=== PATIENT | female | born 1970 | race Caucasian/White ===

== ENCOUNTER 2016-08-28 09:26 | Outpatient (CLI) | payer OTHER ==
[~2016-08-28] VITALS: Ht 154.9 cm; Wt 48.2 kg
[~2016-08-28 09:26] MED LIST: FER325 PO
[2016-08-28 09:40] VITALS: BP 126/55; PULSE 68; RESP 16; Ht 154.9 cm; Wt 48.2 kg
[2016-08-28] MEDS ORDERED: DIPH25CA6 PO (09:59)
--- NOTE | 2016-08-28 11:04 | PN ---
Date/Time of Note Date/Time of Note DATE: 08/28/16 TIME: 10:55 Assessment/Plan Assessment/Plan Assessment/Plan [facility] Progress Note Date of Service: 08/28/2015 Today's Assessment & Plan: Overall stable and improved. Abd remains benign with a productive ileostomy. Feels and looks well with weight gain. Skin around the ostomy appears healthy. Reported new pain near ostomy needs further evaluation with CT scan and lab ( ordered). Please note that her clinical picture is complex and she and the rest of her family require continued dedicated physician oversight in order to manage the familial cancer issues, and the complexity of life after the kind of operation she has had. Despite the excellent care that our physician assistants can render her, I recommend that she remains under close observance of a dedicated internal medicine/family practice physician who would be involved in her care care home. I also explained to the patient and family clearly that my office is not equipped to take care of her medical needs beyond what surgical care she has received. This includes ordering supplies for her ostomy (should be done through her primary care's office), as well as further disability forms (out enough from her operation that further disability from her clinical condition becomes responsibility of her primary care team). I believe that the patient and family appeared to understand and agreed with the plan. With above assessment, I've recommended the following for today: 1. CT abd/pelvis with IV and oral contrast with labs 2. F/u with us after above 3. F/u with PCP Thank you again for your great care of this very pleasant young lady and her wonderful family. If there are any questions, please feel free to call me at . TOTAL VISIT TIME: 20 minutes of which more than half was spent in [id number] discussion with the patient as well as coordination of care between multiple physicians and providers. Disclaimer: Inadvertent spelling and grammatical errors are likely due to EHR/ dictation software use and do not reflect on the quality of delivered patient care. Also, please note that the electronic time recorded on this node does not necessarily reflect the actual time of the visit. Updated Clinical Summary: A very-pleasant 45-year-old otherwise healthy young lady with strong family history of colon cancer in 2 brothers, 1 sister, and his father who from advanced colon cancer, who was admitted to [facility] through ED on 11/09/2015 with signs and symptoms consistent with colon malignancy, metachronous in 2 places, one as a polyp in the rectum and one as a large mass in the ascending colon. D/c home 11/17/2015. 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 Plan was for total proctocolectomy with ileoanal pull through and colostomy. Readmitted through [facility] ED on 01/24/[address] of the abdomen and pelvis showed no evidence of metastatic disease and perhaps slight growth in the RUQ mass without evidence of perforation or free air. S/p total proctocolectomy with ileoanal pouch and colostomy with Dr. Bruno Marx and myself 01/30/16 with finding of multifocal CR malignancy. Hemoglobin dropped and slight tachycardia with fever postop day 1 and [address] scan 02/02/2016 that showed expected postoperative changes without any obvious intra-abdominal hemorrhage. Final path: Adenocarcinoma, moderately well-differentiated, with focal mucinous differentiation, ascending colon, 14.0 cm in maximum diameter, penetrating deeply into muscularis propria. Adenocarcinoma, moderately differentiated, rectum, 1.6 cm in maximum diameter, penetrating into muscularis propria. Proximal ileal, distal colon and pericolic/mesenteric margins are clear of tumor. Thirty-one lymph nodes are negative for metastatic carcinoma (0/ 31). Stage T2,N0,M0. Drain DC'd at bedside 02/13/2016. DC home 02/15/2016 with one visit to the emergency room at [facility] for slight blood in the colostomy back to same day right after discharge. Readmitted to [facility] 02/17/2016 for nausea vomiting and abdominal pain. D/c home 02/20/16. Readmitted from [facility] on 02/29/2016 for concerns for dehydration. D/c home 03/03/16. S/p ileostomy takedown 05/14/16. 05/21/16 small bowel follow through showed passage of contrast to pouch. Patient did vomit right after taking in the contrast. CT with IV/oral contrast 05/21/16 showed surgical changes seen from an ileostomy takedown with ileoanal anastomosis and surgical changes in the presacral fat. Less fat stranding inflammation from prior exam. There was diffuse dilatation of the small bowel present and there was thickening and narrowing at the anastomosis suggestive for obstruction which may be complete or partial. Skin defects seen in the area of the prior ileostomy. Mild intraperitoneal free fluid was seen with mild fat stranding within the right hemiabdomen. There were areas of loculated fluid present within the right abdomen in the area of prior ostomy. Small abscesses could not be excluded. The largest measured 2.7 x 1.6 cm. Patient will need to have a study from below to see if there is an obstruction at the pouch level or at the point of recent anastomosis. CT with rectal contrast 05/25/16 showed obstruction to rectal contrast approximately 15 cm above the anus indicating a stricture at this site. S/p attempt at pouch revision with permanent ileostomy as the end result 06/04/16. Please see note on 06/06/16 for detailed description of the 90 min family meeting. Repeat CT scan 06/17/2016 with oral contrast showed no evidence of bowel obstruction or abscess or leak. Lipase was slightly elevated. Sig improvement on all fronts after broad spec antimicrobials and hydration. D/c delayed due to macerated skin around ostomy site. D/c home 06/29/16. Subjective: No major events or complaints other than relatively new discomfort that has returned around her ostomy site; - n; - v; + bowel activity; + physical activity. Gained weight. Appetite is improved. Objective: Vitals: See below Exam: GENERAL: On exam, the patient was sitting in a chair and appeared to be comfortable and in no acute distress, eyes open and interactive with the examiner; mood is good. Smiling. Looks much healthier than before; perhaps gaining weight too fast. BMI 20.1. ABDOMEN: Soft, non-tender to palpation and incision site c/d/i w/o obvious underlying e/e/d/h. Non-distended. There are no peritoneal signs or guarding. Ostomy with viable color. Bilious fluid in the bag. Skin excoriation and erythema around the ostomy at the site of the ostomy bag essentially all improved. SKIN: Skin appears to be pink and feels warm to touch. NEUROLOGIC: Patient is awake, alert, and follows commands appropriately Exam/Review of Systems Vital Signs Vitals Vital Signs Date Time Temp Pulse Resp B/P Pulse Ox O2 Delivery O2 Flow Rate FiO2 08/28/16 09:40 98.8 68 16 126/55 100 Room Air CHRISTI ANDERSON M.D. Aug 28, 2016 11:04
== END 2016-08-28 17:00 | disposition home or self-care (01) ==
LOC: HPC 09:26
PROVIDERS: ATTEND Transplant Surgery
DX: Z48.815 Encounter for surgical aftercare following surgery on the digestive system (principal); R10.9 Unspecified abdominal pain; Z85.038 Personal history of other malignant neoplasm of large intestine
CPT/HCPCS: G0463

== ENCOUNTER 2016-09-11 13:28 | Outpatient (CLI) | payer OTHER ==
[~2016-09-11] VITALS: Ht 154.9 cm; Wt 50.9 kg
[~2016-09-11 13:28] MED LIST changes: +DIPH25CA6 PO
[2016-09-11 13:35] VITALS: BP 123/56; PULSE 75; RESP 16; Ht 154.9 cm; Wt 50.9 kg
--- NOTE | 2016-09-11 15:02 | PN ---
Date/Time of Note Date/Time of Note DATE: 09/11/16 TIME: 14:24 Assessment/Plan Assessment/Plan Assessment/Plan [facility] Progress Note Date of Service: 09/11/2015 Today's Assessment & Plan: Overall stable and improved. Abd remains benign with a productive and viable ileostomy. Feels and looks well with weight gain. Skin around the ostomy appears healthy. New CT very encouraging: no evidence of malignancy; no parastomal hernia; no surgical issues. Cleared from my standpoint to continue with oncology and primary care. Left neck needs to be imaged and worked up since it is a new mass. May also benefit from Spinner Operator eval for sexual discomfort complaints. Finally, very important for the family to be in the radar of a team of MD's who can manage hereditary colon malignancies. I believe that the patient and family appeared to understand and agreed with the plan. With above assessment, I've recommended the following for today: 1. F/u with Dr. Bony Eddy (oncology) 2. L neck mass evaluation 3. Family connection to team of physicians with expertise and interest in hereditary colon malignancies 4. F/u with us prn 5. F/u with PCP Thank you again for your great care of this very pleasant young lady and her wonderful family. If there are any questions, please feel free to call me at . TOTAL VISIT TIME: 20 minutes of which more than half was spent in [id number] discussion with the patient as well as coordination of care between multiple physicians and providers. Disclaimer: Inadvertent spelling and grammatical errors are likely due to EHR/ dictation software use and do not reflect on the quality of delivered patient care. Also, please note that the electronic time recorded on this node does not necessarily reflect the actual time of the visit. Updated Clinical Summary: A very-pleasant 45-year-old otherwise healthy young lady with strong family history of colon cancer in 2 brothers, 1 sister, and his father who from advanced colon cancer, who was admitted to [facility] through ED on 11/09/2015 with signs and symptoms consistent with colon malignancy, metachronous in 2 places, one as a polyp in the rectum and one as a large mass in the ascending colon. D/c home 11/17/2015. 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 Plan was for total proctocolectomy with ileoanal pull through and colostomy. Readmitted through [facility] ED on 01/24/[address] of the abdomen and pelvis showed no evidence of metastatic disease and perhaps slight growth in the RUQ mass without evidence of perforation or free air. S/p total proctocolectomy with ileoanal pouch and colostomy with Dr. Bruno Marx and myself 01/30/16 with finding of multifocal CR malignancy. Hemoglobin dropped and slight tachycardia with fever postop day 1 and [address] scan 02/02/2016 that showed expected postoperative changes without any obvious intra-abdominal hemorrhage. Final path: Adenocarcinoma, moderately well-differentiated, with focal mucinous differentiation, ascending colon, 14.0 cm in maximum diameter, penetrating deeply into muscularis propria. Adenocarcinoma, moderately differentiated, rectum, 1.6 cm in maximum diameter, penetrating into muscularis propria. Proximal ileal, distal colon and pericolic/mesenteric margins are clear of tumor. Thirty-one lymph nodes are negative for metastatic carcinoma (0/ 31). Stage T2,N0,M0. Drain DC'd at bedside 02/13/2016. DC home 02/15/2016 with one visit to the emergency room at [facility] for slight blood in the colostomy back to same day right after discharge. Readmitted to [facility] 02/17/2016 for nausea vomiting and abdominal pain. D/c home 02/20/16. [facility]2016 for concerns for dehydration. D/c home 03/03/16. S/p ileostomy takedown 05/14/16. 05/21/16 small bowel follow through showed passage of contrast to pouch. Patient did vomit right after taking in the contrast. CT with IV/oral contrast 05/21/16 showed surgical changes seen from an ileostomy takedown with ileoanal anastomosis and surgical changes in the presacral fat. Less fat stranding inflammation from prior exam. There was diffuse dilatation of the small bowel present and there was thickening and narrowing at the anastomosis suggestive for obstruction which may be complete or partial. Skin defects seen in the area of the prior ileostomy. Mild intraperitoneal free fluid was seen with mild fat stranding within the right hemiabdomen. There were areas of loculated fluid present within the right abdomen in the area of prior ostomy. Small abscesses could not be excluded. The largest measured 2.7 x 1.6 cm. Patient will need to have a study from below to see if there is an obstruction at the pouch level or at the point of recent anastomosis. CT with rectal contrast 05/25/16 showed obstruction to rectal contrast approximately 15 cm above the anus indicating a stricture at this site. S/p attempt at pouch revision with permanent ileostomy as the end result 06/04/16. Please see note on 06/06/16 for detailed description of the 90 min family meeting. Repeat CT scan 06/17/2016 with oral contrast showed no evidence of bowel obstruction or abscess or leak. Lipase was slightly elevated. Sig improvement on all fronts after broad spec antimicrobials and hydration. D/c delayed due to macerated skin around ostomy site. D/c home 06/29/16. Repeat CT 09/04/16: no evidence of malignancy; no parastomal hernia; no surgical issues. Subjective: No major events or complaints other than relatively stable discomfort around her ostomy site; - n; - v; + bowel activity; + physical activity. Appetite is good. New Left neck mass. Some discomfort with sexual activity. Objective: Vitals: See below Exam: GENERAL: On exam, the patient was sitting in a chair and appeared to be comfortable and in no acute distress, eyes open and interactive with the examiner; mood is good. Smiling. Looks good. BMI 21.2 (previously 20.1). Left neck with a 1.5 cm mass in the submandibular space. Minimally tender to palpation. Skin around is not erythematous. ABDOMEN: Soft, non-tender to palpation and incision site c/d/i w/o obvious underlying e/e/d/h. Non-distended. There are no peritoneal signs or guarding. Ostomy with viable color. Bilious fluid in the bag. No skin excoriation and erythema around the ostomy at the site of the ostomy bag. SKIN: Skin appears to be pink and feels warm to touch. NEUROLOGIC: Patient is awake, alert, and follows commands appropriately Exam/Review of Systems Vital Signs Vitals Vital Signs Date Time Temp Pulse Resp B/P Pulse Ox O2 Delivery O2 Flow Rate FiO2 09/11/16 13:35 98.3 75 16 123/56 100 Room Air CHRISTI ANDERSON M.D. Sep 11, 2016 15:02
== END 2016-09-11 16:46 | disposition home or self-care (01) ==
LOC: HPC 13:28
PROVIDERS: ATTEND Transplant Surgery
DX: C18.9 Malignant neoplasm of colon, unspecified (principal); Z80.0 Family history of malignant neoplasm of digestive organs
CPT/HCPCS: G0463

== ENCOUNTER 2017-01-12 19:24 | Emergency (ER) | payer OTHER ==
[~2017-01-12] VITALS: Ht 152.4 cm; Wt 64.0 kg
[2017-01-12 19:33] VITALS: Ht 152.4 cm; Wt 64.0 kg
[2017-01-12] MEDS ORDERED: ONDANSETRON 4 MG INJ IV STA ×2 (21:20→23:26)
[2017-01-12] MEDS ORDERED: morphine 4 MG/ML VIAL IV STA ×2 (21:20→23:26)
[2017-01-12 22:03] LABS: ADD SCAN DIFF NO
[2017-01-12 22:06] LABS: BASOPHILS % 0.4 % (0.0-2.0); EOSINOPHILS # 0.2 10^3/ul (0.0-0.5); EOSINOPHILS % 2.3 % (0.0-7.0); HEMATOCRIT 36.4 % (37.0-47.0); HEMOGLOBIN 12.1 g/dl (12.0-16.0); LYMPHOCYTES # 3.1 10^3/ul (0.8-2.9); LYMPHOCYTES % 34.1 % (15.0-51.0); MEAN CORPUSCULAR HEMOGLOBIN 31.2 pg (29.0-33.0); MEAN CORPUSCULAR HGB CONC 33.2 g/dl (32.0-37.0); MEAN CORPUSCULAR VOLUME 93.8 fl (82.0-101.0); MEAN PLATELET VOLUME 9.9 fl (7.4-10.4); MONOCYTE # 0.5 10^3/ul (0.3-0.9); MONOCYTES % 5.2 % (0.0-11.0); NEUTROPHIL # 5.1 10^3/ul (1.6-7.5); NEUTROPHILS % 56.8 % (39.0-77.0); PLATELET COUNT 315 10^3/UL (140-415); RED BLOOD COUNT 3.88 10^6/ul (4.20-5.40); RED CELL DISTRIBUTION WIDTH 11.9 % (11.5-14.5)
[2017-01-12 22:08] LABS: ADD UMIC YES; URINE BILIRUBIN (Dip) 1+ (NEGATIVE); URINE BLOOD (Dip) 3+ (NEGATIVE); URINE COLOR BROWN (YELLOW); URINE GLUCOSE (Dip) NEGATIVE (NEGATIVE); URINE KETONES (Dip) NEGATIVE (NEGATIVE); URINE LEUKOCYTE ESTERASE (Dip) TRACE (NEGATIVE); URINE NITRITE (Dip) NEGATIVE (NEGATIVE); URINE TOTAL PROTEIN (Dip) 2+ (NEGATIVE); URINE UROBILINOGEN (Dip) 0.2 E.U./dL (0.1-1.0)
[2017-01-12 22:17] LABS: ICTOTEST NEGATIVE (NEGATIVE)
[2017-01-12 22:18] LABS: URINE RBCS >200 /HPF (0)
[2017-01-12 22:19] LABS: BACTERIA,URINE FEW
[2017-01-12 22:20] LABS: ALBUMIN 4.7 g/dl (3.3-4.9)
[2017-01-12 22:21] LABS: POTASSIUM 4.2 mmol/L (3.5-5.1)
[2017-01-12 22:23] LABS: ALBUMIN/GLOBULIN RATIO 1.14; BILIRUBIN,INDIRECT 0.2 mg/dl (0-1.1); BILIRUBIN,TOTAL 0.2 mg/dl (0.2-1.3); CREATININE 0.79 mg/dl (0.44-1.00); TOTAL PROTEIN 8.8 g/dl (6.1-8.1)
[2017-01-12 22:24] LABS: CALCIUM 9.7 mg/dl (8.4-10.2)
--- NOTE | 2017-01-13 00:14 | RADRPT ---
PROCEDURE: CT abdomen and pelvis without intravenous contrast. CLINICAL INDICATION: Pain. TECHNIQUE: CT of the abdomen/pelvis was performed utilizing axial images with reconstructions in s agittal and coronal planes. The administered radiation dose is CTDI 10.5 mGy, DLP 603 mGy-cm. COMPARISON: 06/17/2016 FINDINGS: Visualized Chest: The visualized lung bases are clear. Abdomen: The spleen, pancreas, gallbladder,and adrenal glands are unremarkable. The liver is markedly, dif fusely decreased in attenuation, compatible with hepatic steatosis. There is mild left hydronephrosis secondary to a 2-3 mm calculus in the proximal left ureter. The r ight kidney is without hydronephrosis. Multiple calculi are seen within the lower pole of the right kidney, including a larger staghorn calculus which measures up to 16 mm and a few small calculi. T hese are new compared to the prior exam. Prior partial resection of the colon is noted with right lower quadrant ileostomy formation. There is no evidence of bowel obstruction. There is no evidence of intra-abdominal adenopathy or free fluid. Pelvis: There is no evidence of pelvic adenopathy. The uterus and ovaries are without enlargement. The uri nary bladder is unremarkable. There is no pelvic free fluid. Osseous structures: Unremarkable. IMPRESSION: Mild left-sided obstructive uropathy secondary to a to a 3 mm calculus in the proximal left ureter. Right nephrolithiasis including a staghorn calculus at the lower pole. Marked hepatic steatosis. RPTAT: HIKT .Nadeem Tenorio MD, MD Date Time Electronically viewed and signed by .Nadeem Tenorio MD, on 01/13/2017 00:13 .T/
[2017-01-13] MEDS ORDERED: IBUP800T25 PO (00:31)
[2017-01-13] MEDS ORDERED: KETOROLAC 30 MG INJ IV STA (00:48)
[2017-01-13 01:00] VITALS: BP 162/88; PULSE 84; RESP 20; TEMP 99
--- NOTE | 2017-01-13 01:26 | ERD ---
ER Documentation Chief Complaint Date/Time DATE: 01/13/17 TIME: 01:09 Chief Complaint Right flank pain 1 month HPI 46-year-old female complaining of left flank pain 2 weeks. Patient stated that she had hematuria and slight dysuria for the last 2 weeks as well. The pain is sharp, comes and goes. Patient has history of colon cancer, had colon resection surgery and colostomy bag 1 year ago. In the last month, she has noticed blood in the colostomy bag daily. She does not have any blood currently. She is not under any cancer treatment at this time, her last oncology appointment was 3-4 months ago. She is in the process of changing her oncologist. Patient reports nausea but no vomiting. Denies fever or chills. Denies recent weight loss. ROS All systems reviewed and are negative except as per history of present illness. Medications Home Meds Active Scripts Ibuprofen* (Motrin*) 800 Mg Tab, 800 MG PO Q6H Y for PAIN AND OR ELEVATED TEMP, #30 TAB Prov:DOROTHY LOVE ARSON AND BOMB INVESTIGATOR 01/13/17 Ferrous Sulfate* (Ferrous Sulfate*) 325 Mg Tabec, 325 MG PO TID for 30 Days, TAB 3 Refills Prov:RONEL FRIAS S. 02/15/16 Reported Medications Diphenhydramine Hcl* (Diphenhydramine Hcl*) 25 Mg Capsule, 25 MG PO Q6 Y for ITCHING, CAP 08/28/16 Allergies Allergies: Coded Allergies: No Known Drug Allergies (Verified Allergy, Unknown, 05/14/16) PMhx/Soc History of Surgery: Yes (S/P REPEAT EXPLORATORY LAPAROTOMY) Anesthesia Reaction: No Hx Neurological Disorder: No Hx Respiratory Disorders: No Hx Cardiac Disorders: No Hx Psychiatric Problems: No Hx Miscellaneous Medical Probl: Yes (refer to note) Hx Alcohol Use: No Hx Substance Use: No Hx Tobacco Use: No Smoking Status: Never smoker Physical Exam Vitals Vital Signs Date Time Temp Pulse Resp B/P Pulse Ox O2 Delivery O2 Flow Rate FiO2 01/13/17 01:00 99.0 84 20 162/88 97 Room Air 01/12/17 19:33 99.4 82 20 136/86 97 Physical Exam General: Well-developed, well-nourished, conscious and coherent, in no distress Skin: Warm and dry without rash, good texture and turgor Head: Normocephalic without evidence of trauma Eyes: Sclera and conjunctivae normal; pupils equal, round, and reactive to light; extraocular movements are intact Neck: Supple without meningismus or adenopathy. Carotids are equal. Trachea midline. No bruits or JVD Chest: Normal AP diameter. Good expansion without retractions. Nontender. Lungs are clear to auscultate bilaterally with good tidal volume Heart: Regular rate and rhythm. No murmur, rub, or gallops heard Abdomen: Soft and nontender without masses, guarding, or rebound. Bowel sounds are active. No hepatosplenomegaly Back: Without spinal tenderness. Positive left CVA tenderness Pelvis: Nontender to palpation and stable to compression Extremities: Full range of motion. Good strength bilaterally. No clubbing, cyanosis, or edema. Peripheral pulses are intact. Sensation intact Neuro: Alert and oriented 4, GCS 15. Cranial nerves grossly intact. Motor and sensory exams nonfocal. Moves all extremities. Speech clear. Gait normal Result Diagram: 01/12/17214501/12/176 Results 24 hrs Laboratory Tests Test 01/12/17 21:46 White Blood Count 9.010^3/ul Red Blood Count 3.8810^6/ul Hemoglobin 12.1g/dl Hematocrit 36.4% Mean Corpuscular Volume 93.8fl Mean Corpuscular Hemoglobin 31.2pg Mean Corpuscular Hemoglobin Concent 33.2g/dl Red Cell Distribution Width 11.9% Platelet Count 37348^3/UL Mean Platelet Volume 9.9fl Neutrophils % 56.8% Lymphocytes % 34.1% Monocytes % 5.2% Eosinophils % 2.3% Basophils % 0.4% Nucleated Red Blood Cells % 0.0/100WBC Neutrophils # 5.110^3/ul Lymphocytes # 3.110^3/ul Monocytes # 0.510^3/ul Eosinophils # 0.210^3/ul Basophils # 0.010^3/ul Nucleated Red Blood Cells # 0.010^3/ul Urine Color BROWN Urine Clarity CLOUDY Urine pH 5.0 Urine Specific [place] >=1.030 Urine Ketones NEGATIVE Urine Nitrite NEGATIVE Urine Bilirubin 1+ Urine Ictotest NEGATIVE Urine Urobilinogen 0.2 E.U./dL Urine Leukocyte Esterase TRACE Urine Microscopic RBC >200/HPF Urine Microscopic WBC 5-10/HPF Urine Bacteria FEW Urine Hemoglobin 3+ Urine Glucose NEGATIVE% Urine Total Protein 2+ Urine Test NEGATIVE Sodium Level 139mmol/L Potassium Level 4.2mmol/L Chloride Level 100mmol/L Carbon Dioxide Level 24mmol/L Anion Gap 19 Blood Urea Nitrogen 19mg/dl Creatinine 0.79mg/dl Glucose Level 101mg/dl Calcium Level 9.7mg/dl Total Bilirubin 0.2mg/dl Direct Bilirubin 0.00mg/dl Indirect Bilirubin 0.2mg/dl Aspartate Amino Transf (AST/SGOT) 96IU/L Alanine Aminotransferase (ALT/SGPT) 179IU/L Alkaline Phosphatase 133IU/L Total Protein 8.8g/dl Albumin 4.7g/dl Globulin 4.10g/dl Albumin/Globulin Ratio 1.14 Lipase 109U/L Current Medications Medications (Trade) Dose Ordered Sig/Cony Route PRN Reason Start Time Stop Time Status Last Admin Dose Admin Morphine Sulfate (morphine) 4 mg ONCE STAT IV 01/12/17 21:20 01/12/17 21:22 DC 01/12/17 21:34 Ondansetron HCl (Zofran Inj) 4 mg ONCE STAT IV 01/12/17 21:20 01/12/17 21:22 DC 01/12/17 21:34 Morphine Sulfate (morphine) 4 mg ONCE STAT IV 01/12/17 23:26 01/12/17 23:28 DC 01/12/17 23:36 Ondansetron HCl (Zofran Inj) 4 mg ONCE STAT IV 01/12/17 23:26 01/12/17 23:28 DC 01/12/17 23:36 Ketorolac Tromethamine (Toradol) 30 mg ONCE STAT IV 01/13/17 00:48 01/13/17 00:49 DC 01/13/17 00:59 PROCEDURE: CT abdomen and pelvis without intravenous contrast. CLINICAL INDICATION: Pain. TECHNIQUE: CT of the abdomen/pelvis was performed utilizing axial images with reconstructions in sagittal and coronal planes. The administered radiation dose is CTDI 10.5 mGy, DLP 603 mGy-cm. COMPARISON: 06/17/2016 FINDINGS: Visualized Chest: The visualized lung bases are clear. Abdomen: The spleen, pancreas, gallbladder,and adrenal glands are unremarkable. The liver is markedly, diffusely decreased in attenuation, compatible with hepatic steatosis. There is mild left hydronephrosis secondary to a 2-3 mm calculus in the proximal left ureter. The right kidney is without hydronephrosis. Multiple calculi are seen within the lower pole of the right kidney, including a larger staghorn calculus which measures up to 16 mm and a few small calculi. These are new compared to the prior exam. Prior partial resection of the colon is noted with right lower quadrant ileostomy formation. There is no evidence of bowel obstruction. There is no evidence of intra-abdominal adenopathy or free fluid. Pelvis: There is no evidence of pelvic adenopathy. The uterus and ovaries are without enlargement. The urinary bladder is unremarkable. There is no pelvic free fluid. Osseous structures: Unremarkable. IMPRESSION: Mild left-sided obstructive uropathy secondary to a to a 3 mm calculus in the proximal left ureter. Right nephrolithiasis including a staghorn calculus at the lower pole. Marked hepatic steatosis. RPTAT: HIKT .Nadeem Tenorio MD, MD Date Time Electronically viewed and signed by .Nadeem Tenorio MD, MD on 01/13/2017 00:13 .T/ CC: DOROTHY LOVE. ARSON AND BOMB INVESTIGATOR Procedures/MDM 46-year-old female presented ED with left flank pain and hematuria 2 weeks. Patient was given morphine and Zofran in the ED for pain and nausea. CBC was unremarkable. CMP showed elevated LFT with normal bilirubin. Lipase is normal. UA has trace leukocyte, negative nitrite, few bacteria; 3+ hemoglobin. CT abdomen and pelvis without IV contrast was obtained. CT showed mild left-sided obstructive uropathy secondary to a 3 mm calculus in the proximal left ureter, right renal left renal lithiasis including a staghorn calculus at the lower pole, markedly hepatic steatosis. I think likely the urolithiasis is because of patient's flank pain. Patient does have trace leukocyte in the urine, however I do not feel that she has UTI, as she does not have any classic UTI symptoms. The trace leukocyte in urine is likely due to [id number]. I doubt pyelonephritis or renal abscess. I discussed patient with Dr. Salamanca. Patient is elevated liver function and blood in the stool is likely due to her colon cancer. I advised patient to follow-up with her oncologist. Patient also advised to increase fluid intake, and follow-up with a urologist for her urolithiasis. Patient appears well, stable for discharge and outpatient management. Medical decision making shared with patient and family. Education provided to patient and family. Patient and family expressed understanding of the plan. Medications on discharge: Ibuprofen. Follow-up: Primary care provider in 2-3 days or return to ED if worse. Departure Diagnosis: Primary Impression: Kidney stones Condition: Stable Patient Instructions: Kidney Stone W/ Colic Additional Instructions: Llame al doctor MAANA y gwendolyn divine ODALYS PARA DENTRO DE 2-3 ANN.Dgale a la secretaria que nosotros le instruimos hacer esta odalys.Avise o llame si lamas condicin se empeora antes de la odalys. Regresa aqui si peor o no mejor. Specialist:Usted tiene divine condicin mdica que requiere que mario a un especialista dentro de los prximos 1-2 romeo.POR FAVOR,CON LAMAS SEGUIMIENTO DE PRIMARIA PHSICIAN refferal. SI USTED NO TIENE UN MDICO GENERAL Y / O USTED NO PUEDE PAGAR celena a un mdico,los siguientes estrella RECURSOS sido suministrado a usted. ES LAMAS RESPONSABILIDAD PARA SER VISTOS POR EL ESPECIALISTA: DOROTHY LOVE NP January 13, 2017 01:26
== END 2017-01-13 01:06 | disposition home or self-care (01) ==
LOC: FTE 19:24
DX: N20.0 Calculus of kidney (principal); R11.0 Nausea; Z85.038 Personal history of other malignant neoplasm of large intestine
CPT/HCPCS: 74176; 80053; 81001; 81003; 83690; 84703; 85025; J1885; J2270; J2405; 36415; 96374; 96375; 96376

== ENCOUNTER 2017-03-17 18:56 | Emergency (ER) | payer OTHER ==
[~2017-03-17] VITALS: Ht 152.4 cm; Wt 64.0 kg
[~2017-03-17 18:56] MED LIST changes: +IBUP800T25 PO
[2017-03-17 19:02] VITALS: Ht 152.4 cm; Wt 64.0 kg
[2017-03-17] MEDS ORDERED: ONDANSETRON 4 MG INJ IV SCH (22:30)
[2017-03-17] MEDS ORDERED: SOD CHLORIDE 0.9% 500 ML IV SCH (22:30)
[2017-03-17] MEDS: morphine 4 MG/ML VIAL IV SCH (23:00)
[2017-03-18 01:26] LABS: BASOPHILS % 0.3 % (0.0-2.0); EOSINOPHILS % 0.3 % (0.0-7.0); HEMATOCRIT 32.5 % (37.0-47.0); HEMOGLOBIN 11.5 g/dl (12.0-16.0); LYMPHOCYTES # 1.4 10^3/ul (0.8-2.9); LYMPHOCYTES % 12.4 % (15.0-51.0); MEAN CORPUSCULAR HEMOGLOBIN 31.8 pg (29.0-33.0); MEAN CORPUSCULAR HGB CONC 35.4 g/dl (32.0-37.0); MEAN CORPUSCULAR VOLUME 89.8 fl (82.0-101.0); MEAN PLATELET VOLUME 10.7 fl (7.4-10.4); MONOCYTE # 0.5 10^3/ul (0.3-0.9); NEUTROPHIL # 9.4 10^3/ul (1.6-7.5); NEUTROPHILS % 82.5 % (39.0-77.0); PLATELET COUNT 284 10^3/UL (140-415); RED BLOOD COUNT 3.62 10^6/ul (4.20-5.40); RED CELL DISTRIBUTION WIDTH 11.9 % (11.5-14.5); WHITE BLOOD COUNT 11.4 10^3/ul (4.8-10.8)
[2017-03-18] MEDS ORDERED: KETOROLAC 30 MG INJ IV SCH (01:30)
[2017-03-18] MEDS ORDERED: ONDANSETRON 4 MG INJ IV SCH (01:30)
[2017-03-18] MEDS ORDERED: morphine 4 MG/ML VIAL IV SCH (01:30)
[2017-03-18] MEDS: morphine 4 MG/ML VIAL IV SCH (01:34)
[2017-03-18 02:10] LABS: UR CLARITY SLIGHTLY CLOUDY (CLEAR); UR COLOR YELLOW (YELLOW); UR GLUCOSE (Dip) NEGATIVE (NEGATIVE); UR SPECIFIC GRAVITY (Dip) 1.012 (1.003-1.030); UR TOTAL PROTEIN (Dip) NEGATIVE (NEGATIVE)
[2017-03-18 02:11] LABS: ADD UMIC YES; UR BILIRUBIN (Dip) NEGATIVE (NEGATIVE); UR BLOOD (Dip) 2+ mg/dL (NEGATIVE); UR KETONES (Dip) NEGATIVE (NEGATIVE); UR LEUKOCYTE ESTERASE (Dip) NEGATIVE Leu/ul (NEGATIVE); UR NITRITE (Dip) NEGATIVE (NEGATIVE); UR RBC 39 /HPF (0-5); UR UROBILINOGEN (Dip) NEGATIVE (NEGATIVE)
[2017-03-18 02:28] LABS: ALBUMIN/GLOBULIN RATIO 1.51; BILIRUBIN,INDIRECT 0.3 mg/dl (0-1.1); BILIRUBIN,TOTAL 0.3 mg/dl (0.2-1.3); CALCIUM 10.3 mg/dl (8.4-10.2); CREATININE 0.72 mg/dl (0.44-1.00); POTASSIUM 4.5 mmol/L (3.5-5.1); TOTAL PROTEIN 8.3 g/dl (6.1-8.1)
--- NOTE | 2017-03-18 02:34 | ERD ---
ER Documentation Chief Complaint Date/Time DATE: 03/18/17 TIME: 02:33 Chief Complaint right flank pain x 1 day HPI 46-year-old female presents with right-sided flank pain that goes to her right upper quadrant over the past 2 days. She describes as achy pain, sharp, with associated nausea. She has not had any fevers or chills. No vomiting or diarrhea. Denies hematuria. ROS All systems reviewed and are negative except as per history of present illness. Medications Home Meds Active Scripts Hydrocodone/Acetaminophen ([place] 5-325 Tablet) 1 Each Tablet, 1 TAB PO Q6H Y for PAIN, #15 TAB Prov:MARILU CASTRO PA-C 03/18/17 Ibuprofen* (Motrin*) 600 Mg Tab, 600 MG PO Q6, #30 TAB Prov:MARILU CASTRO PA-C 03/18/17 Tamsulosin Hcl* (Flomax*) 0.4 Mg Cap.er.24h, 0.4 MG PO BID, #30 CAP Prov:MARILU CASTRO PA-C 03/18/17 Ibuprofen* (Motrin*) 800 Mg Tab, 800 MG PO Q6H Y for PAIN AND OR ELEVATED TEMP, #30 TAB Prov:DOROTHY LOVE LEAD DATA ENTRY OPERATOR 01/13/17 Ferrous Sulfate* (Ferrous Sulfate*) 325 Mg Tabec, 325 MG PO TID for 30 Days, TAB 3 Refills Prov:RONEL FRIAS 02/15/16 Reported Medications Diphenhydramine Hcl* (Diphenhydramine Hcl*) 25 Mg Capsule, 25 MG PO Q6 Y for ITCHING, CAP 08/28/16 Allergies Allergies: Coded Allergies: No Known Drug Allergies (Verified Allergy, Unknown, 03/17/17) PMhx/Soc History of Surgery: Yes (S/P REPEAT EXPLORATORY LAPAROTOMY) Anesthesia Reaction: No Hx Neurological Disorder: No Hx Respiratory Disorders: No Hx Cardiac Disorders: No Hx Psychiatric Problems: No Hx Miscellaneous Medical Probl: Yes (refer to note) Hx Alcohol Use: No Hx Substance Use: No Hx Tobacco Use: No Smoking Status: Never smoker Physical Exam Vitals Vital Signs Date Time Temp Pulse Resp B/P Pulse Ox O2 Delivery O2 Flow Rate FiO2 03/17/17 19:02 98.2 66 20 163/83 100 Physical Exam General: Well-developed, well-nourished. The patient appears in no acute distress. HEENT: Head is normocephalic, atraumatic. No scleral icterus. Neck: Supple. Nontender. Lungs: Clear to auscultation. Normal air movement. Heart: Regular rate and rhythm. S1 and S2 are normal. No murmurs, gallops, or rubs. Abdomen: Soft, no CVA tenderness, nontender, no masses, no rebound pain. Bowel sounds are normoactive. Negative Wheeler sign, no McBurney's tenderness Extremities: No clubbing or cyanosis. Normal pulses. Moving extremities x 4. No weakness. Neurologic: Alert and oriented 3. No focal deficits. Skin: Normal turgor. No rash or lesions. Result Diagram: 03/17/17224703/17/172247 Results 24 hrs Laboratory Tests Test 03/17/17 22:48 White Blood Count 11.410^3/ul Red Blood Count 3.6210^6/ul Hemoglobin 11.5g/dl Hematocrit 32.5% Mean Corpuscular Volume 89.8fl Mean Corpuscular Hemoglobin 31.8pg Mean Corpuscular Hemoglobin Concent 35.4g/dl Red Cell Distribution Width 11.9% Platelet Count 81279^3/UL Mean Platelet Volume 10.7fl Neutrophils % 82.5% Lymphocytes % 12.4% Monocytes % 4.0% Eosinophils % 0.3% Basophils % 0.3% Nucleated Red Blood Cells % 0.0/100WBC Neutrophils # 9.410^3/ul Lymphocytes # 1.410^3/ul Monocytes # 0.510^3/ul Eosinophils # 0.010^3/ul Basophils # 0.010^3/ul Nucleated Red Blood Cells # 0.010^3/ul Urine Color YELLOW Urine Clarity SLIGHTLY CLOUDY Urine pH 5.0 Urine Specific [place] 1.012 Urine Ketones NEGATIVEmg/dL Urine Nitrite NEGATIVEmg/dL Urine Bilirubin NEGATIVEmg/dL Urine Urobilinogen NEGATIVEmg/dL Urine Leukocyte Esterase NEGATIVELeu/ul Urine Microscopic RBC 39/HPF Urine Microscopic WBC 3/HPF Urine Calcium Oxalate Crystals FEW/HPF Urine Hemoglobin 2+mg/dL Urine Glucose NEGATIVEmg/dL Urine Total Protein NEGATIVEmg/dl Urine Test NEGATIVE Sodium Level 144mmol/L Potassium Level 4.5mmol/L Chloride Level 103mmol/L Carbon Dioxide Level 22mmol/L Anion Gap 24 Blood Urea Nitrogen 16mg/dl Creatinine 0.72mg/dl Glucose Level 115mg/dl Calcium Level 10.3mg/dl Total Bilirubin 0.3mg/dl Direct Bilirubin 0.00mg/dl Indirect Bilirubin 0.3mg/dl Aspartate Amino Transf (AST/SGOT) 116IU/L Alanine Aminotransferase (ALT/SGPT) 180IU/L Alkaline Phosphatase 109IU/L Total Protein 8.3g/dl Albumin 5.0g/dl Globulin 3.30g/dl Albumin/Globulin Ratio 1.51 Lipase 111U/L Current Medications Medications (Trade) Dose Ordered Sig/Cony Route PRN Reason Start Time Stop Time Status Last Admin Dose Admin Ondansetron HCl (Zofran Inj) 4 mg ONCE IV 03/17/17 22:30 03/18/17 22:29 03/17/17 23:00 Morphine Sulfate 4 mg 4 mg ONCE IV 03/17/17 22:30 03/18/17 22:29 03/18/17 01:34 Sodium Chloride (NS) 500 ml @ 500 mls/hr Q1H IV 03/17/17 22:30 03/17/17 23:29 DC 03/17/17 23:00 Ketorolac Tromethamine (Toradol) 30 mg ONCE IV 03/18/17 01:30 03/18/17 01:31 DC 03/18/17 01:35 Morphine Sulfate (morphine) 4 mg ONCE IV 03/18/17 01:30 03/18/17 01:31 DC 03/18/17 01:34 Ondansetron HCl (Zofran Inj) 4 mg ONCE IV 03/18/17 01:30 03/18/17 01:31 DC 03/18/17 01:35 Procedures/MDM ED course: Patient had an IV placed, blood and urine were obtained. She was given morphine 4 mg and Zofran 4 mg IV. She states that she continues to have pain, then was given Toradol 30 mg IV, Zofran 4 mg IV, with morphine additional 4 mg were given with a fluid bolus of normal saline half liter. 46-year-old female comes in with, history of kidney stones, history of colon CA with colostomy coming in with right-sided flank pain. Differential diagnosis includes kidney stone, pancreatitis cholelithiasis, cholecystitis, labs are unremarkable, there is evidence a hemoglobin the urine, likely indicative of kidney stones based on her history. Patient states he had this time will be signed out to Krystyna Guy PA-C. Departure Diagnosis: Primary Impression: Abdominal pain Condition: Good MARILU CASTRO PA-C Mar 18, 2017 02:34
[2017-03-18] MEDS ORDERED: HYDR-906 PO (02:51)
[2017-03-18] MEDS ORDERED: TAMS-14 PO (02:51)
[2017-03-18] MEDS ORDERED: IBUP-1542 PO (02:51)
--- NOTE | 2017-03-18 03:31 | RADRPT ---
PROCEDURE: CT Abdomen and pelvis with contrast CLINICAL INDICATION: Flank pain. Prior history of urolithiasis. TECHNIQUE: Spiral CT images through the abdomen and pelvis without administration of oral and duri ng administration of 100 cc of Omnipaque-300 contrast material. Multiplanar reconstructions. The t otal exam CTDI equals 8.65 mGy and the total exam DLP equals 468.6 mGy-cm. One or more of the follow ing dose reduction techniques were used: automated exposure control, adjustment of the mA and/or kV according to patient size, or use of iterative reconstruction technique. COMPARISON: 01/13/2017 FINDINGS: Slight atelectasis of the lung bases is seen. No pleural effusion is seen. . The aorta is normal in caliber. Again seen is marked diffuse hepatic steatosis and hepatomegaly. Focal fatty sparing adjacent to th e gallbladder and at the periphery of the right lobe of the liver is again seen. There is 8 mm focus of enhancement or possibly focal fatty sparing in the posterior segment of the right lobe of the li celena on axial image 27. This was not seen on the most recent prior contrast enhanced CT of 6. No other potential liver lesions are identified. The gallbladder is enlarged, measuring 10.1 cm in length. No gross wall thickening is seen. No biliary or pancreatic ductal dilatation. The adr enals and pancreas are unremarkable in appearance. Staghorn calculus in the right kidney extending into the right renal pelvis is unchanged. There is mild urothelial enhancement of the right renal p fabián but no hydronephrosis is seen. The left hydronephrosis seen previously is no longer seen. Th e previously seen left ureter stone is no longer seen. No stones are seen in the right ureter but there are several small stones layering in the right aspect of the urinary bladder, new compared wit h prior. . The uterus and adnexa are grossly unremarkable. Right lower quadrant ileostomy is again seen. An anastomotic suture line of small bowel is again seen. Air is seen in what is presumed to be the vagina displaced into the presacral space. There appears to have been prior total colectomy. No adenopathy or ascites is seen. No bony lesions are seen. IMPRESSION: Prior colectomy for colon neoplasm. Diffuse hepatic steatosis with areas of probable focal fatty sp aring. 8 mm focus of enhancement or possible focal fatty sparing in the posterior segment of the ri ght lobe of the liver was not seen on the to most recent prior CT studies. MRI with Eovist contrast is suggested to exclude metastasis. Previously seen left ureter stone no longer seen. Right renal staghorn calculus again seen with mil d associated urothelial enhancement. Several new small layering stones in the urinary bladder. RPTAT: HLBE Barb Frank, Physician Date Time Electronically viewed and signed by Barb Frank, Physician on 03/18/2017 03:30 LE/
[2017-03-18 03:58] VITALS: BP 111/59; PULSE 69; RESP 16; TEMP 98.2
[2017-03-19] MEDS ORDERED: SOD CHLORIDE 0.9% 100 ML ONE (18:01)
[2017-03-19] MEDS ORDERED: KETOROLAC 30 MG INJ ONE (18:01)
[2017-03-19] MEDS ORDERED: IOHEXOL 300MG/ML 150 ML BTL ONE (18:01)
== END 2017-03-18 03:59 | disposition home or self-care (01) ==
LOC: FTE 18:56
DX: R10.9 Unspecified abdominal pain (principal)
CPT/HCPCS: 74177; 80053; 81001; 83690; 84703; 85025; 96374; 96375; 96376; J7040; Z7502; J1885; J2270; J2405; Q9967

== ENCOUNTER 2017-05-01 12:30 | Inpatient (IN) | payer OTHER ==
[2017-04-30 12:17] VITALS: BMI 28.3
[~2017-05-01] VITALS: Ht 154.9 cm; Wt 59.0 kg
[2017-05-01] VITALS (13 sets, daily range): BP systolic 94–124; BP diastolic 57–78; PULSE 70–108; RESP 10–20; Ht 154.9 cm; Wt 59.0 kg
[2017-05-01] MEDS: D5-NS + KCL 20 MEQ 1,000 ML IV SCH ×2 (06:00→16:00)
[~2017-05-01 12:30] MED LIST changes: +ACETAMINOPHEN 1000 MG/100 ML IVPB ONE; +CEFAZOLIN 2 GM/50 ML (PMX) 50 ML IVPB SCH; +HYDR-906 PO; +IBUP-1542 PO; +Metronidazole 500 MG in NS 100 ML IVPB SCH; +TAMS-14 PO
[2017-05-01] MEDS ORDERED: PROPOFOL 20 ML ONE (13:29)
[2017-05-01] MEDS ORDERED: CEFAZOLIN 1 GM INJ ONE ×2 (13:29→20:33)
[2017-05-01] MEDS ORDERED: SUCCINYLCHOLINE CHLORIDE 100 MG/5 ML SYG IV ONE (13:29)
[2017-05-01] MEDS ORDERED: FENTAnyl 50 MCG/ML VIAL ONE ×2 (13:29→18:01)
[2017-05-01] MEDS ORDERED: LIDOCAINE 2% (SDV) 5 ML INJ ONE (13:29)
[2017-05-01] MEDS ORDERED: MIDAZOLAM 1 MG/ML 2 ML INJ ONE (13:29)
[2017-05-01] MEDS ORDERED: metroNIDAZOLE 500 MG/NS (PMX) 100 ML IVPB ONE (13:30)
[2017-05-01] MEDS ORDERED: OMEG-135 PO (13:54)
[2017-05-01] MEDS ORDERED: FER325 PO (13:55)
[2017-05-01] MEDS ORDERED: ALLO100T PO (13:55)
[2017-05-01] MEDS ORDERED: SERT50TA6 PO (13:57)
[2017-05-01] MEDS ORDERED: GEMF600T60 PO (13:57)
[2017-05-01 15:12] LABS: ADD UMIC YES; UR ASCORBIC ACID NEGATIVE (NEGATIVE); UR BILIRUBIN (Dip) NEGATIVE (NEGATIVE); UR BLOOD (Dip) 2+ mg/dL (NEGATIVE); UR CLARITY SLIGHTLY CLOUDY (CLEAR); UR COLOR YELLOW (YELLOW); UR GLUCOSE (Dip) NEGATIVE (NEGATIVE); UR KETONES (Dip) TRACE mg/dL (NEGATIVE); UR LEUKOCYTE ESTERASE (Dip) 1+ Leu/ul (NEGATIVE); UR NITRITE (Dip) NEGATIVE (NEGATIVE); UR RBC 5 /HPF (0-5); UR SPECIFIC GRAVITY (Dip) 1.024 (1.003-1.030); UR SQUAMOUS EPITHELIAL CELL FEW /HPF (FEW); UR TOTAL PROTEIN (Dip) 1+ mg/dl (NEGATIVE); UR UROBILINOGEN (Dip) NEGATIVE (NEGATIVE)
[2017-05-01 15:13] LABS: UR BACTERIA FEW /HPF (NONE SEEN); UR MUCUS FEW /HPF (NONE SEEN)
[2017-05-01] MEDS ORDERED: METHYLENE BLUE 1% 10 ML INJ ONE (15:13)
[2017-05-01] MEDS ORDERED: VASOPRESSIN 20 UNITS INJ ONE (15:13)
[2017-05-01] MEDS ORDERED: THROMBIN 5000 UNIT VIAL ONE (15:13)
--- NOTE | 2017-05-01 15:47 | HPN ---
Date/Time of Note Date/Time of Note DATE: 05/01/17 TIME: 15:47 Interval H&P Admission Note Pt. seen H&P reviewed: No system changes HELEN FULTON MD May 01, 2017 15:47
[2017-05-01] MEDS ORDERED: morphine SULFATE/PF (10 MG/10 ML) INJ ONE (15:58)
[2017-05-01] MEDS ORDERED: ROCURONIUM 50 MG INJ ONE ×2 (16:31→19:07)
[2017-05-01] MEDS ORDERED: METOCLOPRAMIDE 10 MG INJ ONE (16:32)
[2017-05-01] MEDS ORDERED: ONDANSETRON 4 MG INJ ONE ×2 (16:32→22:34)
[2017-05-01] MEDS ORDERED: DEXAMETHASONE 4 MG/ML 1 ML INJ ONE (16:32)
[2017-05-01] MEDS ORDERED: FENTAnyl 50 MCG/ML VIAL IV PRN (19:30)
[2017-05-01] MEDS ORDERED: DIPHENHYDRAMINE 50 MG INJ IV PRN (19:30)
[2017-05-01] MEDS ORDERED: MEPERIDINE 25 MG INJ IV PRN (19:30)
[2017-05-01] MEDS ORDERED: HYDROmorphONE (0.2 MG/ML) 10ML SYG IV PRN ×2 (19:30)
[2017-05-01] MEDS ORDERED: PROCHLORPERAZINE 10 MG INJ IV PRN (19:30)
[2017-05-01] MEDS ORDERED: ONDANSETRON 4 MG INJ IV PRN (19:30)
[2017-05-01] MEDS ORDERED: SUGAMMADEX SODIUM 200 MG/2 ML VIAL IV ONE (22:34)
[2017-05-01] MEDS: POTASSIUM CHLORIDE 20 MEQ in LACTATED RINGER'S 1,000 ML IV SCH (22:52)
[2017-05-01] MEDS ORDERED: POTASSIUM CHLORIDE 20 MEQ in LACTATED RINGER'S 1,000 ML IV SCH (22:52)
[2017-05-01] MEDS ORDERED: CEFAZOLIN 1 GM in SOD CHLORIDE 0.9% 100 ML IVPB SCH ×4 (23:00)
[2017-05-01] MEDS ORDERED: metroNIDAZOLE 500 MG/NS (PMX) 100 ML IVPB SCH (23:00)
--- NOTE | 2017-05-01 23:15 | OPPN ---
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
[2017-05-01] MEDS ORDERED: CEFAZOLIN 1 GM/50 ML (PMX) 50 ML IVPB SCH (23:30)
[2017-05-02] VITALS (24 sets, daily range): BP systolic 84–117; BP diastolic 50–68; PULSE 88–110; RESP 9–25
[2017-05-02] MEDS ORDERED: NALOXONE (0.4 MG/ML) INJ IV PRN
--- NOTE | 2017-05-02 00:15 | RADRPT ---
PROCEDURE: Portable chest x-ray. CLINICAL INDICATION: 46 years of age, female. NG placement. TECHNIQUE: Portable AP view of the chest. COMPARISON: None available. FINDINGS: There is an enteric tube with the tip over the gastric body. Cardiomediastinal contours are normal. Decreased lung volumes with mild bibasilar atelectasis. Negative for pleural effusion or pneumothorax. No acute bony abnormality. There are surgical angeles in the left upper quadrant of the abdomen. IMPRESSION: Enteric tube in good position. Mild bilateral dependent atelectasis. RPTAT: HCTS Physician Zeke Date Time Electronically viewed and signed by Physician Zeke on 05/02/2017 00:15 CS/
[2017-05-02] MEDS: metroNIDAZOLE 500 MG/NS (PMX) 100 ML IVPB SCH ×3 (00:21→15:01)
[2017-05-02] MEDS: HYDROmorphONE 1 MG/ML SYG IV PRN ×5 (00:22→15:39)
[2017-05-02 00:31] LABS: BASOPHILS % 0.1 % (0.0-2.0); HEMATOCRIT 35.2 % (37.0-47.0); HEMOGLOBIN 11.7 g/dl (12.0-16.0); MEAN CORPUSCULAR HEMOGLOBIN 29.5 pg (29.0-33.0); MEAN CORPUSCULAR HGB CONC 33.2 g/dl (32.0-37.0); MEAN CORPUSCULAR VOLUME 88.7 fl (82.0-101.0); MEAN PLATELET VOLUME 10.7 fl (7.4-10.4); MONOCYTE # 1.2 10^3/ul (0.3-0.9); MONOCYTES % 7.4 % (0.0-11.0); NEUTROPHILS % 86.3 % (39.0-77.0); PLATELET COUNT 298 10^3/UL (140-415); RED BLOOD COUNT 3.97 10^6/ul (4.20-5.40); RED CELL DISTRIBUTION WIDTH 14.3 % (11.5-14.5); WHITE BLOOD COUNT 16.5 10^3/ul (4.8-10.8)
[2017-05-02] MEDS: ACETAMINOPHEN 1000MG/100ML IV 100 ML IVPB SCH ×4 (00:41→18:20)
[2017-05-02 00:49] LABS: INR 1.05; PROTIME 13.7 Sec (12.2-14.2); PT RATIO 1.1
[2017-05-02 00:51] LABS: ALBUMIN 3.3 g/dl (3.3-4.9); ALBUMIN/GLOBULIN RATIO 1.22; BILIRUBIN,INDIRECT 1.2 mg/dl (0-1.1); BILIRUBIN,TOTAL 2.2 mg/dl (0.2-1.3)
[2017-05-02 00:52] LABS: POTASSIUM 4.4 mmol/L (3.5-5.1)
[2017-05-02 00:55] LABS: CALCIUM 8.2 mg/dl (8.4-10.2); CREATININE 1.17 mg/dl (0.44-1.00)
[2017-05-02 01:09] LABS: ADD UMIC YES; UR ASCORBIC ACID NEGATIVE (NEGATIVE); UR BILIRUBIN (Dip) NEGATIVE (NEGATIVE); UR BLOOD (Dip) 2+ mg/dL (NEGATIVE); UR CLARITY SLIGHTLY CLOUDY (CLEAR); UR COLOR AMBER (YELLOW); UR GLUCOSE (Dip) NEGATIVE (NEGATIVE); UR KETONES (Dip) NEGATIVE (NEGATIVE); UR LEUKOCYTE ESTERASE (Dip) NEGATIVE Leu/ul (NEGATIVE); UR NITRITE (Dip) NEGATIVE (NEGATIVE); UR RBC 8 /HPF (0-5); UR SPECIFIC GRAVITY (Dip) 1.025 (1.003-1.030); UR TOTAL PROTEIN (Dip) 1+ mg/dl (NEGATIVE); UR UROBILINOGEN (Dip) NEGATIVE (NEGATIVE)
[2017-05-02 05:10] LABS: BASOPHILS % 0.1 % (0.0-2.0); HEMATOCRIT 31.2 % (37.0-47.0); HEMOGLOBIN 10.5 g/dl (12.0-16.0); LYMPHOCYTES # 0.8 10^3/ul (0.8-2.9); LYMPHOCYTES % 5.7 % (15.0-51.0); MEAN CORPUSCULAR HEMOGLOBIN 29.9 pg (29.0-33.0); MEAN CORPUSCULAR HGB CONC 33.7 g/dl (32.0-37.0); MEAN CORPUSCULAR VOLUME 88.9 fl (82.0-101.0); MEAN PLATELET VOLUME 10.5 fl (7.4-10.4); MONOCYTES % 7.1 % (0.0-11.0); NEUTROPHILS % 86.9 % (39.0-77.0); PLATELET COUNT 215 10^3/UL (140-415); RED BLOOD COUNT 3.51 10^6/ul (4.20-5.40); RED CELL DISTRIBUTION WIDTH 14.9 % (11.5-14.5); WHITE BLOOD COUNT 14.3 10^3/ul (4.8-10.8)
[2017-05-02] MEDS: CEFAZOLIN 1 GM/50 ML (PMX) 50 ML IVPB SCH ×3 (05:30→20:44)
[2017-05-02] MEDS: POTASSIUM CHLORIDE 20 MEQ in LACTATED RINGER'S 1,000 ML IV SCH ×4 (05:36→21:45)
[2017-05-02 08:26] LABS: CALCIUM 8.3 mg/dl (8.4-10.2); CREATININE 1.14 mg/dl (0.44-1.00); POTASSIUM 4.6 mmol/L (3.5-5.1)
[2017-05-02] MEDS: FAMOTIDINE 20 MG INJ IV SCH (08:28)
[2017-05-02] MEDS: morphine 10 MG INJ SC PRN ×2 (17:32→20:44)
[2017-05-02] MEDS: ALBUMIN HUMAN 5% 250 ML IV SCH ×2 (17:34→18:39)
[2017-05-02 17:35] LABS: HEMATOCRIT 27.1 % (37.0-47.0); HEMOGLOBIN 9.1 g/dl (12.0-16.0)
[2017-05-02 17:49] LABS: INR 1.16; PROTIME 14.8 Sec (12.2-14.2); PT RATIO 1.2
--- NOTE | 2017-05-02 20:49 | PN ---
Date/Time of Note Date/Time of Note DATE: 05/02/17 TIME: 20:44 Assessment/Plan VTE Prophylaxis VTE Prophylaxis Intervention: SCD's Lines/Catheters IV Catheter Type (from Nrs): Saline Lock Urinary Cath still in place: Yes Reason Cath still needed: urinary retention Assessment/Plan Chief Complaint/Hosp Course Quan syndrome and impending SBO Problems: Assessment/Plan A- stable doing well P- maintain bowel rest and chg pain meds Subjective 24 Hr Interval Summary Free Text/Dictation incisional pain but suggestion of ostomy fct and only sero-sanguinous fluid in drain Exam/Review of Systems Vital Signs Vitals Vital Signs Date Time Temp Pulse Resp B/P Pulse Ox O2 Delivery O2 Flow Rate FiO2 05/02/17 19:10 99.5 78 18 106/55 99 05/02/17 04:00 Nasal Cannula 2.0 Intake and Output 05/01/17 05/01/17 05/02/17 15:00 23:00 07:00 Intake Total 700 ml 3100 ml Output Total 1745 ml Balance 700 ml 1355 ml Exam Resp - clear CVS- NSR Abd- clean mildly tender Ext - NT Results Result Diagram: 05/02/17 1722 05/02/17 0449 Results 24 hrs Laboratory Tests Test 05/02/17 00:15 05/02/17 00:19 05/02/17 04:49 05/02/17 04:51 Urine Color TONY Urine Clarity SLIGHTLY CLOUDY A Urine pH 5.0 Urine Specific [place] 1.025 Urine Ketones NEGATIVE Urine Nitrite NEGATIVE Urine Bilirubin NEGATIVE Urine Urobilinogen NEGATIVE Urine Leukocyte Esterase NEGATIVE Urine Microscopic RBC 8 H Urine Microscopic WBC 2 Urine Hemoglobin 2+ H Urine Glucose NEGATIVE Urine Total Protein 1+ H White Blood Count 16.5 #H 14.3 H Red Blood Count 3.97 L 3.51 L Hemoglobin 11.7 L 10.5 L Hematocrit 35.2 L 31.2 L Mean Corpuscular Volume 88.7 88.9 Mean Corpuscular Hemoglobin 29.5 29.9 Mean Corpuscular Hemoglobin Concent 33.2 33.7 Red Cell Distribution Width 14.3 # 14.9 H Platelet Count 298 215 # Mean Platelet Volume 10.7 H 10.5 H Neutrophils % 86.3 H 86.9 H Lymphocytes % 6.0 L 5.7 L Monocytes % 7.4 7.1 Eosinophils % 0.0 0.0 Basophils % 0.1 0.1 Nucleated Red Blood Cells % 0.0 0.0 Neutrophils # (Manual) 14.2 H 12.4 H Lymphocytes # 1.0 0.8 Monocytes # 1.2 H 1.0 H Eosinophils # 0.0 0.0 Basophils # 0.0 0.0 Nucleated Red Blood Cells # 0.0 0.0 Prothrombin Time 13.7 Prothrombin Time Ratio 1.1 INR International Normalized Ratio 1.05 Sodium Level 138 139 Potassium Level 4.4 4.6 Chloride Level 108 110 Carbon Dioxide Level 19 L 21 Anion Gap 15 13 Blood Urea Nitrogen 23 H 24 H Creatinine 1.17 H 1.14 H Glucose Level 177 122 # Calcium Level 8.2 L 8.3 L Total Bilirubin 2.2 H Direct Bilirubin 1.00 H Indirect Bilirubin 1.2 H Aspartate Amino Transf (AST/SGOT) 75 H Alanine Aminotransferase (ALT/SGPT) 93 H Alkaline Phosphatase 93 Total Protein 6.0 L Albumin 3.3 Globulin 2.70 Albumin/Globulin Ratio 1.22 Test 05/02/17 06:51 05/02/17 17:22 Lab Scanned Report BLOOD TRANSFUSION Hemoglobin 9.1 L Hematocrit 27.1 L Prothrombin Time 14.8 H Prothrombin Time Ratio 1.2 INR International Normalized Ratio 1.16 Medications Medications Current Medications Metronidazole 100 ml @ 100 mls/hr Q8H IVPB Last administered on 05/02/17 15:01 ; Admin Dose 100 MLS/HR; Start 05/01/17 at 23:00; Stop 05/02/17 at 22:59 Potassium Chloride/Lactated Ringer's (KCl/Lr) 1,010 ml @ 150 mls/hr Q6H44M IV Last administered on 05/02/17 10:33; Admin Dose 150 MLS/HR; Start 05/01/17 at 22: 52 Famotidine (Pepcid Iv) 20 mg DAILY IV Last administered on 05/02/17 08:28; Admin Dose 20 MG; Start 05/02/17 at 09:00 Hydromorphone HCl (Dilaudid) 1 mg Q2 PRN IV PAIN Last administered on 05/02/17 15:39; Admin Dose 1 MG; Start 05/01/17 at 23:30 Ondansetron HCl 4 mg 4 mg Q6H PRN IV NAUSEA AND/OR VOMITING; Start 05/01/17 at 23:30 Acetaminophen 100 ml @ 400 mls/hr Q6H IVPB Last administered on 05/02/17 18:20 ; Admin Dose 400 MLS/HR; Start 05/02/17 at 00:30 Cefazolin Sodium (Ancef 1 Gm/50 ml (Pmx)) 50 ml @ 100 mls/hr Q8H IVPB Last administered on 05/02/17 11:44; Admin Dose 100 MLS/HR; Start 05/02/17 at 04:00; Stop 05/03/17 at 03:59 Morphine Sulfate (morphine) 8 mg Q3H PRN SC PAIN LEVEL 7-10 Last administered on 05/02/17 17:32; Admin Dose 8 MG; Start 05/02/17 at 17:00 HELEN FULTON MD May 02, 2017 20:49
--- NOTE | 2017-05-02 21:05 | HP ---
DATE OF ADMISSION: 05/01/2017 SOURCE OF INFORMATION: Information received from the patient's record, as well as from patient. 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 The patient subsequently underwent ileostomy takedown back in April 2016. The patient has been followed by from Oncology standpoint. The patient was seen by Dr. Perdomo as an outpatient and underwent laparoscopy with enterolysis, laparotomy with enterolysis, small- bowel resection and anastomosis. Supracervical hysterectomy with bilateral salpingo-oophorectomy and bilateral uterine dissection. NG tube has been placed in. The patient is being admitted for further evaluation and management. The patient is breathing comfortably. Denies any chest pain. The patient's postop pain seems controlled. No reported shortness of breath. No reported leg pain or any focal weakness. Other than postoperative pain. The rest of the review of systems were unremarkable. PAST MEDICAL HISTORY: As stated above. The patient was seen by Dr. Danny Mcclellan for her multifocal colorectal cancer and as mentioned above the patient is being seen by DrMadi from Oncology standpoint. ALLERGIES: NONE. SOCIAL HISTORY: No smoking. No alcohol. FAMILY HISTORY: The patient has extensive history of colon cancer in the family members with multiple siblings having colon cancer and her father who from advanced colon cancer. PHYSICAL EXAMINATION: GENERAL APPEARANCE: Patient to be conscious, awake, alert. VITAL SIGNS: Temperature 97.7, pulse 79, respirations 20, blood pressure 100/60, and O2 sat 100 percent on 2 L nasal cannula. HEENT: No eye discharge or redness. Oropharynx grossly negative. NECK: No masses and no thyromegaly. CHEST: Fairly clear. CV: S1, S2 normal. No murmur. ABDOMEN: Patient is status post surgery. EXTREMITIES: No leg edema. NEURO: The patient is awake, alert, with no gross focal deficit. LABS: WBC 14.3, hemoglobin 10.5, and platelets 215. Sodium 138, potassium 4.4, BUN 26, and creatinine 1.1. Glucose 177, bilirubin 2.2. AST 75 and ALT 93. IMPRESSION: 1. 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 Subsequently ostomy takedown. The patient yesterday underwent full laparotomy with enterolysis, small-bowel resection and anastomosis, supracervical hysterectomy, bilateral salpingectomy and ureteral dissection. PLAN: 1. Patient will be kept n.p.o. and will be given IV fluids. 2. We will continue monitor renal function closely. 3. The patient will receive IV cefazolin and metronidazole as per protocol. 4. We will give IV Pepcid for GI prophylaxis, and SCD for DVT prophylaxis. 5. We will continue symptomatic treatment. Further treatment depending on the patient's hospital course. Dictated By: Dennis Valle MD /jl/leatha /Document#: [id number] CC: Tushar Perdomo MD;*EndCC*
[2017-05-03] MEDS: ACETAMINOPHEN 1000MG/100ML IV 100 ML IVPB SCH ×4 (00:20→18:57)
[2017-05-03] MEDS: POTASSIUM CHLORIDE 20 MEQ in LACTATED RINGER'S 1,000 ML IV SCH ×6 (01:46→22:00)
[2017-05-03] MEDS: morphine 10 MG INJ SC PRN ×3 (01:51→10:12)
[2017-05-03 02:05] VITALS: BP 110/59; RESP 18
[2017-05-03 05:25] LABS: BASOPHILS % 0.4 % (0.0-2.0); EOSINOPHILS # 0.1 10^3/ul (0.0-0.5); EOSINOPHILS % 0.7 % (0.0-7.0); HEMATOCRIT 22.3 % (37.0-47.0); HEMOGLOBIN 7.4 g/dl (12.0-16.0); LYMPHOCYTES # 1.1 10^3/ul (0.8-2.9); MEAN CORPUSCULAR HEMOGLOBIN 29.7 pg (29.0-33.0); MEAN CORPUSCULAR HGB CONC 33.2 g/dl (32.0-37.0); MEAN CORPUSCULAR VOLUME 89.6 fl (82.0-101.0); MEAN PLATELET VOLUME 10.6 fl (7.4-10.4); MONOCYTE # 0.6 10^3/ul (0.3-0.9); MONOCYTES % 6.7 % (0.0-11.0); NEUTROPHILS % 78.8 % (39.0-77.0); PLATELET COUNT 140 10^3/UL (140-415); RED BLOOD COUNT 2.49 10^6/ul (4.20-5.40); RED CELL DISTRIBUTION WIDTH 14.8 % (11.5-14.5); WHITE BLOOD COUNT 8.2 10^3/ul (4.8-10.8)
[2017-05-03 05:50] LABS: ALBUMIN 2.6 g/dl (3.3-4.9); ALBUMIN/GLOBULIN RATIO 1.13; BILIRUBIN,INDIRECT 0.5 mg/dl (0-1.1); BILIRUBIN,TOTAL 0.5 mg/dl (0.2-1.3); CALCIUM 7.8 mg/dl (8.4-10.2); CREATININE 0.82 mg/dl (0.44-1.00); POTASSIUM 3.7 mmol/L (3.5-5.1); TOTAL PROTEIN 4.9 g/dl (6.1-8.1)
[2017-05-03] MEDS: HYDROmorphONE 1 MG/ML SYG IV PRN ×8 (07:30→23:03)
[2017-05-03 07:52] VITALS: BP 99/57; RESP 18
[2017-05-03 08:30] VITALS: BP 125/65; RESP 18
[2017-05-03] MEDS: FAMOTIDINE 20 MG INJ IV SCH (10:14)
[2017-05-03 13:33] VITALS: BP 102/57; RESP 17
--- NOTE | 2017-05-03 16:40 | PN ---
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 Exam/Review of Systems Vital Signs Vitals Vital Signs Date Time Temp Pulse Resp B/P Pulse Ox O2 Delivery O2 Flow Rate FiO2 05/03/17 13:33 97.5 87 17 102/57 98 05/02/17 04:00 Nasal Cannula 2.0 Intake and Output 05/02/17 05/02/17 05/03/17 15:00 23:00 07:00 Intake Total 250 ml 2200 ml 1210 ml Output Total 120 ml 110 ml 1360 ml Balance 130 ml 2090 ml -150 ml Exam Resp- clear CVS- NSR Abd- slight distension and minimal ostomy fct. Mod tender Ext- NT no edema Results Result Diagram: 05/03/17 0429 05/03/17 0444 Results 24 hrs Laboratory Tests Test 05/02/17 17:22 05/03/17 04:29 05/03/17 04:44 Hemoglobin 9.1 L 7.4 L Hematocrit 27.1 L 22.3 L Prothrombin Time 14.8 H Prothrombin Time Ratio 1.2 INR International Normalized Ratio 1.16 White Blood Count 8.2 # Red Blood Count 2.49 #L Mean Corpuscular Volume 89.6 Mean Corpuscular Hemoglobin 29.7 Mean Corpuscular Hemoglobin Concent 33.2 Red Cell Distribution Width 14.8 H Platelet Count 140 # Mean Platelet Volume 10.6 H Neutrophils % 78.8 H Lymphocytes % 13.0 L Monocytes % 6.7 Eosinophils % 0.7 Basophils % 0.4 Nucleated Red Blood Cells % 0.0 Neutrophils # (Manual) 6.5 Lymphocytes # 1.1 Monocytes # 0.6 Eosinophils # 0.1 Basophils # 0.0 Nucleated Red Blood Cells # 0.0 Sodium Level 138 Potassium Level 3.7 Chloride Level 108 Carbon Dioxide Level 26 Anion Gap 8 Blood Urea Nitrogen 15 # Creatinine 0.82 Glucose Level 71 # Calcium Level 7.8 L Total Bilirubin 0.5 Direct Bilirubin 0.00 # Indirect Bilirubin 0.5 Aspartate Amino Transf (AST/SGOT) 53 H Alanine Aminotransferase (ALT/SGPT) 47 Alkaline Phosphatase 57 Total Protein 4.9 #L Albumin 2.6 L Globulin 2.30 Albumin/Globulin Ratio 1.13 Medications Medications Current Medications Potassium Chloride/Lactated Ringer's (KCl/Lr) 1,010 ml @ 150 mls/hr Q6H44M IV Last administered on 05/03/17 12:47; Admin Dose 150 MLS/HR; Start 05/01/17 at 22: 52 Famotidine (Pepcid Iv) 20 mg DAILY IV Last administered on 05/03/17 10:14; Admin Dose 20 MG; Start 05/02/17 at 09:00 Hydromorphone HCl (Dilaudid) 1 mg Q2 PRN IV PAIN Last administered on 05/03/17 15:26; Admin Dose 1 MG; Start 05/01/17 at 23:30 Ondansetron HCl 4 mg 4 mg Q6H PRN IV NAUSEA AND/OR VOMITING; Start 05/01/17 at 23:30 Acetaminophen (Ofirmev 1000mg/ 100ml Iv) 100 ml @ 400 mls/hr Q6H IVPB Last administered on 05/03/17 11:48; Admin Dose 400 MLS/HR; Start 05/02/17 at 00:30 Morphine Sulfate (morphine) 8 mg Q3H PRN SC PAIN LEVEL 7-10 Last administered on 05/03/17 10:12; Admin Dose 8 MG; Start 05/02/17 at 17:00 HELEN FULTON MD May 03, 2017 16:40
--- NOTE | 2017-05-03 16:51 | PN ---
Date/Time of Note Date/Time of Note DATE: 05/03/17 TIME: 16:51 Assessment/Plan VTE Prophylaxis VTE Prophylaxis Intervention: other Lines/Catheters [facility] Saline Lock Urinary Cath still in place: Yes Assessment/Plan Assessment/Plan 1. 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 Subsequently ostomy takedown. The patient yesterday underwent full laparotomy with enterolysis, small-bowel resection and anastomosis, supracervical hysterectomy, bilateral salpingectomy and ureteral dissection. PLAN: 1. Patient will be kept n.p.o. and will be given IV fluids. 2. We will continue monitor renal function closely. 3. The patient will receive IV cefazolin and metronidazole as per protocol. 4. We will give IV Pepcid for GI prophylaxis, and SCD for DVT prophylaxis. 5. We will continue symptomatic treatment. Further treatment depending on the patient's hospital course. Exam/Review of Systems Vital Signs Vitals Vital Signs Date Time Temp Pulse Resp B/P Pulse Ox O2 Delivery O2 Flow Rate FiO2 05/03/17 13:33 97.5 87 17 102/57 98 05/02/17 04:00 Nasal Cannula 2.0 Intake and Output 05/02/17 05/02/17 05/03/17 14:59 22:59 06:59 Intake Total 250 ml 2200 ml 1210 ml Output Total 120 ml 110 ml 1360 ml Balance 130 ml 2090 ml -150 ml Results Result Diagram: 05/03/17 0429 05/03/17 0444 Results 24 hrs Laboratory Tests Test 05/02/17 17:22 05/03/17 04:29 05/03/17 04:44 Hemoglobin 9.1 L 7.4 L Hematocrit 27.1 L 22.3 L Prothrombin Time 14.8 H Prothrombin Time Ratio 1.2 INR International Normalized Ratio 1.16 White Blood Count 8.2 # Red Blood Count 2.49 #L Mean Corpuscular Volume 89.6 Mean Corpuscular Hemoglobin 29.7 Mean Corpuscular Hemoglobin Concent 33.2 Red Cell Distribution Width 14.8 H Platelet Count 140 # Mean Platelet Volume 10.6 H Neutrophils % 78.8 H Lymphocytes % 13.0 L Monocytes % 6.7 Eosinophils % 0.7 Basophils % 0.4 Nucleated Red Blood Cells % 0.0 Neutrophils # (Manual) 6.5 Lymphocytes # 1.1 Monocytes # 0.6 Eosinophils # 0.1 Basophils # 0.0 Nucleated Red Blood Cells # 0.0 Sodium Level 138 Potassium Level 3.7 Chloride Level 108 Carbon Dioxide Level 26 Anion Gap 8 Blood Urea Nitrogen 15 # Creatinine 0.82 Glucose Level 71 # Calcium Level 7.8 L Total Bilirubin 0.5 Direct Bilirubin 0.00 # Indirect Bilirubin 0.5 Aspartate Amino Transf (AST/SGOT) 53 H Alanine Aminotransferase (ALT/SGPT) 47 Alkaline Phosphatase 57 Total Protein 4.9 #L Albumin 2.6 L Globulin 2.30 Albumin/Globulin Ratio 1.13 Medications Medications Current Medications Potassium Chloride/Lactated Ringer's (KCl/Lr) 1,010 ml @ 150 mls/hr Q6H44M IV Last administered on 05/03/17 12:47; Admin Dose 150 MLS/HR; Start 05/01/17 at 22: 52 Famotidine (Pepcid Iv) 20 mg DAILY IV Last administered on 05/03/17 10:14; Admin Dose 20 MG; Start 05/02/17 at 09:00 Hydromorphone HCl (Dilaudid) 1 mg Q2 PRN IV PAIN Last administered on 05/03/17 15:26; Admin Dose 1 MG; Start 05/01/17 at 23:30 Ondansetron HCl 4 mg 4 mg Q6H PRN IV NAUSEA AND/OR VOMITING; Start 05/01/17 at 23:30 Acetaminophen (Ofirmev 1000mg/ 100ml Iv) 100 ml @ 400 mls/hr Q6H IVPB Last administered on 05/03/17 11:48; Admin Dose 400 MLS/HR; Start 05/02/17 at 00:30 Morphine Sulfate (morphine) 8 mg Q3H PRN SC PAIN LEVEL 7-10 Last administered on 05/03/17 10:12; Admin Dose 8 MG; Start 05/02/17 at 17:00 EMILI DUARTE May 03, 2017 16:51
[2017-05-03] MEDS ORDERED: SOD CHLORIDE 0.9% 250 ML IV* ONE (17:06)
--- NOTE | 2017-05-03 18:58 | OPR ---
Date/Time of Note Date/Time of Note DATE: 05/03/17 TIME: 18:57 Operative Report Free Text/Dictation 5 [facility] OPERATIVE REPORT Name: Tammie Lagos Medical Date: 05/01/17 Preoperative Diagnosis: 1- History of colon cancer and Quan syndrome positive 2- Pelvic pain Postoperative Diagnosis: 1- Same with pathology pending 2- Extensive adhesions 3- Retroperitoneal distortion Procedures: 1- Supracervical hysterectomy possible bilateral salpingoophorectomy 2- Ureteral dissection with repositioning 3- Enterolysis (extensive) 4- Small bowel resection and anastamosis Surgeon: Dr. Perdomo In File Operator: Dr. Jerome De Dios Anesthesia: General with regional Indication for Procedure The patient is a 46-year old female with a prior history of colon cancer for which she had a total colectomy due to multiple lesions and had other procedures. She also has Quan syndrome. After considering all options with risks and benefits it was decided to do a Laparoscopic hysterectomy or supracervical hysterectomy with BSO and laparotomy if needed. Findings and Summary Name: Tammie Lagos Medical After laparoscopic in the placement LUQ and LLQ extensive enterolysis was required and due to small bowel being densely adherent to the uterus without the uterus being entirely visible and the cul-de-sac without the possibly of being mobilized, a laparotomy was needed. During the laparotomy extensive additional enterolysis was needed and a segment of small bowel densely adherent to the sidewalls, cul-de-sac and uterus required a small bowel resection and anastamosis. Due to scar tissue ad possible adherence of possible adnexa to the sidewall a retroperitoneal exploration and ureteral dissection with repositioning was needed, after which supracervical hysterectomy and presumed BSO was completed. The small bowel anastamosis was then completed. Procedure: After being prepped and draped in the usual manner an EEA-sizer and pneumo- occluder were inserted vaginally to define anatomy and assure pneumoperitoneum. Subsequently, we placed a 5 mm trocar in the left upper quadrant without incident and then after being insufflated to 15 mm Hg, a lateral 5-millimeter trocar was placed. Subsequently very extensive enterolysis was completed with sharp dissection and the Omni or Thunderbeat if not near serosa as the use of each 5-millimeter trocar was alternated. Subsequently, due to the ileostomy and reduction in options, a somewhat midline 5-millimeter trocar was placed cephlad to where the umbilicus would be without incident and, after which we and another 5-millimeter trocars at the presumed umbilical level. At this time additional extensive pelvic adhesions were lysed with sharp dissection and the Omni was used for clear large adhesions and for thickened adhesions not adjacent to serosa. Additional enterolysis was completed without compromising the ostomy site and small bowel was noted to be densely adherent to the sidewalls bilaterally and even more densely adherent to the possible Name: Tammie Lagos Medical uterine fundus and cul-de-sac. The anterior cul-de-sac was cleared with additional enterolysis as the Vera balloon was observed thru the bladder. Subsequently the left retroperitoneum was opened and dissected with the Omni and Gyrus bipolar cutting forceps and the vasculature was identified after which the ureter was identified and noted to be densely adherent to the peritoneum and an extensive ureteral dissection with repositioning was accomplished with an Omni and endo-dissector, permitting the small bowel densely adherent to the sidewall to be mobilized with sharp dissection and some blunt dissection without incident. A significant vasculature consistent with the IP-ligament parallel to the ureter was isolated and coagulated, desiccated and transected with a Thunderbeat. A similar procedure was attempted contralateralally as well as enterolysis in the cul-de-sac but in the process the extent of solid scar tissue densely encasing small bowel and a small enterotomy midline was probably residual rectum but possibly small bowel. Hence the procedure was converted to a laparotomy. A lower abdominal midline skin incision was made of appropriate length parallel to the ostomy area. The electrocautery was then used to dissect thru the adipose tissue to the level of the fascia. The fascia was incised sharply with a scalpel through the length of the incision and the peritoneum identified. At this time the peritoneum was elevated and incised with a Metzenbaum scissors. At this time adhesions of intestine to the anterior abdominal wall were lysed with great care as the tissue was friable. In the process considerable efforts were needed to accomplish enterolysis for exposure and exploration. Multiple inevitable seromuscular defects were addressed with interrupted suture of 3-0 silk to approximate the defects, as the incision was near the ostomy. Upon entering the peritoneal cavity we inspected the abdominal and pelvic contents and found the aforementioned loops of small bowel densely adherent to the sidewall on the right and cul-de-sac and literally bound to the a mass in the pelvis. Efforts were made to complete the dissection and sero-muscular defects encountered were repaired with interrupted 3-0 silk suture, although Name: Tammie Lagos Medical enterotomies were inevitable due to the pathology and anatomy and the aforementioned small bowel was mobilized with additional sharp dissection and digitally and a small bowel resection and anastamosis was necessary. At this time, the segment of small intestine with adhesions and serosa defects as well as the enterotomy was addressed. Additionally, immediately adjacent a side to side anastamosis was noted that appeared to be twisted one-hundred 180 degrees when placed side to side, presumably due to compromised anatomy when done. Hence it was included in the resection and anastamosis as it was adjacent. The bowel was from the mesentery proximal and distal to the compromised area with a tonsil clamp used without incident. The bowel was transected both proximally and distally with a 75 mm JUDY stapler using regular angeles. The mesentery was divided using a Thunderbeat and Ligasure successively , cauterizing in duplicate. Thin and vascular areas of mesentery were also divided with the Thunderbeat. Any bleeding areas were addressed with 3-0 silk suture. The specimen was removed and anastomosis deferred until the remainder of the procedure competed to avoid manipulation. The uterus was barely appreciated as it was covered by scar tissue and the scar tissue densely adherent to the sidewall. The right retroperitoneum was opened with sharp dissection and extended without incident with a right-angle clamp and peanut as well as digitally and the vasculature as well as ureter visualized after which the ureter was dissected with a right-angle clamp and peanut as well as digitally as it was densely adherent to the possible broad ligament and peritoneum and hence the possible right IP-ligament was isolated and coagulated , desiccated and transected with Ligasure. Subsequently the ureter was further mobilized and the bladder flap developed with sharp dissection and digitally and Zeppelin clamps were placed on the uterine arteries bilaterally. Each was cut and tied with 0- Vicryl suture. The process was repeated without incident with cardinal ligaments. Subsequently the Thunderbeat was used to cut across the cervix and the cervix was ablated with the argon beam commercial collections driver at appropriate wattage. The Name: Tammie Lagos [facility] abdomen was irrigated, any possible small remnant of intestine removed from the pelvis and the aforementioned enterotomy confirmed to be rectal by EUA. The abdomen and pelvis was thoroughly irrigated again and bowel inspected, after which the anastamosis was completed. At this time previously resected small bowel segments were reanastamosed. Small enterotomies were created in both segments of bowel and the JUDY stapler inserted. The bowel was than partly joined with the new 75 mm JUDY stapler and the enterotomy closed with a 60 mm TA 60 stapler. The mesenteric defect was closed with multiple sutures of 3-0 silk. The anastamosis was reinforced with a suture if 3-0 silk as needed and appropriate. At this time, after all packing was removed, the abdomen thoroughly irrigated again, hemostasis confirmed. A figure of eight suture was placed at the caudal apex of the incision with 1- Prolene suture and used for exposure by elevating with a Pean clamp. Interrupted and continuous 1- Prolene suture was used from the rostral apex and run to the supra-pubic area. The final suture was tied appropriately, after which the figure of eight was tied. The subcutaneous tissue was irrigated and the skin was closed with 3-0 Vicryl suture and skin clips. The sponge, needle, and instrument were correct two times. The estimated blood loss was 400ml. The patient tolerated the procedure well and left the OR in good condition. Helen Perdomo M.D. Anesthesia Type: other Estimated Blood Loss: 250 - 300 ml's Transfusion Required: yes Complications: no HELEN PERDOMO MD May 03, 2017 18:58
[2017-05-03 19:43] VITALS: BP 112/61; RESP 18
[2017-05-03] MEDS ORDERED: DIPHENHYDRAMINE 50 MG INJ IV ONE (20:00)
[2017-05-03] MEDS ORDERED: ACETAMINOPHEN (10 MG/ML) IV SYG IV ONE (20:00)
[2017-05-03] MEDS ORDERED: KETOROLAC 30 MG INJ IV STA (21:01)
[2017-05-03] MEDS ORDERED: VANCOMYCIN IV PER PHARMACY XX SCH (21:30)
[2017-05-03] MEDS ORDERED: VANCOMYCIN 1.25 GM in SOD CHLORIDE 0.9% 250 ML IVPB ONE (22:00)
[2017-05-04] VITALS (7 sets, daily range): BP systolic 100–122; BP diastolic 58–69; PULSE 73–81; RESP 17–18
[2017-05-04] MEDS ORDERED: FUROSEMIDE 20 MG INJ IV ONE
[2017-05-04] MEDS: ACETAMINOPHEN 1000MG/100ML IV 100 ML IVPB SCH (00:35)
[2017-05-04] MEDS: PIPER-TAZO 3.375 GM IV (PMX) 100 ML IVPB SCH ×4 (02:13→22:05)
[2017-05-04] MEDS: POTASSIUM CHLORIDE 20 MEQ in LACTATED RINGER'S 1,000 ML IV SCH ×3 (04:44→16:38)
[2017-05-04] MEDS: HYDROmorphONE 1 MG/ML SYG IV PRN ×7 (04:50→21:59)
[2017-05-04] MEDS: FAMOTIDINE 20 MG INJ IV SCH (08:28)
[2017-05-04] MEDS: VANCOMYCIN 1 GM in NS 250 ML IVPB SCH ×2 (10:26→22:05)
[2017-05-04 10:44] LABS: BASOPHILS % 0.4 % (0.0-2.0); EOSINOPHILS # 0.2 10^3/ul (0.0-0.5); HEMATOCRIT 27.5 % (37.0-47.0); HEMOGLOBIN 9.4 g/dl (12.0-16.0); LYMPHOCYTES # 0.8 10^3/ul (0.8-2.9); MEAN CORPUSCULAR HEMOGLOBIN 30.6 pg (29.0-33.0); MEAN CORPUSCULAR HGB CONC 34.2 g/dl (32.0-37.0); MEAN CORPUSCULAR VOLUME 89.6 fl (82.0-101.0); MEAN PLATELET VOLUME 10.7 fl (7.4-10.4); MONOCYTE # 0.5 10^3/ul (0.3-0.9); MONOCYTES % 4.4 % (0.0-11.0); NEUTROPHILS % 85.5 % (39.0-77.0); PLATELET COUNT 182 10^3/UL (140-415); RED BLOOD COUNT 3.07 10^6/ul (4.20-5.40); WHITE BLOOD COUNT 11.3 10^3/ul (4.8-10.8)
[2017-05-04 11:00] LABS: CALCIUM 8.3 mg/dl (8.4-10.2); CREATININE 0.64 mg/dl (0.44-1.00); POTASSIUM 3.2 mmol/L (3.5-5.1)
--- NOTE | 2017-05-04 16:24 | PN ---
Date/Time of Note Date/Time of Note DATE: 05/04/17 TIME: 16:22 Assessment/Plan VTE Prophylaxis VTE Prophylaxis Intervention: SCD's Lines/Catheters IV [facility] Type [facility]from [facility] Peripheral IV Urinary Cath still in place: Yes Assessment/Plan Assessment/Plan 1. 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 2. SP laparotomy with enterolysis, small-bowel resection and anastomosis, supracervical hysterectomy, bilateral salpingectomy and ureteral dissection. 3. Anemia- SP 1 unit PRBC- h/h STABLE dW dR Tracey Subjective 24 Hr Interval Summary Respiratory: no complaints Cardiovascular: no complaints Gastrointestinal: pain Genitourinary: no complaints Musculoskeletal: no complaints Exam/Review of Systems Vital Signs Vitals Vital Signs Date Time Temp Pulse Resp B/P Pulse Ox O2 Delivery O2 Flow Rate FiO2 05/04/17 09:53 Nasal Cannula 2.0 05/04/17 08:16 98.1 81 18 118/66 05/04/17 06:09 100 Intake and Output 05/03/17 05/03/17 05/04/17 14:59 22:59 06:59 Intake Total 1110 ml 1110 ml 550 ml Output Total 1850 ml 1365 ml Balance 1110 ml -740 ml -815 ml Exam Constitutional: alert, well developed Respiratory: diminished breath sounds Cardiovascular: nl pulses, regular rate and rhythm Gastrointestinal: non-tender, soft Musculoskeletal: nl extremities to inspection Extremities: normal pulses Neurological: nl mental status, nl speech Results Result Diagram: 05/04/17 0950 05/04/17 0950 Results 24 hrs Laboratory Tests Test 05/04/17 09:50 White Blood Count 11.3 #H Red Blood Count 3.07 #L Hemoglobin 9.4 #L Hematocrit 27.5 #L Mean Corpuscular Volume 89.6 Mean Corpuscular Hemoglobin 30.6 Mean Corpuscular Hemoglobin Concent 34.2 Red Cell Distribution Width 15.0 H Platelet Count 182 # Mean Platelet Volume 10.7 H Neutrophils % 85.5 H Lymphocytes % 7.0 L Monocytes % 4.4 Eosinophils % 2.0 Basophils % 0.4 Nucleated Red Blood Cells % 0.0 Neutrophils # (Manual) 9.7 H Lymphocytes # 0.8 Monocytes # 0.5 Eosinophils # 0.2 Basophils # 0.0 Nucleated Red Blood Cells # 0.0 Sodium Level 139 Potassium Level 3.2 L Chloride Level 102 Carbon Dioxide Level 30 Anion Gap 10 Blood Urea Nitrogen 11 Creatinine 0.64 Glucose Level 69 L Calcium Level 8.3 L Medications Medications Current Medications Potassium Chloride/Lactated Ringer's (KCl/Lr) 1,010 ml @ 150 mls/hr Q6H44M IV Last administered on 05/04/17 07:04; Admin Dose 150 MLS/HR; Start 05/01/17 at 22 :52 Famotidine (Pepcid Iv) 20 mg DAILY IV Last administered on 05/04/17 08:28; Admin Dose 20 MG; Start 05/02/17 at 09:00 Hydromorphone HCl (Dilaudid) 1 mg Q2 PRN IV PAIN Last administered on 13:51; Admin Dose 1 MG; Start 05/01/17 at 23:30 Ondansetron HCl (Zofran Inj) 4 mg Q6H PRN IV NAUSEA AND/OR VOMITING; Start 05/01 at 23:30 Morphine Sulfate 8 mg 8 mg Q3H PRN SC PAIN LEVEL 7-10 Last administered on 10:12; Admin Dose 8 MG; Start 05/02/17 at 17:00 Vancomycin HCl 250 ml @ 125 mls/hr Q12H IVPB Last administered on 05/04/17 10 :26; Admin Dose 125 MLS/HR; Start 05/04/17 at 10:00 Piperacillin Sod/ Tazobactam Sod (Zosyn 3.375gm/ 100 ml (Pmx)) 100 ml @ 200 mls /hr Q8 IVPB Last administered on 05/04/17 15:32; Admin Dose 200 MLS/HR; Start 05/04/17 at 14:00 Miscellaneous Information (*Rx Drug Level Order Reminder*) VANCOMYCIN TROUGH AT 0900 ONCE ONCE XX ; Start 05/05/17 at 09:00; Stop 05/05/17 at 09:01 EMILI DUARTE May 04, 2017 16:24
--- NOTE | 2017-05-04 17:16 | PN ---
Date/Time of Note Date/Time of Note DATE: 05/04/17 TIME: 17:11 Assessment/Plan VTE Prophylaxis VTE Prophylaxis Intervention: SCD's Lines/Catheters IV Catheter Type (from Nrs): Peripheral IV Urinary Cath still in place: Yes Reason Cath still needed: urinary retention Assessment/Plan Chief Complaint/Hosp Course Quan syndrome and impending SBO Problems: Assessment/Plan A- doing well on Abx. Wound probed minimally with sterile q-tip and no GI contents or pus or serum; likely redundant skin due to repaired hernia or ongoing hernia. patient indicates angeles left in > 40d after last operation P- Keep at bowel rest adn abx; consider TPN in 1-2 d and possible abdominal MICHAEL or Ct Subjective 24 Hr Interval Summary Free Text/Dictation mild + ostomy fct and only serum in drain, notes LMQ swelling and discomfort. Exam/Review of Systems Vital Signs Vitals Vital Signs Date Time Temp Pulse Resp B/P Pulse Ox O2 Delivery O2 Flow Rate FiO2 05/04/17 14:06 97.8 86 18 121/66 100 05/04/17 09:53 Nasal Cannula 2.0 Intake and Output 05/03/17 05/03/17 05/04/17 15:00 23:00 07:00 Intake Total 1110 ml 1110 ml 550 ml Output Total 1850 ml 1365 ml Balance 1110 ml -740 ml -815 ml Exam Resp- clear CVS- NSR Abd- mildly tender and distended LMQ with clean wound, Ext - NT' no edema Results Result Diagram: 05/04/17 0950 05/04/17 0950 Results 24 hrs Laboratory Tests Test 05/04/17 09:50 White Blood Count 11.3 #H Red Blood Count 3.07 #L Hemoglobin 9.4 #L Hematocrit 27.5 #L Mean Corpuscular Volume 89.6 Mean Corpuscular Hemoglobin 30.6 Mean Corpuscular Hemoglobin Concent 34.2 Red Cell Distribution Width 15.0 H Platelet Count 182 # Mean Platelet Volume 10.7 H Neutrophils % 85.5 H Lymphocytes % 7.0 L Monocytes % 4.4 Eosinophils % 2.0 Basophils % 0.4 Nucleated Red Blood Cells % 0.0 Neutrophils # (Manual) 9.7 H Lymphocytes # 0.8 Monocytes # 0.5 Eosinophils # 0.2 Basophils # 0.0 Nucleated Red Blood Cells # 0.0 Sodium Level 139 Potassium Level 3.2 L Chloride Level 102 Carbon Dioxide Level 30 Anion Gap 10 Blood Urea Nitrogen 11 Creatinine 0.64 Glucose Level 69 L Calcium Level 8.3 L Medications Medications Current Medications Potassium Chloride/Lactated Ringer's (KCl/Lr) 1,010 ml @ 150 mls/hr Q6H44M IV Last administered on 05/04/17 16:38; Admin Dose 150 MLS/HR; Start 05/01/17 at 22 :52 Famotidine (Pepcid Iv) 20 mg DAILY IV Last administered on 05/04/17 08:28; Admin Dose 20 MG; Start 05/02/17 at 09:00 Hydromorphone HCl (Dilaudid) 1 mg Q2 PRN IV PAIN Last administered on 16:38; Admin Dose 1 MG; Start 05/01/17 at 23:30 Ondansetron HCl (Zofran Inj) 4 mg Q6H PRN IV NAUSEA AND/OR VOMITING; Start 05/01 at 23:30 Morphine Sulfate 8 mg 8 mg Q3H PRN SC PAIN LEVEL 7-10 Last administered on 10:12; Admin Dose 8 MG; Start 05/02/17 at 17:00 Vancomycin HCl 250 ml @ 125 mls/hr Q12H IVPB Last administered on 05/04/17 10 :26; Admin Dose 125 MLS/HR; Start 05/04/17 at 10:00 Piperacillin Sod/ Tazobactam Sod (Zosyn 3.375gm/ 100 ml (Pmx)) 100 ml @ 200 mls /hr Q8 IVPB Last administered on 05/04/17 15:32; Admin Dose 200 MLS/HR; Start 05/04/17 at 14:00 Miscellaneous Information VANCOMYCIN TROUGH AT 0900 ONCE ONCE XX ; Start 05/05/17 at 09:00; Stop 05/05/17 at 09:01 Potassium Chloride/Sodium Chloride (KCl/NS) 110 ml @ 55 mls/hr ONCE ONCE IVPB ; Start 05/04/17 at 17:30; Stop 05/04/17 at 19:29 HELEN FULTON MD May 04, 2017 17:16
[2017-05-04] MEDS ORDERED: POTASSIUM CHLORIDE 20 MEQ in SOD CHLORIDE 0.9% 100 ML IVPB ONE (17:30)
[2017-05-04] MEDS: ONDANSETRON 4 MG INJ IV PRN (19:41)
[2017-05-05] MEDS: POTASSIUM CHLORIDE 20 MEQ in LACTATED RINGER'S 1,000 ML IV SCH ×4 (00:27→21:08)
[2017-05-05] MEDS: HYDROmorphONE 1 MG/ML SYG IV PRN ×9 (00:28→21:48)
[2017-05-05 01:39] VITALS: BP_SYST 125; BP_SYST 134; BP_DIAS 67; BP_DIAS 71; RESP 18
[2017-05-05] MEDS: PIPER-TAZO 3.375 GM IV (PMX) 100 ML IVPB SCH ×3 (05:34→22:24)
[2017-05-05 07:32] VITALS: BP 139/72; RESP 19
[2017-05-05] MEDS: FAMOTIDINE 20 MG INJ IV SCH (10:07)
[2017-05-05] MEDS: VANCOMYCIN 1 GM in NS 250 ML IVPB SCH (10:57)
--- NOTE | 2017-05-05 13:33 | PN ---
Date/Time of Note Date/Time of Note DATE: 05/05/17 TIME: 13:31 Assessment/Plan VTE Prophylaxis VTE Prophylaxis Intervention: SCD's Lines/Catheters IV [facility]ter Type (from [facility]): Peripheral IV Urinary Cath still in place: Yes Assessment/Plan Assessment/Plan 1. 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 2. SP laparotomy with enterolysis, small-bowel resection and anastomosis, supracervical hysterectomy, bilateral salpingectomy and ureteral dissection. 3. Anemia- SP 1 unit PRBC- H/H stable 4. Hypokalemia- replace K, AM bmp Dw Dr Prieto Exam/Review of Systems Vital Signs Vitals Vital Signs Date Time Temp Pulse Resp B/P Pulse Ox O2 Delivery O2 Flow Rate FiO2 05/05/17 07:32 98.1 80 19 139/72 98 05/04/17 09:53 Nasal Cannula 2.0 Intake and Output 05/04/17 05/04/17 05/05/17 15:00 23:00 07:00 Intake Total 1360 ml 1100 ml 2280 ml Output Total 2215 ml 1420 ml Balance 1360 ml -1115 ml 860 ml Exam Constitutional: alert, oriented, well developed Respiratory: diminished breath sounds Cardiovascular: nl pulses, regular rate and rhythm Gastrointestinal: other (NGT ncoted, connected to suction, darinig Green output ), soft, tender Musculoskeletal: nl extremities to inspection Extremities: normal pulses Neurological: nl mental status, nl speech Skin: other Results Result Diagram: 05/04/17 0950 05/04/17 0950 Results 24 hrs Laboratory Tests Test 05/05/17 09:14 Vancomycin Level Trough 10.7 Medications Medications Current Medications Potassium Chloride/Lactated Ringer's (KCl/Lr) 1,010 ml @ 150 mls/hr Q6H44M IV Last administered on 05/05/17 10:56; Admin Dose 150 MLS/HR; Start 05/01/17 at 22 :52 Famotidine (Pepcid Iv) 20 mg DAILY IV Last administered on 05/05/17 10:07; Admin Dose 20 MG; Start 05/02/17 at 09:00 Hydromorphone HCl (Dilaudid) 1 mg Q2 PRN IV PAIN Last administered on 11:41; Admin Dose 1 MG; Start 05/01/17 at 23:30 Ondansetron HCl (Zofran Inj) 4 mg Q6H PRN IV NAUSEA AND/OR VOMITING Last administered on 05/04/17 19:41; Admin Dose 4 MG; Start 05/01/17 at 23:30 Morphine Sulfate 8 mg 8 mg Q3H PRN SC PAIN LEVEL 7-10 Last administered on 10:12; Admin Dose 8 MG; Start 05/02/17 at 17:00 Vancomycin HCl 250 ml @ 125 mls/hr Q12H IVPB Last administered on 05/05/17 10 :57; Admin Dose 125 MLS/HR; Start 05/04/17 at 10:00 Piperacillin Sod/ Tazobactam Sod 100 ml @ 200 mls/hr Q8 IVPB Last administered on 05/05/17 05:34; Admin Dose 200 MLS/HR; Start 05/04/17 at 14:00 Potassium Chloride/Sodium Chloride (KCl/NS) 165 ml @ 55 mls/hr ONCE ONCE IVPB ; Start 05/05/17 at 13:30; Stop 05/05/17 at 16:29; Status EMILI ZHAO May 05, 2017 13:33
[2017-05-05 14:00] VITALS: BP 131/61; RESP 18
[2017-05-05] MEDS ORDERED: POTASSIUM CHLORIDE 30 MEQ in SOD CHLORIDE 0.9% 150 ML IVPB ONE (14:30)
[2017-05-05 19:55] VITALS: BP 120/63; RESP 18
--- NOTE | 2017-05-05 21:57 | PN ---
Date/Time of Note Date/Time of Note DATE: 05/05/17 TIME: 21:55 Assessment/Plan VTE Prophylaxis VTE Prophylaxis Intervention: SCD's Lines/Catheters IV Catheter Type (from Nrs): Saline Lock Urinary Cath still in place: Yes Reason Cath still needed: urinary retention Assessment/Plan Chief Complaint/Hosp Course Quan syndrome and impending SBO Problems: Assessment/Plan A- bowel fct returning P- will d/c NGT 1-2 d Subjective 24 Hr Interval Summary Free Text/Dictation feels sl better and + ostomy fct. Less AIDEN drainage. Exam/Review of Systems Vital Signs Vitals Vital Signs Date Time Temp Pulse Resp B/P Pulse Ox O2 Delivery O2 Flow Rate FiO2 05/05/17 19:55 98.8 86 18 120/63 96 05/05/17 08:00 2.0 05/04/17 09:53 Nasal Cannula Intake and Output 05/04/17 05/04/17 05/05/17 14:59 22:59 06:59 Intake Total 1360 ml 1100 ml 2280 ml Output Total 2215 ml 1420 ml Balance 1360 ml -1115 ml 860 ml Exam Resp- clear CVS- NSR Abd- mildly tender and distended LMQ with clean wound, Ext - NT' no edema Results Result Diagram: 05/04/17 0950 05/04/17 0950 Results 24 hrs Laboratory Tests Test 05/05/17 09:14 Vancomycin Level Trough 10.7 Medications Medications Current Medications Potassium Chloride/Lactated Ringer's (KCl/Lr) 1,010 ml @ 150 mls/hr Q6H44M IV Last administered on 05/05/17 10:56; Admin Dose 150 MLS/HR; Start 05/01/17 at 22 :52 Famotidine (Pepcid Iv) 20 mg DAILY IV Last administered on 05/05/17 10:07; Admin Dose 20 MG; Start 05/02/17 at 09:00 Hydromorphone HCl (Dilaudid) 1 mg Q2 PRN IV PAIN Last administered on 21:48; Admin Dose 1 MG; Start 05/01/17 at 23:30 Ondansetron HCl (Zofran Inj) 4 mg Q6H PRN IV NAUSEA AND/OR VOMITING Last administered on 05/04/17 19:41; Admin Dose 4 MG; Start 05/01/17 at 23:30 Morphine Sulfate 8 mg 8 mg Q3H PRN SC PAIN LEVEL 7-10 Last administered on 10:12; Admin Dose 8 MG; Start 05/02/17 at 17:00 Vancomycin HCl 250 ml @ 125 mls/hr Q12H IVPB Last administered on 05/05/17 10 :57; Admin Dose 125 MLS/HR; Start 05/04/17 at 10:00 Piperacillin Sod/ Tazobactam Sod (Zosyn 3.375gm/ 100 ml (Pmx)) 100 ml @ 200 mls /hr Q8 IVPB Last administered on 05/05/17 14:00; Admin Dose 200 MLS/HR; Start 05/04/17 at 14:00 HELEN FULTON MD May 05, 2017 21:57
[2017-05-06] VITALS (21 sets, daily range): BP systolic 103–136; BP diastolic 57–95; PULSE 66–84; RESP 8–20
[2017-05-06] MEDS: VANCOMYCIN 1 GM in NS 250 ML IVPB SCH ×4 (00:43→21:53)
[2017-05-06] MEDS: PIPER-TAZO 3.375 GM IV (PMX) 100 ML IVPB SCH ×3 (05:09→21:52)
[2017-05-06 05:48] LABS: BASOPHILS % 0.3 % (0.0-2.0); EOSINOPHILS # 0.3 10^3/ul (0.0-0.5); EOSINOPHILS % 4.5 % (0.0-7.0); HEMATOCRIT 28.1 % (37.0-47.0); HEMOGLOBIN 9.1 g/dl (12.0-16.0); LYMPHOCYTES # 0.9 10^3/ul (0.8-2.9); LYMPHOCYTES % 12.3 % (15.0-51.0); MEAN CORPUSCULAR HGB CONC 32.4 g/dl (32.0-37.0); MEAN CORPUSCULAR VOLUME 89.5 fl (82.0-101.0); MEAN PLATELET VOLUME 10.7 fl (7.4-10.4); MONOCYTE # 0.5 10^3/ul (0.3-0.9); MONOCYTES % 6.9 % (0.0-11.0); NEUTROPHILS % 74.7 % (39.0-77.0); PLATELET COUNT 253 10^3/UL (140-415); RED BLOOD COUNT 3.14 10^6/ul (4.20-5.40); RED CELL DISTRIBUTION WIDTH 13.9 % (11.5-14.5); WHITE BLOOD COUNT 7.6 10^3/ul (4.8-10.8)
[2017-05-06 06:02] LABS: CALCIUM 8.4 mg/dl (8.4-10.2); CREATININE 0.67 mg/dl (0.44-1.00); POTASSIUM 3.3 mmol/L (3.5-5.1)
[2017-05-06] MEDS: POTASSIUM CHLORIDE 20 MEQ in LACTATED RINGER'S 1,000 ML IV SCH ×3 (07:00→19:16)
[2017-05-06] MEDS: HYDROmorphONE 1 MG/ML SYG IV PRN ×6 (07:06→21:53)
[2017-05-06] MEDS: FAMOTIDINE 20 MG INJ IV SCH (09:51)
[2017-05-06] MEDS ORDERED: POTASSIUM CHLORIDE 20 MEQ in SOD CHLORIDE 0.9% 100 ML IVPB ONE (13:30)
--- NOTE | 2017-05-06 16:58 | RADRPT ---
Echocardiogram Report Patient Name: LETA ROBERTS Gender: Female Date: 1970 Study Date: 06-May-2017 Chief Deputy: Torsten [facility] Location: 116 Ref. Physician: MICHELL HUERTA Quality: Adequate Procedures: Transthoracic echocardiogram with complete 2D, M-Mode, and doppler examination. Indications: Chest Pain. 2D/M Mode Doppler Measurement Value Normal Ranges Measurement Value Normal Ranges LVIDd 2D 4.4 3.5 - 5.6 cm AV Peak Donnie 1.8 m/sec LVIDs 2D 3.0 2.1 - 4.1 cm AV Peak PG 13.0 mmHg LVPWd 2D 0.8 0.6 - 1.1 cm LVOT Peak Donnie 1.3 m/sec IVSd 2D 0.8 0.6 - 1.1 cm LVOT Peak PG 7.1 mmHg AoR Diam 2D 2.5 2.0 - 3.7 cm MV E Peak Donnie 1.0 m/sec EDV 2D 88.2 cm3 MV A Peak Donnie 1.0 m/sec ESV 2D 26.1 cm3 MV E/A 1.0 LA Dimen 2D 3.5 2.3 - 4.0 cm MV Decel Time 187 msec MV Decel Kingfisher 5 MV E/A 1.0 TR Peak Donnie 3.6 m/sec TR Peak PG 51.1 mmHg RVSP 59.0 mmHg Findings Left Ventricle: Normal left ventricular systolic function. Normal left ventricular cavity size. Normal left ventricular wall thickness. Ejection fraction is visually estimated at 60 %. Tissue Doppler/Mitral Doppler indices are within normal limits. Right Ventricle: Normal right ventricular size. Normal right ventricular systolic function. Left Atrium: The left atrium is normal in size. Right Atrium: The right atrium is normal in size. Mitral Valve: Mild mitral leaflet calcification. Mild mitral annular calcification. Trace mitral regurgitation. Aortic Valve: Normal appearance of the aortic valve. No significant aortic stenosis or insufficiency. Tricuspid Valve: Normal appearance of the tricuspid valve. Estimated peak PA systolic pressure 59 mmHg. There is mild tricuspid regurgitation. Pulmonic Valve: Pulmonic valve not well visualized. There is trace pulmonic regurgitation. Pericardium: Normal pericardium with no significant pericardial effusion. Aorta: Normal aortic root. IVC: Dilated inferior vena cava with poor inspiratory collapse consistent with elevated right atrial pressures. Conclusions 1.Normal left ventricular systolic function. Normal left ventricular cavity size. Normal left ventricular wall thickness. Ejection fraction is visually estimated at 60 %. Tissue Doppler/Mitral Doppler indices are within normal limits. 2.Normal right ventricular size. Normal right ventricular systolic function. 3.The left atrium is normal in size. 4.The right atrium is normal in size. 5.Normal appearance of the tricuspid valve. Estimated peak PA systolic pressure 59 mmHg. There is mild tricuspid regurgitation. 6.No significant valvular stenosis or regurgitation seen of remaining visualized valves. 7.Normal pericardium with no significant pericardial effusion. Electronically Signed By: Tyson Moon 06-May-2017 16:56:52 -0700 Patient Name: LETA ROBERTS Study Date: 06-May-2017 [id number]
--- NOTE | 2017-05-06 17:06 | PN ---
Date/Time of Note Date/Time of Note DATE: 05/06/17 TIME: 17:04 Assessment/Plan VTE Prophylaxis VTE Prophylaxis Intervention: SCD's Lines/Catheters IV Catheter Type (from [facility]): Peripheral IV Urinary Cath still in place: Yes Reason Cath still needed: urinary retention Assessment/Plan Chief Complaint/Hosp Course Quan syndrome and impending SBO Problems: Assessment/Plan A- improved P- probably transfer from ICU in 1-2d and consider d/c NGT 1-2d Subjective 24 Hr Interval Summary Free Text/Dictation some confusion but doing better Exam/Review of Systems Vital Signs Vitals Vital Signs Date Time Temp Pulse Resp B/P Pulse Ox O2 Delivery O2 Flow Rate FiO2 05/06/17 16:00 81 05/06/17 15:00 9 118/71 97 Room Air 05/06/17 12:00 98.0 05/05/17 08:00 2.0 Intake and Output 05/05/17 05/05/17 05/06/17 15:00 23:00 07:00 Intake Total 350 ml 60 ml 1325 ml Output Total 2510 ml 1410 ml Balance 350 ml -2450 ml -85 ml Exam Resp- clear CVS- NSR Abd- mildly tender and distended LMQ with clean wound, Ext - NT' no edema Results Result Diagram: 05/06/175 05/06/17 042 Results 24 hrs Laboratory Tests Test 05/06/17 04:25 05/06/17 05:49 05/06/17 05:52 05/06/17 06:11 White Blood Count 7.6 # Red Blood Count 3.14 L Hemoglobin 9.1 L Hematocrit 28.1 L Mean Corpuscular Volume 89.5 Mean Corpuscular Hemoglobin 29.0 Mean Corpuscular Hemoglobin Concent 32.4 Red Cell Distribution Width 13.9 Platelet Count 253 # Mean Platelet Volume 10.7 H Neutrophils % 74.7 Lymphocytes % 12.3 L Monocytes % 6.9 Eosinophils % 4.5 Basophils % 0.3 Nucleated Red Blood Cells % 0.0 Neutrophils # (Manual) 5.7 Lymphocytes # 0.9 Monocytes # 0.5 Eosinophils # 0.3 Basophils # 0.0 Nucleated Red Blood Cells # 0.0 Sodium Level 139 Potassium Level 3.3 L Chloride Level 101 Carbon Dioxide Level 28 Anion Gap 13 Blood Urea Nitrogen 8 Creatinine 0.67 Glucose Level 74 Calcium Level 8.4 Lab Scanned Report LAB Bedside Glucose 85 Troponin I < 0.012 Test 05/06/17 11:41 Troponin I < 0.012 Medications Medications Current Medications Potassium Chloride/Lactated Ringer's (KCl/Lr) 1,010 ml @ 150 mls/hr Q6H44M IV Last administered on 05/06/17 11:48; Admin Dose 150 MLS/HR; Start 05/01/17 at 22 :52 Famotidine (Pepcid Iv) 20 mg DAILY IV Last administered on 05/06/17 09:51; Admin Dose 20 MG; Start 05/02/17 at 09:00 Hydromorphone HCl (Dilaudid) 1 mg Q2 PRN IV PAIN Last administered on 15:49; Admin Dose 1 MG; Start 05/01/17 at 23:30 Ondansetron HCl (Zofran Inj) 4 mg Q6H PRN IV NAUSEA AND/OR VOMITING Last administered on 05/04/17 19:41; Admin Dose 4 MG; Start 05/01/17 at 23:30 Morphine Sulfate 8 mg 8 mg Q3H PRN SC PAIN LEVEL 7-10 Last administered on 10:12; Admin Dose 8 MG; Start 05/02/17 at 17:00 Vancomycin HCl 250 ml @ 125 mls/hr Q12H IVPB Last administered on 05/06/17 09 :51; Admin Dose 125 MLS/HR; Start 05/04/17 at 10:00 Piperacillin Sod/ Tazobactam Sod (Zosyn 3.375gm/ 100 ml (Pmx)) 100 ml @ 200 mls /hr Q8 IVPB Last administered on 05/06/17 13:33; Admin Dose 200 MLS/HR; Start 05/04/17 at 14:00 HELEN FULTON MD May 06, 2017 17:06
--- NOTE | 2017-05-06 18:01 | RADRPT ---
PROCEDURE: Ultrasound of the bilateral lower extremity venous system. CLINICAL INDICATION: Bilateral leg pain and swelling, deep venous thrombosis TECHNIQUE: Lopez scale with and without compression, color doppler, spectral doppler of the venous system of the bilateral lower extremities was performed. Venous augmentation maneuvers were utilized . COMPARISON: 02/28/2016 FINDINGS: RIGHT: Common femoral vein: Patent. Femoral vein: Patent. Popliteal vein: Patent. Calf veins: Patent. No soft tissue abnormalities are identified. LEFT: Common femoral vein: Patent. Femoral vein: Patent. Popliteal vein: Patent. Calf veins: Patent. No soft tissue abnormalities are identified. IMPRESSION: No evidence of a deep vein thrombosis within the bilateral lower extremities. RPTAT: AADD .Rafiq Foy MD, MD Date Time Electronically viewed and signed by .Rafiq Foy MD, on 05/06/2017 18:01 .B/
--- NOTE | 2017-05-06 19:59 | RADRPT ---
PROCEDURE: XR Chest. CLINICAL INDICATION: Chest pain. TECHNIQUE: Single frontal chest x-ray. COMPARISON: Chest radiograph 05/02/2017. FINDINGS: An enteric tube is seen coursing below the left diaphragm but its tip is not imaged. The lungs volumes are diminished. There is elevated right hemidiaphragm. There are compressive lawson ges with vascular crowding and basilar atelectasis versus air space disease. No pneumothorax or ple ural effusion is noted. The cardiomediastinal silhouette is unremarkable. No acute osseous abnorm ality is noted. Surgical angeles are noted overlying left upper abdomen. IMPRESSION: 1. Low lung volumes with compressive changes and basilar atelectasis versus air space disease. 2. Elevated right hemidiaphragm. 3. An enteric tube is seen coursing below the left diaphragm but its tip is not imaged. RPTAT: HH .Sintia Wan MD, MD Date Time Electronically viewed and signed by .Sintia Wan MD, MD on 05/06/2017 19:59 .N/
--- NOTE | 2017-05-06 20:24 | PN ---
Date/Time of Note Date/Time of Note DATE: 05/06/17 TIME: 20:23 Assessment/Plan VTE Prophylaxis VTE Prophylaxis Intervention: SCD's Lines/Catheters IV Catheter Type (from Nrs): Peripheral IV Urinary Cath still in place: Yes Assessment/Plan Assessment/Plan 1. 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 2. SP laparotomy with enterolysis, small-bowel resection and anastomosis, supracervical hysterectomy, bilateral salpingectomy and ureteral dissection. 3. Anemia- SP 1 unit PRBC- H/H stable 4. Hypokalemia- replace K, AM bmp Dw Dr Prieto Subjective 24 Hr Interval Summary Constitutional: requiring IVF, requiring O2 Respiratory: no complaints Cardiovascular: no complaints Gastrointestinal: no complaints Genitourinary: no complaints Musculoskeletal: no complaints Skin: no complaints Exam/Review of Systems Vital Signs Vitals Vital Signs Date Time Temp Pulse Resp B/P Pulse Ox O2 Delivery O2 Flow Rate FiO2 05/06/17 18:00 81 15 109/60 100 Room Air 05/06/17 16:00 98.3 05/05/17 08:00 2.0 Intake and Output 05/05/17 05/05/17 05/06/17 15:00 23:00 07:00 Intake Total 350 ml 60 ml 1325 ml Output Total 2510 ml 1410 ml Balance 350 ml -2450 ml -85 ml Exam Constitutional: alert, oriented, well developed Respiratory: diminished breath sounds, normal air movement Cardiovascular: nl pulses, regular rate and rhythm Gastrointestinal: other (ngt noted), soft, tender Musculoskeletal: nl extremities to inspection Extremities: normal pulses Neurological: nl mental status, nl speech Results Result Diagram: 05/06/175 05/06/17 0425 Results 24 hrs Laboratory Tests Test 05/06/17 04:25 05/06/17 05:49 05/06/17 05:52 05/06/17 06:11 White Blood Count 7.6 # Red Blood Count 3.14 L Hemoglobin 9.1 L Hematocrit 28.1 L Mean Corpuscular Volume 89.5 Mean Corpuscular Hemoglobin 29.0 Mean Corpuscular Hemoglobin Concent 32.4 Red Cell Distribution Width 13.9 Platelet Count 253 # Mean Platelet Volume 10.7 H Neutrophils % 74.7 Lymphocytes % 12.3 L Monocytes % 6.9 Eosinophils % 4.5 Basophils % 0.3 Nucleated Red Blood Cells % 0.0 Neutrophils # (Manual) 5.7 Lymphocytes # 0.9 Monocytes # 0.5 Eosinophils # 0.3 Basophils # 0.0 Nucleated Red Blood Cells # 0.0 Sodium Level 139 Potassium Level 3.3 L Chloride Level 101 Carbon Dioxide Level 28 Anion Gap 13 Blood Urea Nitrogen 8 Creatinine 0.67 Glucose Level 74 Calcium Level 8.4 Lab Scanned Report LAB Bedside Glucose 85 Troponin I < 0.012 Test 05/06/17 11:41 05/06/17 18:40 Troponin I < 0.012 < 0.012 Medications Medications Current Medications Potassium Chloride/Lactated Ringer's (KCl/Lr) 1,010 ml @ 150 mls/hr Q6H44M IV Last administered on 05/06/17 19:16; Admin Dose 150 MLS/HR; Start 05/01/17 at 22 :52 Famotidine (Pepcid Iv) 20 mg DAILY IV Last administered on 05/06/17 09:51; Admin Dose 20 MG; Start 05/02/17 at 09:00 Hydromorphone HCl (Dilaudid) 1 mg Q2 PRN IV PAIN Last administered on 18:24; Admin Dose 1 MG; Start 05/01/17 at 23:30 Ondansetron HCl (Zofran Inj) 4 mg Q6H PRN IV NAUSEA AND/OR VOMITING Last administered on 05/04/17 19:41; Admin Dose 4 MG; Start 05/01/17 at 23:30 Morphine Sulfate 8 mg 8 mg Q3H PRN SC PAIN LEVEL 7-10 Last administered on 10:12; Admin Dose 8 MG; Start 05/02/17 at 17:00 Vancomycin HCl 250 ml @ 125 mls/hr Q12H IVPB Last administered on 05/06/17 09 :51; Admin Dose 125 MLS/HR; Start 05/04/17 at 10:00 Piperacillin Sod/ Tazobactam Sod (Zosyn 3.375gm/ 100 ml (Pmx)) 100 ml @ 200 mls /hr Q8 IVPB Last administered on 05/06/17 13:33; Admin Dose 200 MLS/HR; Start 05/04/17 at 14:00 EMILI DUARTE May 06, 2017 20:24
[2017-05-07] VITALS (24 sets, daily range): BP systolic 113–145; BP diastolic 62–119; PULSE 54–75; RESP 7–21
[2017-05-07] MEDS: POTASSIUM CHLORIDE 20 MEQ in LACTATED RINGER'S 1,000 ML IV SCH ×4 (00:04→20:17)
[2017-05-07] MEDS: HYDROmorphONE 1 MG/ML SYG IV PRN ×9 (00:57→23:27)
[2017-05-07 05:52] LABS: BASOPHILS % 0.6 % (0.0-2.0); EOSINOPHILS # 0.4 10^3/ul (0.0-0.5); EOSINOPHILS % 5.1 % (0.0-7.0); HEMATOCRIT 26.4 % (37.0-47.0); HEMOGLOBIN 8.8 g/dl (12.0-16.0); LYMPHOCYTES % 14.5 % (15.0-51.0); MEAN CORPUSCULAR HEMOGLOBIN 29.7 pg (29.0-33.0); MEAN CORPUSCULAR HGB CONC 33.3 g/dl (32.0-37.0); MEAN CORPUSCULAR VOLUME 89.2 fl (82.0-101.0); MEAN PLATELET VOLUME 10.3 fl (7.4-10.4); MONOCYTE # 0.5 10^3/ul (0.3-0.9); MONOCYTES % 7.5 % (0.0-11.0); NEUTROPHILS % 68.1 % (39.0-77.0); PLATELET COUNT 277 10^3/UL (140-415); RED BLOOD COUNT 2.96 10^6/ul (4.20-5.40); RED CELL DISTRIBUTION WIDTH 13.4 % (11.5-14.5); WHITE BLOOD COUNT 6.8 10^3/ul (4.8-10.8)
[2017-05-07] MEDS: PIPER-TAZO 3.375 GM IV (PMX) 100 ML IVPB SCH ×3 (06:09→21:42)
[2017-05-07 06:29] LABS: ALBUMIN 2.9 g/dl (3.3-4.9); BILIRUBIN,INDIRECT 0.3 mg/dl (0-1.1); BILIRUBIN,TOTAL 0.3 mg/dl (0.2-1.3); CALCIUM 8.6 mg/dl (8.4-10.2); CREATININE 0.65 mg/dl (0.44-1.00); POTASSIUM 3.6 mmol/L (3.5-5.1); TOTAL PROTEIN 5.8 g/dl (6.1-8.1)
--- NOTE | 2017-05-07 07:43 | PN ---
DATE: 05/06/2017 ADDENDUM: The patient was transferred to the ICU early this morning due to chest pain. The patient reported the pain was in the left upper chest and she explained the pain gets worse with deep breathing. No diaphoresis. The patient did not have any shortness of breath. Denies any leg pain or leg edema. The patient has been using SCDs since her recent surgery. EKG did not have any acute ST changes. Troponins have been negative. The patient does have local tenderness in left upper costochondral junctions. Echocardiogram is pending. We will obtain venous Doppler also and chest x-ray. Dictated By: Dennis Valle MD /jl/kellie /Document#: [id number]
[2017-05-07] MEDS: FAMOTIDINE 20 MG INJ IV SCH (08:19)
[2017-05-07] MEDS: VANCOMYCIN 1 GM in NS 250 ML IVPB SCH ×2 (10:22→22:51)
--- NOTE | 2017-05-07 13:13 | PN ---
Date/Time of Note Date/Time of Note DATE: 05/07/17 TIME: 13:10 Assessment/Plan VTE Prophylaxis VTE Prophylaxis Intervention: SCD's Lines/Catheters IV [facility] (from [facility] Saline Lock Urinary Cath still in place: Yes Reason Cath still needed: urinary retention Assessment/Plan Chief Complaint/Hosp Course Quan syndrome and impending SBO Problems: Assessment/Plan A- improving P- can transfer to 4w and due to increase in NGT will delay removal Subjective 24 Hr Interval Summary Free Text/Dictation + ostomy ct but increased NGT output. Exam/Review of Systems Vital Signs Vitals Vital Signs Date Time Temp Pulse Resp B/P Pulse Ox O2 Delivery O2 Flow Rate FiO2 05/07/17 13:00 56 14 131/70 100 Nasal Cannula 3.0 05/07/17 12:00 98.3 Intake and Output 05/06/17 05/06/17 05/07/17 15:00 23:00 07:00 Intake Total 1150 ml 910 ml 1325 ml Output Total 645 ml 1620 ml 1470 ml Balance 505 ml -710 ml -145 ml Exam Tushar Fulton M.D. [facility] History and Physical Examination [place] Crow Date:May 05, 2017 :06/29/1962 Resp- clear CVS- NSR Abd- softer and less tender with minimal AIDEN output. Ext- NT no edema Results Result Diagram: 05/07/17 0458 05/07/17 0458 Results 24 hrs Laboratory Tests Test 05/06/17 18:40 05/07/17 04:58 Troponin I < 0.012 White Blood Count 6.8 Red Blood Count 2.96 L Hemoglobin 8.8 L Hematocrit 26.4 L Mean Corpuscular Volume 89.2 Mean Corpuscular Hemoglobin 29.7 Mean Corpuscular Hemoglobin Concent 33.3 Red Cell Distribution Width 13.4 Platelet Count 277 Mean Platelet Volume 10.3 Neutrophils % 68.1 Lymphocytes % 14.5 L Monocytes % 7.5 Eosinophils % 5.1 Basophils % 0.6 Nucleated Red Blood Cells % 0.0 Neutrophils # (Manual) 4.7 Lymphocytes # 1.0 Monocytes # 0.5 Eosinophils # 0.4 Basophils # 0.0 Nucleated Red Blood Cells # 0.0 Sodium Level 139 Potassium Level 3.6 Chloride Level 100 Carbon Dioxide Level 31 Anion Gap 12 Blood Urea Nitrogen 6 L Creatinine 0.65 Glucose Level 75 Calcium Level 8.6 Total Bilirubin 0.3 Direct Bilirubin 0.00 Indirect Bilirubin 0.3 Aspartate Amino Transf (AST/SGOT) 29 Alanine Aminotransferase (ALT/SGPT) 43 Alkaline Phosphatase 105 Total Protein 5.8 L Albumin 2.9 L Globulin 2.90 Albumin/Globulin Ratio 1.00 Medications Medications Current Medications Potassium Chloride/Lactated Ringer's (KCl/Lr) 1,010 ml @ 150 mls/hr Q6H44M IV Last administered on 05/07/17 12:50; Admin Dose 150 MLS/HR; Start 05/01/17 at 22 :52 Famotidine (Pepcid Iv) 20 mg DAILY IV Last administered on 05/07/17 08:19; Admin Dose 20 MG; Start 05/02/17 at 09:00 Hydromorphone HCl (Dilaudid) 1 mg Q2 PRN IV PAIN Last administered on 10:36; Admin Dose 1 MG; Start 05/01/17 at 23:30 Ondansetron HCl (Zofran Inj) 4 mg Q6H PRN IV NAUSEA AND/OR VOMITING Last administered on 05/04/17 19:41; Admin Dose 4 MG; Start 05/01/17 at 23:30 Morphine Sulfate 8 mg 8 mg Q3H PRN SC PAIN LEVEL 7-10 Last administered on 10:12; Admin Dose 8 MG; Start 05/02/17 at 17:00 Vancomycin HCl 250 ml @ 125 mls/hr Q12H IVPB Last administered on 05/07/17 10 :22; Admin Dose 125 MLS/HR; Start 05/04/17 at 10:00 Piperacillin Sod/ Tazobactam Sod (Zosyn 3.375gm/ 100 ml (Pmx)) 100 ml @ 200 mls /hr Q8 IVPB Last administered on 05/07/17 06:09; Admin Dose 200 MLS/HR; Start 05/04/17 at 14:00 TUSHAR FULTON MD May 07, 2017 13:13
[2017-05-08] VITALS (10 sets, daily range): BP systolic 117–156; BP diastolic 51–80; PULSE 58–65; RESP 7–19
[2017-05-08] MEDS: HYDROmorphONE 1 MG/ML SYG IV PRN ×8 (02:26→22:13)
[2017-05-08] MEDS: POTASSIUM CHLORIDE 20 MEQ in LACTATED RINGER'S 1,000 ML IV SCH ×4 (02:27→21:50)
[2017-05-08] MEDS: PIPER-TAZO 3.375 GM IV (PMX) 100 ML IVPB SCH ×3 (05:56→21:50)
[2017-05-08] MEDS: FAMOTIDINE 20 MG INJ IV SCH (08:23)
--- NOTE | 2017-05-08 11:10 | RADRPT ---
Vent Rate: 64 bpm RR Interval: 0 msec MN Interval: 154 msec QRS Duration: 96 msec QT Interval: 424 msec QTC Interval: 437 msec P-R-T Post: 50 - 56 - 48 degrees Normal sinus rhythm Normal ECG Electronically Signed By: Good Justice [id number]
[2017-05-08] MEDS: ONDANSETRON 4 MG INJ IV PRN (11:54)
--- NOTE | 2017-05-08 16:51 | PN ---
Date/Time of Note Date/Time of Note DATE: 05/08/17 TIME: 16:47 Assessment/Plan Lines/Catheters IV Catheter Type (from [facility]): Saline Lock Urinary Cath still in place: Yes Assessment/Plan Assessment/Plan 1. 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 2. SP laparotomy with enterolysis, small-bowel resection and anastomosis, supracervical hysterectomy, bilateral salpingectomy and ureteral dissection. 3. Anemia- SP 1 unit PRBC- H/H stable 4. Hypokalemia- replace K, AM bmp Dw Dr Prieto Subjective 24 Hr Interval Summary Free Text/Dictation Late entry- 05/06/2017 Plan FOR POSTERIOR APPROACH- Laminectomy tomorrow. dw staff Respiratory: no complaints Gastrointestinal: no complaints Musculoskeletal: back pain Exam/Review of Systems Vital Signs Vitals Vital Signs Date Time Temp Pulse Resp B/P Pulse Ox O2 Delivery O2 Flow Rate FiO2 05/08/17 14:00 98.0 61 19 121/51 98 05/08/17 10:05 Nasal Cannula 3.0 Intake and Output 05/07/17 05/07/17 05/08/17 15:00 23:00 07:00 Intake Total 1100 ml 700 ml 1550 ml Output Total 675 ml 215 ml 1030 ml Balance 425 ml 485 ml 520 ml Exam Constitutional: alert, oriented, well developed Respiratory: clear to auscultation Cardiovascular: nl pulses, regular rate and rhythm Gastrointestinal: non-tender, soft Musculoskeletal: nl extremities to inspection Extremities: normal pulses Neurological: nl mental status, nl speech Results Result Diagram: 05/07/17 0458 05/07/17 0458 Medications Medications Current Medications Potassium Chloride/Lactated Ringer's (KCl/Lr) 1,010 ml @ 150 mls/hr Q6H44M IV Last administered on 05/08/17 15:13; Admin Dose 150 MLS/HR; Start 05/01/17 at 22 :52 Famotidine (Pepcid Iv) 20 mg DAILY IV Last administered on 05/08/17 08:23; Admin Dose 20 MG; Start 05/02/17 at 09:00 Hydromorphone HCl (Dilaudid) 1 mg Q2 PRN IV PAIN Last administered on 14:31; Admin Dose 1 MG; Start 05/01/17 at 23:30 Ondansetron HCl (Zofran Inj) 4 mg Q6H PRN IV NAUSEA AND/OR VOMITING Last administered on 05/08/17 11:54; Admin Dose 4 MG; Start 05/01/17 at 23:30 Morphine Sulfate 8 mg 8 mg Q3H PRN SC PAIN LEVEL 7-10 Last administered on 10:12; Admin Dose 8 MG; Start 05/02/17 at 17:00 Piperacillin Sod/ Tazobactam Sod (Zosyn 3.375gm/ 100 ml (Pmx)) 100 ml @ 200 mls /hr Q8 IVPB Last administered on 05/08/17 14:36; Admin Dose 200 MLS/HR; Start 05/04/17 at 14:00 EMILI DUARTE May 08, 2017 16:51
--- NOTE | 2017-05-08 16:53 | PN ---
Date/Time of Note Date/Time of Note DATE: 05/08/17 TIME: 16:51 Assessment/Plan VTE Prophylaxis VTE Prophylaxis Intervention: other Lines/Catheters [facility] Saline Lock Urinary Cath still in place: Yes Assessment/Plan Assessment/Plan 1. 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 2. SP laparotomy with enterolysis, small-bowel resection and anastomosis, supracervical hysterectomy, bilateral salpingectomy and ureteral dissection. 3. Anemia- SP 1 unit PRBC- H/H stable 4. Hypokalemia- replace K, AM bmp Dw Dr Prieto Subjective 24 Hr Interval Summary Free Text/Dictation Plan FOR POSTERIOR APPROACH- Laminectomy tomorrow. Dr Jarquin cancelled sx for today. dw staff ENT: bleeding Respiratory: no complaints Cardiovascular: no complaints Gastrointestinal: no complaints Genitourinary: no complaints Musculoskeletal: back pain Exam/Review of Systems Vital Signs Vitals Vital Signs Date Time Temp Pulse Resp B/P Pulse Ox O2 Delivery O2 Flow Rate FiO2 05/08/17 14:00 98.0 61 19 121/51 98 05/08/17 10:05 Nasal Cannula 3.0 Intake and Output 05/07/17 05/07/17 05/08/17 15:00 23:00 07:00 Intake Total 1100 ml 700 ml 1550 ml Output Total 675 ml 215 ml 1030 ml Balance 425 ml 485 ml 520 ml Results Result Diagram: 05/07/17 0458 05/07/17 0458 Medications Medications Current Medications Potassium Chloride/Lactated Ringer's (KCl/Lr) 1,010 ml @ 150 mls/hr Q6H44M IV Last administered on 05/08/17 15:13; Admin Dose 150 MLS/HR; Start 05/01/17 at 22 :52 Famotidine (Pepcid Iv) 20 mg DAILY IV Last administered on 05/08/17 08:23; Admin Dose 20 MG; Start 05/02/17 at 09:00 Hydromorphone HCl (Dilaudid) 1 mg Q2 PRN IV PAIN Last administered on 14:31; Admin Dose 1 MG; Start 05/01/17 at 23:30 Ondansetron HCl (Zofran Inj) 4 mg Q6H PRN IV NAUSEA AND/OR VOMITING Last administered on 05/08/17 11:54; Admin Dose 4 MG; Start 05/01/17 at 23:30 Morphine Sulfate 8 mg 8 mg Q3H PRN SC PAIN LEVEL 7-10 Last administered on 10:12; Admin Dose 8 MG; Start 05/02/17 at 17:00 Piperacillin Sod/ Tazobactam Sod (Zosyn 3.375gm/ 100 ml (Pmx)) 100 ml @ 200 mls /hr Q8 IVPB Last administered on 05/08/17 14:36; Admin Dose 200 MLS/HR; Start 05/04/17 at 14:00 EMILI DUARTE May 08, 2017 16:53
[2017-05-09] MEDS: HYDROmorphONE 1 MG/ML SYG IV PRN ×9 (00:06→22:41)
[2017-05-09 02:00] VITALS: BP 116/72; RESP 18
[2017-05-09] MEDS: POTASSIUM CHLORIDE 20 MEQ in LACTATED RINGER'S 1,000 ML IV SCH ×3 (04:18→19:14)
[2017-05-09] MEDS: PIPER-TAZO 3.375 GM IV (PMX) 100 ML IVPB SCH ×3 (05:34→22:09)
[2017-05-09 06:03] LABS: BASOPHIL # 0.1 10^3/ul (0.0-0.1); BASOPHILS % 0.6 % (0.0-2.0); EOSINOPHILS # 0.5 10^3/ul (0.0-0.5); EOSINOPHILS % 5.3 % (0.0-7.0); HEMATOCRIT 26.6 % (37.0-47.0); HEMOGLOBIN 9.1 g/dl (12.0-16.0); LYMPHOCYTES # 1.1 10^3/ul (0.8-2.9); LYMPHOCYTES % 12.9 % (15.0-51.0); MEAN CORPUSCULAR HEMOGLOBIN 31.3 pg (29.0-33.0); MEAN CORPUSCULAR HGB CONC 34.2 g/dl (32.0-37.0); MEAN CORPUSCULAR VOLUME 91.4 fl (82.0-101.0); MEAN PLATELET VOLUME 10.1 fl (7.4-10.4); MONOCYTE # 0.5 10^3/ul (0.3-0.9); MONOCYTES % 5.7 % (0.0-11.0); NEUTROPHIL # 6.2 10^3/ul (1.6-7.5); NEUTROPHILS % 72.3 % (39.0-77.0); PLATELET COUNT 363 10^3/UL (140-415); RED BLOOD COUNT 2.91 10^6/ul (4.20-5.40); RED CELL DISTRIBUTION WIDTH 12.8 % (11.5-14.5); WHITE BLOOD COUNT 8.6 10^3/ul (4.8-10.8)
[2017-05-09 06:21] LABS: CALCIUM 9.2 mg/dl (8.4-10.2); CREATININE 0.72 mg/dl (0.44-1.00); POTASSIUM 3.8 mmol/L (3.5-5.1)
[2017-05-09 07:54] VITALS: BP 133/59; RESP 19
[2017-05-09] MEDS: FAMOTIDINE 20 MG INJ IV SCH (08:28)
[2017-05-09 14:00] VITALS: BP 123/64; RESP 19
--- NOTE | 2017-05-09 14:58 | PN ---
Date/Time of Note Date/Time of Note DATE: 05/09/17 TIME: 14:53 Assessment/Plan VTE Prophylaxis VTE Prophylaxis Intervention: SCD's Lines/Catheters IV Catheter Type (from Nrs): Saline Lock Urinary Cath still in place: Yes Assessment/Plan Assessment/Plan 1. 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 2. SP laparotomy with enterolysis, small-bowel resection and anastomosis, supracervical hysterectomy, bilateral salpingectomy and ureteral dissection. 3. Anemia- H/H stable. cont t o monitor 4. Hypokalemia- resolved Dw Dr Prieto Subjective 24 Hr Interval Summary Free Text/Dictation patient c/o abdominal - gas pain- pain medication is effective, dw staff Respiratory: no complaints Cardiovascular: no complaints Gastrointestinal: pain (surgical abdomen) Genitourinary: no complaints Musculoskeletal: no complaints Exam/Review of Systems Vital Signs Vitals Vital Signs Date Time Temp Pulse Resp B/P Pulse Ox O2 Delivery O2 Flow Rate FiO2 05/09/17 08:35 3.0 05/09/17 07:54 98.0 64 19 133/59 98 05/08/17 20:45 Nasal Cannula Intake and Output 05/08/17 05/08/17 05/09/17 15:00 23:00 07:00 Intake Total 1470 ml 1150 ml Output Total 270 ml 650 ml 1020 ml Balance -270 ml 820 ml 130 ml Exam Constitutional: alert, oriented, well developed Psych: nl mood/affect Respiratory: diminished breath sounds Cardiovascular: regular rate and rhythm Gastrointestinal: non-tender, soft Musculoskeletal: nl extremities to inspection Extremities: normal pulses Neurological: nl mental status, nl speech Results Result Diagram: 05/09/17 0431 05/09/17 0431 Results 24 hrs Laboratory Tests Test 05/09/17 04:31 White Blood Count 8.6 # Red Blood Count 2.91 L Hemoglobin 9.1 L Hematocrit 26.6 L Mean Corpuscular Volume 91.4 Mean Corpuscular Hemoglobin 31.3 Mean Corpuscular Hemoglobin Concent 34.2 Red Cell Distribution Width 12.8 Platelet Count 363 # Mean Platelet Volume 10.1 Neutrophils % 72.3 Lymphocytes % 12.9 L Monocytes % 5.7 Eosinophils % 5.3 Basophils % 0.6 Nucleated Red Blood Cells % 0.0 Neutrophils # 6.2 Lymphocytes # 1.1 Monocytes # 0.5 Eosinophils # 0.5 Basophils # 0.1 Nucleated Red Blood Cells # 0.0 Sodium Level 139 Potassium Level 3.8 Chloride Level 95 L Carbon Dioxide Level 34 H Anion Gap 14 Blood Urea Nitrogen 9 Creatinine 0.72 Glucose Level 74 Calcium Level 9.2 Medications Medications Current Medications Potassium Chloride/Lactated Ringer's (KCl/Lr) 1,010 ml @ 150 mls/hr Q6H44M IV Last administered on 05/09/17 11:51; Admin Dose 150 MLS/HR; Start 05/01/17 at 22 :52 Famotidine (Pepcid Iv) 20 mg DAILY IV Last administered on 05/09/17 08:28; Admin Dose 20 MG; Start 05/02/17 at 09:00 Hydromorphone HCl (Dilaudid) 1 mg Q2 PRN IV PAIN Last administered on 11:52; Admin Dose 1 MG; Start 05/01/17 at 23:30 Ondansetron HCl (Zofran Inj) 4 mg Q6H PRN IV NAUSEA AND/OR VOMITING Last administered on 05/08/17 11:54; Admin Dose 4 MG; Start 05/01/17 at 23:30 Morphine Sulfate 8 mg 8 mg Q3H PRN SC PAIN LEVEL 7-10 Last administered on 10:12; Admin Dose 8 MG; Start 05/02/17 at 17:00 Piperacillin Sod/ Tazobactam Sod (Zosyn 3.375gm/ 100 ml (Pmx)) 100 ml @ 200 mls /hr Q8 IVPB Last administered on 05/09/17 13:22; Admin Dose 200 MLS/HR; Start 05/04/17 at 14:00 EMILI DUARTE May 09, 2017 14:58
[2017-05-09 20:19] VITALS: BP 142/80; RESP 20
[2017-05-10] MEDS: HYDROmorphONE 1 MG/ML SYG IV PRN ×9 (00:27→23:21)
[2017-05-10] MEDS: POTASSIUM CHLORIDE 20 MEQ in LACTATED RINGER'S 1,000 ML IV SCH ×5 (01:46→18:20)
[2017-05-10 02:54] VITALS: BP 138/79; RESP 18
[2017-05-10 05:26] LABS: BASOPHILS % 0.5 % (0.0-2.0); EOSINOPHILS # 0.5 10^3/ul (0.0-0.5); EOSINOPHILS % 5.5 % (0.0-7.0); HEMATOCRIT 27.2 % (37.0-47.0); LYMPHOCYTES # 1.2 10^3/ul (0.8-2.9); LYMPHOCYTES % 14.8 % (15.0-51.0); MEAN CORPUSCULAR HEMOGLOBIN 30.5 pg (29.0-33.0); MEAN CORPUSCULAR HGB CONC 33.1 g/dl (32.0-37.0); MEAN CORPUSCULAR VOLUME 92.2 fl (82.0-101.0); MEAN PLATELET VOLUME 10.2 fl (7.4-10.4); MONOCYTE # 0.4 10^3/ul (0.3-0.9); MONOCYTES % 5.4 % (0.0-11.0); NEUTROPHIL # 5.9 10^3/ul (1.6-7.5); NEUTROPHILS % 71.4 % (39.0-77.0); PLATELET COUNT 358 10^3/UL (140-415); RED BLOOD COUNT 2.95 10^6/ul (4.20-5.40); RED CELL DISTRIBUTION WIDTH 13.1 % (11.5-14.5); WHITE BLOOD COUNT 8.2 10^3/ul (4.8-10.8)
[2017-05-10] MEDS: PIPER-TAZO 3.375 GM IV (PMX) 100 ML IVPB SCH ×3 (05:37→23:21)
[2017-05-10 06:11] LABS: CALCIUM 9.2 mg/dl (8.4-10.2); CREATININE 0.83 mg/dl (0.44-1.00); POTASSIUM 3.9 mmol/L (3.5-5.1)
[2017-05-10 07:00] VITALS: BP 132/80; RESP 20
[2017-05-10] MEDS: FAMOTIDINE 20 MG INJ IV SCH (09:17)
[2017-05-10] MEDS: ONDANSETRON 4 MG INJ IV PRN ×2 (09:17→23:28)
--- NOTE | 2017-05-10 12:30 | PN ---
Date/Time of Note Date/Time of Note DATE: 05/10/17 TIME: 12:30 Assessment/Plan VTE Prophylaxis VTE Prophylaxis Intervention: other Lines/Catheters IV Catheter Type (from Nrs): Saline Lock Urinary Cath still in place: Yes Reason Cath still needed: skin wounds contaminated by urine Assessment/Plan Chief Complaint/Hosp Course 1. 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 2. SP laparotomy with enterolysis, small-bowel resection and anastomosis, supracervical hysterectomy, bilateral salpingectomy and ureteral dissection. 3. Anemia- SP 1 unit PRBC- H/H stable 4. Hypokalemia- replace K, AM bmp Problems: Subjective 24 Hr Interval Summary Free Text/Dictation Patient denies any complaints Exam/Review of Systems Vital Signs Vitals Vital Signs Date Time Temp Pulse Resp B/P Pulse Ox O2 Delivery O2 Flow Rate FiO2 05/10/17 07:00 98.7 72 20 132/80 97 05/09/17 20:30 Nasal Cannula 3.0 Intake and Output 05/09/17 05/09/17 05/10/17 15:00 23:00 07:00 Intake Total 100 ml 1825 ml 1100 ml Output Total 5 ml 2600 ml Balance 100 ml 1820 ml -1500 ml Exam Constitutional: well developed Head: atraumatic, normocephalic Neck: supple Respiratory: clear to auscultation Cardiovascular: regular rate and rhythm Gastrointestinal: non-tender, soft Extremities: normal pulses Results Result Diagram: 05/10/17 0425 05/10/17 0425 Results 24 hrs Laboratory Tests Test 05/10/17 04:25 White Blood Count 8.2 Red Blood Count 2.95 L Hemoglobin 9.0 L Hematocrit 27.2 L Mean Corpuscular Volume 92.2 Mean Corpuscular Hemoglobin 30.5 Mean Corpuscular Hemoglobin Concent 33.1 Red Cell Distribution Width 13.1 Platelet Count 358 Mean Platelet Volume 10.2 Neutrophils % 71.4 Lymphocytes % 14.8 L Monocytes % 5.4 Eosinophils % 5.5 Basophils % 0.5 Nucleated Red Blood Cells % 0.0 Neutrophils # 5.9 Lymphocytes # 1.2 Monocytes # 0.4 Eosinophils # 0.5 Basophils # 0.0 Nucleated Red Blood Cells # 0.0 Sodium Level 138 Potassium Level 3.9 Chloride Level 96 L Carbon Dioxide Level 31 Anion Gap 15 Blood Urea Nitrogen 7 Creatinine 0.83 Glucose Level 73 Calcium Level 9.2 Medications Medications Current Medications Potassium Chloride/Lactated Ringer's (KCl/Lr) 1,010 ml @ 150 mls/hr Q6H44M IV Last administered on 05/10/17 09:18; Admin Dose 150 MLS/HR; Start 05/01/17 at 22 :52 Famotidine (Pepcid Iv) 20 mg DAILY IV Last administered on 05/10/17 09:17; Admin Dose 20 MG; Start 05/02/17 at 09:00 Hydromorphone HCl (Dilaudid) 1 mg Q2 PRN IV PAIN Last administered on 12:11; Admin Dose 1 MG; Start 05/01/17 at 23:30 Ondansetron HCl (Zofran Inj) 4 mg Q6H PRN IV NAUSEA AND/OR VOMITING Last administered on 05/10/17 09:17; Admin Dose 4 MG; Start 05/01/17 at 23:30 Morphine Sulfate 8 mg 8 mg Q3H PRN SC PAIN LEVEL 7-10 Last administered on 10:12; Admin Dose 8 MG; Start 05/02/17 at 17:00 Piperacillin Sod/ Tazobactam Sod (Zosyn 3.375gm/ 100 ml (Pmx)) 100 ml @ 200 mls /hr Q8 IVPB Last administered on 05/10/17 05:37; Admin Dose 200 MLS/HR; Start 05/04/17 at 14:00 MARLO PATRICK May 10, 2017 12:30
[2017-05-10 14:00] VITALS: BP 134/76; RESP 18
[2017-05-10] MEDS ORDERED: LIDOCAINE 1% (MPF) 5 ML VIAL SC ONE (16:00)
--- NOTE | 2017-05-10 20:07 | PN ---
Date/Time of Note Date/Time of Note DATE: 05/10/17 TIME: 19:58 Assessment/Plan VTE Prophylaxis VTE Prophylaxis Intervention: SCD's Lines/Catheters IV Catheter Type (from Nrsg): Saline Lock Urinary Cath still in place: Yes Reason Cath still needed: urinary retention Assessment/Plan Chief Complaint/Hosp Course Quan syndrome and impending SBO Problems: Assessment/Plan A- improved P- clear liq and OOB Subjective 24 Hr Interval Summary Free Text/Dictation some impvt in pain control. + ostomy fct. Minimal AIDEN output clear fluid.. Not OOB. Exam/Review of Systems Vital Signs Vitals Vital Signs Date Time Temp Pulse Resp B/P Pulse Ox O2 Delivery O2 Flow Rate FiO2 05/10/17 16:27 3.0 05/10/17 14:00 97.8 76 18 134/76 96 05/09/17 20:30 Nasal Cannula Intake and Output 05/09/17 05/09/17 05/10/17 14:59 22:59 06:59 Intake Total 100 ml 1825 ml 1100 ml Output Total 5 ml 2600 ml Balance 100 ml 1820 ml -1500 ml Exam Resp- clear CVS- NSR Abd- mildly tender and distended LMQ with clean wound, less tender, Ext - NT' no edema Results Result Diagram: 05/10/1742405/10/17 042 Results 24 hrs Laboratory Tests Test 05/10/17 04:25 White Blood Count 8.2 Red Blood Count 2.95 L Hemoglobin 9.0 L Hematocrit 27.2 L Mean Corpuscular Volume 92.2 Mean Corpuscular Hemoglobin 30.5 Mean Corpuscular Hemoglobin Concent 33.1 Red Cell Distribution Width 13.1 Platelet Count 358 Mean Platelet Volume 10.2 Neutrophils % 71.4 Lymphocytes % 14.8 L Monocytes % 5.4 Eosinophils % 5.5 Basophils % 0.5 Nucleated Red Blood Cells % 0.0 Neutrophils # 5.9 Lymphocytes # 1.2 Monocytes # 0.4 Eosinophils # 0.5 Basophils # 0.0 Nucleated Red Blood Cells # 0.0 Sodium Level 138 Potassium Level 3.9 Chloride Level 96 L Carbon Dioxide Level 31 Anion Gap 15 Blood Urea Nitrogen 7 Creatinine 0.83 Glucose Level 73 Calcium Level 9.2 Medications Medications Current Medications Potassium Chloride/Lactated Ringer's (KCl/Lr) 1,010 ml @ 70 mls/hr [id number] IV Last administered on 05/10/17 18:20; Admin Dose 70 MLS/HR; Start 05/01/17 at 22: 52; Stop 05/11/17 at 09:59 Famotidine (Pepcid Iv) 20 mg DAILY IV Last administered on 05/10/17 09:17; Admin Dose 20 MG; Start 05/02/17 at 09:00 Hydromorphone HCl (Dilaudid) 1 mg Q2 PRN IV PAIN Last administered on 18:22; Admin Dose 1 MG; Start 05/01/17 at 23:30 Ondansetron HCl (Zofran Inj) 4 mg Q6H PRN IV NAUSEA AND/OR VOMITING Last administered on 05/10/17 09:17; Admin Dose 4 MG; Start 05/01/17 at 23:30 Morphine Sulfate 8 mg 8 mg Q3H PRN SC PAIN LEVEL 7-10 Last administered on 10:12; Admin Dose 8 MG; Start 05/02/17 at 17:00 Piperacillin Sod/ Tazobactam Sod 100 ml @ 200 mls/hr Q8 IVPB Last administered on 05/10/17 13:06; Admin Dose 200 MLS/HR; Start 05/04/17 at 14:00 Total Parenteral Nutrition (Tpn) 1,000 ml @ 80 mls/hr [id number] IV ; Start at 10:00 HELEN FULTON MD May 10, 2017 20:07
[2017-05-10 22:07] VITALS: BP 137/72; RESP 16
[2017-05-11] MEDS: HYDROmorphONE 1 MG/ML SYG IV PRN ×7 (01:52→21:50)
[2017-05-11 03:03] VITALS: BP 132/74; RESP 16
[2017-05-11] MEDS: PIPER-TAZO 3.375 GM IV (PMX) 100 ML IVPB SCH ×3 (05:09→21:50)
[2017-05-11 05:36] LABS: BASOPHIL # 0.1 10^3/ul (0.0-0.1); BASOPHILS % 0.7 % (0.0-2.0); EOSINOPHILS # 0.3 10^3/ul (0.0-0.5); HEMATOCRIT 28.1 % (37.0-47.0); HEMOGLOBIN 9.4 g/dl (12.0-16.0); LYMPHOCYTES # 1.4 10^3/ul (0.8-2.9); LYMPHOCYTES % 17.1 % (15.0-51.0); MEAN CORPUSCULAR HEMOGLOBIN 30.6 pg (29.0-33.0); MEAN CORPUSCULAR HGB CONC 33.5 g/dl (32.0-37.0); MEAN CORPUSCULAR VOLUME 91.5 fl (82.0-101.0); MEAN PLATELET VOLUME 10.1 fl (7.4-10.4); MONOCYTE # 0.4 10^3/ul (0.3-0.9); MONOCYTES % 5.1 % (0.0-11.0); NEUTROPHIL # 5.7 10^3/ul (1.6-7.5); NEUTROPHILS % 70.9 % (39.0-77.0); PLATELET COUNT 382 10^3/UL (140-415); RED BLOOD COUNT 3.07 10^6/ul (4.20-5.40); RED CELL DISTRIBUTION WIDTH 12.9 % (11.5-14.5); WHITE BLOOD COUNT 8.1 10^3/ul (4.8-10.8)
[2017-05-11 06:01] LABS: MAGNESIUM 1.9 mg/dl (1.7-2.5)
[2017-05-11 06:18] LABS: ALBUMIN 3.7 g/dl (3.3-4.9); ALBUMIN/GLOBULIN RATIO 1.02; BILIRUBIN,INDIRECT 0.5 mg/dl (0-1.1); BILIRUBIN,TOTAL 0.5 mg/dl (0.2-1.3); CALCIUM 9.7 mg/dl (8.4-10.2); CREATININE 0.86 mg/dl (0.44-1.00); TOTAL PROTEIN 7.3 g/dl (6.1-8.1)
[2017-05-11] MEDS: ONDANSETRON 4 MG INJ IV PRN (06:44)
[2017-05-11 08:30] VITALS: BP 125/71; RESP 18
[2017-05-11] MEDS: FAMOTIDINE 20 MG INJ IV SCH (08:56)
[2017-05-11] MEDS ORDERED: TPN 1,000 ML IV SCH (10:00)
--- NOTE | 2017-05-11 12:35 | PN ---
Date/Time of Note Date/Time of Note DATE: 05/11/17 TIME: 12:35 Assessment/Plan VTE Prophylaxis VTE Prophylaxis Intervention: other Lines/Catheters IV Catheter Type (from Nrsg): Peripheral IV Urinary Cath still in place: Yes Reason Cath still needed: skin wounds contaminated by urine Assessment/Plan Chief Complaint/Hosp Course 1. 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 2. SP laparotomy with enterolysis, small-bowel resection and anastomosis, supracervical hysterectomy, bilateral salpingectomy and ureteral dissection. 3. Anemia- SP 1 unit PRBC- H/H stable 4. Hypokalemia- replace K, AM bmp Problems: Subjective 24 Hr Interval Summary Free Text/Dictation Patient still has abdominal pain Exam/Review of Systems Vital Signs Vitals Vital Signs Date Time Temp Pulse Resp B/P Pulse Ox O2 Delivery O2 Flow Rate FiO2 05/11/17 09:15 2.0 05/11/17 08:30 98.4 57 18 125/71 100 05/10/17 21:00 Nasal Cannula Intake and Output 05/10/17 05/10/17 05/11/17 15:00 23:00 07:00 Intake Total 100 ml 1895 ml 1800 ml Output Total 1160 ml 1200 ml Balance 100 ml 735 ml 600 ml Exam Constitutional: well developed Head: atraumatic, normocephalic Neck: supple Respiratory: clear to auscultation Cardiovascular: regular rate and rhythm Gastrointestinal: non-tender, soft Extremities: normal pulses Results Result Diagram: 05/11/17 0448 05/11/17 0448 Results 24 hrs Laboratory Tests Test 05/11/17 04:38 05/11/17 04:48 Phosphorus Level 4.0 Magnesium Level 1.9 White Blood Count 8.1 Red Blood Count 3.07 L Hemoglobin 9.4 L Hematocrit 28.1 L Mean Corpuscular Volume 91.5 Mean Corpuscular Hemoglobin 30.6 Mean Corpuscular Hemoglobin Concent 33.5 Red Cell Distribution Width 12.9 Platelet Count 382 Mean Platelet Volume 10.1 Neutrophils % 70.9 Lymphocytes % 17.1 Monocytes % 5.1 Eosinophils % 4.0 Basophils % 0.7 Nucleated Red Blood Cells % 0.0 Neutrophils # 5.7 Lymphocytes # 1.4 Monocytes # 0.4 Eosinophils # 0.3 Basophils # 0.1 Nucleated Red Blood Cells # 0.0 Sodium Level 135 Potassium Level 4.0 Chloride Level 95 L Carbon Dioxide Level 27 Anion Gap 17 H Blood Urea Nitrogen 8 Creatinine 0.86 Glucose Level 69 L Calcium Level 9.7 Total Bilirubin 0.5 Direct Bilirubin 0.00 Indirect Bilirubin 0.5 Aspartate Amino Transf (AST/SGOT) 49 H Alanine Aminotransferase (ALT/SGPT) 37 Alkaline Phosphatase 121 Total Protein 7.3 Albumin 3.7 Globulin 3.60 H Albumin/Globulin Ratio 1.02 Medications Medications Current Medications Famotidine (Pepcid Iv) 20 mg DAILY IV Last administered on 05/11/17 08:56; Admin Dose 20 MG; Start 05/02/17 at 09:00 Hydromorphone HCl (Dilaudid) 1 mg Q2 PRN IV PAIN Last administered on 12:28; Admin Dose 1 MG; Start 05/01/17 at 23:30 Ondansetron HCl (Zofran Inj) 4 mg Q6H PRN IV NAUSEA AND/OR VOMITING Last administered on 05/11/17 06:44; Admin Dose 4 MG; Start 05/01/17 at 23:30 Morphine Sulfate 8 mg 8 mg Q3H PRN SC PAIN LEVEL 7-10 Last administered on 10:12; Admin Dose 8 MG; Start 05/02/17 at 17:00 Piperacillin Sod/ Tazobactam Sod 100 ml @ 200 mls/hr Q8 IVPB Last administered on 05/11/17 05:09; Admin Dose 200 MLS/HR; Start 05/04/17 at 14:00 Total Parenteral Nutrition (Tpn) 1,000 ml @ 80 mls/hr [id number] IV ; Start at 10:00; Status Future Hold MARLO PATRICK May 11, 2017 12:35
[2017-05-11] MEDS: morphine 10 MG INJ SC PRN (16:41)
[2017-05-11 20:54] VITALS: BP 128/65; RESP 19
[2017-05-12] MEDS: HYDROmorphONE 1 MG/ML SYG IV PRN ×7 (00:54→23:07)
[2017-05-12 02:00] VITALS: BP 118/59; RESP 18
[2017-05-12 05:12] LABS: BASOPHILS % 0.6 % (0.0-2.0); EOSINOPHILS # 0.3 10^3/ul (0.0-0.5); HEMATOCRIT 27.8 % (37.0-47.0); HEMOGLOBIN 9.7 g/dl (12.0-16.0); LYMPHOCYTES # 1.1 10^3/ul (0.8-2.9); LYMPHOCYTES % 16.5 % (15.0-51.0); MEAN CORPUSCULAR HEMOGLOBIN 31.3 pg (29.0-33.0); MEAN CORPUSCULAR HGB CONC 34.9 g/dl (32.0-37.0); MEAN CORPUSCULAR VOLUME 89.7 fl (82.0-101.0); MEAN PLATELET VOLUME 9.8 fl (7.4-10.4); MONOCYTE # 0.4 10^3/ul (0.3-0.9); MONOCYTES % 6.4 % (0.0-11.0); NEUTROPHIL # 4.7 10^3/ul (1.6-7.5); NEUTROPHILS % 70.9 % (39.0-77.0); PLATELET COUNT 397 10^3/UL (140-415); RED CELL DISTRIBUTION WIDTH 12.7 % (11.5-14.5); WHITE BLOOD COUNT 6.7 10^3/ul (4.8-10.8)
[2017-05-12 05:33] LABS: ALBUMIN 3.6 g/dl (3.3-4.9); BILIRUBIN,INDIRECT 0.5 mg/dl (0-1.1); BILIRUBIN,TOTAL 0.5 mg/dl (0.2-1.3); CALCIUM 9.3 mg/dl (8.4-10.2); CREATININE 0.91 mg/dl (0.44-1.00); POTASSIUM 3.6 mmol/L (3.5-5.1); TOTAL PROTEIN 7.2 g/dl (6.1-8.1)
[2017-05-12] MEDS: PIPER-TAZO 3.375 GM IV (PMX) 100 ML IVPB SCH ×3 (05:49→21:48)
[2017-05-12 08:03] VITALS: BP 109/68; RESP 16
[2017-05-12] MEDS: FAMOTIDINE 20 MG INJ IV SCH (08:35)
--- NOTE | 2017-05-12 11:10 | RADRPT ---
PROCEDURE: XR Chest. CLINICAL INDICATION: Check PICC line position. TECHNIQUE: Single frontal view. COMPARISON: 05/06/2017. FINDINGS: There is a right arm PICC line with the tip in the lower superior vena cava. There is mild atelecta sis at the lung bases, improved. The lungs are otherwise clear. The heart size is normal. There is no pleural effusion. There is no pneumothorax. IMPRESSION: 1. Right arm PICC line tip in satisfactory position. 2. Mild atelectasis at the lung bases. RPTAT: QQ .Ron Bautista MD, Date Time Electronically viewed and signed by .Ron Bautista MD, on 05/12/2017 11:10 .R/
[2017-05-12] MEDS ORDERED: SOD CHLORIDE 0.9% 100 ML ONE (11:34)
[2017-05-12] MEDS: TPN 1,000 ML IV SCH (11:36)
[2017-05-12] MEDS: ONDANSETRON 4 MG INJ IV PRN (15:12)
[2017-05-12 16:41] VITALS: BP 167/81; RESP 16
--- NOTE | 2017-05-12 16:41 | RADRPT ---
PROCEDURE: Ultrasound proximal right upper extremity for PICC placement CLINICAL INDICATION: PICC placement TECHNIQUE: Sonographic evaluation of the proximal right upper extremity vessels was performed util izing a high-frequency linear transducer. COMPARISON: None available FINDINGS: Limited evaluation of the proximal right upper extremity for vascular access for PICC placement. Gr ossly, no abnormality is seen. IMPRESSION: Unremarkable limited proximal right upper extremity ultrasound for PICC placement. RPTAT: JJ .Jayden Perla MD, MD Date Time Electronically viewed and signed by .Jayden Perla MD, MD on 05/12/2017 16:40 .A/
[2017-05-12 19:59] VITALS: BP 133/67; RESP 16
--- NOTE | 2017-05-12 20:04 | PN ---
Date/Time of Note Date/Time of Note DATE: 05/12/17 TIME: 19:57 Assessment/Plan VTE Prophylaxis VTE Prophylaxis Intervention: SCD's Lines/Catheters IV Catheter Type (from Nrs): PICC Line Central line still needed: Yes Urinary Cath still in place: Yes Reason Cath still needed: urinary retention Assessment/Plan Chief Complaint/Hosp Course Patient tolerates clear liquid complains of mild nausea well controlled with current medication denies any emesis, pain is well controlled. 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 -S/p laparotomy with enterolysis, small-bowel resection and anastomosis, supracervical hysterectomy, bilateral salpingectomy and ureteral dissection by Dr. Perdomo on 05/01/17. Continue TPN. -Anemia,s/p blood transfusion, continue to monitor hemoglobin and hematocrit Recommendations based on clinical course. Plan of care discussed with Dr. Valle Exam/Review of Systems Vital Signs Vitals Vital Signs Date Time Temp Pulse Resp B/P Pulse Ox O2 Delivery O2 Flow Rate FiO2 05/12/17 18:24 2.0 05/12/17 16:41 98.5 61 16 167/81 100 05/11/17 20:00 Nasal Cannula Intake and Output 05/11/17 05/11/17 05/12/17 15:00 23:00 07:00 Intake Total 100 ml 600 ml 700 ml Output Total 660 ml 1110 ml Balance 100 ml -60 ml -410 ml Exam Constitutional: alert, oriented Neck: supple Respiratory: normal air movement Cardiovascular: nl pulses Gastrointestinal: other (Surgical incision, right lower quadrant ileostomy, left lower quadrant AIDEN), soft Extremities: normal pulses Neurological: nl mental status Results Result Diagram: 05/12/17 0449 05/12/17 0448 Results 24 hrs Laboratory Tests Test 05/12/17 04:48 05/12/17 04:49 Sodium Level 133 L Potassium Level 3.6 Chloride Level 92 L Carbon Dioxide Level 30 Anion Gap 15 Blood Urea Nitrogen 11 Creatinine 0.91 Glucose Level 73 Calcium Level 9.3 Total Bilirubin 0.5 Direct Bilirubin 0.00 Indirect Bilirubin 0.5 Aspartate Amino Transf (AST/SGOT) 47 H Alanine Aminotransferase (ALT/SGPT) 48 Alkaline Phosphatase 115 Total Protein 7.2 Albumin 3.6 Globulin 3.60 H Albumin/Globulin Ratio 1.00 White Blood Count 6.7 Red Blood Count 3.10 L Hemoglobin 9.7 L Hematocrit 27.8 L Mean Corpuscular Volume 89.7 Mean Corpuscular Hemoglobin 31.3 Mean Corpuscular Hemoglobin Concent 34.9 Red Cell Distribution Width 12.7 Platelet Count 397 Mean Platelet Volume 9.8 Neutrophils % 70.9 Lymphocytes % 16.5 Monocytes % 6.4 Eosinophils % 4.0 Basophils % 0.6 Nucleated Red Blood Cells % 0.0 Neutrophils # 4.7 Lymphocytes # 1.1 Monocytes # 0.4 Eosinophils # 0.3 Basophils # 0.0 Nucleated Red Blood Cells # 0.0 Medications Medications Current Medications Famotidine (Pepcid Iv) 20 mg DAILY IV Last administered on 05/12/17 08:35; Admin Dose 20 MG; Start 05/02/17 at 09:00 Hydromorphone HCl (Dilaudid) 1 mg Q2 PRN IV PAIN Last administered on 19:26; Admin Dose 1 MG; Start 05/01/17 at 23:30 Ondansetron HCl (Zofran Inj) 4 mg Q6H PRN IV NAUSEA AND/OR VOMITING Last administered on 05/12/17 15:12; Admin Dose 4 MG; Start 05/01/17 at 23:30 Morphine Sulfate 8 mg 8 mg Q3H PRN SC PAIN LEVEL 7-10 Last administered on 05/11 16:41; Admin Dose 8 MG; Start 05/02/17 at 17:00 Piperacillin Sod/ Tazobactam Sod 100 ml @ 200 mls/hr Q8 IVPB Last administered on 05/12/17 13:41; Admin Dose 200 MLS/HR; Start 05/04/17 at 14:00 Total Parenteral Nutrition (Tpn) 1,000 ml @ 80 mls/hr [id number] IV Last administered on 05/12/17 11:36; Admin Dose 80 MLS/HR; Start 05/11/17 at 22:00; Status Future hold IV Flush (NS 10 ml) 10 ml PRN PRN IV IV PROTOCOL; Start 05/12/17 at 12:00 KERI DE LA GARZA May 12, 2017 20:04
--- NOTE | 2017-05-12 21:07 | PN ---
Date/Time of Note Date/Time of Note DATE: 05/12/17 TIME: 21:05 Assessment/Plan VTE Prophylaxis VTE Prophylaxis Intervention: SCD's Lines/Catheters IV Catheter Type (from Nrs): PICC Line Central line still needed: Yes Urinary Cath still in place: Yes Reason Cath still needed: urinary retention Assessment/Plan Chief Complaint/Hosp Course Quan syndrome and impending SBO Problems: Assessment/Plan A- gradual impvt P- gradually adv diet Subjective 24 Hr Interval Summary Free Text/Dictation feels about the same with sl increase in ostomy but poor diet Exam/Review of Systems Vital Signs Vitals Vital Signs Date Time Temp Pulse Resp B/P Pulse Ox O2 Delivery O2 Flow Rate FiO2 05/12/17 19:59 99.7 63 16 133/67 100 05/12/17 18:24 2.0 05/11/17 20:00 Nasal Cannula Intake and Output 05/11/17 05/11/17 05/12/17 15:00 23:00 07:00 Intake Total 100 ml 600 ml 700 ml Output Total 660 ml 1110 ml Balance 100 ml -60 ml -410 ml Exam Resp- better and clear CVS- NSR Abd Clean, irregular but + ostomy Ext: NT no edema Results Result Diagram: 05/12/17 0449 05/12/17 0448 Results 24 hrs Laboratory Tests Test 05/12/17 04:48 05/12/17 04:49 Sodium Level 133 L Potassium Level 3.6 Chloride Level 92 L Carbon Dioxide Level 30 Anion Gap 15 Blood Urea Nitrogen 11 Creatinine 0.91 Glucose Level 73 Calcium Level 9.3 Total Bilirubin 0.5 Direct Bilirubin 0.00 Indirect Bilirubin 0.5 Aspartate Amino Transf (AST/SGOT) 47 H Alanine Aminotransferase (ALT/SGPT) 48 Alkaline Phosphatase 115 Total Protein 7.2 Albumin 3.6 Globulin 3.60 H Albumin/Globulin Ratio 1.00 White Blood Count 6.7 Red Blood Count 3.10 L Hemoglobin 9.7 L Hematocrit 27.8 L Mean Corpuscular Volume 89.7 Mean Corpuscular Hemoglobin 31.3 Mean Corpuscular Hemoglobin Concent 34.9 Red Cell Distribution Width 12.7 Platelet Count 397 Mean Platelet Volume 9.8 Neutrophils % 70.9 Lymphocytes % 16.5 Monocytes % 6.4 Eosinophils % 4.0 Basophils % 0.6 Nucleated Red Blood Cells % 0.0 Neutrophils # 4.7 Lymphocytes # 1.1 Monocytes # 0.4 Eosinophils # 0.3 Basophils # 0.0 Nucleated Red Blood Cells # 0.0 Medications Medications Current Medications Famotidine (Pepcid Iv) 20 mg DAILY IV Last administered on 05/12/17 08:35; Admin Dose 20 MG; Start 05/02/17 at 09:00 Hydromorphone HCl (Dilaudid) 1 mg Q2 PRN IV PAIN Last administered on 19:26; Admin Dose 1 MG; Start 05/01/17 at 23:30 Ondansetron HCl (Zofran Inj) 4 mg Q6H PRN IV NAUSEA AND/OR VOMITING Last administered on 05/12/17 15:12; Admin Dose 4 MG; Start 05/01/17 at 23:30 Morphine Sulfate 8 mg 8 mg Q3H PRN SC PAIN LEVEL 7-10 Last administered on 05/11 16:41; Admin Dose 8 MG; Start 05/02/17 at 17:00 Piperacillin Sod/ Tazobactam Sod 100 ml @ 200 mls/hr Q8 IVPB Last administered on 05/12/17 13:41; Admin Dose 200 MLS/HR; Start 05/04/17 at 14:00 Total Parenteral Nutrition (Tpn) 1,000 ml @ 80 mls/hr [id number] IV Last administered on 05/12/17 11:36; Admin Dose 80 MLS/HR; Start 05/11/17 at 22:00; Status Future hold IV Flush (NS 10 ml) 10 ml PRN PRN IV IV PROTOCOL; Start 05/12/17 at 12:00 HELEN FULTON MD May 12, 2017 21:07
[2017-05-13] MEDS: HYDROmorphONE 1 MG/ML SYG IV PRN ×5 (01:08→21:43)
[2017-05-13 02:05] VITALS: BP 110/59; RESP 16
[2017-05-13 05:51] LABS: BASOPHILS % 0.5 % (0.0-2.0); EOSINOPHILS # 0.2 10^3/ul (0.0-0.5); EOSINOPHILS % 3.9 % (0.0-7.0); HEMATOCRIT 28.2 % (37.0-47.0); HEMOGLOBIN 9.7 g/dl (12.0-16.0); LYMPHOCYTES # 1.1 10^3/ul (0.8-2.9); LYMPHOCYTES % 17.8 % (15.0-51.0); MEAN CORPUSCULAR HEMOGLOBIN 30.8 pg (29.0-33.0); MEAN CORPUSCULAR HGB CONC 34.4 g/dl (32.0-37.0); MEAN CORPUSCULAR VOLUME 89.5 fl (82.0-101.0); MONOCYTE # 0.4 10^3/ul (0.3-0.9); MONOCYTES % 5.9 % (0.0-11.0); NEUTROPHIL # 4.4 10^3/ul (1.6-7.5); NEUTROPHILS % 70.3 % (39.0-77.0); PLATELET COUNT 424 10^3/UL (140-415); RED BLOOD COUNT 3.15 10^6/ul (4.20-5.40); RED CELL DISTRIBUTION WIDTH 12.8 % (11.5-14.5); WHITE BLOOD COUNT 6.2 10^3/ul (4.8-10.8)
[2017-05-13] MEDS: PIPER-TAZO 3.375 GM IV (PMX) 100 ML IVPB SCH ×3 (06:14→21:38)
[2017-05-13 06:30] LABS: CALCIUM 9.5 mg/dl (8.4-10.2); CREATININE 0.89 mg/dl (0.44-1.00); POTASSIUM 3.1 mmol/L (3.5-5.1)
[2017-05-13 07:40] VITALS: BP 101/62; RESP 19
[2017-05-13] MEDS: FAMOTIDINE 20 MG INJ IV SCH (08:50)
[2017-05-13] MEDS: ACCU-CHEK XX SCH ×4 (08:51→21:37)
[2017-05-13 10:17] LABS: BILIRUBIN,INDIRECT 0.4 mg/dl (0-1.1); BILIRUBIN,TOTAL 0.4 mg/dl (0.2-1.3); MAGNESIUM 2.1 mg/dl (1.7-2.5); PHOSPHORUS 3.4 mg/dl (2.5-4.9); TOTAL PROTEIN 8.2 g/dl (6.1-8.1)
[2017-05-13 10:24] LABS: PREALBUMIN 15.8 mg/dl (17.6-36.0)
[2017-05-13] MEDS ORDERED: POTASSIUM CHLORIDE 20 MEQ in SOD CHLORIDE 0.9% 100 ML IVPB ONE (11:30)
--- NOTE | 2017-05-13 12:12 | PN ---
Date/Time of Note Date/Time of Note DATE: 05/13/17 TIME: 12:08 Assessment/Plan VTE Prophylaxis VTE Prophylaxis Intervention: SCD's Lines/Catheters IV Catheter Type (from Nrs): PICC Line Central line still needed: Yes Urinary Cath still in place: Yes Reason Cath still needed: other (indicate) Assessment/Plan Chief Complaint/Hosp Course Quan syndrome and impending SBO Problems: Assessment/Plan A- improving but anxious and upset that PICC was difficult and not OOB much P- d/c Vera and adv diet Subjective 24 Hr Interval Summary Free Text/Dictation Increased ostomy fct with no N/V but eats poorly. Exam/Review of Systems Vital Signs Vitals Vital Signs Date Time Temp Pulse Resp B/P Pulse Ox O2 Delivery O2 Flow Rate FiO2 05/13/17 07:40 98.1 59 19 101/62 98 05/13/17 01:00 2.0 05/11/17 20:00 Nasal Cannula Intake and Output 05/12/17 05/12/17 05/13/17 15:00 23:00 07:00 Intake Total 100 ml 1030 ml 1100 ml Output Total 545 ml 805 ml Balance 100 ml 485 ml 295 ml Exam Resp- clear CVS- NSR Abd - soft less tender Ext- NT no edema Results Result Diagram: 05/13/17 0511 05/13/17 0510 Results 24 hrs Laboratory Tests Test 05/13/17 05:10 05/13/17 05:11 05/13/17 08:37 Sodium Level 135 Potassium Level 3.1 L Chloride Level 95 L Carbon Dioxide Level 31 Anion Gap 12 Blood Urea Nitrogen 12 Creatinine 0.89 Glucose Level 109 Calcium Level 9.5 Phosphorus Level 3.4 Magnesium Level 2.1 Total Bilirubin 0.4 Direct Bilirubin 0.00 Indirect Bilirubin 0.4 Aspartate Amino Transf (AST/SGOT) 53 H Alanine Aminotransferase (ALT/SGPT) 50 Alkaline Phosphatase 134 H Total Protein 8.2 H Albumin 4.0 Prealbumin 15.8 L Triglycerides Level 355 H White Blood Count 6.2 Red Blood Count 3.15 L Hemoglobin 9.7 L Hematocrit 28.2 L Mean Corpuscular Volume 89.5 Mean Corpuscular Hemoglobin 30.8 Mean Corpuscular Hemoglobin Concent 34.4 Red Cell Distribution Width 12.8 Platelet Count 424 H Mean Platelet Volume 10.0 Neutrophils % 70.3 Lymphocytes % 17.8 Monocytes % 5.9 Eosinophils % 3.9 Basophils % 0.5 Nucleated Red Blood Cells % 0.0 Neutrophils # 4.4 Lymphocytes # 1.1 Monocytes # 0.4 Eosinophils # 0.2 Basophils # 0.0 Nucleated Red Blood Cells # 0.0 Bedside Glucose 111 Medications Medications Current Medications Famotidine (Pepcid Iv) 20 mg DAILY IV Last administered on 05/13/17 08:50; Admin Dose 20 MG; Start 05/02/17 at 09:00 Hydromorphone HCl (Dilaudid) 1 mg Q2 PRN IV PAIN Last administered on 08:50; Admin Dose 1 MG; Start 05/01/17 at 23:30 Ondansetron HCl (Zofran Inj) 4 mg Q6H PRN IV NAUSEA AND/OR VOMITING Last administered on 05/12/17 15:12; Admin Dose 4 MG; Start 05/01/17 at 23:30 Morphine Sulfate 8 mg 8 mg Q3H PRN SC PAIN LEVEL 7-10 Last administered on 05/11 16:41; Admin Dose 8 MG; Start 05/02/17 at 17:00 Piperacillin Sod/ Tazobactam Sod 100 ml @ 200 mls/hr Q8 IVPB Last administered on 05/13/17 06:14; Admin Dose 200 MLS/HR; Start 05/04/17 at 14:00 Total Parenteral Nutrition (Tpn) 1,000 ml @ 40 mls/hr Q24H IV Last administered on 05/12/17 11:36; Admin Dose 80 MLS/HR; Start 05/11/17 at 22:00; Status Future hold IV Flush (NS 10 ml) 10 ml PRN PRN IV IV PROTOCOL; Start 05/12/17 at 12:00 Diagnostic Test (Pha) 1 ea 1 ea Q4 XX Last administered on 05/13/17 08:51; Admin Dose 1 EA; Start 05/13/17 at 09:00 Potassium Chloride/Sodium Chloride (KCl/NS) 110 ml @ 55 mls/hr ONCE ONCE IVPB Last administered on 05/13/17 11:48; Admin Dose 55 MLS/HR; Start 05/13/17 at 11:30; Stop 05/13/17 at 13:29 HELEN FULTON MD May 13, 2017 12:12
[2017-05-13] MEDS: TPN 1,000 ML IV SCH ×2 (13:46→22:42)
--- NOTE | 2017-05-13 17:15 | PN ---
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 -S/p laparotomy with enterolysis, small-bowel resection and anastomosis, supracervical hysterectomy, bilateral salpingectomy and ureteral dissection by Dr. Perdomo on 05/01/17. Continue TPN. -Anemia,s/p blood transfusion, continue to monitor hemoglobin and hematocrit Recommendations based on clinical course. Plan of care discussed with Dr. Valle Problems: Exam/Review of Systems Vital Signs Vitals Vital Signs Date Time Temp Pulse Resp B/P Pulse Ox O2 Delivery O2 Flow Rate FiO2 05/13/17 07:40 98.1 59 19 101/62 98 05/13/17 01:00 2.0 05/11/17 20:00 Nasal Cannula Intake and Output 05/12/17 05/12/17 05/13/17 15:00 23:00 07:00 Intake Total 100 ml 1030 ml 1100 ml Output Total 545 ml 805 ml Balance 100 ml 485 ml 295 ml Exam Constitutional: alert, oriented Neck: supple Respiratory: normal air movement Cardiovascular: nl pulses Gastrointestinal: other (Surgical incision, right lower quadrant ileostomy, left lower quadrant AIDEN), soft Extremities: normal pulses Neurological: nl mental status Results Result Diagram: 05/13/17 0511 05/13/17 0510 Results 24 hrs Laboratory Tests Test 05/13/17 05:10 05/13/17 05:11 05/13/17 08:37 05/13/17 12:42 Sodium Level 135 Potassium Level 3.1 L Chloride Level 95 L Carbon Dioxide Level 31 Anion Gap 12 Blood Urea Nitrogen 12 Creatinine 0.89 Glucose Level 109 Calcium Level 9.5 Phosphorus Level 3.4 Magnesium Level 2.1 Total Bilirubin 0.4 Direct Bilirubin 0.00 Indirect Bilirubin 0.4 Aspartate Amino Transf (AST/SGOT) 53 H Alanine Aminotransferase (ALT/SGPT) 50 Alkaline Phosphatase 134 H Total Protein 8.2 H Albumin 4.0 Prealbumin 15.8 L Triglycerides Level 355 H White Blood Count 6.2 Red Blood Count 3.15 L Hemoglobin 9.7 L Hematocrit 28.2 L Mean Corpuscular Volume 89.5 Mean Corpuscular Hemoglobin 30.8 Mean Corpuscular Hemoglobin Concent 34.4 Red Cell Distribution Width 12.8 Platelet Count 424 H Mean Platelet Volume 10.0 Neutrophils % 70.3 Lymphocytes % 17.8 Monocytes % 5.9 Eosinophils % 3.9 Basophils % 0.5 Nucleated Red Blood Cells % 0.0 Neutrophils # 4.4 Lymphocytes # 1.1 Monocytes # 0.4 Eosinophils # 0.2 Basophils # 0.0 Nucleated Red Blood Cells # 0.0 Bedside Glucose 111 101 Medications Medications Current Medications Famotidine (Pepcid Iv) 20 mg DAILY IV Last administered on 05/13/17 08:50; Admin Dose 20 MG; Start 05/02/17 at 09:00 Hydromorphone HCl (Dilaudid) 1 mg Q2 PRN IV PAIN Last administered on 17:11; Admin Dose 1 MG; Start 05/01/17 at 23:30 Ondansetron HCl (Zofran Inj) 4 mg Q6H PRN IV NAUSEA AND/OR VOMITING Last administered on 05/12/17 15:12; Admin Dose 4 MG; Start 05/01/17 at 23:30 Morphine Sulfate 8 mg 8 mg Q3H PRN SC PAIN LEVEL 7-10 Last administered on 05/11 16:41; Admin Dose 8 MG; Start 05/02/17 at 17:00 Piperacillin Sod/ Tazobactam Sod 100 ml @ 200 mls/hr Q8 IVPB Last administered on 05/13/17 13:46; Admin Dose 200 MLS/HR; Start 05/04/17 at 14:00 Total Parenteral Nutrition (Tpn) 1,000 ml @ 40 mls/hr Q24H IV Last administered on 05/13/17 13:46; Admin Dose 40 MLS/HR; Start 05/11/17 at 22:00; Status Future hold IV Flush (NS 10 ml) 10 ml PRN PRN IV IV PROTOCOL; Start 05/12/17 at 12:00 Diagnostic Test (Pha) (Accu-Chek) 1 ea Q4 XX Last administered on 05/13/17t 17: 09; Admin Dose 1 EA; Start 05/13/17 at 09:00 KERI DE LA GARZA May 13, 2017 17:15
[2017-05-13 19:40] VITALS: BP 144/67; RESP 18
[2017-05-14] MEDS: ACCU-CHEK XX SCH ×5 (01:15→18:08)
[2017-05-14] MEDS: HYDROmorphONE 1 MG/ML SYG IV PRN ×7 (01:15→23:03)
[2017-05-14 05:21] LABS: BASOPHILS % 0.6 % (0.0-2.0); EOSINOPHILS # 0.3 10^3/ul (0.0-0.5); EOSINOPHILS % 4.7 % (0.0-7.0); HEMATOCRIT 28.4 % (37.0-47.0); HEMOGLOBIN 9.5 g/dl (12.0-16.0); LYMPHOCYTES # 1.2 10^3/ul (0.8-2.9); LYMPHOCYTES % 19.4 % (15.0-51.0); MEAN CORPUSCULAR HEMOGLOBIN 30.3 pg (29.0-33.0); MEAN CORPUSCULAR HGB CONC 33.5 g/dl (32.0-37.0); MEAN CORPUSCULAR VOLUME 90.4 fl (82.0-101.0); MEAN PLATELET VOLUME 10.3 fl (7.4-10.4); MONOCYTE # 0.4 10^3/ul (0.3-0.9); MONOCYTES % 6.3 % (0.0-11.0); NEUTROPHIL # 4.3 10^3/ul (1.6-7.5); NEUTROPHILS % 67.7 % (39.0-77.0); PLATELET COUNT 440 10^3/UL (140-415); RED BLOOD COUNT 3.14 10^6/ul (4.20-5.40); WHITE BLOOD COUNT 6.3 10^3/ul (4.8-10.8)
[2017-05-14] MEDS: PIPER-TAZO 3.375 GM IV (PMX) 100 ML IVPB SCH ×3 (05:28→22:19)
[2017-05-14 05:35] LABS: CALCIUM 9.3 mg/dl (8.4-10.2); CREATININE 0.84 mg/dl (0.44-1.00); MAGNESIUM 2.1 mg/dl (1.7-2.5); PHOSPHORUS 2.8 mg/dl (2.5-4.9)
[2017-05-14 07:26] VITALS: BP 107/64; RESP 18
[2017-05-14] MEDS: FAMOTIDINE 20 MG INJ IV SCH (09:25)
[2017-05-14] MEDS: ONDANSETRON 4 MG INJ IV PRN ×2 (09:25→16:32)
[2017-05-14] MEDS: TPN 1,000 ML IV SCH (11:28)
[2017-05-14 14:11] VITALS: BP 116/67; RESP 18
[2017-05-14] MEDS ORDERED: POTASSIUM CHLORIDE 30 MEQ in SOD CHLORIDE 0.9% 150 ML IVPB ONE (17:00)
--- NOTE | 2017-05-14 17:05 | PN ---
Date/Time of Note Date/Time of Note DATE: 05/14/17 TIME: 17:03 Assessment/Plan VTE Prophylaxis VTE Prophylaxis Intervention: LMWH Lines/Catheters IV Catheter Type (from Nrs): PICC Line Central line still needed: Yes Urinary Cath still in place: No Assessment/Plan Chief Complaint/Hosp Course Quan syndrome and impending SBO Problems: Assessment/Plan A- improved P- adv diet tomorrow Subjective 24 Hr Interval Summary Free Text/Dictation Sleepy but no N/V and oob more. Anna liq. Exam/Review of Systems Vital Signs Vitals Vital Signs Date Time Temp Pulse Resp B/P Pulse Ox O2 Delivery O2 Flow Rate FiO2 05/14/17 14:11 97.6 63 18 116/67 98 05/14/17 02:56 2.0 05/11/17 20:00 Nasal Cannula Intake and Output 05/13/17 05/13/17 05/14/17 15:00 23:00 07:00 Intake Total 550 ml 790 ml 900 ml Output Total 1255 ml 815 ml Balance 550 ml -465 ml 85 ml Exam Resp- clear CVS- NSR Abd- softer, NT, ostomy fct better Ext- NT no edema Results Result Diagram: 05/14/17 0445 05/14/17 0445 Results 24 hrs Laboratory Tests Test 05/13/17 17:14 05/13/17 21:36 05/14/17 01:12 05/14/17 04:45 Bedside Glucose 106 106 107 White Blood Count 6.3 Red Blood Count 3.14 L Hemoglobin 9.5 L Hematocrit 28.4 L Mean Corpuscular Volume 90.4 Mean Corpuscular Hemoglobin 30.3 Mean Corpuscular Hemoglobin Concent 33.5 Red Cell Distribution Width 13.0 Platelet Count 440 H Mean Platelet Volume 10.3 Neutrophils % 67.7 Lymphocytes % 19.4 Monocytes % 6.3 Eosinophils % 4.7 Basophils % 0.6 Nucleated Red Blood Cells % 0.0 Neutrophils # 4.3 Lymphocytes # 1.2 Monocytes # 0.4 Eosinophils # 0.3 Basophils # 0.0 Nucleated Red Blood Cells # 0.0 Sodium Level 138 Potassium Level 3.0 L Chloride Level 102 Carbon Dioxide Level 29 Anion Gap 10 Blood Urea Nitrogen 12 Creatinine 0.84 Glucose Level 108 Calcium Level 9.3 Phosphorus Level 2.8 Magnesium Level 2.1 Test 05/14/17 05:11 05/14/17 09:29 05/14/17 12:40 Bedside Glucose 102 98 106 Medications Medications Current Medications Famotidine (Pepcid Iv) 20 mg DAILY IV Last administered on 05/14/17 09:25; Admin Dose 20 MG; Start 05/02/17 at 09:00 Hydromorphone HCl (Dilaudid) 1 mg Q2 PRN IV PAIN Last administered on 16:32; Admin Dose 1 MG; Start 05/01/17 at 23:30 Ondansetron HCl (Zofran Inj) 4 mg Q6H PRN IV NAUSEA AND/OR VOMITING Last administered on 05/14/17 16:32; Admin Dose 4 MG; Start 05/01/17 at 23:30 Morphine Sulfate 8 mg 8 mg Q3H PRN SC PAIN LEVEL 7-10 Last administered on 05/11 16:41; Admin Dose 8 MG; Start 05/02/17 at 17:00 Piperacillin Sod/ Tazobactam Sod 100 ml @ 200 mls/hr Q8 IVPB Last administered on 05/14/17 14:10; Admin Dose 200 MLS/HR; Start 05/04/17 at 14:00 Total Parenteral Nutrition (Tpn) 1,000 ml @ 40 mls/hr Q24H IV Last administered on 05/14/17 11:28; Admin Dose 40 MLS/HR; Start 05/11/17 at 22:00; Status Future hold IV Flush (NS 10 ml) 10 ml PRN PRN IV IV PROTOCOL; Start 05/12/17 at 12:00 Diagnostic Test (Pha) 1 ea 1 ea Q6 XX Last administered on 05/14/17 12:44; Admin Dose 1 EA; Start 05/14/17 at 12:00 Potassium Chloride/Sodium Chloride (KCl/NS) 165 ml @ 55 mls/hr ONCE ONCE IVPB ; Start 05/14/17 at 17:00; Stop 05/14/17 at 19:59 HELEN FULTON MD May 14, 2017 17:05
--- NOTE | 2017-05-14 17:44 | PN ---
Date/Time of Note Date/Time of Note DATE: 05/14/17 TIME: 17:43 Assessment/Plan VTE Prophylaxis VTE Prophylaxis Intervention: SCD's Lines/Catheters IV [facility] Type (from [facility]): PICC Line Central line still needed: Yes Urinary Cath still in place: No Assessment/Plan Chief Complaint/Hosp Course Patient tolerates a clear liquid well, ambulates in the hallway, abdominal pain is well controlled. Hypokalemia, potassium replaced. 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 -S/p laparotomy with enterolysis, small-bowel resection and anastomosis, supracervical hysterectomy, bilateral salpingectomy and ureteral dissection by Dr. Perdomo on 05/01/17. Continue TPN. -Anemia,s/p blood transfusion, continue to monitor hemoglobin and hematocrit Recommendations based on clinical course. Plan of care discussed with Dr. Valle Problems: Exam/Review of Systems Vital Signs Vitals Vital Signs Date Time Temp Pulse Resp B/P Pulse Ox O2 Delivery O2 Flow Rate FiO2 05/14/17 14:11 97.6 63 18 116/67 98 05/14/17 02:56 2.0 05/11/17 20:00 Nasal Cannula Intake and Output 05/13/17 05/13/17 05/14/17 15:00 23:00 07:00 Intake Total 550 ml 790 ml 900 ml Output Total 1255 ml 815 ml Balance 550 ml -465 ml 85 ml Exam Constitutional: alert, oriented Neck: supple Respiratory: normal air movement Cardiovascular: nl pulses Gastrointestinal: other (Surgical incision, right lower quadrant ileostomy, left lower quadrant AIDEN), soft Extremities: normal pulses Neurological: nl mental status Results Result Diagram: 05/14/17 0445 05/14/17 0445 Results 24 hrs Laboratory Tests Test 05/13/17 21:36 05/14/17 01:12 05/14/17 04:45 05/14/17 05:11 Bedside Glucose 106 107 102 White Blood Count 6.3 Red Blood Count 3.14 L Hemoglobin 9.5 L Hematocrit 28.4 L Mean Corpuscular Volume 90.4 Mean Corpuscular Hemoglobin 30.3 Mean Corpuscular Hemoglobin Concent 33.5 Red Cell Distribution Width 13.0 Platelet Count 440 H Mean Platelet Volume 10.3 Neutrophils % 67.7 Lymphocytes % 19.4 Monocytes % 6.3 Eosinophils % 4.7 Basophils % 0.6 Nucleated Red Blood Cells % 0.0 Neutrophils # 4.3 Lymphocytes # 1.2 Monocytes # 0.4 Eosinophils # 0.3 Basophils # 0.0 Nucleated Red Blood Cells # 0.0 Sodium Level 138 Potassium Level 3.0 L Chloride Level 102 Carbon Dioxide Level 29 Anion Gap 10 Blood Urea Nitrogen 12 Creatinine 0.84 Glucose Level 108 Calcium Level 9.3 Phosphorus Level 2.8 Magnesium Level 2.1 Test 05/14/17 09:29 05/14/17 12:40 Bedside Glucose 98 106 Medications Medications Current Medications Famotidine (Pepcid Iv) 20 mg DAILY IV Last administered on 05/14/17 09:25; Admin Dose 20 MG; Start 05/02/17 at 09:00 Hydromorphone HCl (Dilaudid) 1 mg Q2 PRN IV PAIN Last administered on 16:32; Admin Dose 1 MG; Start 05/01/17 at 23:30 Ondansetron HCl (Zofran Inj) 4 mg Q6H PRN IV NAUSEA AND/OR VOMITING Last administered on 05/14/17 16:32; Admin Dose 4 MG; Start 05/01/17 at 23:30 Morphine Sulfate 8 mg 8 mg Q3H PRN SC PAIN LEVEL 7-10 Last administered on 05/11 16:41; Admin Dose 8 MG; Start 05/02/17 at 17:00 Piperacillin Sod/ Tazobactam Sod 100 ml @ 200 mls/hr Q8 IVPB Last administered on 05/14/17 14:10; Admin Dose 200 MLS/HR; Start 05/04/17 at 14:00 Total Parenteral Nutrition (Tpn) 1,000 ml @ 40 mls/hr Q24H IV Last administered on 05/14/17 11:28; Admin Dose 40 MLS/HR; Start 05/11/17 at 22:00; Status Future hold IV Flush (NS 10 ml) 10 ml PRN PRN IV IV PROTOCOL; Start 05/12/17 at 12:00 Diagnostic Test (Pha) 1 ea 1 ea Q6 XX Last administered on 05/14/17 12:44; Admin Dose 1 EA; Start 05/14/17 at 12:00 Potassium Chloride/Sodium Chloride (KCl/NS) 165 ml @ 55 mls/hr ONCE ONCE IVPB ; Start 05/14/17 at 17:00; Stop 05/14/17 at 19:59 KERI DE LA GARZA May 14, 2017 17:44
[2017-05-14 21:04] VITALS: BP 112/58; RESP 20
[2017-05-15] MEDS: HYDROmorphONE 1 MG/ML SYG IV PRN ×6 (05:25→22:45)
[2017-05-15] MEDS: PIPER-TAZO 3.375 GM IV (PMX) 100 ML IVPB SCH ×3 (05:25→21:50)
[2017-05-15] MEDS: ACCU-CHEK XX SCH ×4 (05:29→18:36)
[2017-05-15 07:07] LABS: CALCIUM 9.2 mg/dl (8.4-10.2); CREATININE 0.92 mg/dl (0.44-1.00); POTASSIUM 3.2 mmol/L (3.5-5.1)
[2017-05-15] MEDS ORDERED: POTASSIUM CHLORIDE (SR) 20 MEQ TAB PO STA (08:05)
[2017-05-15 08:06] VITALS: BP 111/64; RESP 16
[2017-05-15] MEDS: FAMOTIDINE 20 MG INJ IV SCH (09:34)
[2017-05-15] MEDS: TPN 1,000 ML IV SCH (11:30)
[2017-05-15 15:09] VITALS: BP 114/66; RESP 16
--- NOTE | 2017-05-15 18:50 | PN ---
Date/Time of Note Date/Time of Note DATE: 05/15/17 TIME: 18:47 Assessment/Plan VTE Prophylaxis VTE Prophylaxis Intervention: other Lines/Catheters IV [facility]atheter Type (from [facility]): PICC Line Central line still needed: Yes Urinary Cath still in place: No Assessment/Plan Assessment/Plan - Hypokalemia- replace k, AM amp. 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 -S/p laparotomy with enterolysis, small-bowel resection and anastomosis, supracervical hysterectomy, bilateral salpingectomy and ureteral dissection by Dr. Perdomo on 05/01/17. Continue TPN. -Anemia,s/p blood transfusion, continue to monitor hemoglobin and hematocrit - Thrombocytosis- monitor labs Recommendations based on clinical course. Plan of care discussed with Dr. Valle Subjective 24 Hr Interval Summary Free Text/Dictation having some ice chips, daughter at bed side, tolerates full liq diet. afebrile, dw staff Constitutional: improved Respiratory: no complaints Cardiovascular: no complaints Gastrointestinal: no complaints Genitourinary: bleeding Exam/Review of Systems Vital Signs Vitals Vital Signs Date Time Temp Pulse Resp B/P Pulse Ox O2 Delivery O2 Flow Rate FiO2 05/15/17 15:09 98.0 70 16 114/66 100 05/14/17 02:56 2.0 05/11/17 20:00 Nasal Cannula Intake and Output 05/14/17 05/14/17 05/15/17 15:00 23:00 07:00 Intake Total 460 ml 1345 ml 960 ml Output Total 400 ml 620 ml Balance 460 ml 945 ml 340 ml Exam Constitutional: alert, oriented, well developed Respiratory: clear to auscultation, diminished breath sounds Cardiovascular: regular rate and rhythm Gastrointestinal: soft, tender (surgical abdomen) Musculoskeletal: nl extremities to inspection Neurological: nl mental status, nl speech Results Result Diagram: 05/14/17 0445 05/15/17 0624 Results 24 hrs Laboratory Tests Test 05/15/17 01:26 05/15/17 05:29 05/15/17 06:24 05/15/17 12:14 Bedside Glucose 100 100 91 Sodium Level 138 Potassium Level 3.2 L Chloride Level 104 Carbon Dioxide Level 27 Anion Gap 10 Blood Urea Nitrogen 11 Creatinine 0.92 Glucose Level 119 Calcium Level 9.2 Phosphorus Level 3.0 Magnesium Level 2.0 Test 05/15/17 17:59 Bedside Glucose 80 Medications Medications Current Medications Famotidine (Pepcid Iv) 20 mg DAILY IV Last administered on 05/15/17 09:34; Admin Dose 20 MG; Start 05/02/17 at 09:00 Hydromorphone HCl (Dilaudid) 1 mg Q2 PRN IV PAIN Last administered on 16:38; Admin Dose 1 MG; Start 05/01/17 at 23:30 Ondansetron HCl (Zofran Inj) 4 mg Q6H PRN IV NAUSEA AND/OR VOMITING Last administered on 05/14/17 16:32; Admin Dose 4 MG; Start 05/01/17 at 23:30 Morphine Sulfate 8 mg 8 mg Q3H PRN SC PAIN LEVEL 7-10 Last administered on 05/11 16:41; Admin Dose 8 MG; Start 05/02/17 at 17:00 Piperacillin Sod/ Tazobactam Sod 100 ml @ 200 mls/hr Q8 IVPB Last administered on 05/15/17 14:06; Admin Dose 200 MLS/HR; Start 05/04/17 at 14:00 Total Parenteral Nutrition (Tpn) 1,000 ml @ 40 mls/hr Q24H IV Last administered on 05/15/17 11:30; Admin Dose 40 MLS/HR; Start 05/11/17 at 22:00; Status Future hold IV Flush (NS 10 ml) 10 ml PRN PRN IV IV PROTOCOL; Start 05/12/17 at 12:00 Diagnostic Test (Pha) (Accu-Chek) 1 ea Q6 XX Last administered on 05/15/17 18: 36; Admin Dose 1 EA; Start 05/14/17 at 12:00 EMILI DUARTE May 15, 2017 18:50
[2017-05-15 20:34] VITALS: BP 117/69; RESP 20
--- NOTE | 2017-05-15 21:28 | PN ---
Date/Time of Note Date/Time of Note DATE: 05/15/17 TIME: 21:25 Assessment/Plan VTE Prophylaxis VTE Prophylaxis Intervention: LMWH Lines/Catheters IV Catheter Type (from Nrsg): PICC Line Central line still needed: Yes Urinary Cath still in place: No Assessment/Plan Chief Complaint/Hosp Course Quan syndrome and impending SBO Problems: Assessment/Plan A- doing better P- will adv diet a.m. and taper pain med Subjective 24 Hr Interval Summary Free Text/Dictation Feels better and more ostomy ct. Exam/Review of Systems Vital Signs Vitals Vital Signs Date Time Temp Pulse Resp B/P Pulse Ox O2 Delivery O2 Flow Rate FiO2 05/15/17 20:34 98.5 79 20 117/69 100 05/14/17 02:56 2.0 05/11/17 20:00 Nasal Cannula Intake and Output 05/14/17 05/14/17 05/15/17 15:00 23:00 07:00 Intake Total 460 ml 1345 ml 960 ml Output Total 400 ml 620 ml Balance 460 ml 945 ml 340 ml Exam Resp- clear CVS- NSR Abd- softer, NT, ostomy fct better Ext- NT no edema Results Result Diagram: 05/14/17 0445 05/15/17 0624 Results 24 hrs Laboratory Tests Test 05/15/17 01:26 05/15/17 05:29 05/15/17 06:24 05/15/17 12:14 Bedside Glucose 100 100 91 Sodium Level 138 Potassium Level 3.2 L Chloride Level 104 Carbon Dioxide Level 27 Anion Gap 10 Blood Urea Nitrogen 11 Creatinine 0.92 Glucose Level 119 Calcium Level 9.2 Phosphorus Level 3.0 Magnesium Level 2.0 Test 05/15/17 17:59 Bedside Glucose 80 Medications Medications Current Medications Famotidine (Pepcid Iv) 20 mg DAILY IV Last administered on 05/15/17 09:34; Admin Dose 20 MG; Start 05/02/17 at 09:00 Hydromorphone HCl (Dilaudid) 1 mg Q2 PRN IV PAIN Last administered on 19:56; Admin Dose 1 MG; Start 05/01/17 at 23:30 Ondansetron HCl (Zofran Inj) 4 mg Q6H PRN IV NAUSEA AND/OR VOMITING Last administered on 9/20/17at 16:32; Admin Dose 4 MG; Start 05/01/17 at 23:30 Morphine Sulfate 8 mg 8 mg Q3H PRN SC PAIN LEVEL 7-10 Last administered on 05/11 16:41; Admin Dose 8 MG; Start 05/02/17 at 17:00 Piperacillin Sod/ Tazobactam Sod 100 ml @ 200 mls/hr Q8 IVPB Last administered on 05/15/17 14:06; Admin Dose 200 MLS/HR; Start 05/04/17 at 14:00 Total Parenteral Nutrition (Tpn) 1,000 ml @ 40 mls/hr Q24H IV Last administered on 05/15/17 11:30; Admin Dose 40 MLS/HR; Start 05/11/17 at 22:00; Status Future hold IV Flush (NS 10 ml) 10 ml PRN PRN IV IV PROTOCOL; Start 05/12/17 at 12:00 Diagnostic Test (Pha) (Accu-Chek) 1 ea Q6 XX Last administered on 05/15/17 18: 36; Admin Dose 1 EA; Start 05/14/17 at 12:00 HELEN FULTON MD May 15, 2017 21:28
[2017-05-16] MEDS: ACCU-CHEK XX SCH ×4 (00:17→18:35)
[2017-05-16] MEDS: HYDROmorphONE 1 MG/ML SYG IV PRN ×8 (00:42→21:55)
[2017-05-16 02:15] VITALS: BP 96/56; RESP 18
[2017-05-16] MEDS: PIPER-TAZO 3.375 GM IV (PMX) 100 ML IVPB SCH ×3 (05:44→21:56)
[2017-05-16 06:05] LABS: BASOPHILS % 0.5 % (0.0-2.0); EOSINOPHILS # 0.3 10^3/ul (0.0-0.5); EOSINOPHILS % 3.8 % (0.0-7.0); HEMATOCRIT 25.8 % (37.0-47.0); HEMOGLOBIN 8.5 g/dl (12.0-16.0); LYMPHOCYTES # 1.3 10^3/ul (0.8-2.9); LYMPHOCYTES % 14.8 % (15.0-51.0); MEAN CORPUSCULAR HEMOGLOBIN 30.4 pg (29.0-33.0); MEAN CORPUSCULAR HGB CONC 32.9 g/dl (32.0-37.0); MEAN CORPUSCULAR VOLUME 92.1 fl (82.0-101.0); MEAN PLATELET VOLUME 10.3 fl (7.4-10.4); MONOCYTE # 0.6 10^3/ul (0.3-0.9); MONOCYTES % 6.9 % (0.0-11.0); NEUTROPHIL # 6.2 10^3/ul (1.6-7.5); NEUTROPHILS % 73.2 % (39.0-77.0); PLATELET COUNT 368 10^3/UL (140-415); RED CELL DISTRIBUTION WIDTH 13.2 % (11.5-14.5); WHITE BLOOD COUNT 8.5 10^3/ul (4.8-10.8)
[2017-05-16 07:00] VITALS: BP 105/58; RESP 20
[2017-05-16 07:04] LABS: CALCIUM 9.4 mg/dl (8.4-10.2); CREATININE 0.9 mg/dl (0.44-1.00)
[2017-05-16] MEDS: FAMOTIDINE 20 MG INJ IV SCH (09:40)
[2017-05-16] MEDS: ONDANSETRON 4 MG INJ IV PRN (11:57)
[2017-05-16] MEDS: TPN 1,000 ML IV SCH (11:58)
[2017-05-16 14:00] VITALS: BP 112/59; RESP 18
--- NOTE | 2017-05-16 16:05 | PN ---
Date/Time of Note Date/Time of Note DATE: 05/16/17 TIME: 16:03 Assessment/Plan VTE Prophylaxis VTE Prophylaxis Intervention: SCD's Lines/Catheters IV Catheter Type (from Nrs): PICC Line Central line still needed: Yes Urinary Cath still in place: No Assessment/Plan Chief Complaint/Hosp Course Patient appears depressed. 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 -S/p laparotomy with enterolysis, small-bowel resection and anastomosis, supracervical hysterectomy, bilateral salpingectomy and ureteral dissection by Dr. Perdomo on 05/01/17. Continue TPN. -Anemia,s/p blood transfusion, continue to monitor hemoglobin and hematocrit Recommendations based on clinical course. Plan of care discussed with Dr. Valle Problems: Exam/Review of Systems Vital Signs Vitals Vital Signs Date Time Temp Pulse Resp B/P Pulse Ox O2 Delivery O2 Flow Rate FiO2 05/16/17 14:00 98.7 82 18 112/59 99 05/16/17 08:00 Nasal Cannula 2.0 Intake and Output 05/15/17 05/15/17 05/16/17 15:00 23:00 07:00 Intake Total 280 ml 820 ml 550 ml Output Total 110 ml 10 ml Balance 280 ml 710 ml 540 ml Exam Constitutional: alert, oriented Neck: supple Respiratory: normal air movement Cardiovascular: nl pulses Gastrointestinal: other (Surgical incision, right lower quadrant ileostomy, left lower quadrant AIDEN), soft Extremities: normal pulses Neurological: nl mental status Results Result Diagram: 05/16/17 0440 05/16/17 0440 Results 24 hrs Laboratory Tests Test 05/15/17 17:59 05/16/17 00:16 05/16/17 04:40 05/16/17 05:43 Bedside Glucose 80 97 99 White Blood Count 8.5 # Red Blood Count 2.80 L Hemoglobin 8.5 L Hematocrit 25.8 L Mean Corpuscular Volume 92.1 Mean Corpuscular Hemoglobin 30.4 Mean Corpuscular Hemoglobin Concent 32.9 Red Cell Distribution Width 13.2 Platelet Count 368 Mean Platelet Volume 10.3 Neutrophils % 73.2 Lymphocytes % 14.8 L Monocytes % 6.9 Eosinophils % 3.8 Basophils % 0.5 Nucleated Red Blood Cells % 0.0 Neutrophils # 6.2 Lymphocytes # 1.3 Monocytes # 0.6 Eosinophils # 0.3 Basophils # 0.0 Nucleated Red Blood Cells # 0.0 Sodium Level 135 Potassium Level 4.0 Chloride Level 102 Carbon Dioxide Level 27 Anion Gap 10 Blood Urea Nitrogen 13 Creatinine 0.90 Glucose Level 95 Calcium Level 9.4 Test 05/16/17 12:12 Bedside Glucose 103 Medications Medications Current Medications Famotidine (Pepcid Iv) 20 mg DAILY IV Last administered on 05/16/17 09:40; Admin Dose 20 MG; Start 05/02/17 at 09:00 Hydromorphone HCl (Dilaudid) 1 mg Q2 PRN IV PAIN Last administered on 14:46; Admin Dose 1 MG; Start 05/01/17 at 23:30 Ondansetron HCl (Zofran Inj) 4 mg Q6H PRN IV NAUSEA AND/OR VOMITING Last administered on 05/16/17 11:57; Admin Dose 4 MG; Start 05/01/17 at 23:30 Morphine Sulfate 8 mg 8 mg Q3H PRN SC PAIN LEVEL 7-10 Last administered on 05/11 16:41; Admin Dose 8 MG; Start 05/02/17 at 17:00 Piperacillin Sod/ Tazobactam Sod 100 ml @ 200 mls/hr Q8 IVPB Last administered on 05/16/17 14:46; Admin Dose 200 MLS/HR; Start 05/04/17 at 14:00 Total Parenteral Nutrition (Tpn) 1,000 ml @ 40 mls/hr Q24H IV Last administered on 05/16/17 11:58; Admin Dose 40 MLS/HR; Start 05/11/17 at 22:00; Status Future hold IV Flush (NS 10 ml) 10 ml PRN PRN IV IV PROTOCOL; Start 05/12/17 at 12:00 Diagnostic Test (Pha) (Accu-Chek) 1 ea Q6 XX Last administered on 05/16/17 12: 08; Admin Dose 1 EA; Start 05/14/17 at 12:00 KERI DE LA GARZA May 16, 2017 16:05
[2017-05-16 19:25] VITALS: BP 107/59; RESP 18
--- NOTE | 2017-05-16 23:50 | PN ---
Date/Time of Note Date/Time of Note DATE: 05/16/17 TIME: 23:48 Assessment/Plan VTE Prophylaxis VTE Prophylaxis Intervention: LMWH Lines/Catheters IV Catheter Type (from Nrsg): PICC Line Central line still needed: Yes Urinary Cath still in place: No Assessment/Plan Chief Complaint/Hosp Course Quan syndrome and impending SBO Problems: Assessment/Plan A- improved P- possibly adv diet a.m. and taper narcotics Subjective 24 Hr Interval Summary Free Text/Dictation Less pain and + ostomy fct. Exam/Review of Systems Vital Signs Vitals Vital Signs Date Time Temp Pulse Resp B/P Pulse Ox O2 Delivery O2 Flow Rate FiO2 05/16/17 20:00 Nasal Cannula 2.0 05/16/17 19:25 99.7 79 18 107/59 100 Intake and Output 05/15/17 05/15/17 05/16/17 15:00 23:00 07:00 Intake Total 280 ml 820 ml 550 ml Output Total 110 ml 10 ml Balance 280 ml 710 ml 540 ml Exam Resp- clear CVS- NSR Abd- softer, NT, ostomy fct better Ext- NT no edema Results Result Diagram: 05/16/17 0440 05/16/17 0440 Results 24 hrs Laboratory Tests Test 05/16/17 00:16 05/16/17 04:40 05/16/17 05:43 05/16/17 12:12 Bedside Glucose 97 99 103 White Blood Count 8.5 # Red Blood Count 2.80 L Hemoglobin 8.5 L Hematocrit 25.8 L Mean Corpuscular Volume 92.1 Mean Corpuscular Hemoglobin 30.4 Mean Corpuscular Hemoglobin Concent 32.9 Red Cell Distribution Width 13.2 Platelet Count 368 Mean Platelet Volume 10.3 Neutrophils % 73.2 Lymphocytes % 14.8 L Monocytes % 6.9 Eosinophils % 3.8 Basophils % 0.5 Nucleated Red Blood Cells % 0.0 Neutrophils # 6.2 Lymphocytes # 1.3 Monocytes # 0.6 Eosinophils # 0.3 Basophils # 0.0 Nucleated Red Blood Cells # 0.0 Sodium Level 135 Potassium Level 4.0 Chloride Level 102 Carbon Dioxide Level 27 Anion Gap 10 Blood Urea Nitrogen 13 Creatinine 0.90 Glucose Level 95 Calcium Level 9.4 Test 05/16/17 17:57 Bedside Glucose 95 Medications Medications Current Medications Famotidine (Pepcid Iv) 20 mg DAILY IV Last administered on 05/16/17 09:40; Admin Dose 20 MG; Start 05/02/17 at 09:00 Hydromorphone HCl (Dilaudid) 1 mg Q2 PRN IV PAIN Last administered on 21:55; Admin Dose 1 MG; Start 05/01/17 at 23:30 Ondansetron HCl (Zofran Inj) 4 mg Q6H PRN IV NAUSEA AND/OR VOMITING Last administered on 05/16/17 11:57; Admin Dose 4 MG; Start 05/01/17 at 23:30 Morphine Sulfate 8 mg 8 mg Q3H PRN SC PAIN LEVEL 7-10 Last administered on 05/11 16:41; Admin Dose 8 MG; Start 05/02/17 at 17:00 Piperacillin Sod/ Tazobactam Sod 100 ml @ 200 mls/hr Q8 IVPB Last administered on 05/16/17 21:56; Admin Dose 200 MLS/HR; Start 05/04/17 at 14:00 Total Parenteral Nutrition (Tpn) 1,000 ml @ 40 mls/hr Q24H IV Last administered on 05/16/17 11:58; Admin Dose 40 MLS/HR; Start 05/11/17 at 22:00; Status Future hold IV Flush (NS 10 ml) 10 ml PRN PRN IV IV PROTOCOL; Start 05/12/17 at 12:00 Diagnostic Test (Pha) (Accu-Chek) 1 ea Q6 XX Last administered on 05/16/17 18: 35; Admin Dose 1 EA; Start 05/14/17 at 12:00 HELEN FULTON MD May 16, 2017 23:50
[2017-05-17] MEDS: HYDROmorphONE 1 MG/ML SYG IV PRN ×5 (00:39→20:33)
[2017-05-17 02:25] VITALS: BP 103/61; RESP 18
[2017-05-17 05:39] LABS: BASOPHILS % 0.4 % (0.0-2.0); EOSINOPHILS # 0.3 10^3/ul (0.0-0.5); EOSINOPHILS % 2.8 % (0.0-7.0); HEMATOCRIT 26.7 % (37.0-47.0); HEMOGLOBIN 8.8 g/dl (12.0-16.0); LYMPHOCYTES # 1.2 10^3/ul (0.8-2.9); LYMPHOCYTES % 12.5 % (15.0-51.0); MEAN CORPUSCULAR HEMOGLOBIN 30.1 pg (29.0-33.0); MEAN CORPUSCULAR VOLUME 91.4 fl (82.0-101.0); MEAN PLATELET VOLUME 10.7 fl (7.4-10.4); MONOCYTE # 0.8 10^3/ul (0.3-0.9); MONOCYTES % 8.2 % (0.0-11.0); NEUTROPHILS % 75.6 % (39.0-77.0); PLATELET COUNT 356 10^3/UL (140-415); RED BLOOD COUNT 2.92 10^6/ul (4.20-5.40); RED CELL DISTRIBUTION WIDTH 13.2 % (11.5-14.5); WHITE BLOOD COUNT 9.3 10^3/ul (4.8-10.8)
[2017-05-17] MEDS: PIPER-TAZO 3.375 GM IV (PMX) 100 ML IVPB SCH ×3 (05:54→21:43)
[2017-05-17] MEDS: ACCU-CHEK XX SCH ×4 (06:00→21:00)
[2017-05-17 06:23] LABS: CALCIUM 9.4 mg/dl (8.4-10.2); CREATININE 0.96 mg/dl (0.44-1.00); PHOSPHORUS 3.4 mg/dl (2.5-4.9)
[2017-05-17 07:53] VITALS: BP 116/61; RESP 14
[2017-05-17] MEDS: FAMOTIDINE 20 MG INJ IV SCH (08:30)
[2017-05-17] MEDS: TPN 1,000 ML IV SCH (12:04)
[2017-05-17 14:08] VITALS: BP 106/62; RESP 15
--- NOTE | 2017-05-17 15:58 | PN ---
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 -S/p laparotomy with enterolysis, small-bowel resection and anastomosis, supracervical hysterectomy, bilateral salpingectomy and ureteral dissection by Dr. Perdomo on 05/01/17. Continue TPN. -Anemia,s/p blood transfusion, continue to monitor hemoglobin and hematocrit - Recommendations based on clinical course. Plan of care discussed with Dr. Valle Subjective 24 Hr Interval Summary Free Text/Dictation afebrile, feels better,remains on TPN, surgery follows, pain is controlled, dw staff- no new events reported overnight. Constitutional: requiring IVF, requiring O2 Respiratory: no complaints Cardiovascular: no complaints Gastrointestinal: pain Genitourinary: no complaints Musculoskeletal: no complaints Skin: no complaints Exam/Review of Systems Vital Signs Vitals Vital Signs Date Time Temp Pulse Resp B/P Pulse Ox O2 Delivery O2 Flow Rate FiO2 05/17/17 14:08 98.6 79 15 106/62 100 05/16/17 20:00 Nasal Cannula 2.0 Intake and Output 05/16/17 05/16/17 05/17/17 15:00 23:00 07:00 Intake Total 330 ml 1340 ml 580 ml Output Total 210 ml 110 ml Balance 330 ml 1130 ml 470 ml Exam Constitutional: alert, oriented, well developed Respiratory: diminished breath sounds, normal air movement Cardiovascular: nl pulses, regular rate and rhythm Gastrointestinal: other (colostomy intact), soft Musculoskeletal: nl extremities to inspection Extremities: normal pulses Neurological: nl mental status, nl speech Results Result Diagram: 05/17/17 0430 05/17/17 0430 Results 24 hrs Laboratory Tests Test 05/16/17 17:57 05/17/17 00:29 05/17/17 04:30 05/17/17 06:01 Bedside Glucose 95 91 97 White Blood Count 9.3 Red Blood Count 2.92 L Hemoglobin 8.8 L Hematocrit 26.7 L Mean Corpuscular Volume 91.4 Mean Corpuscular Hemoglobin 30.1 Mean Corpuscular Hemoglobin Concent 33.0 Red Cell Distribution Width 13.2 Platelet Count 356 Mean Platelet Volume 10.7 H Neutrophils % 75.6 Lymphocytes % 12.5 L Monocytes % 8.2 Eosinophils % 2.8 Basophils % 0.4 Nucleated Red Blood Cells % 0.0 Neutrophils # 7.0 Lymphocytes # 1.2 Monocytes # 0.8 Eosinophils # 0.3 Basophils # 0.0 Nucleated Red Blood Cells # 0.0 Sodium Level 136 Potassium Level 4.0 Chloride Level 102 Carbon Dioxide Level 24 Anion Gap 14 Blood Urea Nitrogen 15 Creatinine 0.96 Glucose Level 98 Calcium Level 9.4 Phosphorus Level 3.4 Magnesium Level 2.0 Test 05/17/17 12:24 Bedside Glucose 127 Medications Medications Current Medications Famotidine (Pepcid Iv) 20 mg DAILY IV Last administered on 05/17/17 08:30; Admin Dose 20 MG; Start 05/02/17 at 09:00 Hydromorphone HCl (Dilaudid) 1 mg Q2 PRN IV PAIN Last administered on 15:42; Admin Dose 1 MG; Start 05/01/17 at 23:30 Ondansetron HCl (Zofran Inj) 4 mg Q6H PRN IV NAUSEA AND/OR VOMITING Last administered on 05/16/17 11:57; Admin Dose 4 MG; Start 05/01/17 at 23:30 Morphine Sulfate 8 mg 8 mg Q3H PRN SC PAIN LEVEL 7-10 Last administered on 05/11 16:41; Admin Dose 8 MG; Start 05/02/17 at 17:00 Piperacillin Sod/ Tazobactam Sod 100 ml @ 200 mls/hr Q8 IVPB Last administered on 05/17/17 14:34; Admin Dose 200 MLS/HR; Start 05/04/17 at 14:00 Total Parenteral Nutrition (Tpn) 1,000 ml @ 40 mls/hr Q24H IV Last administered on 05/17/17 12:04; Admin Dose 40 MLS/HR; Start 05/11/17 at 22:00; Status Future hold IV Flush (NS 10 ml) 10 ml PRN PRN IV IV PROTOCOL; Start 05/12/17 at 12:00 Diagnostic Test (Pha) (Accu-Chek) 1 ea Q12 XX ; Start 05/17/17 at 21:00 EMILI DUARTE May 17, 2017 15:58
--- NOTE | 2017-05-17 18:37 | PN ---
Date/Time of Note Date/Time of Note DATE: 05/17/17 TIME: 18:32 Assessment/Plan VTE Prophylaxis VTE Prophylaxis Intervention: LMWH Lines/Catheters IV Catheter Type (from Nrs): PICC Line Central line still needed: Yes Urinary Cath still in place: No Assessment/Plan Chief Complaint/Hosp Course Quan syndrome and impending SBO Problems: Assessment/Plan A- improving P- adv diet and possibly home 2-3 days Subjective 24 Hr Interval Summary Free Text/Dictation eats sl better and ostomy functions. Essentially no drain output. OOB more Exam/Review of Systems Vital Signs Vitals Vital Signs Date Time Temp Pulse Resp B/P Pulse Ox O2 Delivery O2 Flow Rate FiO2 05/17/17 14:08 98.6 79 15 106/62 100 05/16/17 20:00 Nasal Cannula 2.0 Intake and Output 05/16/17 05/16/17 05/17/17 15:00 23:00 07:00 Intake Total 330 ml 1340 ml 580 ml Output Total 210 ml 110 ml Balance 330 ml 1130 ml 470 ml Exam Resp- clear CVS- NSR Abd- soft, NT, clean, less distortion. Ostomy fct.. Ext- NT no edema Results Result Diagram: 05/17/17 0430 05/17/17 0430 Results 24 hrs Laboratory Tests Test 05/17/17 00:29 05/17/17 04:30 05/17/17 06:01 05/17/17 12:24 Bedside Glucose 91 97 127 White Blood Count 9.3 Red Blood Count 2.92 L Hemoglobin 8.8 L Hematocrit 26.7 L Mean Corpuscular Volume 91.4 Mean Corpuscular Hemoglobin 30.1 Mean Corpuscular Hemoglobin Concent 33.0 Red Cell Distribution Width 13.2 Platelet Count 356 Mean Platelet Volume 10.7 H Neutrophils % 75.6 Lymphocytes % 12.5 L Monocytes % 8.2 Eosinophils % 2.8 Basophils % 0.4 Nucleated Red Blood Cells % 0.0 Neutrophils # 7.0 Lymphocytes # 1.2 Monocytes # 0.8 Eosinophils # 0.3 Basophils # 0.0 Nucleated Red Blood Cells # 0.0 Sodium Level 136 Potassium Level 4.0 Chloride Level 102 Carbon Dioxide Level 24 Anion Gap 14 Blood Urea Nitrogen 15 Creatinine 0.96 Glucose Level 98 Calcium Level 9.4 Phosphorus Level 3.4 Magnesium Level 2.0 Medications Medications Current Medications Famotidine (Pepcid Iv) 20 mg DAILY IV Last administered on 05/17/17 08:30; Admin Dose 20 MG; Start 05/02/17 at 09:00 Hydromorphone HCl (Dilaudid) 1 mg Q2 PRN IV PAIN Last administered on 15:42; Admin Dose 1 MG; Start 05/01/17 at 23:30 Ondansetron HCl (Zofran Inj) 4 mg Q6H PRN IV NAUSEA AND/OR VOMITING Last administered on 05/16/17 11:57; Admin Dose 4 MG; Start 05/01/17 at 23:30 Morphine Sulfate 8 mg 8 mg Q3H PRN SC PAIN LEVEL 7-10 Last administered on 05/11 16:41; Admin Dose 8 MG; Start 05/02/17 at 17:00 Piperacillin Sod/ Tazobactam Sod 100 ml @ 200 mls/hr Q8 IVPB Last administered on 05/17/17 14:34; Admin Dose 200 MLS/HR; Start 05/04/17 at 14:00 Total Parenteral Nutrition (Tpn) 1,000 ml @ 40 mls/hr Q24H IV Last administered on 05/17/17 12:04; Admin Dose 40 MLS/HR; Start 05/11/17 at 22:00; Status Future hold IV Flush (NS 10 ml) 10 ml PRN PRN IV IV PROTOCOL; Start 05/12/17 at 12:00 Diagnostic Test (Pha) (Accu-Chek) 1 ea Q12 XX ; Start 05/17/17 at 21:00 HELEN FULTON MD May 17, 2017 18:37
[2017-05-17 19:40] VITALS: BP 116/65; RESP 18
[2017-05-17] MEDS ORDERED: MEROPENEM 1 GM in SOD CHLORIDE 0.9% 100 ML IVPB SCH (21:00)
[2017-05-17] MEDS ORDERED: VANCOMYCIN IV PER PHARMACY XX SCH (21:00)
[2017-05-17] MEDS: ACETAMINOPHEN 325 MG TAB PO PRN (21:43)
--- NOTE | 2017-05-17 22:34 | RADRPT ---
PROCEDURE: Portable chest x-ray. CLINICAL INDICATION: 46 years of age, female. Fever. TECHNIQUE: Portable AP view of the chest. COMPARISON: None available. FINDINGS: There is a right arm PICC line with the tip in the mid SVC. Cardiomediastinal contours are normal. Lungs are clear. Negative for pleural effusion or pneumothorax. No acute bony abnormality. IMPRESSION: Negative for evidence of an acute chest process. Negative for focal lung consolidation. RPTAT: HCTS Physician Zeke Date Time Electronically viewed and signed by Lacy Pineda Physician on 05/17/2017 22:34 CS/
[2017-05-17] MEDS: MEROPENEM 1 GM/50ML(PMX) 50 ML IVPB SCH (22:51)
[2017-05-17] MEDS: VANCOMYCIN 1 GM in NS 250 ML IVPB SCH (23:39)
[2017-05-18] MEDS: HYDROmorphONE 1 MG/ML SYG IV PRN ×6 (00:43→23:59)
[2017-05-18] MEDS: ONDANSETRON 4 MG INJ IV PRN (00:48)
[2017-05-18 05:31] LABS: WHITE BLOOD COUNT 9.2 10^3/ul (4.8-10.8)
[2017-05-18 05:32] LABS: BASOPHILS % 0.4 % (0.0-2.0); EOSINOPHILS # 0.2 10^3/ul (0.0-0.5); EOSINOPHILS % 1.8 % (0.0-7.0); HEMATOCRIT 26.2 % (37.0-47.0); HEMOGLOBIN 8.5 g/dl (12.0-16.0); LYMPHOCYTES # 1.1 10^3/ul (0.8-2.9); LYMPHOCYTES % 11.5 % (15.0-51.0); MEAN CORPUSCULAR HEMOGLOBIN 29.8 pg (29.0-33.0); MEAN CORPUSCULAR HGB CONC 32.4 g/dl (32.0-37.0); MEAN CORPUSCULAR VOLUME 91.9 fl (82.0-101.0); MEAN PLATELET VOLUME 10.7 fl (7.4-10.4); MONOCYTE # 0.9 10^3/ul (0.3-0.9); MONOCYTES % 9.7 % (0.0-11.0); NEUTROPHILS % 75.9 % (39.0-77.0); PLATELET COUNT 331 10^3/UL (140-415); RED BLOOD COUNT 2.85 10^6/ul (4.20-5.40); RED CELL DISTRIBUTION WIDTH 13.2 % (11.5-14.5)
[2017-05-18 05:38] LABS: ALBUMIN 3.8 g/dl (3.3-4.9); ALBUMIN/GLOBULIN RATIO 0.86; BILIRUBIN,INDIRECT 0.6 mg/dl (0-1.1); BILIRUBIN,TOTAL 0.6 mg/dl (0.2-1.3); CALCIUM 8.9 mg/dl (8.4-10.2); CREATININE 1.01 mg/dl (0.44-1.00); POTASSIUM 5.6 mmol/L (3.5-5.1); TOTAL PROTEIN 8.2 g/dl (6.1-8.1)
[2017-05-18 05:56] LABS: MAGNESIUM 1.9 mg/dl (1.7-2.5); PHOSPHORUS 3.5 mg/dl (2.5-4.9)
[2017-05-18] MEDS: PIPER-TAZO 3.375 GM IV (PMX) 100 ML IVPB SCH (06:02)
[2017-05-18 08:21] VITALS: BP 108/66; RESP 15
[2017-05-18] MEDS: ACCU-CHEK XX SCH ×2 (09:15→21:29)
[2017-05-18] MEDS: FAMOTIDINE 20 MG INJ IV SCH (09:15)
[2017-05-18] MEDS: MEROPENEM 1 GM/50ML(PMX) 50 ML IVPB SCH ×2 (09:15→20:51)
[2017-05-18] MEDS: ACETAMINOPHEN 325 MG TAB PO PRN ×4 (09:21→23:43)
[2017-05-18 11:00] VITALS: PULSE 86
[2017-05-18] MEDS: TPN 1,000 ML IV SCH (11:17)
[2017-05-18] MEDS: VANCOMYCIN 1 GM in NS 250 ML IVPB SCH (11:17)
[2017-05-18 14:00] VITALS: BP 152/66; RESP 20
--- NOTE | 2017-05-18 14:45 | PN ---
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 -S/p laparotomy with enterolysis, small-bowel resection and anastomosis, supracervical hysterectomy, bilateral salpingectomy and ureteral dissection by Dr. Perdomo on 05/01/17. Continue TPN. -Anemia,s/p blood transfusion, continue to monitor hemoglobin and hematocrit Recommendations based on clinical course. Plan of care discussed with Dr. Valle Subjective 24 Hr Interval Summary Free Text/Dictation Febrile today, little better after Tylenol, remains on TPN, surgery follows. dw staff Respiratory: no complaints Cardiovascular: no complaints Gastrointestinal: no complaints Musculoskeletal: no complaints Skin: other (inscional pain) Exam/Review of Systems Vital Signs Vitals Vital Signs Date Time Temp Pulse Resp B/P Pulse Ox O2 Delivery O2 Flow Rate FiO2 05/18/17 08:21 99.4 86 15 108/66 98 05/16/17 20:00 Nasal Cannula 2.0 Intake and Output 05/17/17 05/17/17 05/18/17 15:00 23:00 07:00 Intake Total 320 ml 960 ml 880 ml Output Total 260 ml Balance 320 ml 700 ml 880 ml Exam Constitutional: alert, oriented, well developed Respiratory: diminished breath sounds, normal air movement Cardiovascular: nl pulses, regular rate and rhythm Gastrointestinal: other (SURGICAL ABDOMEN, ileostomy intact), soft Musculoskeletal: nl extremities to inspection Extremities: normal pulses Neurological: nl mental status, nl speech Results Result Diagram: 05/18/17 0451 05/18/17 0451 Results 24 hrs Laboratory Tests Test 05/17/17 21:47 05/18/17 04:51 05/18/17 09:08 Bedside Glucose 110 113 White Blood Count 9.2 Red Blood Count 2.85 L Hemoglobin 8.5 L Hematocrit 26.2 L Mean Corpuscular Volume 91.9 Mean Corpuscular Hemoglobin 29.8 Mean Corpuscular Hemoglobin Concent 32.4 Red Cell Distribution Width 13.2 Platelet Count 331 Mean Platelet Volume 10.7 H Neutrophils % 75.9 Lymphocytes % 11.5 L Monocytes % 9.7 Eosinophils % 1.8 Basophils % 0.4 Nucleated Red Blood Cells % 0.0 Neutrophils # 7.0 Lymphocytes # 1.1 Monocytes # 0.9 Eosinophils # 0.2 Basophils # 0.0 Nucleated Red Blood Cells # 0.0 Sodium Level 135 Potassium Level 5.6 H Chloride Level 104 Carbon Dioxide Level 23 Anion Gap 14 Blood Urea Nitrogen 14 Creatinine 1.01 H Glucose Level 362 #H Calcium Level 8.9 Phosphorus Level 3.5 Magnesium Level 1.9 Total Bilirubin 0.6 Direct Bilirubin 0.00 Indirect Bilirubin 0.6 Aspartate Amino Transf (AST/SGOT) 38 Alanine Aminotransferase (ALT/SGPT) 50 Alkaline Phosphatase 125 H Total Protein 8.2 H Albumin 3.8 Globulin 4.40 H Albumin/Globulin Ratio 0.86 Medications Medications Current Medications Famotidine (Pepcid Iv) 20 mg DAILY IV Last administered on 05/18/17 09:15; Admin Dose 20 MG; Start 05/02/17 at 09:00 Ondansetron HCl 4 mg 4 mg Q6H PRN IV NAUSEA AND/OR VOMITING Last administered on 05/18/17 00:48; Admin Dose 4 MG; Start 05/01/17 at 23:30 Total Parenteral Nutrition (Tpn) 1,000 ml @ 40 mls/hr Q24H IV Last administered on 05/18/17 11:17; Admin Dose 40 MLS/HR; Start 05/11/17 at 22:00; Status Future hold IV Flush (NS 10 ml) 10 ml PRN PRN IV IV PROTOCOL; Start 05/12/17 at 12:00 Diagnostic Test (Pha) (Accu-Chek) 1 ea Q12 XX Last administered on 05/18/17 09 :15; Admin Dose 1 EA; Start 05/17/17 at 21:00 Hydromorphone HCl (Dilaudid) 0.5 mg Q4HWA PRN IV PAIN Last administered on 05/18 09:15; Admin Dose 0.5 MG; Start 05/17/17 at 21:00 Acetaminophen 650 mg 650 mg Q4H PRN PO PAIN AND OR ELEVATED TEMP Last administered on 05/18/17 09:21; Admin Dose 650 MG; Start 05/17/17 at 21:00 Meropenem/Sodium Chloride 50 ml @ 100 mls/hr Q12 IVPB Last administered on 09:15; Admin Dose 100 MLS/HR; Start 05/17/17 at 21:00 Vancomycin HCl (Vancocin) 250 ml @ 125 mls/hr Q12H IVPB Last administered on 11:17; Admin Dose 125 MLS/HR; Start 05/17/17 at 23:00 Miscellaneous Information (*Rx Drug Level Order Reminder*) VANCOMYCIN TROUGH AT 1000 ONCE ONCE XX ; Start 05/19/17 at 10:00; Stop 05/19/17 at 10:01 EMILI DUARTE May 18, 2017 14:44
--- NOTE | 2017-05-18 16:43 | CONS ---
DATE OF ADMISSION: 05/01/2017 DATE OF CONSULTATION: 05/18/2017 REASON FOR CONSULTATION: Antibiotic management. HISTORY OF PRESENT ILLNESS: Tammei Lagos is a 46-year-old, female with Quan syndrome, and history of multifocal colorectal carcinoma status post total proctocolectomy and loop diverting ileostomy. She also has a history of dyslipidemia. She underwent an ileostomy takedown in April 2016. Patient was seen by Dr. Perdomo as an outpatient, underwent laparoscopy with enterolysis, laparotomy with enterolysis, small-bowel resection and anastomosis. Supracervical hysterectomy was also done with bilateral salpingo oophorectomy and bilateral uterine dissection. An NG tube was placed. Patient was admitted for further evaluation and management. She is breathing comfortably. The patient was seen by Dr. Danny Mcclellan also for multifocal colorectal cancer. So, on admission Dr. Perdomo did the laparoscopy with enterolysis. HOSPITAL COURSE: The patient has been in the hospital for a significant amount of time. A PICC line was placed. He noted Quan syndrome and impending small bowel obstruction. Currently, white count 9.3, H and H of 8.8, 26.7, platelet count 356,000. BUN and creatinine 15/0.96. The patient became febrile. Blood, urine was ordered. Microbiology, there was only coagulase- negative staph from the blood culture from the and nothing since then. A chest x-ray on the showed right arm PICC line. Negative for evidence of any acute chest process. Patient is on vancomycin and meropenem was added to the regimen. The patient had been on Zosyn. Blood cultures were ordered on the and urine cultures were ordered as well. PAST MEDICAL HISTORY: Operations as outlined. FAMILY HISTORY: Noncontributory. SOCIAL HISTORY: She does not smoke, drink, or abuse drugs. ALLERGIES: NONE TO PENICILLIN, SULFA, OR FOODS. MEDICATION: Per chart. REVIEW OF SYSTEMS: As per HPI. PHYSICAL EXAMINATION: The patient is a chronically ill-appearing female who is alert, responsive, in no acute distress. VITAL SIGNS: Stable. Her T-max is 101.5 as of the . SKIN: Without generalized rash. HEENT: Within normal limits. NECK: Supple. Lymph nodes nonpalpable. CHEST: Decreased breath sounds at the bases. HEART: Without murmur or gallop. ABDOMEN: Soft. She has a surgical incision, right lower quadrant ileostomy, left lower quadrant AIDEN drain. Abdomen otherwise is soft. Nontender. EXTREMITIES: Without cyanosis, clubbing, or edema. RECTAL: Deferred. NEUROLOGICAL: No focal neurological abnormalities. IMPRESSION AND PLAN: As noted, her white count today is 9.2. BUN creatinine 14/1.01. We will continue her on vancomycin and meropenem and await the results of her cultures. I will dictate my findings to Dr. Valle and to Dr. Perdomo. Dictated By: Sanju Montejo MD JD/jl/evens /Document#: [id number]
--- NOTE | 2017-05-18 16:44 | PN ---
Date/Time of Note Date/Time of Note DATE: 05/18/17 TIME: 16:40 Assessment/Plan VTE Prophylaxis VTE Prophylaxis Intervention: LMWH Lines/Catheters IV Catheter Type (from Nrs): PICC Line Central line still needed: Yes Urinary Cath still in place: No Assessment/Plan Chief Complaint/Hosp Course Quan syndrome and impending SBO Problems: Assessment/Plan A- doing well other than fever P- cultures pending and concur with Leonard Subjective 24 Hr Interval Summary Free Text/Dictation minimal suprapubic discomfort and no N/V Exam/Review of Systems Vital Signs Vitals Vital Signs Date Time Temp Pulse Resp B/P Pulse Ox O2 Delivery O2 Flow Rate FiO2 05/18/17 14:00 100.2 118 20 152/66 95 05/16/17 20:00 Nasal Cannula 2.0 Intake and Output 05/17/17 05/17/17 05/18/17 15:00 23:00 07:00 Intake Total 320 ml 960 ml 880 ml Output Total 260 ml Balance 320 ml 700 ml 880 ml Exam Resp- clear CVS- NSR Abd- soft, minimally tender s/p, clean, less distortion. Ostomy fct.. Ext- NT no edema Results Result Diagram: 05/18/17 0451 05/18/17 0451 Results 24 hrs Laboratory Tests Test 05/17/17 21:47 05/18/17 04:51 05/18/17 09:08 Bedside Glucose 110 113 White Blood Count 9.2 Red Blood Count 2.85 L Hemoglobin 8.5 L Hematocrit 26.2 L Mean Corpuscular Volume 91.9 Mean Corpuscular Hemoglobin 29.8 Mean Corpuscular Hemoglobin Concent 32.4 Red Cell Distribution Width 13.2 Platelet Count 331 Mean Platelet Volume 10.7 H Neutrophils % 75.9 Lymphocytes % 11.5 L Monocytes % 9.7 Eosinophils % 1.8 Basophils % 0.4 Nucleated Red Blood Cells % 0.0 Neutrophils # 7.0 Lymphocytes # 1.1 Monocytes # 0.9 Eosinophils # 0.2 Basophils # 0.0 Nucleated Red Blood Cells # 0.0 Sodium Level 135 Potassium Level 5.6 H Chloride Level 104 Carbon Dioxide Level 23 Anion Gap 14 Blood Urea Nitrogen 14 Creatinine 1.01 H Glucose Level 362 #H Calcium Level 8.9 Phosphorus Level 3.5 Magnesium Level 1.9 Total Bilirubin 0.6 Direct Bilirubin 0.00 Indirect Bilirubin 0.6 Aspartate Amino Transf (AST/SGOT) 38 Alanine Aminotransferase (ALT/SGPT) 50 Alkaline Phosphatase 125 H Total Protein 8.2 H Albumin 3.8 Globulin 4.40 H Albumin/Globulin Ratio 0.86 Medications Medications Current Medications Famotidine (Pepcid Iv) 20 mg DAILY IV Last administered on 05/18/17 09:15; Admin Dose 20 MG; Start 05/02/17 at 09:00 Ondansetron HCl 4 mg 4 mg Q6H PRN IV NAUSEA AND/OR VOMITING Last administered on 05/18/17 00:48; Admin Dose 4 MG; Start 05/01/17 at 23:30 Total Parenteral Nutrition (Tpn) 1,000 ml @ 40 mls/hr Q24H IV Last administered on 05/18/17 11:17; Admin Dose 40 MLS/HR; Start 05/11/17 at 22:00; Status Future hold IV Flush (NS 10 ml) 10 ml PRN PRN IV IV PROTOCOL; Start 05/12/17 at 12:00 Diagnostic Test (Pha) (Accu-Chek) 1 ea Q12 XX Last administered on 05/18/17 09 :15; Admin Dose 1 EA; Start 05/17/17 at 21:00 Hydromorphone HCl (Dilaudid) 0.5 mg Q4HWA PRN IV PAIN Last administered on 05/18 15:54; Admin Dose 0.5 MG; Start 05/17/17 at 21:00 Acetaminophen 650 mg 650 mg Q4H PRN PO PAIN AND OR ELEVATED TEMP Last administered on 05/18/17 15:53; Admin Dose 650 MG; Start 05/17/17 at 21:00 Meropenem/Sodium Chloride 50 ml @ 100 mls/hr Q12 IVPB Last administered on 09:15; Admin Dose 100 MLS/HR; Start 05/17/17 at 21:00 Vancomycin HCl (Vancocin) 250 ml @ 125 mls/hr Q12H IVPB Last administered on 11:17; Admin Dose 125 MLS/HR; Start 05/17/17 at 23:00 Miscellaneous Information (*Rx Drug Level Order Reminder*) VANCOMYCIN TROUGH AT 1000 ONCE ONCE XX ; Start 05/19/17 at 10:00; Stop 05/19/17 at 10:01 HELEN FULTON MD May 18, 2017 16:44
[2017-05-18] MEDS ORDERED: IOHEXOL 14.3 MG(I)/ML (ADULT) BTL PO SCH (17:00)
[2017-05-18] MEDS: POTASSIUM CHLORIDE 20 MEQ in LACTATED RINGER'S 1,000 ML IV SCH (18:56)
[2017-05-18 19:40] VITALS: BP 126/70; RESP 20
[2017-05-18 22:45] VITALS: BP 117/72; PULSE 77; RESP 18
[2017-05-18] MEDS ORDERED: IODIXANOL LOCM 100 ML BTL ONE (23:14)
[2017-05-18] MEDS ORDERED: SOD CHLORIDE 0.9% 100 ML ONE (23:14)
[2017-05-19] MEDS: VANCOMYCIN 1 GM in NS 250 ML IVPB SCH
[2017-05-19 02:35] VITALS: BP 110/65; RESP 19
--- NOTE | 2017-05-19 02:56 | RADRPT ---
PROCEDURE: CT Abdomen and pelvis with contrast CLINICAL INDICATION: Abdominal pain, evaluate for abscess TECHNIQUE: Spiral CT images through the abdomen and pelvis following the administration of oral co ntrast and during intravenous administration of 100 cc of Visipaque 320 contrast material. Multipla ron reconstructions. The total exam CTDI equals 14.16 mGy and the total exam DLP equals 720.87 mGy- cm. One or more of the following dose reduction techniques were used: automated exposure control, ad justment of the mA and/or kV according to patient size, or use of iterative reconstruction technique . COMPARISON: 03/18/2017 FINDINGS: There is bibasilar atelectasis. No pleural or pericardial effusion is seen. Enlarged, fatty liver is again noted. No abnormally enhancing lesion is identified. Trace perihepati c free fluid is seen. There is no evidence of cholelithiasis. No biliary or pancreatic ductal dilat ation. The spleen, adrenals and pancreas are unremarkable in appearance. The right kidney is enlarge d. Interval fragmentation of the right renal staghorn calculus with calculi seen in the collecting s ystem in the interpolar region and lower pole. A 7 x 9 mm calculus is present in the proximal ureter . There is mild right hydronephrosis and decreased enhancement. The left kidney is normal. The aor ta is normal in caliber. There is no evidence for bowel obstruction, free air, or abscess. Postsur gical changes are seen in the pelvis from prior colectomy. Anastomotic suture line of small bowel is again seen. There is contrast in the right lower quadrant ileostomy. Increased Air is seen in wha t is presumed to be the vagina displaced into the presacral space. There a There is contrast in the right lower quadrant ileostomy. An anastomotic suture line of small bowel is again seen. Interval de velopment of inflammatory changes in the pelvis and rim-enhancing presacral fluid collection measuri ng 5.7 x 5 cm x 4.4 cm. Mild presacral fluid and stranding. No abnormally enlarged lymph nodes are identified. The bladder is distended. The uterus is absent. Anterior lower left lower abdominal wall retains edema and skin thickening. L5-S1 spondylolysis, anterolisthesis and severe bilateral neural foraminal narrowing. IMPRESSION: Postoperative changes from prior colectomy and right lower quadrant ileostomy. Probable recent hyste rectomy. Presacral fluid collection or abscess and inflammatory changes described above. Enlarged fatty liver. Interval fragmentation of the right staghorn calculus. 7 x 9 mm stone in the proximal right ureter, mild moderate hydronephrosis and decreased enhancement. RPTAT: HCNS Physician Giovani Date Time Electronically viewed and signed by Claire Nicolas Physician on 05/19/2017 02:56 JAIME/
[2017-05-19] MEDS: HYDROmorphONE 1 MG/ML SYG IV PRN ×6 (04:34→21:36)
[2017-05-19] MEDS: ONDANSETRON 4 MG INJ IV PRN ×2 (04:35→16:59)
[2017-05-19 05:57] LABS: BASOPHIL # 0.1 10^3/ul (0.0-0.1); BASOPHILS % 0.7 % (0.0-2.0); EOSINOPHILS # 0.2 10^3/ul (0.0-0.5); EOSINOPHILS % 2.5 % (0.0-7.0); HEMATOCRIT 26.9 % (37.0-47.0); HEMOGLOBIN 8.6 g/dl (12.0-16.0); LYMPHOCYTES # 1.4 10^3/ul (0.8-2.9); LYMPHOCYTES % 15.6 % (15.0-51.0); MEAN CORPUSCULAR HEMOGLOBIN 29.4 pg (29.0-33.0); MEAN CORPUSCULAR VOLUME 91.8 fl (82.0-101.0); MEAN PLATELET VOLUME 11.2 fl (7.4-10.4); MONOCYTES % 11.4 % (0.0-11.0); NEUTROPHIL # 6.3 10^3/ul (1.6-7.5); NEUTROPHILS % 69.4 % (39.0-77.0); PLATELET COUNT 341 10^3/UL (140-415); RED BLOOD COUNT 2.93 10^6/ul (4.20-5.40); RED CELL DISTRIBUTION WIDTH 13.1 % (11.5-14.5); WHITE BLOOD COUNT 9.1 10^3/ul (4.8-10.8)
[2017-05-19 06:20] LABS: CALCIUM 9.9 mg/dl (8.4-10.2); CREATININE 0.95 mg/dl (0.44-1.00); PHOSPHORUS 3.8 mg/dl (2.5-4.9); POTASSIUM 4.5 mmol/L (3.5-5.1)
[2017-05-19] MEDS: POTASSIUM CHLORIDE 20 MEQ in LACTATED RINGER'S 1,000 ML IV SCH (07:02)
[2017-05-19 07:51] VITALS: BP 113/69; RESP 18
[2017-05-19] MEDS: ACETAMINOPHEN 325 MG TAB PO PRN ×2 (08:35→16:57)
[2017-05-19] MEDS: FAMOTIDINE 20 MG INJ IV SCH (08:36)
[2017-05-19] MEDS: MEROPENEM 1 GM/50ML(PMX) 50 ML IVPB SCH ×2 (08:36→21:36)
[2017-05-19] MEDS: ACCU-CHEK XX SCH ×2 (09:00→21:00)
[2017-05-19 12:09] VITALS: BP 117/61; PULSE 72; RESP 16
[2017-05-19] MEDS: metroNIDAZOLE 500 MG/NS (PMX) 100 ML IVPB SCH ×2 (13:41→18:54)
[2017-05-19] MEDS ORDERED: FLUCONAZOLE 200 MG/NS (PMX) 100 ML IVPB ONE (17:00)
--- NOTE | 2017-05-19 18:32 | PN ---
Date/Time of Note Date/Time of Note DATE: 05/19/17 TIME: 18:27 Assessment/Plan VTE Prophylaxis VTE Prophylaxis Intervention: SCD's Lines/Catheters [facility] PICC Line Central line still needed: Yes Urinary Cath still in place: No Assessment/Plan Chief Complaint/Hosp Course Patient spiked fever, complains of chills. 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 -S/p laparotomy with enterolysis, small-bowel resection and anastomosis, supracervical hysterectomy, bilateral salpingectomy and ureteral dissection by Dr. Perdomo on 05/01/17. Continue TPN. -Abdominal fluid collection versus abscess, continue antibiotics. Patient is currently on meropenem, vancomycin, Flagyl, and Diflucan - Yeast UTI, continue Diflucan - Right staghorn calculus in the proximal right ureter, mild moderate hydronephrosis. Dr. Bolton is asked to see patient in neurology consultation -Anemia,s/p blood transfusion, continue to monitor hemoglobin and hematocrit Recommendations based on clinical course. Plan of care discussed with Dr. Valle Problems: Exam/Review of Systems Vital Signs Vitals Vital Signs Date Time Temp Pulse Resp B/P Pulse Ox O2 Delivery O2 Flow Rate FiO2 05/19/17 18:07 100.3 05/19/17 12:09 72 16 117/61 98 Room Air 05/16/17 20:00 2.0 Intake and Output 05/18/17 05/18/17 05/19/17 15:00 23:00 07:00 Intake Total 350 ml 440 ml 1350 ml Output Total 400 ml 1450 ml Balance -50 ml 440 ml -100 ml Exam Constitutional: alert, oriented Neck: supple Respiratory: normal air movement Cardiovascular: nl pulses Gastrointestinal: other (Surgical incision, right lower quadrant ileostomy, left lower quadrant AIDEN), soft Extremities: normal pulses Neurological: nl mental status Results Result Diagram: 05/19/17 04205/19/17 0420 Results 24 hrs Laboratory Tests Test 05/18/17 21:27 05/19/17 04:20 05/19/17 10:09 05/19/17 12:55 Bedside Glucose 100 White Blood Count 9.1 Red Blood Count 2.93 L Hemoglobin 8.6 L Hematocrit 26.9 L Mean Corpuscular Volume 91.8 Mean Corpuscular Hemoglobin 29.4 Mean Corpuscular Hemoglobin Concent 32.0 Red Cell Distribution Width 13.1 Platelet Count 341 Mean Platelet Volume 11.2 H Neutrophils % 69.4 Lymphocytes % 15.6 Monocytes % 11.4 H Eosinophils % 2.5 Basophils % 0.7 Nucleated Red Blood Cells % 0.0 Neutrophils # 6.3 Lymphocytes # 1.4 Monocytes # 1.0 H Eosinophils # 0.2 Basophils # 0.1 Nucleated Red Blood Cells # 0.0 Sodium Level 136 Potassium Level 4.5 Chloride Level 102 Carbon Dioxide Level 28 Anion Gap 11 Blood Urea Nitrogen 13 Creatinine 0.95 Glucose Level 86 # Calcium Level 9.9 Phosphorus Level 3.8 Magnesium Level 2.0 Vancomycin Level Trough 22.4 *H Troponin I < 0.012 Medications Medications Current Medications Famotidine (Pepcid Iv) 20 mg DAILY IV Last administered on 05/19/17 08:36; Admin Dose 20 MG; Start 05/02/17 at 09:00 Ondansetron HCl (Zofran Inj) 4 mg Q6H PRN IV NAUSEA AND/OR VOMITING Last administered on 05/19/17 16:59; Admin Dose 4 MG; Start 05/01/17 at 23:30 IV Flush (NS 10 ml) 10 ml PRN PRN IV IV PROTOCOL; Start 05/12/17 at 12:00 Diagnostic Test (Pha) (Accu-Chek) 1 ea Q12 XX Last administered on 05/18/17 21 :29; Admin Dose 1 EA; Start 05/17/17 at 21:00 Hydromorphone HCl (Dilaudid) 0.5 mg Q4HWA PRN IV PAIN Last administered on 05/19 16:53; Admin Dose 0.5 MG; Start 05/17/17 at 21:00 Acetaminophen 650 mg 650 mg Q4H PRN PO PAIN AND OR ELEVATED TEMP Last administered on 05/19/17 16:57; Admin Dose 650 MG; Start 05/17/17 at 21:00 Meropenem/Sodium Chloride 50 ml @ 100 mls/hr Q12 IVPB Last administered on 08:36; Admin Dose 100 MLS/HR; Start 05/17/17 at 21:00 Vancomycin HCl 250 ml @ 125 mls/hr Q12H IVPB Last administered on 05/19/17 00 :00; Admin Dose 125 MLS/HR; Start 05/17/17 at 23:00; Status Future Hold Potassium Chloride 20 meq/ Lactated Ringer's 1,010 ml @ 70 mls/hr [id number] IV Last administered on 05/19/17 07:02; Admin Dose 70 MLS/HR; Start 05/18/17 at 18 :30 Metronidazole 100 ml @ 100 mls/hr Q6 IVPB Last administered on 05/19/17 13:41 ; Admin Dose 100 MLS/HR; Start 05/19/17 at 13:00 Fluconazole/ Sodium Chloride (Diflucan 100 Mg/ NS (Pmx)) 50 ml @ 50 mls/hr Q24H IVPB ; Start 05/20/17 at 16:00 KERI DE LA GARZA May 19, 2017 18:31
[2017-05-19] MEDS ORDERED: HYDROmorphONE 1 MG/ML SYG IV STA (18:42)
--- NOTE | 2017-05-19 18:48 | CONS ---
Date/Time of Note Date/Time of Note DATE: 05/19/17 TIME: 18:37 Assessment/Plan Assessment/Plan Chief Complaint/Hosp Course 46-year-old female who initially underwent a total colon resection because of cancer. 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 Patient has been febrile and on the CT scan it showed pelvic collection. Also it showed right renal staghorn calculus mostly in the lower pole and a stone in the upper right ureter causing mild hydronephrosis. The question is what may be the reason for her fever could be the collection of fluid in the pelvis or the obstruction of her right upper ureter at the right kidney. I was told by Dr. Meyers was at the radiologist did not want to do the drainage of the pelvic fluid collection because of its proximity to the pelvic vessels. The patient has a right upper ureteral stone that could be causing her fever and leukocytosis and if one was to do anything about that she will need to undergo a cystoscopy and insertion of right ureteral JJ stent and also aspirate urine from the right kidney and send it for culture. Once she is stable then one could go back and do ureteroscopy and remove the stone from the right ureter and inserted another JJ stent temporarily. I did explain all of that to the patient and to her son who is 18 years old and he was at bedside. The nurse who was taking care of her is very fluent in [place] and also was kind to translate to her and explained to her what we plan on doing and the patient appeared to be a little hesitant and concerned therefore I would wait talk to her again tomorrow and if she is agreeable with could try to do it Problems: Consultation Date/Type/Reason Admit Date/Time May 01, 2017 at 13:23 Constitutional: febrile, other (Temperature 102.5 earlier today), requiring IVF , requiring O2 Eyes: no complaints ENT: bleeding, no complaints Respiratory: no complaints Cardiovascular: no complaints Gastrointestinal: other ( ileostomy), pain Genitourinary: no complaints Musculoskeletal: no complaints Skin: no complaints Neurologic: no complaints Endocrine: no complaints Lymphatic: no complaints Psychological: anxiety, nl mood/affect Past Medical History Medical History: cancer (Colon cancer) Past Surgical History Past Surgical Hx: bowel resection, other (Hysterectomy) Social History Alcohol Use: none Smoking Status: Never smoker Exam/Review of Systems Vital Signs Vitals Vital Signs Date Time Temp Pulse Resp B/P Pulse Ox O2 Delivery O2 Flow Rate FiO2 05/19/17 18:07 100.3 05/19/17 12:09 72 16 117/61 98 Room Air 05/16/17 20:00 2.0 Intake and Output 05/18/17 05/18/17 05/19/17 15:00 23:00 07:00 Intake Total 350 ml 440 ml 1350 ml Output Total 400 ml 1450 ml Balance -50 ml 440 ml -100 ml Exam Constitutional: alert, oriented, other (Febrile) Psych: no complaints Head: normocephalic Eyes: nl conjunctiva ENMT: nl external ears & nose Neck: supple Respiratory: normal air movement Gastrointestinal: other (Ileostomy), surgical scars Extremities: No calf tenderness Results Result Diagram: 05/19/17 0420 05/19/17 0420 Results 24 hrs Laboratory Tests Test 05/18/17 21:27 05/19/17 04:20 05/19/17 10:09 05/19/17 12:55 Bedside Glucose 100 White Blood Count 9.1 Red Blood Count 2.93 L Hemoglobin 8.6 L Hematocrit 26.9 L Mean Corpuscular Volume 91.8 Mean Corpuscular Hemoglobin 29.4 Mean Corpuscular Hemoglobin Concent 32.0 Red Cell Distribution Width 13.1 Platelet Count 341 Mean Platelet Volume 11.2 H Neutrophils % 69.4 Lymphocytes % 15.6 Monocytes % 11.4 H Eosinophils % 2.5 Basophils % 0.7 Nucleated Red Blood Cells % 0.0 Neutrophils # 6.3 Lymphocytes # 1.4 Monocytes # 1.0 H Eosinophils # 0.2 Basophils # 0.1 Nucleated Red Blood Cells # 0.0 Sodium Level 136 Potassium Level 4.5 Chloride Level 102 Carbon Dioxide Level 28 Anion Gap 11 Blood Urea Nitrogen 13 Creatinine 0.95 Glucose Level 86 # Calcium Level 9.9 Phosphorus Level 3.8 Magnesium Level 2.0 Vancomycin Level Trough 22.4 *H Troponin I < 0.012 Imaging Free Text/Dictation CT scan of abdomen and pelvis: Postoperative changes from prior colectomy and right lower quadrant ileostomy. Probable recent hysterectomy. Presacral fluid collection or abscess and inflammatory changes described above. Enlarged fatty liver. Interval fragmentation of the right staghorn calculus. 7 x 9 mm stone in the proximal right ureter, mild moderate hydronephrosis and decreased enhancement. Medications Medications Current Medications Famotidine (Pepcid Iv) 20 mg DAILY IV Last administered on 05/19/17 08:36; Admin Dose 20 MG; Start 05/02/17 at 09:00 Ondansetron HCl (Zofran Inj) 4 mg Q6H PRN IV NAUSEA AND/OR VOMITING Last administered on 05/19/17 16:59; Admin Dose 4 MG; Start 05/01/17 at 23:30 IV Flush (NS 10 ml) 10 ml PRN PRN IV IV PROTOCOL; Start 05/12/17 at 12:00 Diagnostic Test (Pha) (Accu-Chek) 1 ea Q12 XX Last administered on 05/18/17 21 :29; Admin Dose 1 EA; Start 05/17/17 at 21:00 Hydromorphone HCl (Dilaudid) 0.5 mg Q4HWA PRN IV PAIN Last administered on 05/19 16:53; Admin Dose 0.5 MG; Start 05/17/17 at 21:00 Acetaminophen 650 mg 650 mg Q4H PRN PO PAIN AND OR ELEVATED TEMP Last administered on 05/19/17 16:57; Admin Dose 650 MG; Start 05/17/17 at 21:00 Meropenem/Sodium Chloride 50 ml @ 100 mls/hr Q12 IVPB Last administered on 08:36; Admin Dose 100 MLS/HR; Start 05/17/17 at 21:00 Vancomycin HCl 250 ml @ 125 mls/hr Q12H IVPB Last administered on 05/19/17 00 :00; Admin Dose 125 MLS/HR; Start 05/17/17 at 23:00; Status Future Hold Potassium Chloride 20 meq/ Lactated Ringer's 1,010 ml @ 70 mls/hr [id number] IV Last administered on 05/19/17 07:02; Admin Dose 70 MLS/HR; Start 05/18/17 at 18 :30 Metronidazole 100 ml @ 100 mls/hr Q6 IVPB Last administered on 05/19/17 13:41 ; Admin Dose 100 MLS/HR; Start 05/19/17 at 13:00 Fluconazole/ Sodium Chloride (Diflucan 100 Mg/ NS (Pmx)) 50 ml @ 50 mls/hr Q24H IVPB ; Start 05/20/17 at 16:00 ADDY WALKER MD May 19, 2017 18:48
[2017-05-20] MEDS: metroNIDAZOLE 500 MG/NS (PMX) 100 ML IVPB SCH ×4 (00:23→18:34)
[2017-05-20] MEDS: VANCOMYCIN 1 GM in NS 250 ML IVPB SCH (00:23)
[2017-05-20] MEDS: HYDROmorphONE 1 MG/ML SYG IV PRN ×5 (01:17→20:06)
[2017-05-20 01:32] VITALS: BP 106/58; RESP 18
[2017-05-20] MEDS: POTASSIUM CHLORIDE 20 MEQ in LACTATED RINGER'S 1,000 ML IV SCH ×2 (05:13→13:48)
[2017-05-20 05:26] LABS: BASOPHIL # 0.1 10^3/ul (0.0-0.1); BASOPHILS % 0.6 % (0.0-2.0); EOSINOPHILS # 0.1 10^3/ul (0.0-0.5); EOSINOPHILS % 1.3 % (0.0-7.0); HEMOGLOBIN 7.4 g/dl (12.0-16.0); LYMPHOCYTES # 1.2 10^3/ul (0.8-2.9); LYMPHOCYTES % 14.1 % (15.0-51.0); MEAN CORPUSCULAR HEMOGLOBIN 29.2 pg (29.0-33.0); MEAN CORPUSCULAR HGB CONC 32.2 g/dl (32.0-37.0); MEAN CORPUSCULAR VOLUME 90.9 fl (82.0-101.0); MEAN PLATELET VOLUME 10.9 fl (7.4-10.4); MONOCYTE # 0.8 10^3/ul (0.3-0.9); MONOCYTES % 9.1 % (0.0-11.0); NEUTROPHIL # 6.1 10^3/ul (1.6-7.5); NEUTROPHILS % 74.3 % (39.0-77.0); PLATELET COUNT 306 10^3/UL (140-415); RED BLOOD COUNT 2.53 10^6/ul (4.20-5.40); RED CELL DISTRIBUTION WIDTH 13.2 % (11.5-14.5); WHITE BLOOD COUNT 8.3 10^3/ul (4.8-10.8)
[2017-05-20 05:52] LABS: CREATININE 0.98 mg/dl (0.44-1.00); POTASSIUM 4.3 mmol/L (3.5-5.1)
[2017-05-20 08:00] VITALS: BP 106/70; RESP 19
[2017-05-20] MEDS: ACCU-CHEK XX SCH ×2 (09:00→20:13)
[2017-05-20] MEDS: MEROPENEM 1 GM/50ML(PMX) 50 ML IVPB SCH ×2 (09:04→20:06)
[2017-05-20] MEDS: FAMOTIDINE 20 MG INJ IV SCH (09:04)
[2017-05-20] MEDS: ACETAMINOPHEN 325 MG TAB PO PRN (12:40)
--- NOTE | 2017-05-20 13:35 | PN ---
Date/Time of Note Date/Time of Note DATE: 05/20/17 TIME: 13:22 Assessment/Plan VTE Prophylaxis VTE Prophylaxis Intervention: SCD's Lines/Catheters IV Catheter Type (from [facility]): PICC Line Central line still needed: Yes Urinary Cath still in place: No Assessment/Plan Chief Complaint/Hosp Course No fever today, Hemoglobin is 7.4, will transfuse 2 units of PRBC. Possible cystoscopy and JJ placement if pt agrees. 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 - S/p laparotomy with enterolysis, small-bowel resection and anastomosis, supracervical hysterectomy, bilateral salpingectomy and ureteral dissection by Dr. Perdomo on 05/01/17. - Abdominal fluid collection versus abscess, continue antibiotics. Patient is currently on meropenem, vancomycin, Flagyl, and Diflucan - Yeast UTI, continue Diflucan - Right staghorn calculus in the proximal right ureter, mild moderate hydronephrosis. Dr. Bolton is following patient in urology consultation. - Anemia, transfuse PRN. Further recommendations based on clinical course. Plan of care discussed with Dr. Valle Problems: Exam/Review of Systems Vital Signs Vitals Vital Signs Date Time Temp Pulse Resp B/P Pulse Ox O2 Delivery O2 Flow Rate FiO2 05/20/17 12:39 98.9 05/20/17 08:00 73 19 106/70 99 05/19/17 12:09 Room Air 05/16/17 20:00 2.0 Intake and Output 05/19/17 05/19/17 05/20/17 15:00 23:00 07:00 Intake Total 150 ml 1450 ml 1975 ml Output Total 1300 ml Balance 150 ml 1450 ml 675 ml Exam Constitutional: alert, oriented Neck: supple Respiratory: normal air movement Cardiovascular: nl pulses Gastrointestinal: other (Surgical incision, right lower quadrant ileostomy, left lower quadrant AIDEN), soft Extremities: normal pulses Neurological: nl mental status Results Result Diagram: 05/20/17 0431 05/20/17 0431 Results 24 hrs Laboratory Tests Test 05/20/17 04:31 White Blood Count 8.3 Red Blood Count 2.53 L Hemoglobin 7.4 L Hematocrit 23.0 L Mean Corpuscular Volume 90.9 Mean Corpuscular Hemoglobin 29.2 Mean Corpuscular Hemoglobin Concent 32.2 Red Cell Distribution Width 13.2 Platelet Count 306 Mean Platelet Volume 10.9 H Neutrophils % 74.3 Lymphocytes % 14.1 L Monocytes % 9.1 Eosinophils % 1.3 Basophils % 0.6 Nucleated Red Blood Cells % 0.0 Neutrophils # 6.1 Lymphocytes # 1.2 Monocytes # 0.8 Eosinophils # 0.1 Basophils # 0.1 Nucleated Red Blood Cells # 0.0 Sodium Level 135 Potassium Level 4.3 Chloride Level 100 Carbon Dioxide Level 25 Anion Gap 14 Blood Urea Nitrogen 13 Creatinine 0.98 Glucose Level 79 Calcium Level 9.0 Medications Medications Current Medications Famotidine (Pepcid Iv) 20 mg DAILY IV Last administered on 05/20/17 09:04; Admin Dose 20 MG; Start 05/02/17 at 09:00 Ondansetron HCl (Zofran Inj) 4 mg Q6H PRN IV NAUSEA AND/OR VOMITING Last administered on 05/19/17 16:59; Admin Dose 4 MG; Start 05/01/17 at 23:30 IV Flush (NS 10 ml) 10 ml PRN PRN IV IV PROTOCOL; Start 05/12/17 at 12:00 Diagnostic Test (Pha) (Accu-Chek) 1 ea Q12 XX Last administered on 05/18/17 21 :29; Admin Dose 1 EA; Start 05/17/17 at 21:00 Hydromorphone HCl (Dilaudid) 0.5 mg Q4HWA PRN IV PAIN Last administered on 05/20 09:27; Admin Dose 0.5 MG; Start 05/17/17 at 21:00 Acetaminophen 650 mg 650 mg Q4H PRN PO PAIN AND OR ELEVATED TEMP Last administered on 05/20/17 12:40; Admin Dose 650 MG; Start 05/17/17 at 21:00 Meropenem/Sodium Chloride 50 ml @ 100 mls/hr Q12 IVPB Last administered on 09:04; Admin Dose 100 MLS/HR; Start 05/17/17 at 21:00 Potassium Chloride 20 meq/ Lactated Ringer's 1,010 ml @ 70 mls/hr [id number] IV Last administered on 05/20/17 05:13; Admin Dose 70 MLS/HR; Start 05/18/17 at 18 :30 Metronidazole 100 ml @ 100 mls/hr Q6 IVPB Last administered on 05/20/17 12:40 ; Admin Dose 100 MLS/HR; Start 05/19/17 at 13:00 Fluconazole/ Sodium Chloride 50 ml @ 50 mls/hr Q24H IVPB ; Start 05/20/17 at 16: 00 Vancomycin HCl (Vancocin) 250 ml @ 125 mls/hr Q24H IVPB Last administered on 00:23; Admin Dose 125 MLS/HR; Start 05/20/17 at 00:00 KERI DE LA GARZA May 20, 2017 13:35
[2017-05-20 13:59] VITALS: BP 131/77; RESP 18
[2017-05-20 15:53] VITALS: BP 121/71; PULSE 69; RESP 16
[2017-05-20] MEDS: FLUCONAZOLE 100 MG/NS (PMX) 50 ML IVPB SCH (16:35)
--- NOTE | 2017-05-20 19:30 | PN ---
Date/Time of Note Date/Time of Note DATE: 05/20/17 TIME: 19:21 Assessment/Plan VTE Prophylaxis VTE Prophylaxis Intervention: other Lines/Catheters IV C[facility]ter Type [facility]from [facility] PICC Line Central line still needed: Yes Assessment/Plan Chief Complaint/Hosp Course 46-year-old female who initially underwent a total colon resection because of cancer. 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 Patient had fever yesterday and on the CT scan it showed pelvic collection and right renal staghorn calculus mostly in the lower pole and a stone in the upper right ureter causing mild hydronephrosis. The question is what may be the reason for her fever could be the collection of fluid in the pelvis or the obstruction of her right upper ureter and the right kidney. I was told by Dr. Valle that the radiologist did not want to do the drainage of the pelvic fluid collection because of its proximity to the pelvic vessels. The patient has a right upper ureteral stone that could be causing her fever and leukocytosis and if one was to do anything about that she will need to undergo a cystoscopy and insertion of right ureteral JJ stent and also aspirate urine from the right kidney and send it for culture. Once she is stable then one could go back and do ureteroscopy and remove the stone from the right ureter and insert another JJ stent temporarily. I did explain all of that to the patient and her family who were at her bedside. The nurse Florence Red who was taking care of her is very fluent in [place]ian and also was kind to translate to her and explained to her what we plan on doing and the patient did understand the plan and did agree for it. She knows that she may need multiple procedures and that the JJ stent cannot be left in too long because of the risk of encrustation on it I will try to do the procedure tomorrow either at noon or at 5:30 PM Problems: Subjective 24 Hr Interval Summary Subjective hx not possible: other Constitutional: other (Patient looks and feels better today) Eyes: no complaints ENT: no complaints Respiratory: no complaints Cardiovascular: no complaints Gastrointestinal: other (Ileostomy) Genitourinary: No bleeding, No hematuria Exam/Review of Systems Vital Signs Vitals Vital Signs Date Time Temp Pulse Resp B/P Pulse Ox O2 Delivery O2 Flow Rate FiO2 05/20/17 15:53 98.6 69 16 121/71 05/20/17 13:59 100 05/19/17 12:09 Room Air 05/16/17 20:00 2.0 Intake and Output 05/19/17 05/19/17 05/20/17 15:00 23:00 07:00 Intake Total 150 ml 1450 ml 1975 ml Output Total 1300 ml Balance 150 ml 1450 ml 675 ml Exam Constitutional: alert, oriented Psych: no complaints Head: normocephalic Neck: non-tender Respiratory: normal air movement Cardiovascular: No edema Gastrointestinal: other (Ileostomy), surgical scars Results Result Diagram: 05/20/17 0431 05/20/17 0431 Results 24 hrs Laboratory Tests Test 05/20/17 04:31 White Blood Count 8.3 Red Blood Count 2.53 L Hemoglobin 7.4 L Hematocrit 23.0 L Mean Corpuscular Volume 90.9 Mean Corpuscular Hemoglobin 29.2 Mean Corpuscular Hemoglobin Concent 32.2 Red Cell Distribution Width 13.2 Platelet Count 306 Mean Platelet Volume 10.9 H Neutrophils % 74.3 Lymphocytes % 14.1 L Monocytes % 9.1 Eosinophils % 1.3 Basophils % 0.6 Nucleated Red Blood Cells % 0.0 Neutrophils # 6.1 Lymphocytes # 1.2 Monocytes # 0.8 Eosinophils # 0.1 Basophils # 0.1 Nucleated Red Blood Cells # 0.0 Sodium Level 135 Potassium Level 4.3 Chloride Level 100 Carbon Dioxide Level 25 Anion Gap 14 Blood Urea Nitrogen 13 Creatinine 0.98 Glucose Level 79 Calcium Level 9.0 Medications Medications Current Medications Famotidine (Pepcid Iv) 20 mg DAILY IV Last administered on 05/20/17 09:04; Admin Dose 20 MG; Start 05/02/17 at 09:00 Ondansetron HCl (Zofran Inj) 4 mg Q6H PRN IV NAUSEA AND/OR VOMITING Last administered on 05/19/17 16:59; Admin Dose 4 MG; Start 05/01/17 at 23:30 IV Flush (NS 10 ml) 10 ml PRN PRN IV IV PROTOCOL; Start 05/12/17 at 12:00 Diagnostic Test (Pha) (Accu-Chek) 1 ea Q12 XX Last administered on 05/18/17 21 :29; Admin Dose 1 EA; Start 05/17/17 at 21:00 Hydromorphone HCl (Dilaudid) 0.5 mg Q4HWA PRN IV PAIN Last administered on 05/20 14:11; Admin Dose 0.5 MG; Start 05/17/17 at 21:00 Acetaminophen 650 mg 650 mg Q4H PRN PO PAIN AND OR ELEVATED TEMP Last administered on 05/20/17 12:40; Admin Dose 650 MG; Start 05/17/17 at 21:00 Meropenem/Sodium Chloride 50 ml @ 100 mls/hr Q12 IVPB Last administered on 09:04; Admin Dose 100 MLS/HR; Start 05/17/17 at 21:00 Potassium Chloride 20 meq/ Lactated Ringer's 1,010 ml @ 70 mls/hr [id number] IV Last administered on 05/20/17 05:13; Admin Dose 70 MLS/HR; Start 05/18/17 at 18 :30 Metronidazole 100 ml @ 100 mls/hr Q6 IVPB Last administered on 05/20/17 18:34 ; Admin Dose 100 MLS/HR; Start 05/19/17 at 13:00 Fluconazole/ Sodium Chloride 50 ml @ 50 mls/hr Q24H IVPB Last administered on 16:35; Admin Dose 50 MLS/HR; Start 05/20/17 at 16:00 Vancomycin HCl (Vancocin) 250 ml @ 125 mls/hr Q24H IVPB Last administered on 00:23; Admin Dose 125 MLS/HR; Start 05/20/17 at 00:00 ADDY WALKER MD May 20, 2017 19:30
[2017-05-20 20:00] VITALS: BP 140/82; RESP 18
--- NOTE | 2017-05-20 22:01 | PN ---
Date/Time of Note Date/Time of Note DATE: 05/20/17 TIME: 21:58 Assessment/Plan VTE Prophylaxis VTE Prophylaxis Intervention: LMWH Lines/Catheters IV Catheter Type (from [facility]): PICC Line Central line still needed: Yes Assessment/Plan Chief Complaint/Hosp Course Quan syndrome and impending SBO Problems: Assessment/Plan A- doing well but possible stone issue P - Concur with Dr. Bolton and appreciated. Subjective 24 Hr Interval Summary Free Text/Dictation diet poor and intermittent pain Exam/Review of Systems Vital Signs Vitals Vital Signs Date Time Temp Pulse Resp B/P Pulse Ox O2 Delivery O2 Flow Rate FiO2 05/20/17 20:00 99.2 76 18 140/82 97 05/19/17 12:09 Room Air 05/16/17 20:00 2.0 Intake and Output 05/19/17 05/19/17 05/20/17 15:00 23:00 07:00 Intake Total 150 ml 1450 ml 1975 ml Output Total 1300 ml Balance 150 ml 1450 ml 675 ml Exam Resp- clear CVS- NSR Abd- soft and mild tenderness. suggestion of R CVAT Ext - NT no edema Results Result Diagram: 05/20/17 0431 05/20/17 0431 Results 24 hrs Laboratory Tests Test 05/20/17 04:31 05/20/17 20:12 White Blood Count 8.3 Red Blood Count 2.53 L Hemoglobin 7.4 L Hematocrit 23.0 L Mean Corpuscular Volume 90.9 Mean Corpuscular Hemoglobin 29.2 Mean Corpuscular Hemoglobin Concent 32.2 Red Cell Distribution Width 13.2 Platelet Count 306 Mean Platelet Volume 10.9 H Neutrophils % 74.3 Lymphocytes % 14.1 L Monocytes % 9.1 Eosinophils % 1.3 Basophils % 0.6 Nucleated Red Blood Cells % 0.0 Neutrophils # 6.1 Lymphocytes # 1.2 Monocytes # 0.8 Eosinophils # 0.1 Basophils # 0.1 Nucleated Red Blood Cells # 0.0 Sodium Level 135 Potassium Level 4.3 Chloride Level 100 Carbon Dioxide Level 25 Anion Gap 14 Blood Urea Nitrogen 13 Creatinine 0.98 Glucose Level 79 Calcium Level 9.0 Bedside Glucose 82 Medications Medications Current Medications Famotidine (Pepcid Iv) 20 mg DAILY IV Last administered on 05/20/17t 09:04; Admin Dose 20 MG; Start 05/02/17 at 09:00 Ondansetron HCl (Zofran Inj) 4 mg Q6H PRN IV NAUSEA AND/OR VOMITING Last administered on 05/19/17 16:59; Admin Dose 4 MG; Start 05/01/17 at 23:30 IV Flush (NS 10 ml) 10 ml PRN PRN IV IV PROTOCOL; Start 05/12/17 at 12:00 Diagnostic Test (Pha) (Accu-Chek) 1 ea Q12 XX Last administered on 05/20/17 20 :13; Admin Dose 1 EA; Start 05/17/17 at 21:00 Hydromorphone HCl (Dilaudid) 0.5 mg Q4HWA PRN IV PAIN Last administered on 05/20 20:06; Admin Dose 0.5 MG; Start 05/17/17 at 21:00 Acetaminophen 650 mg 650 mg Q4H PRN PO PAIN AND OR ELEVATED TEMP Last administered on 05/20/17 12:40; Admin Dose 650 MG; Start 05/17/17 at 21:00 Meropenem/Sodium Chloride 50 ml @ 100 mls/hr Q12 IVPB Last administered on 20:06; Admin Dose 100 MLS/HR; Start 05/17/17 at 21:00 Potassium Chloride 20 meq/ Lactated Ringer's 1,010 ml @ 70 mls/hr [id number] IV Last administered on 05/20/17 05:13; Admin Dose 70 MLS/HR; Start 05/18/17 at 18 :30 Metronidazole 100 ml @ 100 mls/hr Q6 IVPB Last administered on 05/20/17 18:34 ; Admin Dose 100 MLS/HR; Start 05/19/17 at 13:00 Fluconazole/ Sodium Chloride 50 ml @ 50 mls/hr Q24H IVPB Last administered on 16:35; Admin Dose 50 MLS/HR; Start 05/20/17 at 16:00 Vancomycin HCl (Vancocin) 250 ml @ 125 mls/hr Q24H IVPB Last administered on 00:23; Admin Dose 125 MLS/HR; Start 05/20/17 at 00:00 HELEN FULTON MD May 20, 2017 22:01
[2017-05-21] VITALS (21 sets, daily range): BP systolic 110–148; BP diastolic 61–90; PULSE 61–82; RESP 8–20
[2017-05-21] MEDS: HYDROmorphONE 1 MG/ML SYG IV PRN ×7 (00:41→21:57)
[2017-05-21] MEDS: metroNIDAZOLE 500 MG/NS (PMX) 100 ML IVPB SCH ×4 (00:41→18:30)
[2017-05-21] MEDS: VANCOMYCIN 1 GM in NS 250 ML IVPB SCH (01:54)
[2017-05-21] MEDS ORDERED: HYDROmorphONE 1 MG/ML SYG ONE (03:23)
[2017-05-21 05:28] LABS: BASOPHIL # 0.1 10^3/ul (0.0-0.1); BASOPHILS % 0.9 % (0.0-2.0); EOSINOPHILS # 0.2 10^3/ul (0.0-0.5); EOSINOPHILS % 2.3 % (0.0-7.0); HEMATOCRIT 30.5 % (37.0-47.0); HEMOGLOBIN 10.4 g/dl (12.0-16.0); LYMPHOCYTES # 1.2 10^3/ul (0.8-2.9); LYMPHOCYTES % 13.6 % (15.0-51.0); MEAN CORPUSCULAR HEMOGLOBIN 29.2 pg (29.0-33.0); MEAN CORPUSCULAR HGB CONC 34.1 g/dl (32.0-37.0); MEAN CORPUSCULAR VOLUME 85.7 fl (82.0-101.0); MEAN PLATELET VOLUME 10.3 fl (7.4-10.4); MONOCYTE # 0.8 10^3/ul (0.3-0.9); MONOCYTES % 8.7 % (0.0-11.0); NEUTROPHIL # 6.4 10^3/ul (1.6-7.5); NEUTROPHILS % 74.2 % (39.0-77.0); PLATELET COUNT 330 10^3/UL (140-415); RED BLOOD COUNT 3.56 10^6/ul (4.20-5.40); RED CELL DISTRIBUTION WIDTH 13.4 % (11.5-14.5); WHITE BLOOD COUNT 8.6 10^3/ul (4.8-10.8)
[2017-05-21 06:08] LABS: CALCIUM 9.3 mg/dl (8.4-10.2); CREATININE 0.91 mg/dl (0.44-1.00); POTASSIUM 3.8 mmol/L (3.5-5.1)
[2017-05-21] MEDS: ONDANSETRON 4 MG INJ IV PRN (06:50)
[2017-05-21] MEDS: POTASSIUM CHLORIDE 20 MEQ in LACTATED RINGER'S 1,000 ML IV SCH ×2 (06:58→18:40)
[2017-05-21] MEDS: FAMOTIDINE 20 MG INJ IV SCH (10:12)
[2017-05-21] MEDS: MEROPENEM 1 GM/50ML(PMX) 50 ML IVPB SCH ×2 (10:12→21:42)
[2017-05-21] MEDS: ACCU-CHEK XX SCH ×2 (10:12→22:05)
[2017-05-21] MEDS ORDERED: PROPOFOL 20 ML ONE (12:20)
[2017-05-21] MEDS ORDERED: LIDOCAINE 2% (SDV) 5 ML INJ ONE (12:20)
--- NOTE | 2017-05-21 12:57 | HPN ---
Date/Time of Note Date/Time of Note DATE: 05/21/17 TIME: 12:57 Interval H&P Admission Note Pt. seen H&P reviewed: No system changes ADDY WALKER MD May 21, 2017 12:57
[2017-05-21] MEDS ORDERED: MIDAZOLAM 1 MG/ML 2 ML INJ ONE (13:15)
[2017-05-21] MEDS ORDERED: FENTAnyl 50 MCG/ML VIAL ONE (13:16)
[2017-05-21] MEDS ORDERED: DEXAMETHASONE 4 MG/ML 1 ML INJ ONE (13:38)
[2017-05-21] MEDS ORDERED: ONDANSETRON 4 MG INJ ONE (13:38)
[2017-05-21] MEDS ORDERED: DIPHENHYDRAMINE 50 MG INJ IV PRN (14:00)
[2017-05-21] MEDS ORDERED: MEPERIDINE 25 MG INJ IV PRN (14:00)
[2017-05-21] MEDS ORDERED: FENTAnyl 50 MCG/ML VIAL IV PRN (14:00)
[2017-05-21] MEDS ORDERED: HYDROmorphONE (0.2 MG/ML) 10ML SYG IV PRN ×3 (14:00)
[2017-05-21] MEDS ORDERED: PROCHLORPERAZINE 10 MG INJ IV PRN (14:00)
[2017-05-21] MEDS ORDERED: ONDANSETRON 4 MG INJ IV PRN (14:00)
--- NOTE | 2017-05-21 14:08 | RADRPT ---
Vent Rate: 76 bpm RR Interval: 0 msec [place] Interval: 164 msec QRS Duration: 92 msec QT Interval: 362 msec QTC Interval: 407 msec P-R-T [place]: 43 - 51 - 44 degrees Normal sinus rhythm Normal ECG Electronically Signed By: Tyson Moon [id number]
--- NOTE | 2017-05-21 14:14 | OPR ---
Date/Time of Note Date/Time of Note DATE: 05/21/17 TIME: 14:07 Operative Report Procedure Date: May 21, 2017 Preoperative Diagnosis Right upper ureteral stones and hydronephrosis Postoperative Diagnosis Right upper ureteral stones with hydronephrosis the kidney is completely obstructed patient has contrast filling up the collecting system down to the level of the stone Operation Performed Cystoscopy and insertion of right ureteral JJ stent size 6 Bhutanese by 24 cm long Surgeon Kwame Bolton Anesthesia Type: general, other Anesthesiologist: REGINALDO GARVIN MD Estimated Blood Loss: none Transfusion Required: yes Specimens Urine culture from the bladder, and urine culture from the right kidney Complications: no Pt Condition Post Procedure: stable Disposition: PACU Indications Right upper ureteral stones and hydronephrosis Operative\Procedure Findings Patient had right upper ureteral stones completely obstructing her ureter and there is a contrast material from prior CT scan that is still filling up the renal pelvis and the upper ureter down to the level of the stone. Procedure Description The patient was brought to the operating room and given general anesthesia. Timeout was done. The patient was identified by her name birthdate and the procedure on the side of the procedure. The genital area was prepped and draped in the usual sterile manner. #21 [place] cystoscope sheath was introduced into the bladder. Urine was collected for culture and sensitivity. Spot films of the abdomen was of fluoroscopy were done and showed the contrast material in the collecting system of the right kidney down to the level of the stone where it stopped abruptly. The right ureteral orifice was then cannulated was a 5 [place]anese open ended and a 0.035 zip wire was passed into the right ureter all the way up to the level of the stone. it met some resistance at that level but with some manipulation it did go up to the kidney. I advanced the open ended ureteral catheter on the zip wire and it did make it through the stones and into the kidney. The zip wire was removed and I collected urine from the right kidney for culture and sensitivity. The zip wire was reintroduced into the kidney and the open ended catheter was removed. A 24 cm long 6 [place]utanese JJ stent was then advanced on the zip wire under fluoroscopy and had its proximal curl curling into the kidney and the distal end curling into the bladder. The bladder was then emptied. The scope removed and the patient transferred to recovery room in stable and satisfactory condition. KWAME BOLTON MD May 21, 2017 14:14
--- NOTE | 2017-05-21 15:27 | RADRPT ---
PROCEDURE: Intraoperative imaging of the abdomen and pelvis with fluoroscopy. CLINICAL INDICATION: Abdominal pain. Intraoperative. TECHNIQUE: 7 images of the abdomen and pelvis were obtained in the operating room with an image in tensifier. No radiologist was in attendance. 00:24 of fluoroscopy time was used. COMPARISON: CT scan of the abdomen and pelvis dated 05/18/2017. FINDINGS: Images demonstrate contrast in the right intrarenal collecting system from a prior study. Subsequent images demonstrate placement of a double pigtail right ureteral stent in satisfactory position. IMPRESSION: 1. Satisfactory intraoperative imaging of the abdomen and pelvis. RPTAT: QQ .Ron Bautista MD, MD Date Time Electronically viewed and signed by .Ron Bautista MD, MD on 05/21/2017 15:26 .R/
[2017-05-21] MEDS: FLUCONAZOLE 100 MG/NS (PMX) 50 ML IVPB SCH (15:55)
--- NOTE | 2017-05-21 18:08 | PN ---
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 - S/p laparotomy with enterolysis, small-bowel resection and anastomosis, supracervical hysterectomy, bilateral salpingectomy and ureteral dissection by Dr. Perdomo on 05/01/17. - Abdominal fluid collection versus abscess, continue antibiotics. Patient is currently on meropenem, vancomycin, Flagyl, and Diflucan - Yeast UTI, continue Diflucan - Right staghorn calculus in the proximal right ureter, mild moderate hydronephrosis. S/p cystoscopy and right ureteral JJ stent placement on 05/[address] Bolton, urology consultation. - Anemia, transfuse PRN. Further recommendations based on clinical course. Plan of care discussed with Dr. Valle Problems: Exam/Review of Systems Vital Signs Vitals Vital Signs Date Time Temp Pulse Resp B/P Pulse Ox O2 Delivery O2 Flow Rate FiO2 05/21/17 14:56 68 14 110/69 97 Room Air 05/21/17 14:21 98.1 05/21/17 14:04 10.0 Intake and Output 05/20/17 05/20/17 05/21/17 15:00 23:00 07:00 Intake Total 150 ml 1060 ml 1600 ml Output Total 600 ml Balance 150 ml 1060 ml 1000 ml Exam Constitutional: alert, oriented Neck: supple Respiratory: normal air movement Cardiovascular: nl pulses Gastrointestinal: other (Surgical incision, right lower quadrant ileostomy, left lower quadrant AIDEN), soft Extremities: normal pulses Neurological: nl mental status Results Result Diagram: 05/21/17 0436 05/21/17 0436 Results 24 hrs Laboratory Tests Test 05/20/17 20:12 05/21/17 04:36 05/21/17 05:24 05/21/17 10:48 Bedside Glucose 82 80 White Blood Count 8.6 Red Blood Count 3.56 #L Hemoglobin 10.4 #L Hematocrit 30.5 #L Mean Corpuscular Volume 85.7 Mean Corpuscular Hemoglobin 29.2 Mean Corpuscular Hemoglobin Concent 34.1 Red Cell Distribution Width 13.4 Platelet Count 330 Mean Platelet Volume 10.3 Neutrophils % 74.2 Lymphocytes % 13.6 L Monocytes % 8.7 Eosinophils % 2.3 Basophils % 0.9 Nucleated Red Blood Cells % 0.0 Neutrophils # 6.4 Lymphocytes # 1.2 Monocytes # 0.8 Eosinophils # 0.2 Basophils # 0.1 Nucleated Red Blood Cells # 0.0 Sodium Level 136 Potassium Level 3.8 Chloride Level 100 Carbon Dioxide Level 23 Anion Gap 17 H Blood Urea Nitrogen 12 Creatinine 0.91 Glucose Level 75 Calcium Level 9.3 Lab Scanned Report BLOOD TRANSFUSION Medications Medications Current Medications Famotidine (Pepcid Iv) 20 mg DAILY IV Last administered on 05/21/17 10:12; Admin Dose 20 MG; Start 05/02/17 at 09:00 Ondansetron HCl (Zofran Inj) 4 mg Q6H PRN IV NAUSEA AND/OR VOMITING Last administered on 05/21/17 06:50; Admin Dose 4 MG; Start 05/01/17 at 23:30 IV Flush (NS 10 ml) 10 ml PRN PRN IV IV PROTOCOL; Start 05/12/17 at 12:00 Diagnostic Test (Pha) (Accu-Chek) 1 ea Q12 XX Last administered on 05/21/17 10 :12; Admin Dose 1 EA; Start 05/17/17 at 21:00 Acetaminophen 650 mg 650 mg Q4H PRN PO PAIN AND OR ELEVATED TEMP Last administered on 05/20/17 12:40; Admin Dose 650 MG; Start 05/17/17 at 21:00 Meropenem/Sodium Chloride 50 ml @ 100 mls/hr Q12 IVPB Last administered on 10:12; Admin Dose 100 MLS/HR; Start 05/17/17 at 21:00 Potassium Chloride 20 meq/ Lactated Ringer's 1,010 ml @ 70 mls/hr [id number] IV Last administered on 05/21/17 06:58; Admin Dose 70 MLS/HR; Start 05/18/17 at 18 :30 Metronidazole 100 ml @ 100 mls/hr Q6 IVPB Last administered on 05/21/17 12:15 ; Admin Dose 100 MLS/HR; Start 05/19/17 at 13:00 Fluconazole/ Sodium Chloride 50 ml @ 50 mls/hr Q24H IVPB Last administered on 15:55; Admin Dose 50 MLS/HR; Start 05/20/17 at 16:00 Vancomycin HCl (Vancocin) 250 ml @ 125 mls/hr Q24H IVPB Last administered on 01:54; Admin Dose 125 MLS/HR; Start 05/20/17 at 00:00 Hydromorphone HCl (Dilaudid) 1 mg Q2HWA PRN IV PAIN Last administered on 15:55; Admin Dose 1 MG; Start 05/21/17 at 03:30 KERI DE LA GARZA May 21, 2017 18:08
[2017-05-21] MEDS ORDERED: CASPOFUNGIN 70 MG in SOD CHLORIDE 0.9% 250 ML IVPB ONE (21:00)
[2017-05-22] VITALS (7 sets, daily range): BP systolic 124–134; BP diastolic 62–77; PULSE 63–68; RESP 18–20
[2017-05-22] MEDS: HYDROmorphONE 1 MG/ML SYG IV PRN ×6 (00:36→21:07)
[2017-05-22] MEDS: metroNIDAZOLE 500 MG/NS (PMX) 100 ML IVPB SCH ×4 (00:48→17:42)
[2017-05-22] MEDS: VANCOMYCIN 1 GM in NS 250 ML IVPB SCH (01:53)
[2017-05-22 05:21] LABS: BASOPHILS % 0.4 % (0.0-2.0); HEMATOCRIT 29.8 % (37.0-47.0); LYMPHOCYTES # 1.1 10^3/ul (0.8-2.9); LYMPHOCYTES % 13.6 % (15.0-51.0); MEAN CORPUSCULAR HEMOGLOBIN 29.2 pg (29.0-33.0); MEAN CORPUSCULAR HGB CONC 33.6 g/dl (32.0-37.0); MEAN CORPUSCULAR VOLUME 86.9 fl (82.0-101.0); MEAN PLATELET VOLUME 10.6 fl (7.4-10.4); MONOCYTE # 0.5 10^3/ul (0.3-0.9); MONOCYTES % 5.7 % (0.0-11.0); NEUTROPHIL # 6.3 10^3/ul (1.6-7.5); NEUTROPHILS % 79.8 % (39.0-77.0); PLATELET COUNT 376 10^3/UL (140-415); RED BLOOD COUNT 3.43 10^6/ul (4.20-5.40); RED CELL DISTRIBUTION WIDTH 13.7 % (11.5-14.5); WHITE BLOOD COUNT 7.9 10^3/ul (4.8-10.8)
[2017-05-22 05:44] LABS: CALCIUM 9.1 mg/dl (8.4-10.2); CREATININE 0.75 mg/dl (0.44-1.00)
[2017-05-22] MEDS: FAMOTIDINE 20 MG INJ IV SCH (09:38)
[2017-05-22] MEDS: MEROPENEM 1 GM/50ML(PMX) 50 ML IVPB SCH ×2 (09:39→21:07)
[2017-05-22] MEDS: ACCU-CHEK XX SCH ×2 (09:39→21:00)
[2017-05-22] MEDS: POTASSIUM CHLORIDE 20 MEQ in LACTATED RINGER'S 1,000 ML IV SCH (13:14)
--- NOTE | 2017-05-22 13:40 | PN ---
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 - S/p laparotomy with enterolysis, small-bowel resection and anastomosis, supracervical hysterectomy, bilateral salpingectomy and ureteral dissection by Dr. Perdomo on 05/01/17. - Abdominal fluid collection versus abscess, continue antibiotics. Patient is currently on meropenem, vancomycin, Flagyl, and Diflucan - Yeast UTI, continue Diflucan - Right staghorn calculus in the proximal right ureter, mild moderate hydronephrosis. S/p cystoscopy and right ureteral JJ stent placement on 05/[address] Bolton, urology consultation. - Anemia, transfuse PRN. Further recommendations based on clinical course. Plan of care discussed with Dr. Valle Exam/Review of Systems Vital Signs Vitals Vital Signs Date Time Temp Pulse Resp B/P Pulse Ox O2 Delivery O2 Flow Rate FiO2 05/22/17 08:00 98.3 51 18 134/73 99 05/21/17 17:00 Room Air 05/21/17 14:04 10.0 Intake and Output 05/21/17 05/21/17 05/22/17 15:00 23:00 07:00 Intake Total 550 ml 830 ml 1390 ml Output Total 0 ml 375 ml 100 ml Balance 550 ml 455 ml 1290 ml Results Result Diagram: 05/22/17 0430 05/22/17 0430 Results 24 hrs Laboratory Tests Test 05/21/17 22:05 05/22/17 04:30 05/22/17 09:44 Bedside Glucose 138 77 White Blood Count 7.9 Red Blood Count 3.43 L Hemoglobin 10.0 L Hematocrit 29.8 L Mean Corpuscular Volume 86.9 Mean Corpuscular Hemoglobin 29.2 Mean Corpuscular Hemoglobin Concent 33.6 Red Cell Distribution Width 13.7 Platelet Count 376 Mean Platelet Volume 10.6 H Neutrophils % 79.8 H Lymphocytes % 13.6 L Monocytes % 5.7 Eosinophils % 0.0 Basophils % 0.4 Nucleated Red Blood Cells % 0.0 Neutrophils # 6.3 Lymphocytes # 1.1 Monocytes # 0.5 Eosinophils # 0.0 Basophils # 0.0 Nucleated Red Blood Cells # 0.0 Sodium Level 136 Potassium Level 4.0 Chloride Level 99 Carbon Dioxide Level 26 Anion Gap 15 Blood Urea Nitrogen 14 Creatinine 0.75 Glucose Level 93 Calcium Level 9.1 Thyroid Stimulating Hormone (TSH) 0.420 L Free Thyroxine 1.58 Medications Medications Current Medications Famotidine (Pepcid Iv) 20 mg DAILY IV Last administered on 05/22/17 09:38; Admin Dose 20 MG; Start 05/02/17 at 09:00 Ondansetron HCl (Zofran Inj) 4 mg Q6H PRN IV NAUSEA AND/OR VOMITING Last administered on 05/21/17 06:50; Admin Dose 4 MG; Start 05/01/17 at 23:30 IV Flush (NS 10 ml) 10 ml PRN PRN IV IV PROTOCOL; Start 05/12/17 at 12:00 Diagnostic Test (Pha) (Accu-Chek) 1 ea Q12 XX Last administered on 05/22/17 09 :39; Admin Dose 1 EA; Start 05/17/17 at 21:00 Acetaminophen 650 mg 650 mg Q4H PRN PO PAIN AND OR ELEVATED TEMP Last administered on 05/20/17 12:40; Admin Dose 650 MG; Start 05/17/17 at 21:00 Meropenem/Sodium Chloride 50 ml @ 100 mls/hr Q12 IVPB Last administered on 09:39; Admin Dose 100 MLS/HR; Start 05/17/17 at 21:00 Potassium Chloride 20 meq/ Lactated Ringer's 1,010 ml @ 70 mls/hr [id number] IV Last administered on 05/22/17 13:14; Admin Dose 70 MLS/HR; Start 05/18/17 at 18 :30 Metronidazole 100 ml @ 100 mls/hr Q6 IVPB Last administered on 05/22/17 13:14 ; Admin Dose 100 MLS/HR; Start 05/19/17 at 13:00 Vancomycin HCl 250 ml @ 125 mls/hr Q24H IVPB Last administered on 9/28/17at 01 :53; Admin Dose 125 MLS/HR; Start 05/20/17 at 00:00 Caspofungin/ Sodium Chloride (Cancidas/NS) 250 ml @ 250 mls/hr Q24H IVPB ; Start 05/22/17 at 21:00 Hydromorphone HCl (Dilaudid) 0.5 mg Q3H PRN IV PAIN Last administered on t 13:14; Admin Dose 0.5 MG; Start 05/22/17 at 05:30 EMILI DUARTE May 22, 2017 13:40
--- NOTE | 2017-05-22 15:08 | RADRPT ---
Vent Rate: 63 bpm RR Interval: 0 msec [place] Interval: 168 msec QRS Duration: 100 msec QT Interval: 416 msec QTC Interval: 425 msec P-R-T [place]: 52 - 47 - 43 degrees Normal sinus rhythm Normal ECG Electronically Signed By: Tyson Moon [id number]
[2017-05-22 15:30] LABS: CHOL/HDL RATIO 7.4 RATIO
--- NOTE | 2017-05-22 15:48 | RADRPT ---
PROCEDURE: XR Chest. CLINICAL INDICATION: Chest pain TECHNIQUE: Single frontal view of the chest was obtained COMPARISON: 05/17/2017 FINDINGS: See impression IMPRESSION: Stable right PICC. Minimally decreased lung volumes. Otherwise, no convincing interval change compar ed to chest radiograph from 4 days prior. RPTAT: EE Thuy Diaz Physician Date Time Electronically viewed and signed by Thuy Diaz Physician on 05/22/2017 15:47 /
[2017-05-22 16:00] LABS: THYROID STIMULATING HORMONE 1.26 MIU/L (0.465-4.680)
--- NOTE | 2017-05-22 18:40 | CONS ---
Date/Time of Note Date/Time of Note DATE: 05/22/17 TIME: 18:34 Assessment/Plan Assessment/Plan Additional Assessment/Plan Chest pain Malignancy status post surgery Preserved ejection fraction -Patient history of malignancy and not complaining of chest pain exacerbated with deep inspiration. Patient with minimal physical activity. Given history of malignancy in symptoms, will need to rule out pulmonary emboli. Will check d -dimer, if elevated, would proceed with CT pulmonary angiogram. Check lower extremity Doppler study. Serial cardiac enzymes. Consultation Date/Type/Reason Admit Date/Time May 01, 2017 at 13:23 Type of Consultation: cv Reason for Consultation Chest pain Hx of Present Illness This is a 46-year-old female with history of intestinal cancer status post surgery. Patient also with possible abdominal fluid collections as well. Today , while patient lying in bed, she developed left-sided chest discomfort and shoulder pain. Pain was occasionally sharp in nature, occasionally pins and needles. Pain exacerbated with deep inspiration. Pain also radiates to her left shoulder. Because of the above, patient transferred to telemetry for further evaluation care. She still having pain and discomfort but it has improved. She does have abdominal pain. 12 point review of systems was performed with all pertinent positives and negatives mentioned above and all else is negative Constitutional: other (Patient looks and feels better today) Eyes: no complaints ENT: no complaints Respiratory: no complaints Cardiovascular: no complaints Gastrointestinal: other (Ileostomy) Genitourinary: No bleeding, No hematuria Musculoskeletal: no complaints Skin: no complaints Neurologic: no complaints Endocrine: no complaints Lymphatic: no complaints Psychological: no complaints Past Medical History Medical History: cancer (Colon cancer) Past Surgical History Past Surgical Hx: bowel resection, other (Hysterectomy) Social History Alcohol Use: none Smoking Status: Never smoker Exam/Review of Systems Vital Signs Vitals Vital Signs Date Time Temp Pulse Resp B/P Pulse Ox O2 Delivery O2 Flow Rate FiO2 05/22/17 16:46 2.0 05/22/17 16:18 63 05/22/17 16:08 98.6 18 124/74 97 05/21/17 17:00 Room Air Intake and Output 05/21/17 05/21/17 05/22/17 15:00 23:00 07:00 Intake Total 550 ml 830 ml 1390 ml Output Total 0 ml 375 ml 100 ml Balance 550 ml 455 ml 1290 ml Exam Appears tired, family bedside Constitutional: alert, oriented Head: normocephalic Respiratory: other (Coarse breath sounds bilaterally, no wheezing) Cardiovascular: other, regular rate and rhythm Gastrointestinal: bowel sounds, other (Bandages seen, discomfort with palpation ), soft Extremities: other (No edema) Results Result Diagram: 05/22/17 0430 05/22/17 0430 Results 24 hrs Laboratory Tests Test 05/21/17 22:05 05/22/17 04:30 05/22/17 09:44 05/22/17 14:58 Bedside Glucose 138 77 White Blood Count 7.9 Red Blood Count 3.43 L Hemoglobin 10.0 L Hematocrit 29.8 L Mean Corpuscular Volume 86.9 Mean Corpuscular Hemoglobin 29.2 Mean Corpuscular Hemoglobin Concent 33.6 Red Cell Distribution Width 13.7 Platelet Count 376 Mean Platelet Volume 10.6 H Neutrophils % 79.8 H Lymphocytes % 13.6 L Monocytes % 5.7 Eosinophils % 0.0 Basophils % 0.4 Nucleated Red Blood Cells % 0.0 Neutrophils # 6.3 Lymphocytes # 1.1 Monocytes # 0.5 Eosinophils # 0.0 Basophils # 0.0 Nucleated Red Blood Cells # 0.0 Sodium Level 136 Potassium Level 4.0 Chloride Level 99 Carbon Dioxide Level 26 Anion Gap 15 Blood Urea Nitrogen 14 Creatinine 0.75 Glucose Level 93 Calcium Level 9.1 Thyroid Stimulating Hormone (TSH) 0.420 L 1.260 Free Thyroxine 1.58 1.61 Troponin I < 0.012 Triglycerides Level 299 H Cholesterol Level 171 LDL Cholesterol, Calculated 88 HDL Cholesterol 23 L Cholesterol/HDL Ratio 7.4 Medications Medications Current Medications Famotidine (Pepcid Iv) 20 mg DAILY IV Last administered on 05/22/17 09:38; Admin Dose 20 MG; Start 05/02/17 at 09:00 Ondansetron HCl (Zofran Inj) 4 mg Q6H PRN IV NAUSEA AND/OR VOMITING Last administered on 05/21/17 06:50; Admin Dose 4 MG; Start 05/01/17 at 23:30 IV Flush (NS 10 ml) 10 ml PRN PRN IV IV PROTOCOL; Start 05/12/17 at 12:00 Diagnostic Test (Pha) (Accu-Chek) 1 ea Q12 XX Last administered on 05/22/17 09 :39; Admin Dose 1 EA; Start 05/17/17 at 21:00 Acetaminophen 650 mg 650 mg Q4H PRN PO PAIN AND OR ELEVATED TEMP Last administered on 05/20/17 12:40; Admin Dose 650 MG; Start 05/17/17 at 21:00 Meropenem/Sodium Chloride 50 ml @ 100 mls/hr Q12 IVPB Last administered on 09:39; Admin Dose 100 MLS/HR; Start 05/17/17 at 21:00 Potassium Chloride 20 meq/ Lactated Ringer's 1,010 ml @ 70 mls/hr [id number] IV Last administered on 05/22/17 13:14; Admin Dose 70 MLS/HR; Start 05/18/17 at 18 :30 Metronidazole 100 ml @ 100 mls/hr Q6 IVPB Last administered on 05/22/17 17:42 ; Admin Dose 100 MLS/HR; Start 05/19/17 at 13:00 Vancomycin HCl 250 ml @ 125 mls/hr Q24H IVPB Last administered on 05/22/17 01 :53; Admin Dose 125 MLS/HR; Start 05/20/17 at 00:00 Caspofungin/ Sodium Chloride (Cancidas/NS) 250 ml @ 250 mls/hr Q24H IVPB ; Start 05/22/17 at 21:00 Hydromorphone HCl (Dilaudid) 0.5 mg Q3H PRN IV PAIN Last administered on 17:42; Admin Dose 0.5 MG; Start 05/22/17 at 05:30 Miscellaneous Information (*Rx Drug Level Order Reminder*) VANCO TR LEVEL PRIOR... ONCE ONCE XX ; Start 05/22/17 at 23:00; Stop 05/22/17 at 23:01 Procedures Procedures ECG done today at 1407 demonstrates sinus rhythm at 63 bpm, QRS 100 ms, no significant ischemic STT wave abnormalities Tyson Moon DO May 22, 2017 18:40
--- NOTE | 2017-05-22 20:47 | RADRPT ---
PROCEDURE: US Lower extremity Venous. CLINICAL INDICATION: Bilateral lower extremity edema TECHNIQUE: Multiple sonographic images of the bilateral lower extremity deep venous system was obt ained utilizing grayscale, color-flow, compressive sonography and doppler imaging with augmentation. The images were reviewed on a PACS workstation. COMPARISON: None. FINDINGS: There is normal compressibility and flow within the bilateral common femoral, femoral , posterior ti bial and popliteal veins. RPTAT: AA IMPRESSION: No sonographic evidence for deep venous thrombosis. .Reji Swift MD, MD Date Time Electronically viewed and signed by .Reji Swift MD, MD on 05/22/2017 20:47 .S/
[2017-05-22] MEDS: CASPOFUNGIN 50 MG in SOD CHLORIDE 0.9% 250 ML IVPB SCH (21:07)
--- NOTE | 2017-05-22 21:24 | PN ---
DATE: 05/22/2017 SUBJECTIVE DATA: Patient is feeling better. She still, however, has some abdominal pain. OBJECTIVE: VITAL SIGNS: Temperature is 98.7, pulse is 61, respirations 18, blood pressure 133/62. ABDOMEN: Soft. She does have multiple scars in the colostomy bag. LABORATORY: Her CBC shows a white count of 7.9, hemoglobin 10.0, hematocrit 29.8. BUN is 14, creatinine 0.75, sodium 136, potassium 4.0, chloride 99, CO2 26. The urine culture from the kidney is showing yeast and urine culture from the bladder has no growth after 24 hours. The patient is already on caspofungin for the yeast infection. IMPRESSION AND PLAN: Right renal staghorn calculus and also right upper ureteral stone that was obstructing her. The patient is status post cystoscopy and insertion of right ureteral JJ stent. I did bring the computer to her room and pulled up the x- rays that we took yesterday during surgery and showed that the right kidney was obstructed and the contrast material filling up of the right kidney and that the contrast material coming down to the level of the stone and stopping there, even though the contrast material was given to her for the CT scan on May 18 and we did the cystoscopy on May 21, 3 days later. I explained to her what to do, and later on, and that she will need another procedure, to go in and remove and try to get rid of the stone from the ureter and then put another JJ stent and that she may need multiple procedures to clear the ureter from the stone, and also of the kidney stones will be dealt was later on. She did understand that, and we will follow up on that. Dictated By: Kwmae Bolton MD /jl/manuel /Document#: [id number]
[2017-05-22 22:06] LABS: CREATINE KINASE < 20 IU/L (23-200)
[2017-05-22 22:08] LABS: D-DIMER 2915.48 ng/ml (<460)
[2017-05-22 22:23] LABS: CK-MB < 0.22 ng/ml (0.0-2.4); TROPONIN-I < 0.012 ng/ml (0.00-0.12)
--- NOTE | 2017-05-22 22:59 | PN ---
Date/Time of Note Date/Time of Note DATE: 05/22/17 TIME: 22:56 Assessment/Plan VTE Prophylaxis VTE Prophylaxis Intervention: LMWH Lines/Catheters IV Catheter Type (from Nrsg): PICC Line Central line still needed: Yes Urinary Cath still in place: No Assessment/Plan Chief Complaint/Hosp Course Quan syndrome and impending SBO Problems: Assessment/Plan A- improved P- mobilize and per IM and Subjective 24 Hr Interval Summary Free Text/Dictation Seen earlier. Comfortable and ena diet. Exam/Review of Systems Vital Signs Vitals Vital Signs Date Time Temp Pulse Resp B/P Pulse Ox O2 Delivery O2 Flow Rate FiO2 05/22/17 20:12 68 05/22/17 19:57 98.7 18 133/62 95 05/22/17 16:46 2.0 05/21/17 17:00 Room Air Intake and Output 05/21/17 05/21/17 05/22/17 14:59 22:59 06:59 Intake Total 550 ml 830 ml 1390 ml Output Total 0 ml 375 ml 100 ml Balance 550 ml 455 ml 1290 ml Exam Resp- clear CVS- NSR Abd- soft NT Ext nt minimal edema Results Result Diagram: 05/22/17 0430 05/22/17 0430 Results 24 hrs Laboratory Tests Test 05/22/17 04:30 05/22/17 09:44 05/22/17 14:58 05/22/17 21:04 White Blood Count 7.9 Red Blood Count 3.43 L Hemoglobin 10.0 L Hematocrit 29.8 L Mean Corpuscular Volume 86.9 Mean Corpuscular Hemoglobin 29.2 Mean Corpuscular Hemoglobin Concent 33.6 Red Cell Distribution Width 13.7 Platelet Count 376 Mean Platelet Volume 10.6 H Neutrophils % 79.8 H Lymphocytes % 13.6 L Monocytes % 5.7 Eosinophils % 0.0 Basophils % 0.4 Nucleated Red Blood Cells % 0.0 Neutrophils # 6.3 Lymphocytes # 1.1 Monocytes # 0.5 Eosinophils # 0.0 Basophils # 0.0 Nucleated Red Blood Cells # 0.0 Sodium Level 136 Potassium Level 4.0 Chloride Level 99 Carbon Dioxide Level 26 Anion Gap 15 Blood Urea Nitrogen 14 Creatinine 0.75 Glucose Level 93 Calcium Level 9.1 Thyroid Stimulating Hormone (TSH) 0.420 L 1.260 Free Thyroxine 1.58 1.61 Bedside Glucose 77 101 Troponin I < 0.012 Triglycerides Level 299 H Cholesterol Level 171 LDL Cholesterol, Calculated 88 HDL Cholesterol 23 L Cholesterol/HDL Ratio 7.4 Test 05/22/17 21:38 Creatine Kinase < 20 L Creatine Kinase Index Creatinine Kinase MB (Mass) < 0.22 Troponin I < 0.012 Medications Medications Current Medications Famotidine (Pepcid Iv) 20 mg DAILY IV Last administered on 05/22/17 09:38; Admin Dose 20 MG; Start 05/02/17 at 09:00 Ondansetron HCl (Zofran Inj) 4 mg Q6H PRN IV NAUSEA AND/OR VOMITING Last administered on 05/21/17 06:50; Admin Dose 4 MG; Start 05/01/17 at 23:30 IV Flush (NS 10 ml) 10 ml PRN PRN IV IV PROTOCOL; Start 05/12/17 at 12:00 Diagnostic Test (Pha) (Accu-Chek) 1 ea Q12 XX Last administered on 05/22/17 09 :39; Admin Dose 1 EA; Start 05/17/17 at 21:00 Acetaminophen 650 mg 650 mg Q4H PRN PO PAIN AND OR ELEVATED TEMP Last administered on 05/20/17 12:40; Admin Dose 650 MG; Start 05/17/17 at 21:00 Meropenem/Sodium Chloride 50 ml @ 100 mls/hr Q12 IVPB Last administered on 21:07; Admin Dose 100 MLS/HR; Start 05/17/17 at 21:00 Potassium Chloride 20 meq/ Lactated Ringer's 1,010 ml @ 70 mls/hr [id number] IV Last administered on 05/22/17 13:14; Admin Dose 70 MLS/HR; Start 05/18/17 at 18 :30 Metronidazole 100 ml @ 100 mls/hr Q6 IVPB Last administered on 05/22/17 17:42 ; Admin Dose 100 MLS/HR; Start 05/19/17 at 13:00 Vancomycin HCl 250 ml @ 125 mls/hr Q24H IVPB Last administered on 05/22/17 01 :53; Admin Dose 125 MLS/HR; Start 05/20/17 at 00:00 Caspofungin/ Sodium Chloride (Cancidas/NS) 250 ml @ 250 mls/hr Q24H IVPB Last administered on 05/22/17 21:07; Admin Dose 250 MLS/HR; Start 05/22/17 at 21:00 Hydromorphone HCl (Dilaudid) 0.5 mg Q3H PRN IV PAIN Last administered on 21:07; Admin Dose 0.5 MG; Start 05/22/17 at 05:30 Miscellaneous Information (*Rx Drug Level Order Reminder*) VANCO TR LEVEL PRIOR... ONCE ONCE XX ; Start 05/22/17 at 23:00; Stop 05/22/17 at 23:01 HELEN FULTON MD May 22, 2017 22:59
[2017-05-23] VITALS (12 sets, daily range): BP systolic 117–151; BP diastolic 65–81; PULSE 52–65; RESP 18–19
[2017-05-23] MEDS: HYDROmorphONE 1 MG/ML SYG IV PRN ×5 (00:01→18:09)
[2017-05-23] MEDS: POTASSIUM CHLORIDE 20 MEQ in LACTATED RINGER'S 1,000 ML IV SCH ×2 (00:02→12:24)
[2017-05-23] MEDS: VANCOMYCIN 1 GM in NS 250 ML IVPB SCH (00:39)
[2017-05-23] MEDS: metroNIDAZOLE 500 MG/NS (PMX) 100 ML IVPB SCH ×4 (00:39→17:33)
[2017-05-23 01:37] LABS: CREATINE KINASE < 20 IU/L (23-200)
[2017-05-23 01:49] LABS: CK-MB < 0.22 ng/ml (0.0-2.4); TROPONIN-I < 0.012 ng/ml (0.00-0.12)
[2017-05-23] MEDS: MEROPENEM 1 GM/50ML(PMX) 50 ML IVPB SCH ×2 (08:45→21:07)
[2017-05-23] MEDS: FAMOTIDINE 20 MG INJ IV SCH (08:45)
[2017-05-23] MEDS: ACCU-CHEK XX SCH ×2 (08:47→21:00)
--- NOTE | 2017-05-23 08:50 | RADRPT ---
PROCEDURE: XR Abdomen. CLINICAL INDICATION: Abdomen pain. TECHNIQUE: AP supine abdomen x-ray. COMPARISON: 06/07/2016. FINDINGS: The bowel gas pattern is normal. There is no evidence of obstruction. There is a right ureteral double pigtail stent in satisfactory position. Possible calculi are presen t in the lower right kidney. There are no other urinary tract calculi visualized. Surgical angeles are present in bowel in the pelvis. The osseus structures are unremarkable. IMPRESSION: 1. Right ureteral double pigtail stent in satisfactory position. 2. Possible calculi in the lower right kidney. 3. Prior bowel surgery in the pelvis. RPTAT: QQ .Ron Bautista MD, MD Date Time Electronically viewed and signed by .Ron Bautista MD, on 05/23/2017 08:50 .R/
[2017-05-23 09:23] LABS: BASOPHIL # 0.1 10^3/ul (0.0-0.1); BASOPHILS % 0.7 % (0.0-2.0); EOSINOPHILS # 0.2 10^3/ul (0.0-0.5); EOSINOPHILS % 1.9 % (0.0-7.0); HEMATOCRIT 31.2 % (37.0-47.0); HEMOGLOBIN 10.4 g/dl (12.0-16.0); LYMPHOCYTES # 1.7 10^3/ul (0.8-2.9); LYMPHOCYTES % 20.3 % (15.0-51.0); MEAN CORPUSCULAR HEMOGLOBIN 29.4 pg (29.0-33.0); MEAN CORPUSCULAR HGB CONC 33.3 g/dl (32.0-37.0); MEAN CORPUSCULAR VOLUME 88.1 fl (82.0-101.0); MEAN PLATELET VOLUME 10.3 fl (7.4-10.4); MONOCYTE # 0.6 10^3/ul (0.3-0.9); MONOCYTES % 7.1 % (0.0-11.0); NEUTROPHIL # 5.7 10^3/ul (1.6-7.5); NEUTROPHILS % 69.4 % (39.0-77.0); PLATELET COUNT 384 10^3/UL (140-415); RED BLOOD COUNT 3.54 10^6/ul (4.20-5.40); RED CELL DISTRIBUTION WIDTH 13.4 % (11.5-14.5); WHITE BLOOD COUNT 8.2 10^3/ul (4.8-10.8)
[2017-05-23 09:54] LABS: CALCIUM 8.7 mg/dl (8.4-10.2); CREATININE 0.69 mg/dl (0.44-1.00); POTASSIUM 3.2 mmol/L (3.5-5.1)
[2017-05-23] MEDS: ONDANSETRON 4 MG INJ IV PRN (11:13)
[2017-05-23] MEDS: VANCOMYCIN 750 MG in SOD CHLORIDE 0.9% 150 ML IVPB SCH (11:14)
--- NOTE | 2017-05-23 11:45 | CONS ---
Date/Time of Note Date/Time of Note DATE: 05/23/17 TIME: 11:42 Assessment/Plan Assessment/Plan Additional Assessment/Plan Chest pain, resolved Malignancy status post surgery Preserved ejection fraction -Patient with no further chest pain or shortness of breath. Heart rate within normal limits, venous Dopplers are negative. D-dimer is elevated but this can also be so status post surgery. Given no further symptoms, normal lower extremity Doppler study and heart rate within normal limits, would hold off on CT pulmonary angiogram current time. If no contraindication, would recommend DVT prophylaxis Consultation Date/Type/Reason Admit Date/Time May 01, 2017 at 13:23 Initial Consult Date Type of Consultation: cv 24 HR Interval Summary Free Text/Dictation Feeling much better today, denies chest pain or shortness of breath. Still has abdominal pain but this is improved Exam/Review of Systems Vital Signs Vitals Vital Signs Date Time Temp Pulse Resp B/P Pulse Ox O2 Delivery O2 Flow Rate FiO2 05/23/17 11:32 98.6 67 18 122/67 100 05/23/17 02:22 2.0 05/21/17 17:00 Room Air Intake and Output 05/22/17 05/22/17 05/23/17 15:00 23:00 07:00 Intake Total 510 ml 680 ml 1570 ml Balance 510 ml 680 ml 1570 ml Exam No apparent distress Constitutional: alert, oriented Head: normocephalic Respiratory: other (Coarse breath sounds bilaterally, no wheezing) Cardiovascular: other (S1-S2 heard), regular rate and rhythm Gastrointestinal: bowel sounds, non-tender, soft Extremities: other (No edema) Results Result Diagram: 05/23/1718 05/23/17 0818 Results 24 hrs Laboratory Tests Test 05/22/17 14:58 05/22/17 21:04 05/22/17 21:38 05/22/17 23:03 Troponin I < 0.012 < 0.012 Triglycerides Level 299 H Cholesterol Level 171 LDL Cholesterol, Calculated 88 HDL Cholesterol 23 L Cholesterol/HDL Ratio 7.4 Thyroid Stimulating Hormone (TSH) 1.260 Free Thyroxine 1.61 Bedside Glucose 101 D-Dimer 2915.48 #H D-Dimer Comment Creatine Kinase < 20 L Creatine Kinase Index Creatinine Kinase MB (Mass) < 0.22 Vancomycin Level Trough 9.3 L Test 05/23/17 00:50 05/23/17 08:18 05/23/17 08:47 Creatine Kinase < 20 L Creatine Kinase Index Creatinine Kinase MB (Mass) < 0.22 Troponin I < 0.012 White Blood Count 8.2 Red Blood Count 3.54 L Hemoglobin 10.4 L Hematocrit 31.2 L Mean Corpuscular Volume 88.1 Mean Corpuscular Hemoglobin 29.4 Mean Corpuscular Hemoglobin Concent 33.3 Red Cell Distribution Width 13.4 Platelet Count 384 Mean Platelet Volume 10.3 Neutrophils % 69.4 Lymphocytes % 20.3 Monocytes % 7.1 Eosinophils % 1.9 Basophils % 0.7 Nucleated Red Blood Cells % 0.0 Neutrophils # 5.7 Lymphocytes # 1.7 Monocytes # 0.6 Eosinophils # 0.2 Basophils # 0.1 Nucleated Red Blood Cells # 0.0 Sodium Level 137 Potassium Level 3.2 L Chloride Level 99 Carbon Dioxide Level 29 Anion Gap 12 Blood Urea Nitrogen 10 Creatinine 0.69 Glucose Level 76 Calcium Level 8.7 Bedside Glucose 69 L Medications Medications Current Medications Famotidine (Pepcid Iv) 20 mg DAILY IV Last administered on 05/23/17 08:45; Admin Dose 20 MG; Start 05/02/17 at 09:00 Ondansetron HCl (Zofran Inj) 4 mg Q6H PRN IV NAUSEA AND/OR VOMITING Last administered on 05/23/17 11:13; Admin Dose 4 MG; Start 05/01/17 at 23:30 IV Flush (NS 10 ml) 10 ml PRN PRN IV IV PROTOCOL; Start 05/12/17 at 12:00 Diagnostic Test (Pha) (Accu-Chek) 1 ea Q12 XX Last administered on 05/23/17 08 :47; Admin Dose 1 EA; Start 05/17/17 at 21:00 Acetaminophen 650 mg 650 mg Q4H PRN PO PAIN AND OR ELEVATED TEMP Last administered on 05/20/17 12:40; Admin Dose 650 MG; Start 05/17/17 at 21:00 Meropenem/Sodium Chloride 50 ml @ 100 mls/hr Q12 IVPB Last administered on 08:45; Admin Dose 100 MLS/HR; Start 05/17/17 at 21:00 Potassium Chloride 20 meq/ Lactated Ringer's 1,010 ml @ 70 mls/hr [id number] IV Last administered on 05/23/17 00:02; Admin Dose 70 MLS/HR; Start 05/18/17 at 18 :30 Metronidazole 100 ml @ 100 mls/hr Q6 IVPB Last administered on 05/23/17 11:14 ; Admin Dose 100 MLS/HR; Start 05/19/17 at 13:00 Caspofungin/ Sodium Chloride (Cancidas/NS) 250 ml @ 250 mls/hr Q24H IVPB Last administered on 05/22/17 21:07; Admin Dose 250 MLS/HR; Start 05/22/17 at 21:00 Hydromorphone HCl 0.5 mg 0.5 mg Q3H PRN IV PAIN Last administered on 05/23/17 11:07; Admin Dose 0.5 MG; Start 05/22/17 at 05:30 Vancomycin HCl/ Sodium Chloride (Vancocin/NS) 150 ml @ 75 mls/hr Q12H IVPB Last administered on 05/23/17 11:14; Admin Dose 75 MLS/HR; Start 05/23/17 at 12 :00 Tyson Moon DO May 23, 2017 11:45
[2017-05-23] MEDS ORDERED: MAGNESIUM SULFATE 2 GM/50 ML 50 ML IVPB ONE (12:00)
[2017-05-23] MEDS: POTASSIUM CHLORIDE (SR) 20 MEQ TAB PO SCH ×2 (12:22→17:33)
[2017-05-23] MEDS ORDERED: IOHEXOL 100 ML ONE (13:05)
[2017-05-23] MEDS ORDERED: SOD CHLORIDE 0.9% 100 ML ONE (13:05)
--- NOTE | 2017-05-23 13:40 | RADRPT ---
PROCEDURE: CT Pulmonary Angiogram CLINICAL INDICATION: Elevated D-dimer, history of colon CA, rule out PE TECHNIQUE: Volumetric acquisition of the thorax was performed following the intravenous administra tion of 100 cc of Omnipaque-300 contrast attempting to time the bolus of contrast to maximize pulmon preeti artery opacification. Sagittal and coronal re-formations were subsequently reconstructed. 3D/MIPS post processing was not performed. One or more of the following dose reduction techniques were used: - Automated exposure control. - Adjustment of the mA and/or kV according to patient size. - Use of iterative reconstruction technique. Radiation Dose: CTDI = 25.00 mGy; DLP = 293.10 mGy-cm. COMPARISON: None. FINDINGS: Pulmonary Arteries: There is no intrinsic filling defect seen within the pulmonary arteries to sugge st pulmonary embolization. Other cardiovascular structures: The heart is normal in size. The aorta appears intact and normal i n caliber. A right-sided central venous catheter is evident with the tip within the superior vena ca va. Lung ward: Discoid atelectasis is seen within the posterior sulci to a greater extent on the right . No alveolar infiltrate or pulmonary nodule is identified. The pleural spaces: No effusion or pneumothorax is identified. Lymph nodes: No pathologically enlarged nodes are evident. Thyroid: Unremarkable. Superior abdominal structures: The partially visualized liver appears prominent and diffusely fatty infiltrated. Osseous structures: Appear intact. IMPRESSION: 1. There are no findings to suggest pulmonary embolization. The aorta is intact and normal in calib er and the heart is normal in size. A central venous catheter is evident with the tip in the superio r vena cava. 2. Discoid atelectasis is seen within the posterior lung bases, greater on the right than the left with no alveolar infiltrate, nodule, or pleural fluid accumulation evident. 3. Prominent liver with diffuse fatty infiltration. Physician Jem Date Time Electronically viewed and signed by Physician Jem on 05/23/2017 13:40 /
--- NOTE | 2017-05-23 19:39 | PN ---
Date/Time of Note Date/Time of Note DATE: 05/23/17 TIME: 19:35 Assessment/Plan VTE Prophylaxis VTE Prophylaxis Intervention: SCD's Lines/Catheters IV Catheter Type (from [facility]): PICC Line Central line still needed: Yes Urinary Cath still in place: No Assessment/Plan Chief Complaint/Hosp Course Patient appears depressed, complains of generalized pain. Assessment/Plan - Chest pain, resolved. Cardiac enzymes are negative 3. CTA is negative for pulmonary emboli. Dr. 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 - S/p laparotomy with enterolysis, small-bowel resection and anastomosis, supracervical hysterectomy, bilateral salpingectomy and ureteral dissection by Dr. Perdomo on 05/01/17. - Abdominal fluid collection versus abscess, continue antibiotics. Patient is currently on meropenem, vancomycin, Flagyl, and Caspofungin - Yeast UTI, continue Diflucan - Right staghorn calculus in the proximal right ureter, mild moderate hydronephrosis. S/p cystoscopy and right ureteral JJ stent placement on 05/[address] Bolton, urology consultation. - Anemia, transfuse PRN. Further recommendations based on clinical course. Plan of care discussed with Dr. Valle Problems: Exam/Review of Systems Vital Signs Vitals Vital Signs Date Time Temp Pulse Resp B/P Pulse Ox O2 Delivery O2 Flow Rate FiO2 05/23/17 16:05 98.6 55 18 151/81 97 05/23/17 02:22 2.0 05/21/17 17:00 Room Air Intake and Output 05/22/17 05/22/17 05/23/17 15:00 23:00 07:00 Intake Total 510 ml 680 ml 1570 ml Balance 510 ml 680 ml 1570 ml Exam Constitutional: alert, oriented Neck: supple Respiratory: normal air movement Cardiovascular: nl pulses Gastrointestinal: other (Surgical incision, right lower quadrant ileostomy, left lower quadrant AIDEN), soft Extremities: normal pulses Neurological: nl mental status Results Result Diagram: 05/23/17 0818 05/23/17 0818 Results 24 hrs Laboratory Tests Test 05/22/17 21:04 05/22/17 21:38 05/22/17 23:03 05/23/17 00:50 Bedside Glucose 101 D-Dimer 2915.48 #H D-Dimer Comment Creatine Kinase < 20 L < 20 L Creatine Kinase Index Creatinine Kinase MB (Mass) < 0.22 < 0.22 Troponin I < 0.012 < 0.012 Vancomycin Level Trough 9.3 L Test 05/23/17 08:18 05/23/17 08:47 White Blood Count 8.2 Red Blood Count 3.54 L Hemoglobin 10.4 L Hematocrit 31.2 L Mean Corpuscular Volume 88.1 Mean Corpuscular Hemoglobin 29.4 Mean Corpuscular Hemoglobin Concent 33.3 Red Cell Distribution Width 13.4 Platelet Count 384 Mean Platelet Volume 10.3 Neutrophils % 69.4 Lymphocytes % 20.3 Monocytes % 7.1 Eosinophils % 1.9 Basophils % 0.7 Nucleated Red Blood Cells % 0.0 Neutrophils # 5.7 Lymphocytes # 1.7 Monocytes # 0.6 Eosinophils # 0.2 Basophils # 0.1 Nucleated Red Blood Cells # 0.0 Sodium Level 137 Potassium Level 3.2 L Chloride Level 99 Carbon Dioxide Level 29 Anion Gap 12 Blood Urea Nitrogen 10 Creatinine 0.69 Glucose Level 76 Calcium Level 8.7 Bedside Glucose 69 L Medications Medications Current Medications Famotidine (Pepcid Iv) 20 mg DAILY IV Last administered on 05/23/17 08:45; Admin Dose 20 MG; Start 05/02/17 at 09:00 Ondansetron HCl (Zofran Inj) 4 mg Q6H PRN IV NAUSEA AND/OR VOMITING Last administered on 05/23/17 11:13; Admin Dose 4 MG; Start 05/01/17 at 23:30 IV Flush (NS 10 ml) 10 ml PRN PRN IV IV PROTOCOL; Start 05/12/17 at 12:00 Diagnostic Test (Pha) (Accu-Chek) 1 ea Q12 XX Last administered on 05/23/17 08 :47; Admin Dose 1 EA; Start 05/17/17 at 21:00 Acetaminophen 650 mg 650 mg Q4H PRN PO PAIN AND OR ELEVATED TEMP Last administered on 05/20/17 12:40; Admin Dose 650 MG; Start 05/17/17 at 21:00 Meropenem/Sodium Chloride 50 ml @ 100 mls/hr Q12 IVPB Last administered on 08:45; Admin Dose 100 MLS/HR; Start 05/17/17 at 21:00 Potassium Chloride 20 meq/ Lactated Ringer's 1,010 ml @ 70 mls/hr [id number] IV Last administered on 05/23/17 12:24; Admin Dose 70 MLS/HR; Start 05/18/17 at 18 :30 Metronidazole 100 ml @ 100 mls/hr Q6 IVPB Last administered on 05/23/17 17:33 ; Admin Dose 100 MLS/HR; Start 05/19/17 at 13:00 Caspofungin/ Sodium Chloride (Cancidas/NS) 250 ml @ 250 mls/hr Q24H IVPB Last administered on 05/22/17 21:07; Admin Dose 250 MLS/HR; Start 05/22/17 at 21:00 Hydromorphone HCl 0.5 mg 0.5 mg Q3H PRN IV PAIN Last administered on 05/23/17 18:09; Admin Dose 0.5 MG; Start 05/22/17 at 05:30 Vancomycin HCl/ Sodium Chloride (Vancocin/NS) 150 ml @ 75 mls/hr Q12H IVPB Last administered on 05/23/17 11:14; Admin Dose 75 MLS/HR; Start 05/23/17 at 12 :00 KERI DE LA GARZA May 23, 2017 19:39
[2017-05-23] MEDS: CASPOFUNGIN 50 MG in SOD CHLORIDE 0.9% 250 ML IVPB SCH (21:07)
--- NOTE | 2017-05-23 21:40 | PN ---
Date/Time of Note Date/Time of Note DATE: 05/23/17 TIME: 21:38 Assessment/Plan VTE Prophylaxis VTE Prophylaxis Intervention: LMWH Lines/Catheters IV Catheter Type (from Nrsg): PICC Line Central line still needed: Yes Urinary Cath still in place: No Assessment/Plan Chief Complaint/Hosp Course Quan syndrome and impending SBO Problems: Assessment/Plan A- doing well P- per IM and ; anticipate transfer Subjective 24 Hr Interval Summary Free Text/Dictation Feels much better, no SOB and minimal pain. Not OOB. Exam/Review of Systems Vital Signs Vitals Vital Signs Date Time Temp Pulse Resp B/P Pulse Ox O2 Delivery O2 Flow Rate FiO2 05/23/17 20:08 65 05/23/17 19:58 98.5 19 119/73 97 05/23/17 02:22 2.0 05/21/17 17:00 Room Air Intake and Output 05/22/17 05/22/17 05/23/17 15:00 23:00 07:00 Intake Total 510 ml 680 ml 1570 ml Balance 510 ml 680 ml 1570 ml Exam Resp- clear CVS- NSR Abd- soft NT + normal ostomy fct Ext- Nt minimal edema Results Result Diagram: 05/23/17 0818 05/23/17 0818 Results 24 hrs Laboratory Tests Test 05/22/17 23:03 05/23/17 00:50 05/23/17 08:18 05/23/17 08:47 Vancomycin Level Trough 9.3 L Creatine Kinase < 20 L Creatine Kinase Index Creatinine Kinase MB (Mass) < 0.22 Troponin I < 0.012 White Blood Count 8.2 Red Blood Count 3.54 L Hemoglobin 10.4 L Hematocrit 31.2 L Mean Corpuscular Volume 88.1 Mean Corpuscular Hemoglobin 29.4 Mean Corpuscular Hemoglobin Concent 33.3 Red Cell Distribution Width 13.4 Platelet Count 384 Mean Platelet Volume 10.3 Neutrophils % 69.4 Lymphocytes % 20.3 Monocytes % 7.1 Eosinophils % 1.9 Basophils % 0.7 Nucleated Red Blood Cells % 0.0 Neutrophils # 5.7 Lymphocytes # 1.7 Monocytes # 0.6 Eosinophils # 0.2 Basophils # 0.1 Nucleated Red Blood Cells # 0.0 Sodium Level 137 Potassium Level 3.2 L Chloride Level 99 Carbon Dioxide Level 29 Anion Gap 12 Blood Urea Nitrogen 10 Creatinine 0.69 Glucose Level 76 Calcium Level 8.7 Bedside Glucose 69 L Test 05/23/17 21:02 Bedside Glucose 90 Medications Medications Current Medications Famotidine (Pepcid Iv) 20 mg DAILY IV Last administered on 05/23/17 08:45; Admin Dose 20 MG; Start 05/02/17 at 09:00 Ondansetron HCl (Zofran Inj) 4 mg Q6H PRN IV NAUSEA AND/OR VOMITING Last administered on 05/23/17 11:13; Admin Dose 4 MG; Start 05/01/17 at 23:30 IV Flush (NS 10 ml) 10 ml PRN PRN IV IV PROTOCOL; Start 05/12/17 at 12:00 Diagnostic Test (Pha) (Accu-Chek) 1 ea Q12 XX Last administered on 05/23/17 08 :47; Admin Dose 1 EA; Start 05/17/17 at 21:00 Acetaminophen 650 mg 650 mg Q4H PRN PO PAIN AND OR ELEVATED TEMP Last administered on 05/20/17 12:40; Admin Dose 650 MG; Start 05/17/17 at 21:00 Meropenem/Sodium Chloride 50 ml @ 100 mls/hr Q12 IVPB Last administered on 21:07; Admin Dose 100 MLS/HR; Start 05/17/17 at 21:00 Potassium Chloride 20 meq/ Lactated Ringer's 1,010 ml @ 70 mls/hr [id number] IV Last administered on 05/23/17 12:24; Admin Dose 70 MLS/HR; Start 05/18/17 at 18 :30 Metronidazole 100 ml @ 100 mls/hr Q6 IVPB Last administered on 05/23/17 17:33 ; Admin Dose 100 MLS/HR; Start 05/19/17 at 13:00 Caspofungin/ Sodium Chloride (Cancidas/NS) 250 ml @ 250 mls/hr Q24H IVPB Last administered on 05/23/17 21:07; Admin Dose 250 MLS/HR; Start 05/22/17 at 21:00 Hydromorphone HCl 0.5 mg 0.5 mg Q3H PRN IV PAIN Last administered on 05/23/17 18:09; Admin Dose 0.5 MG; Start 05/22/17 at 05:30 Vancomycin HCl/ Sodium Chloride (Vancocin/NS) 150 ml @ 75 mls/hr Q12H IVPB Last administered on 05/23/17t 11:14; Admin Dose 75 MLS/HR; Start 05/23/17 at 12 :00 HELEN FULTON MD May 23, 2017 21:40
[2017-05-24] VITALS (12 sets, daily range): BP systolic 122–141; BP diastolic 70–80; PULSE 55–66; RESP 17–19
[2017-05-24] MEDS: VANCOMYCIN 750 MG in SOD CHLORIDE 0.9% 150 ML IVPB SCH ×2 (00:04→12:17)
[2017-05-24] MEDS: metroNIDAZOLE 500 MG/NS (PMX) 100 ML IVPB SCH ×4 (00:05→17:17)
[2017-05-24] MEDS: HYDROmorphONE 1 MG/ML SYG IV PRN ×2 (02:11→14:52)
[2017-05-24] MEDS: POTASSIUM CHLORIDE 20 MEQ in LACTATED RINGER'S 1,000 ML IV SCH ×2 (05:38→15:07)
[2017-05-24 08:16] LABS: BASOPHIL # 0.1 10^3/ul (0.0-0.1); BASOPHILS % 1.1 % (0.0-2.0); EOSINOPHILS # 0.2 10^3/ul (0.0-0.5); EOSINOPHILS % 2.8 % (0.0-7.0); HEMATOCRIT 32.4 % (37.0-47.0); HEMOGLOBIN 10.8 g/dl (12.0-16.0); LYMPHOCYTES # 1.6 10^3/ul (0.8-2.9); LYMPHOCYTES % 24.2 % (15.0-51.0); MEAN CORPUSCULAR HEMOGLOBIN 29.3 pg (29.0-33.0); MEAN CORPUSCULAR HGB CONC 33.3 g/dl (32.0-37.0); MEAN PLATELET VOLUME 9.9 fl (7.4-10.4); MONOCYTE # 0.5 10^3/ul (0.3-0.9); MONOCYTES % 7.3 % (0.0-11.0); NEUTROPHIL # 4.1 10^3/ul (1.6-7.5); NEUTROPHILS % 63.8 % (39.0-77.0); PLATELET COUNT 410 10^3/UL (140-415); RED BLOOD COUNT 3.68 10^6/ul (4.20-5.40); RED CELL DISTRIBUTION WIDTH 13.2 % (11.5-14.5); WHITE BLOOD COUNT 6.4 10^3/ul (4.8-10.8)
[2017-05-24 08:45] LABS: CALCIUM 9.4 mg/dl (8.4-10.2); CREATININE 0.69 mg/dl (0.44-1.00); POTASSIUM 3.7 mmol/L (3.5-5.1)
[2017-05-24] MEDS: ACCU-CHEK XX SCH ×2 (09:28→20:42)
[2017-05-24] MEDS: FAMOTIDINE 20 MG INJ IV SCH (09:29)
[2017-05-24] MEDS: MEROPENEM 1 GM/50ML(PMX) 50 ML IVPB SCH ×2 (09:30→20:41)
--- NOTE | 2017-05-24 12:38 | PN ---
Date/Time of Note Date/Time of Note DATE: 05/24/17 TIME: 12:38 Assessment/Plan VTE Prophylaxis VTE Prophylaxis Intervention: other Lines/Catheters IV [facility] Type (from [facility] PICC Line Central line still needed: Yes Urinary Cath still in place: No Assessment/Plan Chief Complaint/Hosp Course - Chest pain, resolved. Cardiac enzymes are negative 3. CTA is negative for pulmonary emboli. Dr. 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 - S/p laparotomy with enterolysis, small-bowel resection and anastomosis, supracervical hysterectomy, bilateral salpingectomy and ureteral dissection by Dr. Perdomo on 05/01/17. - Abdominal fluid collection versus abscess, continue antibiotics. Patient is currently on meropenem, vancomycin, Flagyl, and Diflucan - Yeast UTI, continue Diflucan - Right staghorn calculus in the proximal right ureter, mild moderate hydronephrosis. S/p cystoscopy and right ureteral JJ stent placement on 05/[address] Bolton, urology consultation. - Anemia, transfuse PRN. Problems: Subjective 24 Hr Interval Summary Free Text/Dictation Patient denies any pain Exam/Review of Systems Vital Signs Vitals Vital Signs Date Time Temp Pulse Resp B/P Pulse Ox O2 Delivery O2 Flow Rate FiO2 05/24/17 11:47 98.2 71 19 134/73 99 05/23/17 02:22 2.0 05/21/17 17:00 Room Air Intake and Output 05/23/17 05/23/17 05/24/17 15:00 23:00 07:00 Intake Total 1480 ml 1550 ml Balance 1480 ml 1550 ml Exam Constitutional: well developed Head: atraumatic, normocephalic Neck: supple Respiratory: clear to auscultation Cardiovascular: regular rate and rhythm Gastrointestinal: non-tender, soft Extremities: normal pulses Results Result Diagram: 05/24/17 0745 05/24/17 0745 Results 24 hrs Laboratory Tests Test 05/23/17 21:02 05/24/17 07:45 05/24/17 09:24 Bedside Glucose 90 99 White Blood Count 6.4 # Red Blood Count 3.68 L Hemoglobin 10.8 L Hematocrit 32.4 L Mean Corpuscular Volume 88.0 Mean Corpuscular Hemoglobin 29.3 Mean Corpuscular Hemoglobin Concent 33.3 Red Cell Distribution Width 13.2 Platelet Count 410 Mean Platelet Volume 9.9 Neutrophils % 63.8 Lymphocytes % 24.2 Monocytes % 7.3 Eosinophils % 2.8 Basophils % 1.1 Nucleated Red Blood Cells % 0.0 Neutrophils # 4.1 Lymphocytes # 1.6 Monocytes # 0.5 Eosinophils # 0.2 Basophils # 0.1 Nucleated Red Blood Cells # 0.0 Sodium Level 138 Potassium Level 3.7 Chloride Level 99 Carbon Dioxide Level 28 Anion Gap 15 Blood Urea Nitrogen 8 Creatinine 0.69 Glucose Level 77 Calcium Level 9.4 Medications Medications Current Medications Famotidine (Pepcid Iv) 20 mg DAILY IV Last administered on 05/24/17 09:29; Admin Dose 20 MG; Start 05/02/17 at 09:00 Ondansetron HCl (Zofran Inj) 4 mg Q6H PRN IV NAUSEA AND/OR VOMITING Last administered on 05/23/17 11:13; Admin Dose 4 MG; Start 05/01/17 at 23:30 IV Flush (NS 10 ml) 10 ml PRN PRN IV IV PROTOCOL; Start 05/12/17 at 12:00 Diagnostic Test (Pha) (Accu-Chek) 1 ea Q12 XX Last administered on 05/24/17 09 :28; Admin Dose 1 EA; Start 05/17/17 at 21:00 Acetaminophen 650 mg 650 mg Q4H PRN PO PAIN AND OR ELEVATED TEMP Last administered on 05/20/17 12:40; Admin Dose 650 MG; Start 05/17/17 at 21:00 Meropenem/Sodium Chloride 50 ml @ 100 mls/hr Q12 IVPB Last administered on 09:30; Admin Dose 100 MLS/HR; Start 05/17/17 at 21:00 Potassium Chloride 20 meq/ Lactated Ringer's 1,010 ml @ 70 mls/hr [id number] IV Last administered on 05/24/17 05:38; Admin Dose 70 MLS/HR; Start 05/18/17 at 18 :30 Metronidazole 100 ml @ 100 mls/hr Q6 IVPB Last administered on 05/24/17 12:17 ; Admin Dose 100 MLS/HR; Start 05/19/17 at 13:00 Caspofungin/ Sodium Chloride (Cancidas/NS) 250 ml @ 250 mls/hr Q24H IVPB Last administered on 05/23/17 21:07; Admin Dose 250 MLS/HR; Start 05/22/17 at 21:00 Hydromorphone HCl 0.5 mg 0.5 mg Q3H PRN IV PAIN Last administered on 05/24/17 02:11; Admin Dose 0.5 MG; Start 05/22/17 at 05:30 Vancomycin HCl/ Sodium Chloride (Vancocin/NS) 150 ml @ 75 mls/hr Q12H IVPB Last administered on 05/24/17 12:17; Admin Dose 75 MLS/HR; Start 05/23/17 at 12 :00 MARLO PATRICK May 24, 2017 12:38
[2017-05-24] MEDS: ONDANSETRON 4 MG INJ IV PRN (15:07)
[2017-05-24] MEDS: CASPOFUNGIN 50 MG in SOD CHLORIDE 0.9% 250 ML IVPB SCH (20:41)
[2017-05-25] VITALS (11 sets, daily range): BP systolic 125–153; BP diastolic 63–91; PULSE 50–60; RESP 17–18
[2017-05-25] MEDS: metroNIDAZOLE 500 MG/NS (PMX) 100 ML IVPB SCH ×4 (00:27→18:46)
[2017-05-25] MEDS: VANCOMYCIN 750 MG in SOD CHLORIDE 0.9% 150 ML IVPB SCH ×2 (00:27→13:25)
[2017-05-25] MEDS ORDERED: ALTEPLASE (CATHFLO) 2 MG INJ CATHETER PRN (04:00)
[2017-05-25] MEDS ORDERED: ALTEPLASE (CATHFLO) 2 MG INJ CATHETER ONE (05:00)
[2017-05-25] MEDS: FAMOTIDINE 20 MG INJ IV SCH (08:36)
[2017-05-25] MEDS: POTASSIUM CHLORIDE 20 MEQ in LACTATED RINGER'S 1,000 ML IV SCH ×3 (08:36→23:42)
[2017-05-25] MEDS: ACCU-CHEK XX SCH ×2 (08:37→21:00)
[2017-05-25] MEDS: MEROPENEM 1 GM/50ML(PMX) 50 ML IVPB SCH ×2 (08:37→21:00)
[2017-05-25] MEDS: ONDANSETRON 4 MG INJ IV PRN (08:48)
--- NOTE | 2017-05-25 11:16 | PN ---
Date/Time of Note Date/Time of Note DATE: 05/25/17 TIME: 11:15 Assessment/Plan VTE Prophylaxis VTE Prophylaxis Intervention: other Lines/Catheters IV C[facility]ter Type (from [facility]): PICC Line Central line still needed: Yes Urinary Cath still in place: No Assessment/Plan Chief Complaint/Hosp Course - Chest pain, resolved. Cardiac enzymes are negative 3. CTA is negative for pulmonary emboli. Dr. 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 - S/p laparotomy with enterolysis, small-bowel resection and anastomosis, supracervical hysterectomy, bilateral salpingectomy and ureteral dissection by Dr. Perdomo on 05/01/17. - Abdominal fluid collection versus abscess, continue antibiotics. Patient is currently on meropenem, vancomycin, Flagyl, and Diflucan - Yeast UTI, continue Diflucan - Right staghorn calculus in the proximal right ureter, mild moderate hydronephrosis. S/p cystoscopy and right ureteral JJ stent placement on 05/[address] Bolton, urology consultation. - Anemia, transfuse PRN. Problems: Subjective 24 Hr Interval Summary Free Text/Dictation Patient has no complaints Exam/Review of Systems Vital Signs Vitals Vital Signs Date Time Temp Pulse Resp B/P Pulse Ox O2 Delivery O2 Flow Rate FiO2 05/25/17 08:11 98.7 61 17 131/77 100 05/23/17 02:22 2.0 05/21/17 17:00 Room Air Intake and Output 05/24/17 05/24/17 05/25/17 15:00 23:00 07:00 Intake Total 150 ml 950 ml 1390 ml Balance 150 ml 950 ml 1390 ml Exam Constitutional: well developed Head: atraumatic, normocephalic Neck: supple Respiratory: clear to auscultation Cardiovascular: regular rate and rhythm Gastrointestinal: non-tender, soft Extremities: normal pulses Results Result Diagram: 05/24/17 0745 05/24/17 0745 Results 24 hrs Laboratory Tests Test 05/24/17 20:42 05/24/17 23:23 05/25/17 02:30 05/25/17 08:18 Bedside Glucose 76 92 84 Vancomycin Level Trough 16.1 Medications Medications Current Medications Famotidine (Pepcid Iv) 20 mg DAILY IV Last administered on 05/25/17 08:36; Admin Dose 20 MG; Start 05/02/17 at 09:00 Ondansetron HCl (Zofran Inj) 4 mg Q6H PRN IV NAUSEA AND/OR VOMITING Last administered on 05/25/17 08:48; Admin Dose 4 MG; Start 05/01/17 at 23:30 IV Flush (NS 10 ml) 10 ml PRN PRN IV IV PROTOCOL; Start 05/12/17 at 12:00 Diagnostic Test (Pha) (Accu-Chek) 1 ea Q12 XX Last administered on 05/25/17 08 :37; Admin Dose 1 EA; Start 05/17/17 at 21:00 Acetaminophen 650 mg 650 mg Q4H PRN PO PAIN AND OR ELEVATED TEMP Last administered on 05/20/17 12:40; Admin Dose 650 MG; Start 05/17/17 at 21:00 Meropenem/Sodium Chloride 50 ml @ 100 mls/hr Q12 IVPB Last administered on 08:37; Admin Dose 100 MLS/HR; Start 05/17/17 at 21:00 Potassium Chloride 20 meq/ Lactated Ringer's 1,010 ml @ 70 mls/hr [id number] IV Last administered on 05/24/17 15:07; Admin Dose 70 MLS/HR; Start 05/18/17 at 18 :30 Metronidazole 100 ml @ 100 mls/hr Q6 IVPB Last administered on 05/25/17 05:32 ; Admin Dose 100 MLS/HR; Start 05/19/17 at 13:00 Caspofungin/ Sodium Chloride (Cancidas/NS) 250 ml @ 250 mls/hr Q24H IVPB Last administered on 05/24/17 20:41; Admin Dose 250 MLS/HR; Start 05/22/17 at 21:00 Hydromorphone HCl 0.5 mg 0.5 mg Q3H PRN IV PAIN Last administered on 05/24/17 14:52; Admin Dose 0.5 MG; Start 05/22/17 at 05:30 Vancomycin HCl/ Sodium Chloride (Vancocin/NS) 150 ml @ 75 mls/hr Q12H IVPB Last administered on 05/25/17 00:27; Admin Dose 75 MLS/HR; Start 05/23/17 at 12 :00 MARLO PATRICK May 25, 2017 11:16
--- NOTE | 2017-05-25 14:22 | PN ---
DATE: 05/25/2017 SUBJECTIVE DATA: Tammie reports no further chest pain. CT scan performed 05/23/17 reviewed. No evidence of pulmonary embolus. OBJECTIVE DATA: Vital signs: Temperature 97, pulse 59, blood pressure 142/91, oxygen 98 percent. No jugular venous distention. Lungs are clear. No edema. Dictated By: Noel Sanches MD /jl/stacey /Document#: [id number]
--- NOTE | 2017-05-25 18:31 | PN ---
Date/Time of Note Date/Time of Note DATE: 05/25/17 TIME: 18:28 Assessment/Plan VTE Prophylaxis VTE Prophylaxis Intervention: LMWH Lines/Catheters [facility] Line Central line still needed: Yes Urinary Cath still in place: No Assessment/Plan Chief Complaint/Hosp Course Quan syndrome and impending SBO Problems: Assessment/Plan A- Improved. P- Awaiting transfer to per IM and Cardio Subjective 24 Hr Interval Summary Free Text/Dictation More solid material in ostomy just changed per patient and OOB more. No N/V or SOB. Exam/Review of Systems Vital Signs Vitals Vital Signs Date Time Temp Pulse Resp B/P Pulse Ox O2 Delivery O2 Flow Rate FiO2 05/25/17 16:53 2.0 05/25/17 16:24 98.7 49 17 153/81 95 05/21/17 17:00 Room Air Intake and Output 05/24/17 05/24/17 05/25/17 15:00 23:00 07:00 Intake Total 150 ml 950 ml 1390 ml Balance 150 ml 950 ml 1390 ml Exam Resp- clear CVS- NSR Abd- soft mildly tender and ostomy fct. Wound clean. Ext NT no edema Results Result Diagram: 05/24/17 0745 05/24/17 0745 Results 24 hrs Laboratory Tests Test 05/24/17 20:42 05/24/17 23:23 05/25/17 02:30 05/25/17 08:18 Bedside Glucose 76 92 84 Vancomycin Level Trough 16.1 Medications Medications Current Medications Famotidine (Pepcid Iv) 20 mg DAILY IV Last administered on 05/25/17 08:36; Admin Dose 20 MG; Start 05/02/17 at 09:00 Ondansetron HCl (Zofran Inj) 4 mg Q6H PRN IV NAUSEA AND/OR VOMITING Last administered on 05/25/17 08:48; Admin Dose 4 MG; Start 05/01/17 at 23:30 IV Flush (NS 10 ml) 10 ml PRN PRN IV IV PROTOCOL; Start 05/12/17 at 12:00 Diagnostic Test (Pha) (Accu-Chek) 1 ea Q12 XX Last administered on 05/25/17 08 :37; Admin Dose 1 EA; Start 05/17/17 at 21:00 Acetaminophen 650 mg 650 mg Q4H PRN PO PAIN AND OR ELEVATED TEMP Last administered on 05/20/17 12:40; Admin Dose 650 MG; Start 05/17/17 at 21:00 Meropenem/Sodium Chloride 50 ml @ 100 mls/hr Q12 IVPB Last administered on 08:37; Admin Dose 100 MLS/HR; Start 05/17/17 at 21:00 Potassium Chloride 20 meq/ Lactated Ringer's 1,010 ml @ 70 mls/hr [id number] IV Last administered on 05/25/17 16:24; Admin Dose 70 MLS/HR; Start 05/18/17 at 18 :30 Metronidazole 100 ml @ 100 mls/hr Q6 IVPB Last administered on 05/25/17 11:48 ; Admin Dose 100 MLS/HR; Start 05/19/17 at 13:00 Caspofungin/ Sodium Chloride (Cancidas/NS) 250 ml @ 250 mls/hr Q24H IVPB Last administered on 05/24/17 20:41; Admin Dose 250 MLS/HR; Start 05/22/17 at 21:00 Hydromorphone HCl 0.5 mg 0.5 mg Q3H PRN IV PAIN Last administered on 05/24/17 14:52; Admin Dose 0.5 MG; Start 05/22/17 at 05:30 Vancomycin HCl (Vancocin) 100 ml @ 100 mls/hr Q12H IVPB ; Start 05/26/17 at 00: 00 HELEN FULTON MD May 25, 2017 18:31
[2017-05-25] MEDS: HYDROmorphONE 1 MG/ML SYG IV PRN (21:15)
[2017-05-25] MEDS: CASPOFUNGIN 50 MG in SOD CHLORIDE 0.9% 250 ML IVPB SCH (22:25)
[2017-05-26] VITALS (10 sets, daily range): BP systolic 114–142; BP diastolic 60–78; PULSE 50–59; RESP 17–19
[2017-05-26] MEDS: metroNIDAZOLE 500 MG/NS (PMX) 100 ML IVPB SCH ×5 (00:46→23:15)
[2017-05-26] MEDS: VANCOMYCIN 500MG/NS (PMX) 100 ML IVPB SCH ×2 (02:36→12:36)
[2017-05-26 07:23] LABS: BASOPHIL # 0.1 10^3/ul (0.0-0.1); BASOPHILS % 0.8 % (0.0-2.0); EOSINOPHILS # 0.3 10^3/ul (0.0-0.5); EOSINOPHILS % 5.4 % (0.0-7.0); HEMATOCRIT 39.5 % (37.0-47.0); HEMOGLOBIN 12.9 g/dl (12.0-16.0); LYMPHOCYTES # 1.6 10^3/ul (0.8-2.9); LYMPHOCYTES % 25.1 % (15.0-51.0); MEAN CORPUSCULAR HGB CONC 32.7 g/dl (32.0-37.0); MEAN CORPUSCULAR VOLUME 88.8 fl (82.0-101.0); MEAN PLATELET VOLUME 9.8 fl (7.4-10.4); MONOCYTE # 0.4 10^3/ul (0.3-0.9); MONOCYTES % 6.2 % (0.0-11.0); NEUTROPHIL # 3.9 10^3/ul (1.6-7.5); NEUTROPHILS % 61.7 % (39.0-77.0); PLATELET COUNT 317 10^3/UL (140-415); RED BLOOD COUNT 4.45 10^6/ul (4.20-5.40); RED CELL DISTRIBUTION WIDTH 13.6 % (11.5-14.5); WHITE BLOOD COUNT 6.3 10^3/ul (4.8-10.8)
[2017-05-26 08:00] LABS: CALCIUM 9.2 mg/dl (8.4-10.2); CREATININE 0.61 mg/dl (0.44-1.00); POTASSIUM 4.4 mmol/L (3.5-5.1)
[2017-05-26] MEDS: FAMOTIDINE 20 MG INJ IV SCH (08:34)
[2017-05-26] MEDS: ACCU-CHEK XX SCH ×2 (08:35→21:00)
[2017-05-26] MEDS: MEROPENEM 1 GM/50ML(PMX) 50 ML IVPB SCH ×2 (08:35→20:59)
[2017-05-26] MEDS: ACETAMINOPHEN 325 MG TAB PO PRN (10:05)
[2017-05-26] MEDS: POTASSIUM CHLORIDE 20 MEQ in LACTATED RINGER'S 1,000 ML IV SCH (13:04)
--- NOTE | 2017-05-26 14:30 | PN ---
DATE: 05/26/2017 SUBJECTIVE DATA: Right upper ureteral and right renal stones. The patient is status post cystoscopy and insertion of right ureteral JJ stent. The patient herself is feeling much more comfortable. She is eating better and she denies having any flank pain. She states that she is voiding well and the urine is clear and occasionally she may see a little blood, and there is no dysuria. OBJECTIVE: VITAL SIGNS: Temperature is 98.2, pulse is 65, respirations 17, blood pressure 123/75. ABDOMEN: The abdomen does have multiple scars on it, but it is soft. LABORATORY DATA: CBC shows a white count of 6.3, hemoglobin 12.9, hematocrit 39.5, platelet count 317,000. BUN is 9, creatinine 0.61, sodium 136, potassium 4.4, chloride 100, CO2 28. The last urine culture from 05/21/2017 was Nidia species, not albicans. The patient has been on Caspofungin. IMPRESSION: Right upper ureteral stones and right renal stones. The patient is status post a cystoscopy and insertion of right ureteral JJ stent. PLAN: The plan is to keep the JJ stent and maybe in a couple of weeks, we will do cystoscopy, ureteroscopy and laser lithotripsy and remove the stones. We will have to do a CT scan prior to that. Dictated By: Kwame Bolton MD /jl/alin /Document#: [id number]
--- NOTE | 2017-05-26 19:03 | PN ---
Date/Time of Note Date/Time of Note DATE: 05/26/17 TIME: 19:02 Assessment/Plan VTE Prophylaxis VTE Prophylaxis Intervention: SCD's Lines/Catheters IV [facility] Type [facility] PICC Line Central line still needed: Yes Urinary Cath still in place: No Assessment/Plan Chief Complaint/Hosp Course Patient stated that she feels better, denies any chest pain. Pending transfer to [facility]. Assessment/Plan - Chest pain, resolved. Cardiac enzymes are negative 3. CTA is negative for pulmonary emboli. Dr. 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 - S/p laparotomy with enterolysis, small-bowel resection and anastomosis, supracervical hysterectomy, bilateral salpingectomy and ureteral dissection by Dr. Perdomo on 05/01/17. - Abdominal fluid collection versus abscess, continue antibiotics. Patient is currently on meropenem, vancomycin, Flagyl, and Caspofungin - Yeast UTI, continue Diflucan - Right staghorn calculus in the proximal right ureter, mild moderate hydronephrosis. S/p cystoscopy and right ureteral JJ stent placement on 05/[address] Bolton, urology consultation. - Anemia, transfuse PRN. Further recommendations based on clinical course. Plan of care discussed with Dr. Valle Problems: Exam/Review of Systems Vital Signs Vitals Vital Signs Date Time Temp Pulse Resp B/P Pulse Ox O2 Delivery O2 Flow Rate FiO2 05/26/17 16:04 59 05/26/17 16:01 98.7 18 128/72 98 05/25/17 16:53 2.0 Intake and Output 05/25/17 05/25/17 05/26/17 15:00 23:00 07:00 Intake Total 200 ml 910 ml Output Total 420 ml Balance 200 ml 490 ml Exam Constitutional: alert, oriented Neck: supple Respiratory: normal air movement Cardiovascular: nl pulses Gastrointestinal: other (Surgical incision, right lower quadrant ileostomy, left lower quadrant AIDEN), soft Extremities: normal pulses Neurological: nl mental status Results Result Diagram: 05/26/17 0632 05/26/17 0632 Results 24 hrs Laboratory Tests Test 05/25/17 21:18 05/26/17 06:32 05/26/17 08:31 Bedside Glucose 80 80 White Blood Count 6.3 Red Blood Count 4.45 # Hemoglobin 12.9 Hematocrit 39.5 # Mean Corpuscular Volume 88.8 Mean Corpuscular Hemoglobin 29.0 Mean Corpuscular Hemoglobin Concent 32.7 Red Cell Distribution Width 13.6 Platelet Count 317 # Mean Platelet Volume 9.8 Neutrophils % 61.7 Lymphocytes % 25.1 Monocytes % 6.2 Eosinophils % 5.4 Basophils % 0.8 Nucleated Red Blood Cells % 0.0 Neutrophils # 3.9 Lymphocytes # 1.6 Monocytes # 0.4 Eosinophils # 0.3 Basophils # 0.1 Nucleated Red Blood Cells # 0.0 Sodium Level 136 Potassium Level 4.4 Chloride Level 100 Carbon Dioxide Level 28 Anion Gap 12 Blood Urea Nitrogen 9 Creatinine 0.61 Glucose Level 74 Calcium Level 9.2 Medications Medications Current Medications Ondansetron HCl (Zofran Inj) 4 mg Q6H PRN IV NAUSEA AND/OR VOMITING Last administered on 05/25/17 08:48; Admin Dose 4 MG; Start 05/01/17 at 23:30 IV Flush (NS 10 ml) 10 ml PRN PRN IV IV PROTOCOL; Start 05/12/17 at 12:00 Diagnostic Test (Pha) (Accu-Chek) 1 ea Q12 XX Last administered on 05/26/17 08 :35; Admin Dose 1 EA; Start 05/17/17 at 21:00 Acetaminophen 650 mg 650 mg Q4H PRN PO PAIN AND OR ELEVATED TEMP Last administered on 05/26/17 10:05; Admin Dose 650 MG; Start 05/17/17 at 21:00 Meropenem/Sodium Chloride 50 ml @ 100 mls/hr Q12 IVPB Last administered on 08:35; Admin Dose 100 MLS/HR; Start 05/17/17 at 21:00 Potassium Chloride 20 meq/ Lactated Ringer's 1,010 ml @ 70 mls/hr [id number] IV Last administered on 05/26/17 13:04; Admin Dose 70 MLS/HR; Start 05/18/17 at 18 :30 Metronidazole 100 ml @ 100 mls/hr Q6 IVPB Last administered on 05/26/17 17:13 ; Admin Dose 100 MLS/HR; Start 05/19/17 at 13:00 Caspofungin/ Sodium Chloride (Cancidas/NS) 250 ml @ 250 mls/hr Q24H IVPB Last administered on 05/25/17 22:25; Admin Dose 250 MLS/HR; Start 05/22/17 at 21:00 Hydromorphone HCl 0.5 mg 0.5 mg Q3H PRN IV PAIN Last administered on 05/25/17 21:15; Admin Dose 0.5 MG; Start 05/22/17 at 05:30 Vancomycin HCl (Vancocin) 100 ml @ 100 mls/hr Q12H IVPB Last administered on 05/26/17 12:36; Admin Dose 100 MLS/HR; Start 05/26/17 at 00:00 Famotidine (Pepcid) 20 mg DAILY PO ; Start 05/27/17 at 09:00 KERI DE LA GARZA May 26, 2017 19:03
[2017-05-26] MEDS: CASPOFUNGIN 50 MG in SOD CHLORIDE 0.9% 250 ML IVPB SCH (20:59)
[2017-05-26] MEDS: HYDROmorphONE 1 MG/ML SYG IV PRN (21:18)
[2017-05-27] MEDS: VANCOMYCIN 500MG/NS (PMX) 100 ML IVPB SCH (00:18)
[2017-05-27] MEDS: ONDANSETRON 4 MG INJ IV PRN ×2 (01:40→15:32)
[2017-05-27] MEDS: POTASSIUM CHLORIDE 20 MEQ in LACTATED RINGER'S 1,000 ML IV SCH ×2 (04:34→15:24)
[2017-05-27] MEDS: metroNIDAZOLE 500 MG/NS (PMX) 100 ML IVPB SCH (05:10)
[2017-05-27 05:56] LABS: BASOPHIL # 0.1 10^3/ul (0.0-0.1); BASOPHILS % 0.8 % (0.0-2.0); EOSINOPHILS # 0.5 10^3/ul (0.0-0.5); EOSINOPHILS % 6.1 % (0.0-7.0); HEMATOCRIT 35.9 % (37.0-47.0); HEMOGLOBIN 11.6 g/dl (12.0-16.0); LYMPHOCYTES # 2.2 10^3/ul (0.8-2.9); LYMPHOCYTES % 25.5 % (15.0-51.0); MEAN CORPUSCULAR HEMOGLOBIN 28.8 pg (29.0-33.0); MEAN CORPUSCULAR HGB CONC 32.3 g/dl (32.0-37.0); MEAN CORPUSCULAR VOLUME 89.1 fl (82.0-101.0); MONOCYTE # 0.4 10^3/ul (0.3-0.9); MONOCYTES % 5.1 % (0.0-11.0); NEUTROPHIL # 5.3 10^3/ul (1.6-7.5); NEUTROPHILS % 61.7 % (39.0-77.0); PLATELET COUNT 436 10^3/UL (140-415); RED BLOOD COUNT 4.03 10^6/ul (4.20-5.40); RED CELL DISTRIBUTION WIDTH 13.5 % (11.5-14.5); WHITE BLOOD COUNT 8.7 10^3/ul (4.8-10.8)
[2017-05-27 06:38] LABS: CALCIUM 9.9 mg/dl (8.4-10.2); CREATININE 0.67 mg/dl (0.44-1.00); POTASSIUM 3.6 mmol/L (3.5-5.1)
[2017-05-27 07:15] VITALS: BP 132/78; RESP 18
[2017-05-27] MEDS: ACCU-CHEK XX SCH ×2 (09:00→21:00)
[2017-05-27] MEDS: MEROPENEM 1 GM/50ML(PMX) 50 ML IVPB SCH (09:55)
[2017-05-27] MEDS: FAMOTIDINE 20 MG TAB PO SCH (09:56)
[2017-05-27 14:00] VITALS: BP 144/86; RESP 16
--- NOTE | 2017-05-27 17:56 | PN ---
Date/Time of Note Date/Time of Note DATE: 05/27/17 TIME: 17:54 Assessment/Plan VTE Prophylaxis VTE Prophylaxis Intervention: SCD's Lines/Catheters IV [facility] ([facility] PICC Line Central line still needed: Yes Urinary Cath still in place: No Assessment/Plan Chief Complaint/Hosp Course Patient remains hemodynamically stable, no fever tolerates current diet well. Assessment/Plan - Chest pain, resolved. Cardiac enzymes are negative 3. CTA is negative for pulmonary emboli. Dr. 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 - S/p laparotomy with enterolysis, small-bowel resection and anastomosis, supracervical hysterectomy, bilateral salpingectomy and ureteral dissection by Dr. Perdomo on 05/01/17. - Abdominal fluid collection versus abscess, s/p treatment with antibiotics. - S/p UTI. - Right staghorn calculus in the proximal right ureter, mild moderate hydronephrosis. S/p cystoscopy and right ureteral JJ stent placement on 05/[address] Bolton, urology consultation. Plan for cystoscopy and lithotripsy in a couple of weeks. - Anemia, transfuse PRN. Further recommendations based on clinical course. Plan of care discussed with Dr. Valle Problems: Exam/Review of Systems Vital Signs Vitals Vital Signs Date Time Temp Pulse Resp B/P Pulse Ox O2 Delivery O2 Flow Rate FiO2 05/27/17 14:00 98.9 68 16 144/86 99 05/25/17 16:53 2.0 Intake and Output 05/26/17 05/26/17 05/27/17 15:00 23:00 07:00 Intake Total 300 ml 550 ml 820 ml Output Total 100 ml Balance 300 ml 550 ml 720 ml Exam Constitutional: alert, oriented Neck: supple Respiratory: normal air movement Cardiovascular: nl pulses Gastrointestinal: other (Surgical incision, right lower quadrant ileostomy, left lower quadrant AIDEN), soft Extremities: normal pulses Neurological: nl mental status Results Result Diagram: 05/27/17 0502 05/27/17 0502 Results 24 hrs Laboratory Tests Test 05/26/17 21:07 05/27/17 05:02 05/27/17 09:55 Bedside Glucose 77 113 White Blood Count 8.7 # Red Blood Count 4.03 L Hemoglobin 11.6 L Hematocrit 35.9 L Mean Corpuscular Volume 89.1 Mean Corpuscular Hemoglobin 28.8 L Mean Corpuscular Hemoglobin Concent 32.3 Red Cell Distribution Width 13.5 Platelet Count 436 #H Mean Platelet Volume 10.0 Neutrophils % 61.7 Lymphocytes % 25.5 Monocytes % 5.1 Eosinophils % 6.1 Basophils % 0.8 Nucleated Red Blood Cells % 0.0 Neutrophils # 5.3 Lymphocytes # 2.2 Monocytes # 0.4 Eosinophils # 0.5 Basophils # 0.1 Nucleated Red Blood Cells # 0.0 Sodium Level 137 Potassium Level 3.6 Chloride Level 98 Carbon Dioxide Level 30 Anion Gap 13 Blood Urea Nitrogen 10 Creatinine 0.67 Glucose Level 73 Calcium Level 9.9 Medications Medications Current Medications Ondansetron HCl (Zofran Inj) 4 mg Q6H PRN IV NAUSEA AND/OR VOMITING Last administered on 05/27/17 15:32; Admin Dose 4 MG; Start 05/01/17 at 23:30 IV Flush (NS 10 ml) 10 ml PRN PRN IV IV PROTOCOL; Start 05/12/17 at 12:00 Diagnostic Test (Pha) (Accu-Chek) 1 ea Q12 XX Last administered on 05/26/17 08 :35; Admin Dose 1 EA; Start 05/17/17 at 21:00 Acetaminophen 650 mg 650 mg Q4H PRN PO PAIN AND OR ELEVATED TEMP Last administered on 05/26/17 10:05; Admin Dose 650 MG; Start 05/17/17 at 21:00 Potassium Chloride/Lactated Ringer's (KCl/Lr) 1,010 ml @ 70 mls/hr [id number] IV Last administered on 05/27/17 15:24; Admin Dose 70 MLS/HR; Start 05/18/17 at 18 :30 Hydromorphone HCl (Dilaudid) 0.5 mg Q3H PRN IV PAIN Last administered on 21:18; Admin Dose 0.5 MG; Start 05/22/17 at 05:30 Famotidine (Pepcid) 20 mg DAILY PO Last administered on 05/27/17 09:56; Admin Dose 20 MG; Start 05/27/17 at 09:00 KERI DE LA GARZA May 27, 2017 17:56 KEIR DE LA GARZA May 27, 2017 17:56
[2017-05-27] MEDS: HYDROmorphONE 1 MG/ML SYG IV PRN (18:39)
[2017-05-27 19:57] VITALS: BP 113/73; RESP 18
[2017-05-28 02:39] VITALS: BP 130/77; RESP 18
[2017-05-28] MEDS: HYDROmorphONE 1 MG/ML SYG IV PRN ×2 (06:11→17:15)
[2017-05-28 06:23] LABS: BASOPHIL # 0.1 10^3/ul (0.0-0.1); BASOPHILS % 0.8 % (0.0-2.0); EOSINOPHILS # 0.5 10^3/ul (0.0-0.5); HEMATOCRIT 38.5 % (37.0-47.0); HEMOGLOBIN 12.4 g/dl (12.0-16.0); LYMPHOCYTES # 2.4 10^3/ul (0.8-2.9); LYMPHOCYTES % 28.4 % (15.0-51.0); MEAN CORPUSCULAR HEMOGLOBIN 28.4 pg (29.0-33.0); MEAN CORPUSCULAR HGB CONC 32.2 g/dl (32.0-37.0); MEAN CORPUSCULAR VOLUME 88.1 fl (82.0-101.0); MEAN PLATELET VOLUME 9.8 fl (7.4-10.4); MONOCYTE # 0.5 10^3/ul (0.3-0.9); MONOCYTES % 5.3 % (0.0-11.0); NEUTROPHILS % 58.9 % (39.0-77.0); PLATELET COUNT 440 10^3/UL (140-415); RED BLOOD COUNT 4.37 10^6/ul (4.20-5.40); RED CELL DISTRIBUTION WIDTH 13.7 % (11.5-14.5); WHITE BLOOD COUNT 8.5 10^3/ul (4.8-10.8)
[2017-05-28 06:57] LABS: CALCIUM 10.3 mg/dl (8.4-10.2); CREATININE 0.73 mg/dl (0.44-1.00); POTASSIUM 3.6 mmol/L (3.5-5.1)
[2017-05-28 08:00] VITALS: BP 124/76; RESP 18
--- NOTE | 2017-05-28 08:25 | PN ---
Date/Time of Note Date/Time of Note DATE: 05/28/17 TIME: 08:22 Assessment/Plan VTE Prophylaxis VTE Prophylaxis Intervention: SCD's Lines/Catheters IV Catheter Type (from [facility]): PICC Line Central line still needed: Yes Urinary Cath still in place: No Assessment/Plan Chief Complaint/Hosp Course 46-year-old female who initially underwent a total colon resection because of cancer. 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 Patient does have a right renal staghorn calculus, and right upper ureteral stones that were blocking her kidney and causing hydronephrosis. She is status post cystoscopy and insertion of right ureteral JJ stent. She denies having any flank pain and she is voiding well and there is no hematuria. Plan is to do a cystoscopy right ureteroscopy and laser lithotripsy to the stones in the right ureter in about 2-3 weeks Problems: Subjective 24 Hr Interval Summary Constitutional: no complaints Eyes: no complaints ENT: no complaints Respiratory: no complaints Cardiovascular: no complaints Gastrointestinal: no complaints Genitourinary: other (Voiding well), No bleeding, No hematuria Musculoskeletal: no complaints Neurologic: no complaints Exam/Review of Systems Vital Signs Vitals Vital Signs Date Time Temp Pulse Resp B/P Pulse Ox O2 Delivery O2 Flow Rate FiO2 05/28/17 02:39 98.2 63 18 130/77 97 05/25/17 16:53 2.0 Intake and Output 05/27/17 05/27/17 05/28/17 15:00 23:00 07:00 Intake Total 50 ml 1360 ml 700 ml Balance 50 ml 1360 ml 700 ml Exam Constitutional: alert, oriented Psych: no complaints Head: normocephalic ENMT: nl external ears & nose Neck: non-tender Respiratory: normal air movement Cardiovascular: No edema Gastrointestinal: other (Colostomy), soft, surgical scars Results Result Diagram: 05/28/17 0552 05/28/17 0552 Results 24 hrs Laboratory Tests Test 05/27/17 09:55 05/27/17 21:54 05/28/17 05:52 Bedside Glucose 113 83 White Blood Count 8.5 Red Blood Count 4.37 Hemoglobin 12.4 Hematocrit 38.5 Mean Corpuscular Volume 88.1 Mean Corpuscular Hemoglobin 28.4 L Mean Corpuscular Hemoglobin Concent 32.2 Red Cell Distribution Width 13.7 Platelet Count 440 H Mean Platelet Volume 9.8 Neutrophils % 58.9 Lymphocytes % 28.4 Monocytes % 5.3 Eosinophils % 6.0 Basophils % 0.8 Nucleated Red Blood Cells % 0.0 Neutrophils # 5.0 Lymphocytes # 2.4 Monocytes # 0.5 Eosinophils # 0.5 Basophils # 0.1 Nucleated Red Blood Cells # 0.0 Sodium Level 139 Potassium Level 3.6 Chloride Level 98 Carbon Dioxide Level 32 H Anion Gap 13 Blood Urea Nitrogen 11 Creatinine 0.73 Glucose Level 84 Calcium Level 10.3 H Medications Medications Current Medications Ondansetron HCl (Zofran Inj) 4 mg Q6H PRN IV NAUSEA AND/OR VOMITING Last administered on 05/27/17 15:32; Admin Dose 4 MG; Start 05/01/17 at 23:30 IV Flush (NS 10 ml) 10 ml PRN PRN IV IV PROTOCOL; Start 05/12/17 at 12:00 Diagnostic Test (Pha) (Accu-Chek) 1 ea Q12 XX Last administered on 05/26/17 08 :35; Admin Dose 1 EA; Start 05/17/17 at 21:00 Acetaminophen 650 mg 650 mg Q4H PRN PO PAIN AND OR ELEVATED TEMP Last administered on 05/26/17 10:05; Admin Dose 650 MG; Start 05/17/17 at 21:00 Potassium Chloride/Lactated Ringer's (KCl/Lr) 1,010 ml @ 70 mls/hr [id number] IV Last administered on 05/27/17 15:24; Admin Dose 70 MLS/HR; Start 05/18/17 at 18 :30 Hydromorphone HCl (Dilaudid) 0.5 mg Q3H PRN IV PAIN Last administered on 06:11; Admin Dose 0.5 MG; Start 05/22/17 at 05:30 Famotidine (Pepcid) 20 mg DAILY PO Last administered on 05/27/17 09:56; Admin Dose 20 MG; Start 05/27/17 at 09:00 ADDY WALKER MD May 28, 2017 08:25
[2017-05-28] MEDS: ACCU-CHEK XX SCH ×2 (09:00→20:55)
[2017-05-28] MEDS: POTASSIUM CHLORIDE 20 MEQ in LACTATED RINGER'S 1,000 ML IV SCH (09:56)
[2017-05-28] MEDS: FAMOTIDINE 20 MG TAB PO SCH (09:56)
--- NOTE | 2017-05-28 12:47 | RADRPT ---
PROCEDURE: XR Abdomen. CLINICAL INDICATION: Abdomen pain. TECHNIQUE: AP supine abdomen x-ray. COMPARISON: 05/23/2017. FINDINGS: The bowel gas pattern is normal. There is no evidence of obstruction. There is a right ureteral double pigtail stent in satisfactory position. Possible calculi are presen t in the lower right kidney. There is a probable 0.2 cm calculus in the distal right ureter overlyin g the stent. There are no other urinary tract calculi visualized. Surgical angeles are present in bowel in the pelvis. The osseus structures are unremarkable. IMPRESSION: 1. Right ureteral double pigtail stent in satisfactory position. 2. Possible calculi in the lower right kidney. 3. Probable 0.2 cm calculus in the distal right ureter overlying the stent. 4. Prior bowel surgery in the pelvis. 5. No other change from 05/23/2017. RPTAT: QQ .Ron Bautista MD, MD Date Time Electronically viewed and signed by .Ron Bautista MD, MD on 05/28/2017 12:47 .R/
[2017-05-28 14:00] VITALS: BP 116/71; RESP 20
--- NOTE | 2017-05-28 16:05 | PN ---
Date/Time of Note Date/Time of Note DATE: 05/28/17 TIME: 16:03 Assessment/Plan VTE Prophylaxis VTE Prophylaxis Intervention: SCD's Lines/Catheters IV [facility] Type [facility] PICC Line Central line still needed: Yes Urinary Cath still in place: No Assessment/Plan Chief Complaint/Hosp Course Patient remains hemodynamically stable, tolerates diet well. Assessment/Plan - Chest pain, resolved. Cardiac enzymes are negative 3. CTA is negative for pulmonary emboli. Dr. 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 - S/p laparotomy with enterolysis, small-bowel resection and anastomosis, supracervical hysterectomy, bilateral salpingectomy and ureteral dissection by Dr. Perdomo on 05/01/17. - Abdominal fluid collection versus abscess, s/p treatment with antibiotics. - S/p UTI. - Right staghorn calculus in the proximal right ureter, mild moderate hydronephrosis. S/p cystoscopy and right ureteral JJ stent placement on 05/[address] Bolton, urology consultation. Plan for cystoscopy and lithotripsy in a couple of weeks. - Anemia, transfuse PRN. Further recommendations based on clinical course. Plan of care discussed with Dr. Valle Problems: Exam/Review of Systems Vital Signs Vitals Vital Signs Date Time Temp Pulse Resp B/P Pulse Ox O2 Delivery O2 Flow Rate FiO2 05/28/17 14:00 99.2 69 20 116/71 96 05/25/17 16:53 2.0 Intake and Output 05/27/17 05/27/17 05/28/17 15:00 23:00 07:00 Intake Total 50 ml 1360 ml 700 ml Balance 50 ml 1360 ml 700 ml Exam Constitutional: alert, oriented Neck: supple Respiratory: normal air movement Cardiovascular: nl pulses Gastrointestinal: other (Surgical incision, right lower quadrant ileostomy, left lower quadrant AIDEN), soft Extremities: normal pulses Neurological: nl mental status Results Result Diagram: 05/28/17 0552 05/28/17 0552 Results 24 hrs Laboratory Tests Test 05/27/17 21:54 05/28/17 05:52 05/28/17 09:51 Bedside Glucose 83 114 White Blood Count 8.5 Red Blood Count 4.37 Hemoglobin 12.4 Hematocrit 38.5 Mean Corpuscular Volume 88.1 Mean Corpuscular Hemoglobin 28.4 L Mean Corpuscular Hemoglobin Concent 32.2 Red Cell Distribution Width 13.7 Platelet Count 440 H Mean Platelet Volume 9.8 Neutrophils % 58.9 Lymphocytes % 28.4 Monocytes % 5.3 Eosinophils % 6.0 Basophils % 0.8 Nucleated Red Blood Cells % 0.0 Neutrophils # 5.0 Lymphocytes # 2.4 Monocytes # 0.5 Eosinophils # 0.5 Basophils # 0.1 Nucleated Red Blood Cells # 0.0 Sodium Level 139 Potassium Level 3.6 Chloride Level 98 Carbon Dioxide Level 32 H Anion Gap 13 Blood Urea Nitrogen 11 Creatinine 0.73 Glucose Level 84 Calcium Level 10.3 H Medications Medications Current Medications Ondansetron HCl (Zofran Inj) 4 mg Q6H PRN IV NAUSEA AND/OR VOMITING Last administered on 05/27/17 15:32; Admin Dose 4 MG; Start 05/01/17 at 23:30 IV Flush (NS 10 ml) 10 ml PRN PRN IV IV PROTOCOL; Start 05/12/17 at 12:00 Diagnostic Test (Pha) (Accu-Chek) 1 ea Q12 XX Last administered on 05/26/17 08 :35; Admin Dose 1 EA; Start 05/17/17 at 21:00 Acetaminophen 650 mg 650 mg Q4H PRN PO PAIN AND OR ELEVATED TEMP Last administered on 05/26/17 10:05; Admin Dose 650 MG; Start 05/17/17 at 21:00 Potassium Chloride/Lactated Ringer's (KCl/Lr) 1,010 ml @ 70 mls/hr [id number] IV Last administered on 05/28/17 09:56; Admin Dose 70 MLS/HR; Start 05/18/17 at 18 :30 Hydromorphone HCl (Dilaudid) 0.5 mg Q3H PRN IV PAIN Last administered on 06:11; Admin Dose 0.5 MG; Start 05/22/17 at 05:30 Famotidine (Pepcid) 20 mg DAILY PO Last administered on 05/28/17 09:56; Admin Dose 20 MG; Start 05/27/17 at 09:00 KERI DE LA GARZA May 28, 2017 16:05
[2017-05-28] MEDS: SOD CHLORIDE 0.9% 1,000 ML IV SCH (17:15)
[2017-05-28] MEDS: ONDANSETRON 4 MG INJ IV PRN (17:15)
[2017-05-28 21:18] VITALS: BP 121/75; RESP 18
[2017-05-29 02:00] VITALS: BP 129/71; RESP 18
[2017-05-29] MEDS: HYDROmorphONE 1 MG/ML SYG IV PRN ×3 (04:20→23:15)
[2017-05-29] MEDS: SOD CHLORIDE 0.9% 1,000 ML IV SCH (04:22)
[2017-05-29 05:37] LABS: BASOPHIL # 0.1 10^3/ul (0.0-0.1); BASOPHILS % 0.9 % (0.0-2.0); EOSINOPHILS # 0.5 10^3/ul (0.0-0.5); EOSINOPHILS % 8.3 % (0.0-7.0); HEMOGLOBIN 11.3 g/dl (12.0-16.0); LYMPHOCYTES # 1.7 10^3/ul (0.8-2.9); LYMPHOCYTES % 25.4 % (15.0-51.0); MEAN CORPUSCULAR HEMOGLOBIN 29.1 pg (29.0-33.0); MEAN CORPUSCULAR HGB CONC 32.3 g/dl (32.0-37.0); MEAN CORPUSCULAR VOLUME 90.2 fl (82.0-101.0); MEAN PLATELET VOLUME 10.4 fl (7.4-10.4); MONOCYTE # 0.4 10^3/ul (0.3-0.9); NEUTROPHIL # 3.8 10^3/ul (1.6-7.5); NEUTROPHILS % 58.8 % (39.0-77.0); PLATELET COUNT 343 10^3/UL (140-415); RED BLOOD COUNT 3.88 10^6/ul (4.20-5.40); RED CELL DISTRIBUTION WIDTH 13.8 % (11.5-14.5); WHITE BLOOD COUNT 6.5 10^3/ul (4.8-10.8)
[2017-05-29 06:10] LABS: CALCIUM 9.5 mg/dl (8.4-10.2); CREATININE 0.65 mg/dl (0.44-1.00); POTASSIUM 3.3 mmol/L (3.5-5.1)
[2017-05-29 08:00] VITALS: BP 129/79; RESP 18
[2017-05-29] MEDS: FAMOTIDINE 20 MG TAB PO SCH (09:38)
[2017-05-29] MEDS: ACCU-CHEK XX SCH ×2 (09:38→20:53)
--- NOTE | 2017-05-29 11:09 | PN ---
Date/Time of Note Date/Time of Note DATE: 05/29/17 TIME: 11:03 Assessment/Plan VTE Prophylaxis VTE Prophylaxis Intervention: ambulation, other Lines/Catheters IV Catheter Type (from [facility]): PICC Line Central line still needed: Yes Urinary Cath still in place: No Assessment/Plan Assessment/Plan -Hypokalemia- replace K - AM bmp - Chest pain, resolved. Cardiac enzymes are negative 3. CTA is negative for pulmonary emboli. Dr. 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 - S/p laparotomy with enterolysis, small-bowel resection and anastomosis, supracervical hysterectomy, bilateral salpingectomy and ureteral dissection by Dr. Perdomo on 05/01/17. - Abdominal fluid collection versus abscess, s/p treatment with antibiotics. - S/p UTI. - Right staghorn calculus in the proximal right ureter, mild moderate hydronephrosis. S/p cystoscopy and right ureteral JJ stent placement on 05/[address] Bolton, urology consultation. Plan for cystoscopy and lithotripsy in a couple of weeks. - Anemia, - H/H stable, transfuse PRN. Further recommendations based on clinical course. Plan of care discussed with Dr. Valle Subjective 24 Hr Interval Summary Free Text/Dictation Ambulating in hallway- no distress noted, denies any chest pain, shortness of breath, surgical pain, vss, feels better, K is low- will replace, tolerates diet well- dw staff Respiratory: no complaints Cardiovascular: no complaints Gastrointestinal: no complaints Genitourinary: no complaints Exam/Review of Systems Vital Signs Vitals Vital Signs Date Time Temp Pulse Resp B/P Pulse Ox O2 Delivery O2 Flow Rate FiO2 05/29/17 08:00 98.8 80 18 129/79 96 05/25/17 16:53 2.0 Intake and Output 05/28/17 05/28/17 05/29/17 15:00 23:00 07:00 Intake Total 210 ml 1010 ml 1450 ml Output Total 3 ml Balance 210 ml 1007 ml 1450 ml Exam Constitutional: alert, oriented, well developed Respiratory: clear to auscultation, diminished breath sounds Cardiovascular: nl pulses, regular rate and rhythm Gastrointestinal: non-tender, soft Musculoskeletal: nl extremities to inspection Extremities: normal pulses Neurological: nl mental status, nl speech Results Result Diagram: 05/29/177 05/29/17446 Results 24 hrs Laboratory Tests Test 05/28/17 17:10 05/28/17 20:54 05/29/17 04:47 05/29/17 09:37 Calcium Level 9.7 9.5 Bedside Glucose 85 96 White Blood Count 6.5 # Red Blood Count 3.88 L Hemoglobin 11.3 L Hematocrit 35.0 L Mean Corpuscular Volume 90.2 Mean Corpuscular Hemoglobin 29.1 Mean Corpuscular Hemoglobin Concent 32.3 Red Cell Distribution Width 13.8 Platelet Count 343 # Mean Platelet Volume 10.4 Neutrophils % 58.8 Lymphocytes % 25.4 Monocytes % 6.0 Eosinophils % 8.3 H Basophils % 0.9 Nucleated Red Blood Cells % 0.0 Neutrophils # 3.8 Lymphocytes # 1.7 Monocytes # 0.4 Eosinophils # 0.5 Basophils # 0.1 Nucleated Red Blood Cells # 0.0 Sodium Level 141 Potassium Level 3.3 L Chloride Level 102 Carbon Dioxide Level 30 Anion Gap 12 Blood Urea Nitrogen 10 Creatinine 0.65 Glucose Level 91 Medications Medications Current Medications Ondansetron HCl (Zofran Inj) 4 mg Q6H PRN IV NAUSEA AND/OR VOMITING Last administered on 05/28/17 17:15; Admin Dose 4 MG; Start 05/01/17 at 23:30 IV Flush (NS 10 ml) 10 ml PRN PRN IV IV PROTOCOL; Start 05/12/17 at 12:00 Diagnostic Test (Pha) (Accu-Chek) 1 ea Q12 XX Last administered on 05/29/17 09 :38; Admin Dose 1 EA; Start 05/17/17 at 21:00 Acetaminophen 650 mg 650 mg Q4H PRN PO PAIN AND OR ELEVATED TEMP Last administered on 05/26/17 10:05; Admin Dose 650 MG; Start 05/17/17 at 21:00 Potassium Chloride/Lactated Ringer's (KCl/Lr) 1,010 ml @ 70 mls/hr [id number] IV Last administered on 05/28/17 09:56; Admin Dose 70 MLS/HR; Start 05/18/17 at 18 :30 Hydromorphone HCl (Dilaudid) 0.5 mg Q3H PRN IV PAIN Last administered on 04:20; Admin Dose 0.5 MG; Start 05/22/17 at 05:30 Famotidine 20 mg 20 mg DAILY PO Last administered on 05/29/17 09:38; Admin Dose 20 MG; Start 05/27/17 at 09:00 Sodium Chloride (NS) 1,000 ml @ 80 mls/hr [id number] IV Last administered on 05/29 04:22; Admin Dose 80 MLS/HR; Start 05/28/17 at 16:30 EMILI DUARTE May 29, 2017 11:08
[2017-05-29] MEDS ORDERED: POTASSIUM CHLORIDE (SR) 20 MEQ TAB PO STA (11:18)
[2017-05-29] MEDS ORDERED: POTASSIUM CHLORIDE 20 MEQ in SOD CHLORIDE 0.9% 100 ML IVPB ONE (11:30)
[2017-05-29 12:00] VITALS: BP 133/74; RESP 20
[2017-05-29] MEDS: 1/2 NS + KCL 20 MEQ 1,000 ML IV SCH (12:12)
--- NOTE | 2017-05-29 12:26 | PN ---
DATE: 05/29/2017 SUBJECTIVE: The patient states that she is feeling better. She denies having any pain. She does h ave a stone in the right upper ureter and a staghorn in the right kidney. She is status post cystos copy and insertion of a JJ stent. The patient is also status post colon resection and ileostomy and hysterectomy for Quan syndrome. OBJECTIVE: VITAL SIGNS: Temperature is 98.2, pulse 58, respiration 18, blood pressure 129/71. ABDOMEN: Shows multiple scars, no abdominal mass palpable, and she does have the ileostomy. The pa tient is voiding well and the urine is clear. LABORATORY DATA: Her CBC shows a white count of 6.5, hemoglobin 11.3, hematocrit 35.0, BUN is 10, c reatinine 0.65, and the sodium 141, potassium 3.3, chloride 102, CO2 , the patient had a KUB do ne yesterday, and on that a KUB it showed that right ureteral JJ stent in satisfactory position, pos sible calculi in the lower part of the right kidney, and that is what it was on the CT scan, probabl e 2 mm calculus in the right distal ureter overlying the stent, prior bowel surgery in the pelvis an d that no changes from the prior KUB. IMPRESSION: Right ureteral stones that were obstructing her right kidney and status post a JJ stent insertion. Also, patient does have a right renal staghorn calculus. PLAN: To keep the JJ stent in and we scheduled her for cystoscopy, right ureteroscopy, laser lithot ripsy in a couple of weeks. I already requested the authorization from her insurance and then we wi ll schedule her for the procedure. Dictated By: ADDY VILLEGAS/SAV Conf#: [id number] DID#: [id number]
--- NOTE | 2017-05-29 18:08 | PN ---
Date/Time of Note Date/Time of Note DATE: 05/29/17 TIME: 18:04 Assessment/Plan VTE Prophylaxis VTE Prophylaxis Intervention: SCD's Lines/Catheters IV Catheter Type (from [facility]): PICC Line Central line still needed: Yes Urinary Cath still in place: No Assessment/Plan Chief Complaint/Hosp Course Quan syndrome and impending SBO Problems: Assessment/Plan A- overall doing adequate P- if continues OK off abx and antifungal agents can be discharged if OK with Dr. Valle and Che and Cardio if needed.I will see in my office. Subjective 24 Hr Interval Summary Free Text/Dictation Feels better and eats with + ost fct. Mild incisional discomfort Exam/Review of Systems Vital Signs Vitals Vital Signs Date Time Temp Pulse Resp B/P Pulse Ox O2 Delivery O2 Flow Rate FiO2 05/29/17 12:00 98.6 68 20 133/74 98 05/25/17 16:53 2.0 Intake and Output 05/28/17 05/28/17 05/29/17 15:00 23:00 07:00 Intake Total 210 ml 1010 ml 1450 ml Output Total 3 ml Balance 210 ml 1007 ml 1450 ml Exam Resp- clear CVS- NSR Abd-mildly tender and + ost ct Results Result Diagram: 05/29/17 0447 05/29/17 0447 Results 24 hrs Laboratory Tests Test 05/28/17 20:54 05/29/17 04:47 05/29/17 09:37 Bedside Glucose 85 96 White Blood Count 6.5 # Red Blood Count 3.88 L Hemoglobin 11.3 L Hematocrit 35.0 L Mean Corpuscular Volume 90.2 Mean Corpuscular Hemoglobin 29.1 Mean Corpuscular Hemoglobin Concent 32.3 Red Cell Distribution Width 13.8 Platelet Count 343 # Mean Platelet Volume 10.4 Neutrophils % 58.8 Lymphocytes % 25.4 Monocytes % 6.0 Eosinophils % 8.3 H Basophils % 0.9 Nucleated Red Blood Cells % 0.0 Neutrophils # 3.8 Lymphocytes # 1.7 Monocytes # 0.4 Eosinophils # 0.5 Basophils # 0.1 Nucleated Red Blood Cells # 0.0 Sodium Level 141 Potassium Level 3.3 L Chloride Level 102 Carbon Dioxide Level 30 Anion Gap 12 Blood Urea Nitrogen 10 Creatinine 0.65 Glucose Level 91 Calcium Level 9.5 Medications Medications Current Medications Ondansetron HCl (Zofran Inj) 4 mg Q6H PRN IV NAUSEA AND/OR VOMITING Last administered on 05/28/17 17:15; Admin Dose 4 MG; Start 05/01/17 at 23:30 IV Flush (NS 10 ml) 10 ml PRN PRN IV IV PROTOCOL; Start 05/12/17 at 12:00 Diagnostic Test (Pha) (Accu-Chek) 1 ea Q12 XX Last administered on 05/29/17 09 :38; Admin Dose 1 EA; Start 05/17/17 at 21:00 Acetaminophen (Tylenol Tab) 650 mg Q4H PRN PO PAIN AND OR ELEVATED TEMP Last administered on 05/26/17 10:05; Admin Dose 650 MG; Start 05/17/17 at 21:00 Hydromorphone HCl (Dilaudid) 0.5 mg Q3H PRN IV PAIN Last administered on 04:20; Admin Dose 0.5 MG; Start 05/22/17 at 05:30 Famotidine 20 mg 20 mg DAILY PO Last administered on 05/29/17 09:38; Admin Dose 20 MG; Start 05/27/17 at 09:00 Potassium Chloride/Sodium Chloride (1/2 NS + KCl 20 Meq) 1,000 ml @ 70 mls/hr [id number] IV Last administered on 05/29/17 12:12; Admin Dose 70 MLS/HR; Start 05/29/17 at 12:00 HELEN FULTON MD May 29, 2017 18:08
[2017-05-29 19:35] VITALS: BP 144/78; RESP 16
[2017-05-30 01:57] VITALS: BP 121/77; RESP 16
[2017-05-30] MEDS: 1/2 NS + KCL 20 MEQ 1,000 ML IV SCH ×3 (02:18→20:15)
[2017-05-30 06:00] LABS: BASOPHIL # 0.1 10^3/ul (0.0-0.1); BASOPHILS % 1.1 % (0.0-2.0); EOSINOPHILS # 0.6 10^3/ul (0.0-0.5); EOSINOPHILS % 10.2 % (0.0-7.0); HEMATOCRIT 33.6 % (37.0-47.0); HEMOGLOBIN 11.2 g/dl (12.0-16.0); LYMPHOCYTES # 1.8 10^3/ul (0.8-2.9); LYMPHOCYTES % 29.7 % (15.0-51.0); MEAN CORPUSCULAR HEMOGLOBIN 29.7 pg (29.0-33.0); MEAN CORPUSCULAR HGB CONC 33.3 g/dl (32.0-37.0); MEAN CORPUSCULAR VOLUME 89.1 fl (82.0-101.0); MEAN PLATELET VOLUME 10.5 fl (7.4-10.4); MONOCYTE # 0.4 10^3/ul (0.3-0.9); MONOCYTES % 5.8 % (0.0-11.0); NEUTROPHIL # 3.3 10^3/ul (1.6-7.5); NEUTROPHILS % 52.7 % (39.0-77.0); PLATELET COUNT 312 10^3/UL (140-415); RED BLOOD COUNT 3.77 10^6/ul (4.20-5.40); RED CELL DISTRIBUTION WIDTH 13.6 % (11.5-14.5); WHITE BLOOD COUNT 6.2 10^3/ul (4.8-10.8)
[2017-05-30 06:45] LABS: CALCIUM 9.8 mg/dl (8.4-10.2); CREATININE 0.65 mg/dl (0.44-1.00); POTASSIUM 3.5 mmol/L (3.5-5.1)
[2017-05-30 08:00] VITALS: BP 126/76; RESP 20
--- NOTE | 2017-05-30 08:38 | PN ---
Date/Time of Note Date/Time of Note DATE: 05/30/17 TIME: 08:34 Assessment/Plan VTE Prophylaxis VTE Prophylaxis Intervention: ambulation Lines/Catheters IV Catheter Type (from [facility]): PICC Line Central line still needed: Yes Urinary Cath still in place: No Assessment/Plan Chief Complaint/Hosp Course 46-year-old female who initially underwent a total colon resection because of cancer. 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 Patient does have a right renal staghorn calculus, and right upper ureteral stones that were blocking her kidney and causing hydronephrosis. She is status post cystoscopy and insertion of right ureteral JJ stent. She denies having any flank pain and she is voiding well and there is no hematuria. Plan is to do a cystoscopy right ureteroscopy and laser lithotripsy to the stones in the right ureter on June 12, 2017 as outpatient here at [facility]. I informed the patient of the date and I have explained the procedure to her. Problems: Subjective 24 Hr Interval Summary Constitutional: no complaints Eyes: no complaints ENT: no complaints Respiratory: no complaints Cardiovascular: no complaints Gastrointestinal: passing stool, No diarrhea, No nausea, No vomiting Genitourinary: No bleeding, No dysuria Musculoskeletal: no complaints Skin: no complaints Neurologic: no complaints Exam/Review of Systems Vital Signs Vitals Vital Signs Date Time Temp Pulse Resp B/P Pulse Ox O2 Delivery O2 Flow Rate FiO2 05/30/17 08:00 97.8 68 20 126/76 96 Intake and Output 05/29/17 05/29/17 05/30/17 15:00 23:00 07:00 Intake Total 560 ml 1790 ml 1210 ml Output Total 275 ml Balance 560 ml 1515 ml 1210 ml Exam Constitutional: alert, oriented Psych: no complaints Head: normocephalic Eyes: nl conjunctiva ENMT: nl external ears & nose Neck: supple Respiratory: normal air movement Cardiovascular: No edema Gastrointestinal: other (Ileostomy), soft, surgical scars Genitourinary - Female: No CVA tenderness Extremities: No calf tenderness, No tenderness Results Result Diagram: 05/30/17 0430 05/30/17 0430 Results 24 hrs Laboratory Tests Test 05/29/17 09:37 05/29/17 20:53 05/30/17 04:30 Bedside Glucose 96 101 White Blood Count 6.2 Red Blood Count 3.77 L Hemoglobin 11.2 L Hematocrit 33.6 L Mean Corpuscular Volume 89.1 Mean Corpuscular Hemoglobin 29.7 Mean Corpuscular Hemoglobin Concent 33.3 Red Cell Distribution Width 13.6 Platelet Count 312 Mean Platelet Volume 10.5 H Neutrophils % 52.7 Lymphocytes % 29.7 Monocytes % 5.8 Eosinophils % 10.2 H Basophils % 1.1 Nucleated Red Blood Cells % 0.0 Neutrophils # 3.3 Lymphocytes # 1.8 Monocytes # 0.4 Eosinophils # 0.6 H Basophils # 0.1 Nucleated Red Blood Cells # 0.0 Sodium Level 137 Potassium Level 3.5 Chloride Level 100 Carbon Dioxide Level 29 Anion Gap 12 Blood Urea Nitrogen 9 Creatinine 0.65 Glucose Level 81 Calcium Level 9.8 Medications Medications Current Medications Ondansetron HCl (Zofran Inj) 4 mg Q6H PRN IV NAUSEA AND/OR VOMITING Last administered on 05/28/17 17:15; Admin Dose 4 MG; Start 05/01/17 at 23:30 IV Flush (NS 10 ml) 10 ml PRN PRN IV IV PROTOCOL; Start 05/12/17 at 12:00 Diagnostic Test (Pha) (Accu-Chek) 1 ea Q12 XX Last administered on 05/29/17 20 :53; Admin Dose 1 EA; Start 05/17/17 at 21:00 Acetaminophen (Tylenol Tab) 650 mg Q4H PRN PO PAIN AND OR ELEVATED TEMP Last administered on 05/26/17 10:05; Admin Dose 650 MG; Start 05/17/17 at 21:00 Hydromorphone HCl (Dilaudid) 0.5 mg Q3H PRN IV PAIN Last administered on 23:15; Admin Dose 0.5 MG; Start 05/22/17 at 05:30 Famotidine 20 mg 20 mg DAILY PO Last administered on 05/29/17 09:38; Admin Dose 20 MG; Start 05/27/17 at 09:00 Potassium Chloride/Sodium Chloride (1/2 NS + KCl 20 Meq) 1,000 ml @ 70 mls/hr [id number] IV Last administered on 05/30/17 02:18; Admin Dose 70 MLS/HR; Start 05/29/17 at 12:00 ADDY WALKER MD May 30, 2017 08:38
[2017-05-30] MEDS: FAMOTIDINE 20 MG TAB PO SCH (08:47)
[2017-05-30] MEDS: ACCU-CHEK XX SCH ×2 (08:48→21:00)
[2017-05-30] MEDS: HYDROmorphONE 1 MG/ML SYG IV PRN ×3 (11:21→20:12)
--- NOTE | 2017-05-30 13:17 | PN ---
Date/Time of Note Date/Time of Note DATE: 05/30/17 TIME: 13:14 Assessment/Plan VTE Prophylaxis VTE Prophylaxis Intervention: SCD's Lines/Catheters IV C[facility]ter Type (from [facility]): PICC Line Central line still needed: Yes Urinary Cath still in place: No Assessment/Plan Chief Complaint/Hosp Course Patient remains hemodynamically stable, tolerates diet well, complains of mild- to-moderate pain, afebrile Assessment/Plan - Chest pain, resolved. Cardiac enzymes are negative 3. CTA is negative for pulmonary emboli. Dr. 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 - S/p laparotomy with enterolysis, small-bowel resection and anastomosis, supracervical hysterectomy, bilateral salpingectomy and ureteral dissection by Dr. Perdomo on 05/01/17. - Abdominal fluid collection versus abscess, s/p treatment with antibiotics. - S/p UTI. - Right staghorn calculus in the proximal right ureter, mild moderate hydronephrosis. S/p cystoscopy and right ureteral JJ stent placement on 05/[address] Bolton, urology consultation. Plan for cystoscopy and lithotripsy in a couple of weeks. - Anemia, transfuse PRN. Further recommendations based on clinical course. Plan of care discussed with Dr. Valle Problems: Exam/Review of Systems Vital Signs Vitals Vital Signs Date Time Temp Pulse Resp B/P Pulse Ox O2 Delivery O2 Flow Rate FiO2 05/30/17 08:00 97.8 68 20 126/76 96 Intake and Output 05/29/17 05/29/17 05/30/17 15:00 23:00 07:00 Intake Total 560 ml 1790 ml 1210 ml Output Total 275 ml Balance 560 ml 1515 ml 1210 ml Exam Constitutional: alert, oriented Neck: supple Respiratory: normal air movement Cardiovascular: nl pulses Gastrointestinal: other (Surgical incision, right lower quadrant ileostomy, left lower quadrant AIDEN), soft Extremities: normal pulses Neurological: nl mental status Results Result Diagram: 05/30/17 04305/30/17 043 Results 24 hrs Laboratory Tests Test 05/29/17 20:53 05/30/17 04:30 05/30/17 08:46 Bedside Glucose 101 89 White Blood Count 6.2 Red Blood Count 3.77 L Hemoglobin 11.2 L Hematocrit 33.6 L Mean Corpuscular Volume 89.1 Mean Corpuscular Hemoglobin 29.7 Mean Corpuscular Hemoglobin Concent 33.3 Red Cell Distribution Width 13.6 Platelet Count 312 Mean Platelet Volume 10.5 H Neutrophils % 52.7 Lymphocytes % 29.7 Monocytes % 5.8 Eosinophils % 10.2 H Basophils % 1.1 Nucleated Red Blood Cells % 0.0 Neutrophils # 3.3 Lymphocytes # 1.8 Monocytes # 0.4 Eosinophils # 0.6 H Basophils # 0.1 Nucleated Red Blood Cells # 0.0 Sodium Level 137 Potassium Level 3.5 Chloride Level 100 Carbon Dioxide Level 29 Anion Gap 12 Blood Urea Nitrogen 9 Creatinine 0.65 Glucose Level 81 Calcium Level 9.8 Medications Medications Current Medications Ondansetron HCl (Zofran Inj) 4 mg Q6H PRN IV NAUSEA AND/OR VOMITING Last administered on 05/28/17 17:15; Admin Dose 4 MG; Start 05/01/17 at 23:30 IV Flush (NS 10 ml) 10 ml PRN PRN IV IV PROTOCOL; Start 05/12/17 at 12:00 Diagnostic Test (Pha) (Accu-Chek) 1 ea Q12 XX Last administered on 05/29/17 20 :53; Admin Dose 1 EA; Start 05/17/17 at 21:00 Acetaminophen (Tylenol Tab) 650 mg Q4H PRN PO PAIN AND OR ELEVATED TEMP Last administered on 05/26/17 10:05; Admin Dose 650 MG; Start 05/17/17 at 21:00 Hydromorphone HCl (Dilaudid) 0.5 mg Q3H PRN IV PAIN Last administered on 11:21; Admin Dose 0.5 MG; Start 05/22/17 at 05:30 Famotidine 20 mg 20 mg DAILY PO Last administered on 05/30/17 08:47; Admin Dose 20 MG; Start 05/27/17 at 09:00 Potassium Chloride/Sodium Chloride (1/2 NS + KCl 20 Meq) 1,000 ml @ 70 mls/hr [id number] IV Last administered on 05/30/17 02:18; Admin Dose 70 MLS/HR; Start 05/29/17 at 12:00 KERI DE LA GARZA May 30, 2017 13:17
[2017-05-30 14:00] VITALS: BP 107/71; RESP 18
[2017-05-30] MEDS ORDERED: HYDR-906 PO (17:51)
--- NOTE | 2017-05-30 19:38 | DS ---
Date/Time of Note Date/Time of Note DATE: 05/30/17 TIME: 19:36 Discharge Summary Admission/Discharge Info Admit Date/Time May 01, 2017 at 13:23 Discharge Date/Time Patient Condition: Stable Hx of Present Illness The patient is a 46-year-old female with Quan syndrome with history of multifocal colorectal cancer status post total proctocolectomy and loop diverting ileostomy, and history of dyslipidemia. The patient subsequently underwent ileostomy takedown back in April 2016. The patient has been followed by from Oncology standpoint. The patient was seen by Dr. Perdomo as an outpatient and underwent laparoscopy with enterolysis, laparotomy with enterolysis, small- bowel resection and anastomosis. Supracervical hysterectomy with bilateral salpingo-oophorectomy and bilateral uterine dissection. NG tube has been placed in. The patient is being admitted for further evaluation and management. The patient is breathing comfortably. Denies any chest pain. The patient's postop pain seems controlled. No reported shortness of breath. No reported leg pain or any focal weakness. Other than postoperative pain. The rest of the review of systems were unremarkable. Hospital Course - Chest pain, resolved. Cardiac enzymes are negative 3. CTA is negative for pulmonary emboli. Dr. 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 - S/p laparotomy with enterolysis, small-bowel resection and anastomosis, supracervical hysterectomy, bilateral salpingectomy and ureteral dissection by Dr. Perdomo on 05/01/17. - Abdominal fluid collection versus abscess, s/p treatment with antibiotics. - S/p UTI. - Right staghorn calculus in the proximal right ureter, mild moderate hydronephrosis. S/p cystoscopy and right ureteral JJ stent placement on 05/[address] Bolton, urology consultation. Plan for cystoscopy and lithotripsy in a couple of weeks. - Anemia, transfuse PRN. Home Meds Active Scripts Hydrocodone/Acetaminophen (Angora 5-325 Tablet) 1 Each Tablet, 1 EACH PO Q4 for PAIN, #30 TAB Prov:KERI DE LA GARZA 05/30/17 Reported Medications Gemfibrozil* (Gemfibrozil*) 600 Mg Tablet, 600 MG PO BID, TAB 05/01/17 Sertraline Hcl* (Sertraline Hcl*) 50 Mg Tablet, 50 MG PO DAILY, #30 TAB 05/01/17 Ferrous Sulfate* (Ferrous Sulfate*) 325 Mg Tabec, 325 MG PO DAILY, TAB 05/01/17 Allopurinol* (Allopurinol*) 100 Mg Tablet, 100 MG PO DAILY, TAB 05/01/17 Mcclure-3 Fatty Acids/Fish Oil (Fish Oil 1,000 mg Capsule) 1 Each Capsule, 1 EACH PO DAILY, CAP 05/01/17 Discontinued Scripts Ibuprofen* (Motrin*) 800 Mg Tab, 800 MG PO Q6H Y for PAIN AND OR ELEVATED TEMP, #30 TAB Prov:DOROTHY [employer] 01/13/17 Ferrous Sulfate* (Ferrous Sulfate*) 325 Mg Tabec, 325 MG PO TID for 30 Days, TAB 3 Refills Prov:RONEL FRIAS 02/15/16 Follow-up Plan Follow-up with Dr. Perdomo in 1-2 weeks, follow-up with Dr. Bolton in 2 weeks. Primary Care Provider Rhonda Epperson MD Pending Labs Laboratory Tests Test 05/29/17 20:53 05/30/17 04:30 05/30/17 08:46 Bedside Glucose 101mg/dL (70-220) 89mg/dL (70-220) White Blood Count 6.210^3/ul (4.8-10.8) Red Blood Count 3.7710^6/ul (4.20-5.40) Hemoglobin 11.2g/dl (12.0-16.0) Hematocrit 33.6% (37.0-47.0) Mean Corpuscular Volume 89.1fl (82.0-101.0) Mean Corpuscular Hemoglobin 29.7pg (29.0-33.0) Mean Corpuscular Hemoglobin Concent 33.3g/dl (32.0-37.0) Red Cell Distribution Width 13.6% (11.5-14.5) Platelet Count 54269^3/UL (140-415) Mean Platelet Volume 10.5fl (7.4-10.4) Neutrophils % 52.7% (39.0-77.0) Lymphocytes % 29.7% (15.0-51.0) Monocytes % 5.8% (0.0-11.0) Eosinophils % 10.2% (0.0-7.0) Basophils % 1.1% (0.0-2.0) Nucleated Red Blood Cells % 0.0/100WBC (0.0-0.0) Neutrophils # 3.310^3/ul (1.6-7.5) Lymphocytes # 1.810^3/ul (0.8-2.9) Monocytes # 0.410^3/ul (0.3-0.9) Eosinophils # 0.610^3/ul (0.0-0.5) Basophils # 0.110^3/ul (0.0-0.1) Nucleated Red Blood Cells # 0.010^3/ul (0.0-0.0) Sodium Level 137mmol/L (135-144) Potassium Level 3.5mmol/L (3.5-5.1) Chloride Level 100mmol/L (97-110) Carbon Dioxide Level 29mmol/L (21-31) Anion Gap 12 (8-16) Blood Urea Nitrogen 9mg/dl (7-20) Creatinine 0.65mg/dl (0.44-1.00) Glucose Level 81mg/dl (70-220) Calcium Level 9.8mg/dl (8.4-10.2) KERI DE LA GARZA May 30, 2017 19:38
[2017-05-30 20:56] VITALS: BP 174/79; RESP 16
== END 2017-05-30 20:55 | disposition home health service (06) | DRG 742 ==
LOC: REC 13:23 → MS1 05-02 01:53 → ICU 05-06 06:53 → MS1 05-08 10:16 → MS4 05-22 15:12 → PP2 05-26 22:36
PROVIDERS: ATTEND Internal Medicine
PROC: 0DNW4ZZ Release Peritoneum, Percutaneous Endoscopic Approach (ICD-10-PCS; 2017-05-01)
PROC: 0DN80ZZ Release Small Intestine, Open Approach (ICD-10-PCS; 2017-05-01)
PROC: 0DB80ZZ Excision of Small Intestine, Open Approach (ICD-10-PCS; 2017-05-01)
PROC: 0DN84ZZ Release Small Intestine, Percutaneous Endoscopic Approach (ICD-10-PCS; 2017-05-01)
PROC: 0TN74ZZ Release Left Ureter, Percutaneous Endoscopic Approach (ICD-10-PCS; 2017-05-01)
PROC: 0TN60ZZ Release Right Ureter, Open Approach (ICD-10-PCS; 2017-05-01)
PROC: 30233N1 Transfusion of Nonautologous Red Blood Cells into Peripheral Vein, Percutaneous Approach (ICD-10-PCS; 2017-05-01)
PROC: 0UT90ZL Resection of Uterus, Supracervical, Open Approach (ICD-10-PCS; principal; 2017-05-01 15:30)
PROC: 02HV33Z Insertion of Infusion Device into Superior Vena Cava, Percutaneous Approach (ICD-10-PCS; 2017-05-06)
PROC: 0T768DZ Dilation of Right Ureter with Intraluminal Device, Via Natural or Artificial Opening Endoscopic (ICD-10-PCS; 2017-05-21)
DX: N73.6 Female pelvic peritoneal adhesions (postinfective) (principal); N13.2 Hydronephrosis with renal and ureteral calculous obstruction; K66.8 Other specified disorders of peritoneum; N39.0 Urinary tract infection, site not specified; K91.89 Other postprocedural complications and disorders of digestive system; I10 Essential (primary) hypertension; D64.9 Anemia, unspecified; E87.6 Hypokalemia; E78.5 Hyperlipidemia, unspecified; R07.9 Chest pain, unspecified; Y83.2 Surgical operation with anastomosis, bypass or graft as the cause of abnormal reaction of the patient, or of later complication, without mention of misadventure at the time of the procedure; Y92.89 Other specified places as the place of occurrence of the external cause; Z15.09 Genetic susceptibility to other malignant neoplasm; Z85.038 Personal history of other malignant neoplasm of large intestine; Z90.49 Acquired absence of other specified parts of digestive tract; Z53.31 Laparoscopic surgical procedure converted to open procedure
CPT/HCPCS: 36430; 36569; 71010; 71275; 74000; 74178; 74430; 76937; 80048; 80053; 80061; 80076; 80202; 81001; 82247; 82248; 82310; 82550; 82553; 82962; 83735; 84100; 84134; 84439; 84443; 84478; 84484; 85014; 85018; 85025; 85378; 85610; 86304; 86850; 86900; 86901; 86920; 87040; 87081; 87086; 88305; 88307; 93005; 93306; 93970; 97116; 97162; 97530; J1940; C2617; J0131; J0690; J1100; J1170; J1200; J1450; J1885; J2175; J2185; J2250; J2270; J2274; J2405; J2543; J2765; J2997; J3010; J3370; J3475; J3480; J7030; J7040; J7050; J7120; J7999; P9016; P9045; Q9967

== ENCOUNTER 2017-06-12 10:15 | Day surgery (SDC) | payer OTHER ==
[~2017-06-12] VITALS: Ht 154.9 cm; Wt 47.5 kg
[2017-06-12] VITALS (21 sets, daily range): BP systolic 85–113; BP diastolic 46–72; PULSE 74–110; RESP 16–48; Ht 154.9 cm; Wt 47.5 kg
[~2017-06-12 10:15] MED LIST changes: -ACETAMINOPHEN 1000 MG/100 ML IVPB ONE; +ALLO100T PO; +CEFAZOLIN 1 GM INJ ONE; -CEFAZOLIN 2 GM/50 ML (PMX) 50 ML IVPB SCH; -DIPH25CA6 PO; +GEMF600T60 PO; -IBUP-1542 PO; -IBUP800T25 PO; -Metronidazole 500 MG in NS 100 ML IVPB SCH; +OMEG-135 PO; +SERT50TA6 PO; -TAMS-14 PO
--- NOTE | 2017-06-12 12:36 | HPN ---
Date/Time of Note Date/Time of Note DATE: 06/12/17 TIME: 12:36 Interval H&P Admission Note Pt. seen H&P reviewed: No system changes ADDY WALKER MD Jun 12, 2017 12:36
[2017-06-12] MEDS ORDERED: SUCCINYLCHOLINE CHLORIDE 100 MG/5 ML SYG IV ONE (12:37)
[2017-06-12] MEDS ORDERED: GLYCOPYRROLATE 0.4 MG INJ ONE (12:37)
[2017-06-12] MEDS ORDERED: ROCURONIUM 50 MG INJ ONE (12:37)
[2017-06-12] MEDS ORDERED: PROPOFOL 20 ML ONE (12:37)
[2017-06-12] MEDS ORDERED: LIDOCAINE 2% (SDV) 5 ML INJ ONE (12:37)
[2017-06-12] MEDS ORDERED: NEOSTIGMINE 3 MG/3 ML SYRINGE ONE ×2 (12:37→14:39)
[2017-06-12] MEDS ORDERED: ONDANSETRON 4 MG INJ ONE (14:32)
[2017-06-12] MEDS ORDERED: METOCLOPRAMIDE 10 MG INJ ONE (14:32)
--- NOTE | 2017-06-12 14:53 | OPR ---
Date/Time of Note Date/Time of Note DATE: 06/12/17 TIME: 14:43 Operative Report Procedure Date: Jun 12, 2017 Preoperative Diagnosis Right upper ureteral and renal stones Postoperative Diagnosis Right upper ureteral and renal stones Operation/Procedure Performed Cystoscopy right ureteral pyeloscopy, laser lithotripsy, removal and replacement of right ureteral JJ stent, the stent size is 6 Romanian by 22 cm long Surgeon see signature line As400 Developer None Anesthesia Type: general Anesthesiologist: JEAN CASTRO MD Estimated Blood Loss: minimal Transfusion none Specimen Right renal stone fragments Grafts/Implants none Complications none Pt Condition Post Procedure: stable Disposition: PACU Indications Right upper ureteral stones and the right renal stones Procedure Description The patient was brought to the operating room. Time out was done the patient was identified by her name, birthdate, the procedure and the side of the procedure. The patient was given 2 g of Ancef IV at the start of the procedure. The patient was then positioned in the lithotomy position and the genital area was prepped and draped in the usual sterile manner. #21 Romanian cystoscope sheath was introduced into the bladder, urine was collected for culture and sensitivity. The distal end of the right ureteral JJ stent was then grasped and pulled out to the urethral meatus. The distal curl of the stent was then cut and then I introduced a 0.035 zip wire into the lumen and advanced it under fluoroscopy all the way up to the kidney. The old JJ stent was then removed. A dual lumen catheter was then advanced on the wire and through the second lumen of the catheter a sensor wire was passed to the kidney. The dual-lumen was then removed and the sensor wire was used as a safety wire and secured, the other wire was used to advance the access sheath 11 -13 outside diameter and a 28 cm long., The digital flexible ureteroscope was then passed through the access sheath up to the level of the stones. The patient had numerous stones in the lower pole calyx and also in the middle pole calyx. There were no stones in the upper ureter it appears they did move back into the kidney after the placement of the JJ stent last time. the holmium laser was used to break the stones into multiple pieces. these pieces were then basketed one at a time.the ureter was cleared completely from the stone fragments. The patient still had 2 larger stones in the lower pole calyx that she will need a similar procedure in the past maybe once or twice. She does have small tiny stones in the middle and upper pole calyces and she should be able to pass these on her own. Then I reintroduced the cystoscope on the safety wire and inserted a 6 Romanian by 22 cm long JJ stent in the right ureter under fluoroscopy, had its proximal end curling into the kidney and the distal end curling into the bladder. The patient tolerated the procedure well and was transferred to recovery room in stable and satisfactory condition ADDY WALKER MD Jun 12, 2017 14:53
[2017-06-12] MEDS ORDERED: METOCLOPRAMIDE 10 MG INJ IV PRN (15:00)
[2017-06-12] MEDS ORDERED: LABETALOL HCL 20MG INJ IV PRN (15:00)
[2017-06-12] MEDS ORDERED: ONDANSETRON 4 MG INJ IV PRN (15:00)
[2017-06-12] MEDS ORDERED: HYDROCODONE/APAP (5/325) TAB PO PRN (15:00)
[2017-06-12] MEDS ORDERED: MIDAZOLAM 1 MG/ML 2 ML INJ IV PRN (15:00)
[2017-06-12] MEDS ORDERED: EPHEDrine SULFATE 50 MG/5 ML SYG IV PRN (15:00)
[2017-06-12] MEDS ORDERED: FENTAnyl 50 MCG/ML VIAL IV PRN ×2 (15:00)
[2017-06-12] MEDS ORDERED: HYDROmorphONE (0.2 MG/ML) 10ML SYG IV PRN ×3 (15:00)
[2017-06-12] MEDS ORDERED: OXYCODONE/ACETAMINOPHEN (5/325) TAB PO PRN ×2 (15:00)
[2017-06-12] MEDS ORDERED: hydrALAzine 20 MG INJ IV PRN (15:00)
[2017-06-12] MEDS ORDERED: MEPERIDINE 25 MG INJ IV PRN (15:00)
[2017-06-12] MEDS ORDERED: DIPHENHYDRAMINE 50 MG INJ IV PRN (15:00)
[2017-06-12] MEDS: FENTAnyl 50 MCG/ML VIAL IV PRN ×3 (15:32→15:58)
--- NOTE | 2017-06-12 23:20 | RADRPT ---
PROCEDURE: Intraoperative imaging of the abdomen and pelvis with fluoroscopy. CLINICAL INDICATION: Abdominal pain. Intraoperative. TECHNIQUE: 17 images of the abdomen and pelvis were obtained in the operating room with an image i ntensifier. No radiologist was in attendance. 82 seconds of fluoroscopy time was used. COMPARISON: Abdomen radiograph dated 05/28/2017. FINDINGS: Images demonstrate removal of the existing right ureteral double pigtail stent. Subsequent images de monstrate instrumentation of the right ureter and right kidney with a flexible endoscope. IMPRESSION: 1. Satisfactory intraoperative imaging of the abdomen and pelvis. RPTAT: QQ .Ron Bautista MD, Date Time Electronically viewed and signed by .Ron Bautista MD, on 06/12/2017 23:19 .R/
== END 2017-06-12 17:45 | disposition home or self-care (01) ==
LOC: SDS 10:15
PROVIDERS: ATTEND Urology
DX: N20.2 Calculus of kidney with calculus of ureter (principal); E78.5 Hyperlipidemia, unspecified; M10.9 Gout, unspecified; Z85.038 Personal history of other malignant neoplasm of large intestine
CPT/HCPCS: 74430; 84703; 87086; 88300; C2617; J0690; J2175; J2405; J2710; J2765; J3010

== ENCOUNTER 2017-06-15 17:57 | Inpatient (IN) | END 2017-07-02 21:41 | disposition home or self-care (01) | DRG 871 | DX: A41.9 Sepsis, unspecified organism (principal); K85.90 Acute pancreatitis without necrosis or infection, unspecified; N17.9 Acute kidney failure, unspecified; K76.0 Fatty (change of) liver, not elsewhere classified; N20.1 Calculus of ureter; B37.49 Other urogenital candidiasis; N20.0 Calculus of kidney; R07.9 Chest pain, unspecified; Z80.0 Family history of malignant neoplasm of digestive organs; Z15.09 Genetic susceptibility to other malignant neoplasm; Z93.2 Ileostomy status; Z98.0 Intestinal bypass and anastomosis status; E78.5 Hyperlipidemia, unspecified; F32.9 Major depressive disorder, single episode, unspecified; Z87.442 Personal history of urinary calculi; E87.6 Hypokalemia; R06.02 Shortness of breath ==

== ENCOUNTER 2017-10-15 06:05 | Day surgery (SDC) | END 2017-10-15 10:30 | disposition home or self-care (01) ==

== ENCOUNTER 2017-10-18 11:31 | Emergency (ER) | END 2017-10-18 13:10 | disposition home or self-care (01) ==

== ENCOUNTER 2017-11-04 01:33 | Emergency (ER) | END 2017-11-04 06:17 | disposition home or self-care (01) ==